=== PATIENT | male | born 1955 | race Caucasian/White ===

== ENCOUNTER 2020-12-14 17:30 | Inpatient (IN) | payer BC, MEDICARE ==
--- NOTE | 2020-12-14 18:58 | XR ---
EXAMINATION TYPE: XR chest 1V portable DATE OF EXAM: 12/14/2020 COMPARISON: NONE HISTORY: Shortness of breath TECHNIQUE: Single frontal view of the chest is obtained. FINDINGS: The cardiomediastinal silhouette and pulmonary vasculature is within normal limits. Bibasilar reticular opacity. Rounded opacity in the right hilar/infrahilar region with air bronchogra ms. The heart border is not effaced. No sizable effusion or pneumothorax. IMPRESSION: 1. Rounded opacity in the right hilar/infrahilar region with air bronchograms could represent pneumon ia in the appropriate clinical setting. Underlying mass is not excluded. 2. Low lung volumes with bibasilar strandy atelectasis.
[2020-12-14 19:15] LABS: Basophils % (A) 0 %; Eosinophils # (A) 0.1 k/uL (0-0.7); Eosinophils % (A) 1 %; HCT 40.4 % (39.0-53.0); HGB 14.5 gm/dL (13.0-17.5); Lymphocytes # (A) 0.9 k/uL (1.0-4.8); Lymphocytes % (A) 21 %; MCH 33.1 pg (25.0-35.0); MCHC 35.9 g/dL (31.0-37.0); MCV 92.2 fL (80.0-100.0); Monocytes # (A) 0.2 k/uL (0-1.0); Monocytes % (A) 5 %; Neutrophils # (A) 3.2 k/uL (1.3-7.7); Neutrophils % (A) 71 %; Platelet Count 105 k/uL (150-450); Poikilocytosis Slight; RBC 4.38 m/uL (4.30-5.90); RDW 13.9 % (11.5-15.5); WBC 4.5 k/uL (3.8-10.6)
[2020-12-14 20:09] LABS: INR 1.1 (<1.2); Partial Thromboplastin Time 22.9 sec (22.0-30.0); Prothrombin Time 11.8 sec (9.0-12.0)
[2020-12-14 20:13] LABS: ALT 40 U/L (4-49); AST 65 U/L (17-59); African American GFR (CKD) >90 (>60 ml/min/1.73 sqM); Albumin 3.7 g/dL (3.5-5.0); Alkaline Phosphatase 42 U/L (38-126); Anion Gap 7 mmol/L; Blood Urea Nitrogen 20 mg/dL (9-20); Calcium 8.2 mg/dL (8.4-10.2); Carbon Dioxide 23 mmol/L (22-30); Chloride 103 mmol/L (98-107); Glucose 113 mg/dL (74-99); Non-African American GFR(CKD) >90 (>60 ml/min/1.73 sqM); Sodium 133 mmol/L (137-145); Total Bilirubin 0.8 mg/dL (0.2-1.3)
[2020-12-14 20:14] LABS: Potassium 4.8 mmol/L (3.5-5.1)
[2020-12-14] MEDS ORDERED: ACETAMINOPHEN TAB 500 MG TAB PO STA (20:30)
[2020-12-14] MEDS ORDERED: NALOXONE 0.4 MG/ML 1 ML VIAL IV PRN (21:21)
--- NOTE | 2020-12-14 21:21 | ED ---
Fever HPI - General Chief Complaint: Fever Stated Complaint: SOB Time Seen by Provider: 12/14/20 17:45 Source: patient Mode of arrival: EMS Limitations: no limitations - History of Present Illness Initial Comments: She is a 65 year old previously healthy male who presents emergency Department with reported shortness of breath, fever, cough and fatigue for 4 days. He was recently traveling across the country on vacation. They do when he returned home he began having covid-like symptoms. Denies any known exposures. Patient has not Covid vaccinated. Patient has not been tested. His daughter is a home care nurse. She came over to the house today to check the patient's vitals. She found him to have oxygen saturation of 80% and therefore she called EMS. Patient does arrive on 4 L saturating 92%. He denies previous history of cardiac or pulmonary issues. Admits to poor appetite and hasn't had anything to eat or drink. No other alleviating, precipitating or modifying factors - Related Data Home Medications Medication Instructions Recorded Confirmed Acetaminophen Tab [Tylenol] 1,000 mg PO TID PRN 12/14/20 12/14/20 Allergies Allergy/AdvReac Type Severity Reaction Status Date / Time dextromethorphan AdvReac Nausea & Verified 12/14/20 23:16 [From NyQuil] Vomiting & Diarrhea doxylamine [From NyQuil] AdvReac Nausea & Verified 12/14/20 23:16 Vomiting & Diarrhea pseudoephedrine [From NyQuil] AdvReac Nausea & Verified 12/14/20 23:16 Vomiting & Diarrhea Review of Systems ROS Statement: Those systems with pertinent positive or pertinent negative responses have been documented in the HPI. ROS Other: All systems not noted in ROS Statement are negative. Past Medical History Past Medical History: Hypertension History of Any Multi-Drug Resistant Organisms: None Reported Additional Past Surgical History / Comment(s): shoulder sx Smoking Status: Never smoker Past Alcohol Use History: Daily Past Drug Use History: None Reported - Past Family History Father Family Medical History: No Reported History, Osteoarthritis (OA) Mother Additional Family Medical History / Comment(s): lung disease General Exam Limitations: no limitations General appearance: alert, in no apparent distress Head exam: Present: atraumatic, normocephalic, normal inspection Eye exam: Present: normal appearance, PERRL, EOMI. Absent: scleral icterus, conjunctival injection, periorbital swelling ENT exam: Present: normal exam, mucous membranes moist Neck exam: Present: normal inspection. Absent: tenderness, meningismus, lymphadenopathy Respiratory exam: Present: normal lung sounds bilaterally, accessory muscle use, other (tachypnia). Absent: respiratory distress, wheezes, rales, rhonchi, stridor Cardiovascular Exam: Present: regular rate, normal rhythm, normal heart sounds. Absent: systolic murmur, diastolic murmur, rubs, gallop, clicks GI/Abdominal exam: Present: soft, normal bowel sounds. Absent: distended, tenderness, guarding, rebound, rigid Extremities exam: Present: normal inspection, full ROM, normal capillary refill. Absent: tenderness, pedal edema, joint swelling, calf tenderness Back exam: Present: normal inspection Neurological exam: Present: alert, oriented X3, CN II-XII intact Psychiatric exam: Present: normal affect, normal mood Skin exam: Present: warm, dry, intact, normal color. Absent: rash Course Vital Signs 12/14/20 12/14/20 12/14/20 17:43 18:23 19:37 Temperature 102.2 F H 102.9 F H Pulse Rate 80 83 Respiratory 18 22 18 Rate Blood Pressure 150/70 115/77 O2 Sat by Pulse 92 L 94 L Oximetry 12/14/20 12/14/20 12/14/20 21:00 22:30 23:30 Temperature 98.4 F Pulse Rate 58 L 61 65 Respiratory 18 18 18 Rate Blood Pressure 126/80 122/69 120/75 O2 Sat by Pulse 94 L 93 L 95 Oximetry 12/15/20 12/15/20 12/15/20 00:13 01:00 02:00 Temperature Pulse Rate 56 L 57 L Respiratory 18 18 18 Rate Blood Pressure 109/74 O2 Sat by Pulse 94 L Oximetry 12/15/20 12/15/20 12/15/20 03:00 04:00 06:05 Temperature 97.6 F Pulse Rate 60 52 L 60 Respiratory 18 18 18 Rate Blood Pressure 124/75 139/79 O2 Sat by Pulse 95 96 97 Oximetry Medical Decision Making - Medical Decision Making Upon arrival patient is placed into room 17. Thorough history and physical exam is performed. Lab studies are conducted. Covid is positive. Chest x-ray demonstrates rotted opacity in the right hilar/infrahilar region with air bronchograms care and can represent pneumonia in the appropriate clinical setting. Patient was given a dose of Decadron and 75 mL of normal saline per hour. I did attempt to get the patient up and ambulate. He does desat to 88%. I recommended admission which the patient did agree to. Spoke with Dr. Hickman who agreed to admit the patient. he is currently awaiting a bed on the floor - Lab Data Result diagrams: 12/16/20 04:54 12/16/20 04:54 Lab Results 12/14/20 12/14/20 12/14/20 Range/Units 18:45 18:45 18:45 WBC 4.5 (3.8-10.6) k/uL RBC 4.38 (4.30-5.90) m/uL Hgb 14.5 (13.0-17.5) gm/dL Hct 40.4 (39.0-53.0) % MCV 92.2 (80.0-100.0) fL MCH 33.1 (25.0-35.0) pg MCHC 35.9 (31.0-37.0) g/dL RDW 13.9 (11.5-15.5) % Plt Count 105 L (150-450) k/uL MPV 11.0 Neutrophils % 71 % Lymphocytes % 21 % Monocytes % 5 % Eosinophils % 1 % Basophils % 0 % Neutrophils # 3.2 (1.3-7.7) k/uL Lymphocytes # 0.9 L (1.0-4.8) k/uL Monocytes # 0.2 (0-1.0) k/uL Eosinophils # 0.1 (0-0.7) k/uL Basophils # 0.0 (0-0.2) k/uL Poikilocytosis Slight PT (9.0-12.0) sec INR (<1.2) APTT (22.0-30.0) sec D-Dimer (<0.60) mg/L FEU Sodium (137-145) mmol/L Potassium (3.5-5.1) mmol/L Chloride (98-107) mmol/L Carbon Dioxide (22-30) mmol/L Anion Gap mmol/L BUN (9-20) mg/dL Creatinine (0.66-1.25) mg/dL Est GFR (CKD-EPI)AfAm (>60 ml/min/1.73 sqM) Est GFR (CKD-EPI)NonAf (>60 ml/min/1.73 sqM) Glucose (74-99) mg/dL Plasma Lactic Acid Mariano 1.1 (0.7-2.0) mmol/L Calcium (8.4-10.2) mg/dL Total Bilirubin (0.2-1.3) mg/dL AST (17-59) U/L ALT (4-49) U/L Alkaline Phosphatase (38-126) U/L Troponin I (0.000-0.034) ng/mL NT-Pro-B Natriuret Pep pg/mL Total Protein (6.3-8.2) g/dL Albumin (3.5-5.0) g/dL Coronavirus (PCR) Detected A (Not Detectd) 12/14/20 12/14/20 12/14/20 Range/Units 18:45 18:45 19:44 WBC (3.8-10.6) k/uL RBC (4.30-5.90) m/uL Hgb (13.0-17.5) gm/dL Hct (39.0-53.0) % MCV (80.0-100.0) fL MCH (25.0-35.0) pg MCHC (31.0-37.0) g/dL RDW (11.5-15.5) % Plt Count (150-450) k/uL MPV Neutrophils % % Lymphocytes % % Monocytes % % Eosinophils % % Basophils % % Neutrophils # (1.3-7.7) k/uL Lymphocytes # (1.0-4.8) k/uL Monocytes # (0-1.0) k/uL Eosinophils # (0-0.7) k/uL Basophils # (0-0.2) k/uL Poikilocytosis PT (9.0-12.0) sec INR (<1.2) APTT (22.0-30.0) sec D-Dimer (<0.60) mg/L FEU Sodium 133 L (137-145) mmol/L Potassium 4.8 (3.5-5.1) mmol/L Chloride 103 (98-107) mmol/L Carbon Dioxide 23 (22-30) mmol/L Anion Gap 7 mmol/L BUN 20 (9-20) mg/dL Creatinine 0.83 (0.66-1.25) mg/dL Est GFR (CKD-EPI)AfAm >90 (>60 ml/min/1.73 sqM) Est GFR (CKD-EPI)NonAf >90 (>60 ml/min/1.73 sqM) Glucose 113 H (74-99) mg/dL Plasma Lactic Acid Mariano (0.7-2.0) mmol/L Calcium 8.2 L (8.4-10.2) mg/dL Total Bilirubin 0.8 (0.2-1.3) mg/dL AST 65 H (17-59) U/L ALT 40 (4-49) U/L Alkaline Phosphatase 42 (38-126) U/L Troponin I 0.024 (0.000-0.034) ng/mL NT-Pro-B Natriuret Pep 73 pg/mL Total Protein 7.0 (6.3-8.2) g/dL Albumin 3.7 (3.5-5.0) g/dL Coronavirus (PCR) (Not Detectd) 12/14/20 12/15/20 12/15/20 Range/Units 19:44 06:59 06:59 WBC 4.4 (3.8-10.6) k/uL RBC 4.51 (4.30-5.90) m/uL Hgb 14.8 (13.0-17.5) gm/dL Hct 42.3 (39.0-53.0) % MCV 93.8 (80.0-100.0) fL MCH 32.7 (25.0-35.0) pg MCHC 34.9 (31.0-37.0) g/dL RDW 13.7 (11.5-15.5) % Plt Count 182 D (150-450) k/uL MPV 7.8 Neutrophils % 71 % Lymphocytes % 24 % Monocytes % 3 % Eosinophils % 0 % Basophils % 0 % Neutrophils # 3.1 (1.3-7.7) k/uL Lymphocytes # 1.1 (1.0-4.8) k/uL Monocytes # 0.2 (0-1.0) k/uL Eosinophils # 0.0 (0-0.7) k/uL Basophils # 0.0 (0-0.2) k/uL Poikilocytosis PT 11.8 (9.0-12.0) sec INR 1.1 (<1.2) APTT 22.9 (22.0-30.0) sec D-Dimer 0.68 H (<0.60) mg/L FEU Sodium 138 (137-145) mmol/L Potassium 4.2 (3.5-5.1) mmol/L Chloride 104 (98-107) mmol/L Carbon Dioxide 25 (22-30) mmol/L Anion Gap 9 mmol/L BUN 23 H (9-20) mg/dL Creatinine 0.80 (0.66-1.25) mg/dL Est GFR (CKD-EPI)AfAm >90 (>60 ml/min/1.73 sqM) Est GFR (CKD-EPI)NonAf >90 (>60 ml/min/1.73 sqM) Glucose 149 H (74-99) mg/dL Plasma Lactic Acid Mariano (0.7-2.0) mmol/L Calcium 8.3 L (8.4-10.2) mg/dL Total Bilirubin (0.2-1.3) mg/dL AST (17-59) U/L ALT (4-49) U/L Alkaline Phosphatase (38-126) U/L Troponin I (0.000-0.034) ng/mL NT-Pro-B Natriuret Pep pg/mL Total Protein (6.3-8.2) g/dL Albumin (3.5-5.0) g/dL Coronavirus (PCR) (Not Detectd) Disposition Clinical Impression: Pyrexia, Shortness of breath, COVID-19, Hypoxia Disposition: ADMITTED IP TO THIS [facility] Condition: Stable Decision to Admit Reason: Admit from EC Decision Date: 12/14/20 Decision Time: 21:21
[2020-12-14] MEDS: SODIUM CHLORIDE 0.9% 1,000 ML IV SCH (22:09)
[2020-12-14] MEDS: DEXAMETHASONE SOD PHOSPHATE 10 MG/ML 1 ML VIAL IV SCH (22:09)
--- NOTE | 2020-12-15 01:40 | P.HPIM ---
History of Present Illness H&P Date: 12/15/20 The patient is a 65-year-old male with a PMH of hypertension (diet controlled) who presents to the emergency room with complaints of shortness of breath, fever, and lethargy. The patient reports that his symptoms started roughly 4 days ago after he returned from vacation and when she traveled across the country via car. He reports not having the vaccine. The patient's daughter is a home care nurse who checked his vitals and found him to be hypoxic with SpO2 in the 80s, at which time she activated EMS. The patient reports anorexia since onset of his symptoms. Also reports a nonproductive cough with chills and generalized weakness and lethargy. Denied chest pain, nausea, vomiting, diarrh ea. Denied headaches, focal weakness, numbness, tingling. Chest x-ray in the emergency room was consistent with COVID pneumonia. Laboratory evaluation was remarkable for platelets 105, d-dimer 0.68, lactic acid 1.1, AST 65, and coronavirus PCR positive. Review of systems: Pertinent positives and negatives as discussed in HPI, a complete review of systems was performed and all other systems are negative. Physical examination: General: non toxic, no distress, appears at stated age, overweight Derm: no unusual rashes/lesions no unusual ecchymoses, warm, dry Head: atraumatic, normocephalic, symmetric Eyes: EOMI, no lid lag, anicteric sclera, pupils equal round reactive to light ENT: Nose and ears atraumatic, no thrush, no pharyngeal erythema Neck: No thyromegaly, no cervical lymphadenopathy, trachea midline, supple Mouth: no lip lesion, mucus membranes moist Cardiovascular: S1S2 reg, no murmur, positive posterior tibial pulse bilateral, no edema, capillary refill less than 2 seconds Lungs: Bilateral scattered rhonchi, no rales or wheezing, no accessory muscle use Abdominal: soft, nontender to palpation, no guarding, no appreciable organomegaly, normal bowel sounds Ext: no gross muscle atrophy, muscle strength 5 out of 5 in all 4 extremities grossly, no contractures, Neuro: CN II-XI grossly intact, light touch intact all 4 extremities, finger to nose within normal limits, Psych: Alert, oriented, appropriate affect Assessment/plan COVID pneumonia and unvaccinated patient with acute hypoxic respiratory failure -Continue with Decadron -Zinc, vitamin C, vitamin D, melatonin -Pulmonary consult -Supplemental oxygen Thrombocytopenia -Suspected secondary to ongoing infection -Monitor for now DVT prophylaxis -Lovenox The patient is admitted with an anticipated less than 2 midnight stay for evaluation of COVID CODE STATUS:Full Code Discussed with: Patient Anticipated discharge date: 1-[address]: Home Past Medical History Past Medical History: Hypertension History of Any Multi-Drug Resistant Organisms: None Reported Additional Past Surgical History / Comment(s): shoulder sx Smoking Status: Never smoker Past Alcohol Use History: Daily Past Drug Use History: None Reported - Past Family History Father Family Medical History: No Reported History Medications and Allergies Home Medications Medication Instructions Recorded Confirmed Type Acetaminophen Tab [Tylenol] 1,000 mg PO TID PRN 12/14/20 12/14/20 History Allergies Allergy/AdvReac Type Severity Reaction Status Date / Time dextromethorphan AdvReac Nausea & Verified 12/14/20 23:16 [From NyQuil] Vomiting & Diarrhea doxylamine [From NyQuil] AdvReac Nausea & Verified 12/14/20 23:16 Vomiting & Diarrhea pseudoephedrine [From NyQuil] AdvReac Nausea & Verified 12/14/20 23:16 Vomiting & Diarrhea Physical Exam Vitals: Vital Signs Temp Pulse Resp BP Pulse Ox 12/15/20 00:13 18 12/14/20 23:30 98.4 F 65 18 120/75 95 12/14/20 22:30 61 18 122/69 93 L 12/14/20 21:00 58 L 18 126/80 94 L 12/14/20 19:37 102.9 F H 83 18 115/77 94 L 12/14/20 18:23 22 12/14/20 17:43 102.2 F H 80 18 150/70 92 L Intake and Output 12/14/20 12/14/20 12/15/20 14:59 22:59 06:59 Other: Weight 88.904 kg Results CBC & Chem 7: 12/14/20 18:45 12/14/20 19:44 Labs: Abnormal Lab Results - Last 24 Hours (Table) 12/14/20 12/14/20 12/14/20 Range/Units 18:45 18:45 19:44 Plt Count 105 L (150-450) k/uL Lymphocytes # 0.9 L (1.0-4.8) k/uL D-Dimer (<0.60) mg/L FEU Sodium 133 L (137-145) mmol/L Glucose 113 H (74-99) mg/dL Calcium 8.2 L (8.4-10.2) mg/dL AST 65 H (17-59) U/L Coronavirus (PCR) Detected A (Not Detectd) 12/14/20 Range/Units 19:44 Plt Count (150-450) k/uL Lymphocytes # (1.0-4.8) k/uL D-Dimer 0.68 H (<0.60) mg/L FEU Sodium (137-145) mmol/L Glucose (74-99) mg/dL Calcium (8.4-10.2) mg/dL AST (17-59) U/L Coronavirus (PCR) (Not Detectd)
[2020-12-15 07:32] LABS: Basophils % (A) 0 %; Eosinophils % (A) 0 %; HCT 42.3 % (39.0-53.0); HGB 14.8 gm/dL (13.0-17.5); Lymphocytes # (A) 1.1 k/uL (1.0-4.8); Lymphocytes % (A) 24 %; MCH 32.7 pg (25.0-35.0); MCHC 34.9 g/dL (31.0-37.0); MCV 93.8 fL (80.0-100.0); Mean Platelet Volume 7.8; Monocytes # (A) 0.2 k/uL (0-1.0); Monocytes % (A) 3 %; Neutrophils # (A) 3.1 k/uL (1.3-7.7); Neutrophils % (A) 71 %; RBC 4.51 m/uL (4.30-5.90); RDW 13.7 % (11.5-15.5); WBC 4.4 k/uL (3.8-10.6)
[2020-12-15 07:49] LABS: African American GFR (CKD) >90 (>60 ml/min/1.73 sqM); Anion Gap 9 mmol/L; Blood Urea Nitrogen 23 mg/dL (9-20); Calcium 8.3 mg/dL (8.4-10.2); Carbon Dioxide 25 mmol/L (22-30); Chloride 104 mmol/L (98-107); Glucose 149 mg/dL (74-99); Non-African American GFR(CKD) >90 (>60 ml/min/1.73 sqM); Potassium 4.2 mmol/L (3.5-5.1); Sodium 138 mmol/L (137-145)
[2020-12-15 07:55] LABS: Platelet Count 182 k/uL (150-450)
[2020-12-15] MEDS: ASCORBIC ACID 500 MG TAB PO SCH (09:23)
[2020-12-15] MEDS: CHOLECALCIFEROL 25 MCG (1000 IU) TABLET PO SCH (09:23)
[2020-12-15] MEDS: ZINC SULFATE 220 MG CAP PO SCH (09:23)
[2020-12-15] MEDS: ENOXAPARIN 40 MG/0.4 ML SYRINGE SQ SCH (09:24)
[2020-12-15] MEDS: DEXAMETHASONE SOD PHOSPHATE 10 MG/ML 1 ML VIAL IV SCH (09:24)
[2020-12-15] MEDS ORDERED: RX INFO: IV CONTRAST WAS GIVEN 1 EACH MISC MISCELLANE PRN (10:41)
--- NOTE | 2020-12-15 11:45 | P.CNPUL ---
History of Present Illness Consult date: 12/15/20 Requesting physician: Saba Hickman Reason for consult: dyspnea, hypoxemia, pneumonia, abnormal CXR/CT Chief complaint: Dyspnea, hypoxia, COVID-19 pneumonia History of present illness: 65-year-old white male patient with past medical history of hypertension, former smoker, patient quit smoking back in 1983, presented to the emergency department on the 12/14/2020 per EMS with reported worsening shortness of breath, fever, cough, and fatigue for the last 4 days. Patient was recently traveling in his car across the country on vacation. When he returned home he began having cold-like symptoms. He denied any known exposures. Patient was not COVID-19 vaccinated. Patient's daughter is a home care nurse, she came over to check on her dad yesterday and she took his vitals and found that his pulse ox was 80% on room air and had called the EMS. Patient was placed on supplemental oxygen at 4 L and his pulse ox is around 92%, chest x-ray showed rounded opacity in the right hilar/infrahilar region with air bronchograms that could represent pneumonia in the appropriate clinical setting, underlying mass could not be completely excluded, low lung volumes with bibasilar strandy atelectasis. Patient was febrile on presentation with a temp of 102F. Admission lab work showed white blood cell count 4.5, hemoglobin of 14.5, platelet count is 105, lymphocytes 0.9, d-dimer 0.68, sodium is 133, rest of electrolytes and renal profile were unremarkable, AST was 65, ALT was 40, alkaline phosphatase was 42, troponin was 0.0-4, proBNP was 73. COVID-19 PCR was positive. Patient was given first dose of Remdesivir in the emergency department, he was started on Decadron and prophylactic Lovenox. He appears very weak, but no acute distress, he is receiving IV hydration with 0.9 at a rate of 75 ML per hour, vitamin C, zinc and vitamin D have been started as well. Review of Systems All systems: negative Constitutional: Reports fatigue, Reports weakness, Denies chills, Denies fever Eyes: denies blurred vision, denies pain Ears, nose, mouth and throat: Denies headache, Denies sore throat Cardiovascular: Denies chest pain, Denies shortness of breath Respiratory: Reports dyspnea, Denies cough Gastrointestinal: Denies abdominal pain, Denies diarrhea, Denies nausea, Denies vomiting Musculoskeletal: Denies myalgias Integumentary: Denies pruritus, Denies rash Neurological: Denies numbness, Denies weakness Psychiatric: Denies anxiety, Denies depression Endocrine: Denies fatigue, Denies weight change Past Medical History Past Medical History: Hypertension History of Any Multi-Drug Resistant Organisms: None Reported Past Surgical History: Hernia Repair Additional Past Surgical History / Comment(s): shoulder sx Past Anesthesia/Blood Transfusion Reactions: No Reported Reaction Past Psychological History: No Psychological Hx Reported Smoking Status: Former smoker Past Alcohol Use History: Daily Past Drug Use History: None Reported - Past Family History Father Family Medical History: No Reported History, Osteoarthritis (OA) Mother Additional Family Medical History / Comment(s): lung disease Medications and Allergies Home Medications Medication Instructions Recorded Confirmed Type Acetaminophen Tab [Tylenol] 1,000 mg PO TID PRN 12/14/20 12/14/20 History Allergies Allergy/AdvReac Type Severity Reaction Status Date / Time dextromethorphan AdvReac Nausea & Verified 12/14/20 23:16 [From NyQuil] Vomiting & Diarrhea doxylamine [From NyQuil] AdvReac Nausea & Verified 12/14/20 23:16 Vomiting & Diarrhea pseudoephedrine [From NyQuil] AdvReac Nausea & Verified 12/14/20 23:16 Vomiting & Diarrhea Physical Exam Vitals: Vital Signs Temp Pulse Resp BP Pulse Ox 12/15/20 08:00 17 12/15/20 06:05 97.6 F 60 18 139/79 97 12/15/20 04:00 52 L 18 124/75 96 12/15/20 03:00 60 18 95 12/15/20 02:00 57 L 18 12/15/20 01:00 56 L 18 109/74 94 L 12/15/20 00:13 18 12/14/20 23:30 98.4 F 65 18 120/75 95 12/14/20 22:30 61 18 122/69 93 L 12/14/20 21:00 58 L 18 126/80 94 L 12/14/20 19:37 102.9 F H 83 18 115/77 94 L 12/14/20 18:23 22 12/14/20 17:43 102.2 F H 80 18 150/70 92 L Intake and Output 12/14/20 12/15/20 12/15/20 22:59 06:59 14:59 Other: Weight 88.904 kg 88.904 kg GENERAL EXAM: Alert, pleasant, 65-year-old white male, on 2 L of oxygen a pulse ox of 92%, appears fatigued and weak but no acute distress was noted HEAD: Normocephalic/atraumatic. EYES: Normal reaction of pupils, equal size. Conjunctiva pink, sclera white. NOSE: Clear with pink turbinates. THROAT: No erythema or exudates. NECK: No masses, no JVD, no thyroid enlargement, no adenopathy. CHEST: No chest wall deformity. Symmetrical expansion. LUNGS: Equal air entry with diffuse crackles CVS: Regular rate and rhythm, normal S1 and S2, no gallops, no murmurs, no rubs ABDOMEN: Soft, nontender. No hepatosplenomegaly, normal bowel sounds, no guarding or rigidity. EXTREMITIES: No clubbing, no edema, no cyanosis, 2+ pulses and upper and lower extremities. MUSCULOSKELETAL: Muscle strength and tone normal. SPINE: No scoliosis or deformity SKIN: No rashes CENTRAL NERVOUS SYSTEM: Alert and oriented -3. No focal deficits, tone is normal in all 4 extremities. PSYCHIATRIC: Alert and oriented -3. Appropriate affect. Intact judgment and insight. Results - Laboratory Findings CBC and BMP: 12/15/20 06:59 12/15/20 06:59 PT/INR, D-dimer PT 11.8 sec (9.0-12.0) 12/14/20 19:44 INR 1.1 (<1.2) 12/14/20 19:44 D-Dimer 0.68 mg/L FEU (<0.60) H 12/14/20 19:44 Abnormal lab findings: Abnormal Labs 12/14/20 12/14/20 12/14/20 18:45 18:45 19:44 Plt Count 105 L Lymphocytes # 0.9 L D-Dimer Sodium 133 L BUN Glucose 113 H Calcium 8.2 L AST 65 H Coronavirus (PCR) Detected A 12/14/20 12/15/20 19:44 06:59 Plt Count Lymphocytes # D-Dimer 0.68 H Sodium BUN 23 H Glucose 149 H Calcium 8.3 L AST Coronavirus (PCR) - Diagnostic Findings Chest x-ray: report reviewed, image reviewed Assessment and Plan Plan: Assessment: #1. Acute hypoxic respiratory failure related to acute COVID-19 pneumonia, with onset of symptoms 4 days ago, the patient was started on Remdesivir on 12/14/2020. Patient did not receive COVID-19 vaccination #2. Rounded opacity in the right hilar/infrahilar region rule out possibility of mass, CT chest with contrast will be completed #3. Former smoker, in the remote past, in remission since 1983 #4. Hypertension Plan: We'll continue Remdesivir, today's date 2 of treatment Continue Decadron Continue prophylactic dose Lovenox Follow-up d-dimer inflammatory markers tomorrow Obtain CT chest with IV contrast to characterize the right hilar rounded opacity cannot completely rule out lung mass Titrate FiO2 to keep O2 sats ration is at or above 90% Continue to closely follow his clinical course I performed a history & physical examination of the patient and discussed their management with my nurse practitioner, Madeleine Bunch. I reviewed the nurse practitioner's note and agree with the documented findings and plan of care. Lung sounds are positive for crackles throughout the lung baltazar. The findings and the impression was discussed with the patient. I attest to the documentation by the nurse practitioner. , Time with Patient: Greater than 30
[2020-12-15] MEDS ORDERED: REMDESIVIR 200 MG in SODIUM CHLORIDE 0.9% 250 ML IVPB ONE (12:00)
--- NOTE | 2020-12-15 12:40 | CT ---
EXAMINATION TYPE: CT chest w con DATE OF EXAM: 12/15/2020 COMPARISON: Chest x-ray from yesterday. HISTORY: Pneumonia, abnormal x-ray. CT DLP: 392.8 mGycm. Automated Exposure Control for Dose Reduction was Utilized. TECHNIQUE: CT scan of the thorax is performed following with IV Contrast, patient injected with 100 mL of Isovue 300. FINDINGS: LUNGS: Somewhat low lung volumes redemonstrated. Multifocal areas of groundglass opacity bilaterally greatest in the periphery are better seen on CT versus x-ray. No pleural effusion or pneumothorax se en bilaterally. No suspicious pulmonary mass identified the particular attention to right infrahilar region. Finding corresponds to adenopathy on CT. Few tiny nodules some which are calcified for refere nce axial image 25 in the periphery. MEDIASTINUM: There are prominent enlarged bilateral hilar lymph nodes. Are prominent but subcentimete r mediastinal lymph nodes. No cardiomegaly or pericardial effusion is seen. Coronary artery calcific ation is present which is noted marked underlying coronary artery disease. Satisfactory enhancement o f the aorta without aneurysm or dissection. OTHER: Liver is diffusely low density consistent with diffuse fatty infiltration. IMPRESSION: Low lung volumes with bilateral multifocal opacities consistent with known covid-19 infec tion. No suspicious pulmonary masses. Reactive thoracic adenopathy noted.
[2020-12-15] MEDS: SODIUM CHLORIDE 0.9% 1,000 ML IV SCH (16:50)
[2020-12-15] MEDS: MELATONIN 5 MG TABLET PO SCH (21:21)
[2020-12-16] MEDS: SODIUM CHLORIDE 0.9% 1,000 ML IV SCH ×2 (00:22→15:11)
[2020-12-16] MEDS: ACETAMINOPHEN TAB 325 MG TAB PO PRN (02:39)
[2020-12-16 06:04] LABS: ALT 40 U/L (4-49); AST 54 U/L (17-59); African American GFR (CKD) >90 (>60 ml/min/1.73 sqM); Albumin 3.3 g/dL (3.5-5.0); Albumin/Globulin Ratio 1.2; Alkaline Phosphatase 49 U/L (38-126); Anion Gap 6 mmol/L; Blood Urea Nitrogen 23 mg/dL (9-20); C Reactive Protein 3.7 mg/dL (<1.0); Calcium 8.2 mg/dL (8.4-10.2); Carbon Dioxide 25 mmol/L (22-30); Chloride 103 mmol/L (98-107); Globulin 2.8 g/dL; Glucose 123 mg/dL (74-99); LDH 725 U/L (313-618); Magnesium 2.3 mg/dL (1.6-2.3); Non-African American GFR(CKD) 84 (>60 ml/min/1.73 sqM); Potassium 3.8 mmol/L (3.5-5.1); Sodium 134 mmol/L (137-145); Total Bilirubin 0.5 mg/dL (0.2-1.3); Total Protein 6.1 g/dL (6.3-8.2)
[2020-12-16] MEDS: CHOLECALCIFEROL 25 MCG (1000 IU) TABLET PO SCH (08:43)
[2020-12-16] MEDS: ASCORBIC ACID 500 MG TAB PO SCH (08:43)
[2020-12-16] MEDS: ZINC SULFATE 220 MG CAP PO SCH (08:43)
[2020-12-16] MEDS: ENOXAPARIN 40 MG/0.4 ML SYRINGE SQ SCH (08:44)
[2020-12-16] MEDS: DEXAMETHASONE SOD PHOSPHATE 10 MG/ML 1 ML VIAL IV SCH (08:44)
[2020-12-16 09:55] LABS: Basophils # (A) 0 X 10*3/uL (0.00-0.10); Basophils % (A) 0 %; Eosinophils # (A) 0 X 10*3/uL (0.04-0.35); Eosinophils % (A) 0 %; HCT 39.2 % (39.6-50.0); HGB 13.2 g/dL (13.0-17.0); Lymphocytes # (A) 1.33 X 10*3/uL (0.90-5.00); Lymphocytes % (A) 18.9 %; MCH 31.5 pg (27.0-32.0); MCHC 33.7 g/dL (32.0-37.0); MCV 93.6 fL (80.0-97.0); Monocytes # (A) 0.29 X 10*3/uL (0.20-1.00); Monocytes % (A) 4.1 %; Neutrophils # (A) 5.36 X 10*3/uL (1.80-7.70); Neutrophils % (A) 76.4 %; Platelet Count 183 X 10*3/uL (140-440); RBC 4.19 X 10*6/uL (4.40-5.60); RDW 13.2 % (11.5-14.5); WBC 7.02 X 10*3/uL (4.50-10.00)
--- NOTE | 2020-12-16 11:53 | P.PN ---
Subjective Progress Note Date: 12/16/20 Principal diagnosis: Dyspnea, hypoxia, COVID-19 pneumonia 65-year-old white male patient with past medical history of hypertension, former smoker, patient quit smoking back in 1983, presented to the emergency department on the 12/14/2020 per EMS with reported worsening shortness of breath, fever, cough, and fatigue for the last 4 days. Patient was recently traveling in his car across the country on vacation. When he returned home he began having cold- like symptoms. He denied any known exposures. Patient was not COVID-19 vaccinated. Patient's daughter is a home care nurse, she came over to check on her dad yesterday and she took his vitals and found that his pulse ox was 80% on room air and had called the EMS. Patient was placed on supplemental oxygen at 4 L and his pulse ox is around 92%, chest x-ray showed rounded opacity in the right hilar/infrahilar region with air bronchograms that could represent pneumonia in the appropriate clinical setting, underlying mass could not be completely excluded, low lung volumes with bibasilar strandy atelectasis. Patient was febrile on presentation with a temp of 102F. Admission lab work showed white blood cell count 4.5, hemoglobin of 14.5, platelet count is 105, lymphocytes 0.9, d-dimer 0.68, sodium is 133, rest of electrolytes and renal profile were unremarkable, AST was 65, ALT was 40, alkaline phosphatase was 42, troponin was 0.0-4, proBNP was 73. COVID-19 PCR was positive. Patient was given first dose of Remdesivir in the emergency department, he was started on Decadron and prophylactic Lovenox. He appears very weak, but no acute distress, he is receiving IV hydration with 0.9 at a rate of 75 ML per hour, vitamin C, zinc and vitamin D have been started as well. On 12/16/2020 patient seen in follow-up on medical surgical floor, he is resting in bed, he appears very weak, but no acute distress, he remains on 2 L of oxygen with a pulse ox of 93%, he did have a fever overnight, with a temp of 102.4F, patient was started on Remdesivir which he has refused. His is also now hospitalized in another part the hospital with COVID-19 pneumonia, and apparently their daughter had told her parents not to take Remdesivir. Patient is on Decadron 6 blood gram daily, he is on Lovenox 40 mg daily, CT chest with IV contrast has been completed showing no suspicious pulmonary masses, low lung volumes, with bilateral multifocal opacities consistent with known COVID-19 infection. There is reactive thoracic adenopathy noted. Today's labs have been reviewed, white blood cell count 7.02, hemoglobin is 13.2, d-dimer 0.50, sodium is 134, and requested electrolytes were within normal limits, B1 is 23 creatinine 0.95, LFTs were within normal limits, LDH 725, CRP was 3.7 Objective - Vital Signs Vital signs: Vital Signs Temp 97.6 F 12/16/20 07:00 Pulse 68 12/16/20 07:00 Resp 18 12/16/20 08:00 BP 119/79 12/16/20 07:00 Pulse Ox 93 L 12/16/20 07:00 Intake & Output 12/15/20 12/16/20 12/16/20 18:59 06:59 18:59 Intake Total 400 Output Total 0 Balance 0 400 Weight 88.904 kg Intake: Oral 400 Output: Emesis 0 Other: Voiding Method Toilet # Voids 3 1 # Bowel Movements 3 - Exam GENERAL EXAM: Alert, pleasant, 65-year-old white male, on 2 L of oxygen a pulse ox of 92%, appears fatigued and weak but no acute distress was noted HEAD: Normocephalic/atraumatic. EYES: Normal reaction of pupils, equal size. Conjunctiva pink, sclera white. NOSE: Clear with pink turbinates. THROAT: No erythema or exudates. NECK: No masses, no JVD, no thyroid enlargement, no adenopathy. CHEST: No chest wall deformity. Symmetrical expansion. LUNGS: Equal air entry with diffuse crackles CVS: Regular rate and rhythm, normal S1 and S2, no gallops, no murmurs, no rubs ABDOMEN: Soft, nontender. No hepatosplenomegaly, normal bowel sounds, no guarding or rigidity. EXTREMITIES: No clubbing, no edema, no cyanosis, 2+ pulses and upper and lower extremities. MUSCULOSKELETAL: Muscle strength and tone normal. SPINE: No scoliosis or deformity SKIN: No rashes CENTRAL NERVOUS SYSTEM: Alert and oriented -3. No focal deficits, tone is normal in all 4 extremities. PSYCHIATRIC: Alert and oriented -3. Appropriate affect. Intact judgment and insight. - Labs CBC & Chem 7: 12/16/20 04:54 12/16/20 04:54 Labs: Abnormal Lab Results - Last 24 Hours (Table) 12/16/20 12/16/20 Range/Units 04:54 04:54 RBC 4.19 L (4.40-5.60) X 10*6/uL Hct 39.2 L (39.6-50.0) % Eosinophils # 0 L (0.04-0.35) X 10*3/uL Sodium 134 L (137-145) mmol/L BUN 23 H (9-20) mg/dL Glucose 123 H (74-99) mg/dL Calcium 8.2 L (8.4-10.2) mg/dL Lactate Dehydrogenase 725 H (313-618) U/L C-Reactive Protein 3.7 H (<1.0) mg/dL Total Protein 6.1 L (6.3-8.2) g/dL Albumin 3.3 L (3.5-5.0) g/dL Assessment and Plan Plan: Assessment: #1. Acute hypoxic respiratory failure related to acute COVID-19 pneumonia, with onset of symptoms 4 days ago, Patient did not Remdesivir was ordered on 12/16/2020 which the patient had refused. Did not receive COVID-19 vaccination #2. Rounded opacity in the right hilar/infrahilar region rule out possibility of mass, CT chest with contrast showing no suspicious pulmonary masses, reactive thoracic adenopathy, and bilateral multifocal opacities consistent with COVID-19 pneumonia #3. Former smoker, in the remote past, in remission since 1983 #4. Hypertension Plan: Patient has refused to Remdesivir Continue Decadron Continue prophylactic dose Lovenox Follow-up d-dimer inflammatory markers noted CT chest with contrast did not show any suspicious pulmonary masses, he did not bilateral infiltrates consistent with COVID-19 pneumonia Titrate FiO2 to keep O2 sats ration is at or above 90% Continue to closely follow his clinical course I performed a history & physical examination of the patient and discussed their management with my nurse practitioner, Madeleine Bunch. I reviewed the nurse practitioner's note and agree with the documented findings and plan of care. Lung sounds are positive for crackles throughout the lung baltazar. The findings and the impression was discussed with the patient. I attest to the documentation by the nurse practitioner. , Time with Patient: Less than 30
[2020-12-16] MEDS ORDERED: REMDESIVIR 100 MG in SODIUM CHLORIDE 0.9% 250 ML IVPB SCH (12:00)
--- NOTE | 2020-12-16 13:43 | P.PN ---
Subjective Progress Note Date: 12/16/20 Patient has increased work of breathing today, feels more dyspneic with exertion. Oxygen requirement is stable. Computed tomography scan done yesterday did demonstrate bilateral opacities consistent with atypical infections Covid 19, no right hilar masses. Objective - Vital Signs Vital signs: Vital Signs Temp 97.6 F 12/16/20 07:00 Pulse 68 12/16/20 07:00 Resp 18 12/16/20 08:00 BP 119/79 12/16/20 07:00 Pulse Ox 93 L 12/16/20 07:00 Intake & Output 12/15/20 12/16/20 12/16/20 18:59 06:59 18:59 Intake Total 400 Output Total 0 Balance 0 400 Weight 88.904 kg Intake: Oral 400 Output: Emesis 0 Other: Voiding Method Toilet # Voids 3 1 # Bowel Movements 3 - Exam Gen: awake, alert HEENT: normocephalic, atraumatic, good hearing acuity, moist mucous membranes Resp: Impaired air exchange, increased work of breathing, symmetric chest expansion CVS: good distal perfusion x 4, GI: soft, NTTP, ND : no SPT, no CVAT, bingham catheter not present MSK: no pitting edema, no clubbing Neuro: non-focal, moving all extremities Psych: cooperative, euthymic mood - Labs CBC & Chem 7: 12/16/20 04:54 12/16/20 04:54 Labs: Abnormal Lab Results - Last 24 Hours (Table) 12/16/20 12/16/20 Range/Units 04:54 04:54 RBC 4.19 L (4.40-5.60) X 10*6/uL Hct 39.2 L (39.6-50.0) % Eosinophils # 0 L (0.04-0.35) X 10*3/uL Sodium 134 L (137-145) mmol/L BUN 23 H (9-20) mg/dL Glucose 123 H (74-99) mg/dL Calcium 8.2 L (8.4-10.2) mg/dL Lactate Dehydrogenase 725 H (313-618) U/L C-Reactive Protein 3.7 H (<1.0) mg/dL Total Protein 6.1 L (6.3-8.2) g/dL Albumin 3.3 L (3.5-5.0) g/dL Assessment and Plan Assessment: COVID pneumonia and unvaccinated patient with acute hypoxic respiratory failure -Continue with Decadron -Zinc, vitamin C, vitamin D, melatonin -Pulmonary consult -Supplemental oxygen -Pro calcitonin pending -Follow inflammatory labs -Patient refused remdesivir DVT prophylaxis -Lovenox The patient is admitted with an anticipated less than 2 midnight stay for evaluation of COVID CODE STATUS:Full Code Discussed with: Patient Anticipated discharge date: 1-[address]: Home
[2020-12-16] MEDS: MELATONIN 5 MG TABLET PO SCH (20:34)
[2020-12-17] MEDS: ACETAMINOPHEN TAB 325 MG TAB PO PRN (01:41)
[2020-12-17] MEDS: SODIUM CHLORIDE 0.9% 1,000 ML IV SCH ×2 (02:46→18:23)
[2020-12-17] MEDS: ASCORBIC ACID 500 MG TAB PO SCH (08:21)
[2020-12-17] MEDS: ENOXAPARIN 40 MG/0.4 ML SYRINGE SQ SCH (08:21)
[2020-12-17] MEDS: ZINC SULFATE 220 MG CAP PO SCH (08:21)
[2020-12-17] MEDS: CHOLECALCIFEROL 25 MCG (1000 IU) TABLET PO SCH (08:21)
[2020-12-17] MEDS: DEXAMETHASONE SOD PHOSPHATE 10 MG/ML 1 ML VIAL IV SCH (08:22)
--- NOTE | 2020-12-17 12:12 | P.PN ---
Subjective Progress Note Date: 12/17/20 Principal diagnosis: Dyspnea, hypoxia, COVID-19 pneumonia 65-year-old white male patient with past medical history of hypertension, former smoker, patient quit smoking back in 1983, presented to the emergency department on the 12/14/2020 per EMS with reported worsening shortness of breath, fever, cough, and fatigue for the last 4 days. Patient was recently traveling in his car across the country on vacation. When he returned home he began having cold- like symptoms. He denied any known exposures. Patient was not COVID-19 vaccinated. Patient's daughter is a home care nurse, she came over to check on her dad yesterday and she took his vitals and found that his pulse ox was 80% on room air and had called the EMS. Patient was placed on supplemental oxygen at 4 L and his pulse ox is around 92%, chest x-ray showed rounded opacity in the right hilar/infrahilar region with air bronchograms that could represent pneumonia in the appropriate clinical setting, underlying mass could not be completely excluded, low lung volumes with bibasilar strandy atelectasis. Patient was febrile on presentation with a temp of 102F. Admission lab work showed white blood cell count 4.5, hemoglobin of 14.5, platelet count is 105, lymphocytes 0.9, d-dimer 0.68, sodium is 133, rest of electrolytes and renal profile were unremarkable, AST was 65, ALT was 40, alkaline phosphatase was 42, troponin was 0.0-4, proBNP was 73. COVID-19 PCR was positive. Patient was given first dose of Remdesivir in the emergency department, he was started on Decadron and prophylactic Lovenox. He appears very weak, but no acute distress, he is receiving IV hydration with 0.9 at a rate of 75 ML per hour, vitamin C, zinc and vitamin D have been started as well. On 12/16/2020 patient seen in follow-up on medical surgical floor, he is resting in bed, he appears very weak, but no acute distress, he remains on 2 L of oxygen with a pulse ox of 93%, he did have a fever overnight, with a temp of 102.4F, patient was started on Remdesivir which he has refused. His is also now hospitalized in another part the hospital with COVID-19 pneumonia, and apparently their daughter had told her parents not to take Remdesivir. Patient is on Decadron 6 blood gram daily, he is on Lovenox 40 mg daily, CT chest with IV contrast has been completed showing no suspicious pulmonary masses, low lung volumes, with bilateral multifocal opacities consistent with known COVID-19 infection. There is reactive thoracic adenopathy noted. Today's labs have been reviewed, white blood cell count 7.02, hemoglobin is 13.2, d-dimer 0.50, sodium is 134, and requested electrolytes were within normal limits, B1 is 23 creatinine 0.95, LFTs were within normal limits, LDH 725, CRP was 3.7 On 12/17/2020 patient seen in follow-up on medical surgical floor. He is afebrile, looks very weak, overall he looks very fatigued, does not appear to be in acute respiratory distress, he is currently still on 2 L of oxygen with a pulse ox between 88-92%, his T-max in the last 24 hours is 100.9F. Patient has refused Remdesivir, he remains on Decadron 6 mg daily. No new chest x-ray today, labs are pending for today. Denies any chest discomfort, no hemoptysis, he remains on Lovenox 40 mg daily, he is on COVID-19 vitamins, he isn't 0.9 normal seen at a rate of 75 ML per hour. Objective - Vital Signs Vital signs: Vital Signs Temp 99.1 F 12/17/20 08:00 Pulse 75 12/17/20 08:00 Resp 20 12/17/20 08:00 BP 129/77 12/17/20 08:00 Pulse Ox 88 L 12/17/20 08:00 Intake & Output 12/16/20 12/17/20 12/17/20 18:59 06:59 18:59 Intake Total 1180 Balance 1180 Intake: Oral 1180 Other: Voiding Method Toilet Toilet # Voids 1 3 - Exam GENERAL EXAM: Alert, pleasant, 65-year-old white male, on 2 L of oxygen a pulse ox of 88-92%, appears fatigued and weak but no acute distress was noted HEAD: Normocephalic/atraumatic. EYES: Normal reaction of pupils, equal size. Conjunctiva pink, sclera white. NOSE: Clear with pink turbinates. THROAT: No erythema or exudates. NECK: No masses, no JVD, no thyroid enlargement, no adenopathy. CHEST: No chest wall deformity. Symmetrical expansion. LUNGS: Equal air entry with diffuse crackles CVS: Regular rate and rhythm, normal S1 and S2, no gallops, no murmurs, no rubs ABDOMEN: Soft, nontender. No hepatosplenomegaly, normal bowel sounds, no guarding or rigidity. EXTREMITIES: No clubbing, no edema, no cyanosis, 2+ pulses and upper and lower extremities. MUSCULOSKELETAL: Muscle strength and tone normal. SPINE: No scoliosis or deformity SKIN: No rashes CENTRAL NERVOUS SYSTEM: Alert and oriented -3. No focal deficits, tone is normal in all 4 extremities. PSYCHIATRIC: Alert and oriented -3. Appropriate affect. Intact judgment and insight. - Labs CBC & Chem 7: 12/16/20 04:54 12/16/20 04:54 Labs: Abnormal Lab Results - Last 24 Hours (Table) 12/16/20 Range/Units 04:54 Procalcitonin 0.13 H (0.02-0.09) ng/mL Assessment and Plan Plan: Assessment: #1. Acute hypoxic respiratory failure related to acute COVID-19 pneumonia, with onset of symptoms 4 days ago, Patient did not Remdesivir was ordered on 12/16/2020 which the patient had refused. Did not receive COVID-19 vaccination #2. Rounded opacity in the right hilar/infrahilar region rule out possibility of mass, CT chest with contrast showing no suspicious pulmonary masses, reactive thoracic adenopathy, and bilateral multifocal opacities consistent with COVID-19 pneumonia #3. Former smoker, in the remote past, in remission since 1983 #4. Hypertension Plan: Patient is febrile Looks weak, looks clinically worse Still on 2 L of oxygen Titrate FiO2 to keep O2 sats ration between 80-90% We'll obtain a follow-up chest x-ray Follow-up d-dimer and inflammatory markers Transfer to S. for closer monitoring Overall prognosis is guarded we'll continue to closely follow I performed a history & physical examination of the patient and discussed their management with my nurse practitioner, Madeleine Bunch. I reviewed the nurse practitioner's note and agree with the documented findings and plan of care. Lung sounds are positive for crackles throughout the lung baltazar. The findings and the impression was discussed with the patient. I attest to the documentation by the nurse practitioner. , Time with Patient: Less than 30
--- NOTE | 2020-12-17 15:33 | P.PN ---
Subjective Progress Note Date: 12/17/20 Patient overall looks clinically worse, has trouble getting a full sentences without shortness of breath. Oxygen requirement has not changed. Patient has requested to go home with oxygen; I counseled him on why this was not a good idea. Objective - Vital Signs Vital signs: Vital Signs Temp 99.1 F 12/17/20 15:10 Pulse 77 12/17/20 15:10 Resp 18 12/17/20 15:10 BP 139/79 12/17/20 15:10 Pulse Ox 90 L 12/17/20 15:10 Intake & Output 12/16/20 12/17/20 12/17/20 18:59 06:59 18:59 Intake Total 1180 Balance 1180 Intake: Oral 1180 Other: Voiding Method Toilet Toilet # Voids 1 3 - Exam Gen: awake, alert HEENT: normocephalic, atraumatic, good hearing acuity, moist mucous membranes Resp: Impaired air exchange, increased work of breathing, symmetric chest expansion CVS: good distal perfusion x 4, GI: soft, NTTP, ND : no SPT, no CVAT, bingham catheter not present MSK: no pitting edema, no clubbing Neuro: non-focal, moving all extremities Psych: cooperative, euthymic mood - Labs CBC & Chem 7: 12/16/20 04:54 12/16/20 04:54 Labs: Abnormal Lab Results - Last 24 Hours (Table) 12/16/20 Range/Units 04:54 Procalcitonin 0.13 H (0.02-0.09) ng/mL Assessment and Plan Assessment: COVID pneumonia and unvaccinated patient with acute hypoxic respiratory failure -Continue with Decadron -Zinc, vitamin C, vitamin D, melatonin -Pulmonary consult -Supplemental oxygen -Pro calcitonin pending -Follow inflammatory labs -Patient refused remdesivir DVT prophylaxis -Lovenox The patient is admitted with an anticipated less than 2 midnight stay for evaluation of COVID CODE STATUS:Full Code Discussed with: Patient Anticipated discharge date: 1-[address]: Home
--- NOTE | 2020-12-17 15:41 | XR ---
EXAMINATION TYPE: XR chest 1V portable DATE OF EXAM: 12/17/2020 COMPARISON: Chest x-ray 12/14/2020 HISTORY: Covid pneumonia TECHNIQUE: Single frontal view of the chest is obtained. FINDINGS: Bilateral airspace disease is present noted peripherally. No evident pneumothorax or pleur al effusion. Lung volumes are low. Cardiac mediastinal silhouette shows a similar appearance. Aorta i s dense. IMPRESSION: Findings consistent with pneumonia
[2020-12-17] MEDS: MELATONIN 5 MG TABLET PO SCH (21:48)
[2020-12-18] MEDS: SODIUM CHLORIDE 0.9% 1,000 ML IV SCH ×2 (04:23→22:46)
[2020-12-18] MEDS: ACETAMINOPHEN TAB 325 MG TAB PO PRN (04:53)
[2020-12-18 07:07] LABS: African American GFR (CKD) >90 (>60 ml/min/1.73 sqM); Anion Gap 4 mmol/L; Blood Urea Nitrogen 18 mg/dL (9-20); Calcium 8.1 mg/dL (8.4-10.2); Carbon Dioxide 27 mmol/L (22-30); Chloride 101 mmol/L (98-107); Glucose 114 mg/dL (74-99); LDH 1300 U/L (313-618); Non-African American GFR(CKD) >90 (>60 ml/min/1.73 sqM); Potassium 4.1 mmol/L (3.5-5.1); Sodium 132 mmol/L (137-145)
[2020-12-18 07:58] LABS: C Reactive Protein 8.8 mg/dL (<1.0)
[2020-12-18] MEDS: ENOXAPARIN 40 MG/0.4 ML SYRINGE SQ SCH (08:36)
[2020-12-18] MEDS: ZINC SULFATE 220 MG CAP PO SCH (08:37)
[2020-12-18] MEDS: ASCORBIC ACID 500 MG TAB PO SCH (08:37)
[2020-12-18] MEDS: CHOLECALCIFEROL 25 MCG (1000 IU) TABLET PO SCH (08:37)
[2020-12-18] MEDS: DEXAMETHASONE SOD PHOSPHATE 10 MG/ML 1 ML VIAL IV SCH ×2 (08:37→22:45)
[2020-12-18 09:10] LABS: Basophils # (A) 0.01 X 10*3/uL (0.00-0.10); Basophils % (A) 0.1 %; Eosinophils # (A) 0 X 10*3/uL (0.04-0.35); Eosinophils % (A) 0 %; HCT 37.3 % (39.6-50.0); HGB 12.5 g/dL (13.0-17.0); Lymphocytes # (A) 0.81 X 10*3/uL (0.90-5.00); MCH 31.2 pg (27.0-32.0); MCHC 33.5 g/dL (32.0-37.0); Monocytes # (A) 0.17 X 10*3/uL (0.20-1.00); Monocytes % (A) 2.1 %; Neutrophils # (A) 7.08 X 10*3/uL (1.80-7.70); Neutrophils % (A) 87.1 %; Platelet Count 164 X 10*3/uL (140-440); RBC 4.01 X 10*6/uL (4.40-5.60); RDW 12.9 % (11.5-14.5); WBC 8.13 X 10*3/uL (4.50-10.00)
--- NOTE | 2020-12-18 12:13 | P.PN ---
Subjective Progress Note Date: 12/18/20 Principal diagnosis: Dyspnea, hypoxia, COVID-19 pneumonia 65-year-old white male patient with past medical history of hypertension, former smoker, patient quit smoking back in 1983, presented to the emergency department on the 12/14/2020 per EMS with reported worsening shortness of breath, fever, cough, and fatigue for the last 4 days. Patient was recently traveling in his car across the country on vacation. When he returned home he began having cold- like symptoms. He denied any known exposures. Patient was not COVID-19 vaccinated. Patient's daughter is a home care nurse, she came over to check on her dad yesterday and she took his vitals and found that his pulse ox was 80% on room air and had called the EMS. Patient was placed on supplemental oxygen at 4 L and his pulse ox is around 92%, chest x-ray showed rounded opacity in the right hilar/infrahilar region with air bronchograms that could represent pneumonia in the appropriate clinical setting, underlying mass could not be completely excluded, low lung volumes with bibasilar strandy atelectasis. Patient was febrile on presentation with a temp of 102F. Admission lab work showed white blood cell count 4.5, hemoglobin of 14.5, platelet count is 105, lymphocytes 0.9, d-dimer 0.68, sodium is 133, rest of electrolytes and renal profile were unremarkable, AST was 65, ALT was 40, alkaline phosphatase was 42, troponin was 0.0-4, proBNP was 73. COVID-19 PCR was positive. Patient was given first dose of Remdesivir in the emergency department, he was started on Decadron and prophylactic Lovenox. He appears very weak, but no acute distress, he is receiving IV hydration with 0.9 at a rate of 75 ML per hour, vitamin C, zinc and vitamin D have been started as well. On 12/16/2020 patient seen in follow-up on medical surgical floor, he is resting in bed, he appears very weak, but no acute distress, he remains on 2 L of oxygen with a pulse ox of 93%, he did have a fever overnight, with a temp of 102.4F, patient was started on Remdesivir which he has refused. His is also now hospitalized in another part the hospital with COVID-19 pneumonia, and apparently their daughter had told her parents not to take Remdesivir. Patient is on Decadron 6 blood gram daily, he is on Lovenox 40 mg daily, CT chest with IV contrast has been completed showing no suspicious pulmonary masses, low lung volumes, with bilateral multifocal opacities consistent with known COVID-19 infection. There is reactive thoracic adenopathy noted. Today's labs have been reviewed, white blood cell count 7.02, hemoglobin is 13.2, d-dimer 0.50, sodium is 134, and requested electrolytes were within normal limits, B1 is 23 creatinine 0.95, LFTs were within normal limits, LDH 725, CRP was 3.7 On 12/17/2020 patient seen in follow-up on medical surgical floor. He is afebrile, looks very weak, overall he looks very fatigued, does not appear to be in acute respiratory distress, he is currently still on 2 L of oxygen with a pulse ox between 88-92%, his T-max in the last 24 hours is 100.9F. Patient has refused Remdesivir, he remains on Decadron 6 mg daily. No new chest x-ray today, labs are pending for today. Denies any chest discomfort, no hemoptysis, he remains on Lovenox 40 mg daily, he is on COVID-19 vitamins, he isn't 0.9 normal seen at a rate of 75 ML per hour. On 12/18/2020 patient seen in follow-up on medical surgical floor, he looks very weak today, but does not appear to be in any respiratory distress, however his oxygen requirement has increased, and he is currently on 6 L of oxygen his pulse ox of 81-82%, his FiO2 has been increased to 15 L, his pulse ox is 87%, he is afebrile, blood pressure is 136/70, overall he looks weak, and worn out. Lung sounds reveals coarse crackles bilaterally, he remains on Decadron 6 mg daily, Lovenox 40 mg daily, he is receiving IV fluids with point tenderness and intermittent 75 ML per hour, today's d-dimer 0.60, his inflammatory markers have trended up, and his LDH is up to 1300, CRP is 8.8, pro calcitonin level is - 0.13. Today's chest x-ray shows bilateral airspace disease which is noted to be present bilaterally, lung volumes are low. White blood cell count is 8.13, hemoglobin is 12.5, platelet count is 164, sodium is 132: There is electrolytes and renal profile were within normal limits. Patient states she still wants to go home today despite his increased oxygen demand, continued low-grade fevers through the night, and overall worsening clinical status. The did inform the patient that if he wants to go home this will be AGAINST MEDICAL ADVICE and that his prognosis is poor if she goes home now. His is also admitted with COV ID-19 pneumonia, she is on 4 S., we will request a bed for the patient to be transferred to the same floor. We'll continue with current medical treatment. Objective - Vital Signs Vital signs: Vital Signs Temp 98.0 F 12/18/20 08:00 Pulse 69 12/18/20 08:00 Resp 20 12/18/20 08:00 BP 136/78 12/18/20 08:00 Pulse Ox 87 L 12/18/20 10:00 Intake & Output 12/17/20 12/18/20 12/18/20 18:59 06:59 18:59 Other: Voiding Method Toilet Toilet # Voids 4 1 - Exam GENERAL EXAM: Alert, pleasant, 65-year-old white male, on 6 L of oxygen a pulse ox of 81%, appears fatigued and weak but no acute distress was noted HEAD: Normocephalic/atraumatic. EYES: Normal reaction of pupils, equal size. Conjunctiva pink, sclera white. NOSE: Clear with pink turbinates. THROAT: No erythema or exudates. NECK: No masses, no JVD, no thyroid enlargement, no adenopathy. CHEST: No chest wall deformity. Symmetrical expansion. LUNGS: Equal air entry with diffuse crackles CVS: Regular rate and rhythm, normal S1 and S2, no gallops, no murmurs, no rubs ABDOMEN: Soft, nontender. No hepatosplenomegaly, normal bowel sounds, no guarding or rigidity. EXTREMITIES: No clubbing, no edema, no cyanosis, 2+ pulses and upper and lower extremities. MUSCULOSKELETAL: Muscle strength and tone normal. SPINE: No scoliosis or deformity SKIN: No rashes CENTRAL NERVOUS SYSTEM: Alert and oriented -3. No focal deficits, tone is normal in all 4 extremities. PSYCHIATRIC: Alert and oriented -3. Appropriate affect. Intact judgment and insight. - Labs CBC & Chem 7: 12/18/20 06:13 12/18/20 06:13 Labs: Abnormal Lab Results - Last 24 Hours (Table) 12/18/20 12/18/20 12/18/20 Range/Units 06:13 06:13 06:13 RBC 4.01 L (4.40-5.60) X 10*6/uL Hgb 12.5 L (13.0-17.0) g/dL Hct 37.3 L (39.6-50.0) % Immature Gran # 0.06 H (0.00-0.04) X 10*3/uL Lymphocytes # 0.81 L (0.90-5.00) X 10*3/uL Monocytes # 0.17 L (0.20-1.00) X 10*3/uL Eosinophils # 0 L (0.04-0.35) X 10*3/uL D-Dimer 0.60 H (<0.60) mg/L FEU Sodium 132 L (137-145) mmol/L Glucose 114 H (74-99) mg/dL Calcium 8.1 L (8.4-10.2) mg/dL Lactate Dehydrogenase 1300 H (313-618) U/L C-Reactive Protein 8.8 H (<1.0) mg/dL Assessment and Plan Plan: Assessment: #1. Acute hypoxic respiratory failure related to acute COVID-19 pneumonia, with onset of symptoms 4 days ago, Patient did not Remdesivir was ordered on 12/16/2020 which the patient had refused. Did not receive COVID-19 vaccination. Patient's hypoxia has progressed, today on 12/28/2020 patient is up to 15 L of oxygen and the pulse ox of 87%, will be started on baricitinib, pending pharmacy review #2. Rounded opacity in the right hilar/infrahilar region rule out possibility of mass, CT chest with contrast showing no suspicious pulmonary masses, reactive thoracic adenopathy, and bilateral multifocal opacities consistent with COVID-19 pneumonia #3. Former smoker, in the remote past, in remission since 1983 #4. Hypertension #5. Increased inflammatory markers, increased d-dimer related to acute viral pneumonia Plan: Start Baricitinib pending pharmacy review and approval increase IV Decadron to 6 mg twice a day continue current dose Lovenox Today's chest x-ray has been reviewed showing slight worsening in the appearance of peripheral infiltrates Continue multivitamins Overall prognosis is extremely guarded Patient wants to leave and go home despite worsening clinical condition He was strongly advised against that We will try to obtain him a bed on the same unit with his Continue closely following his clinical course I performed a history & physical examination of the patient and discussed their management with my nurse practitioner, Madeleine Bunch. I reviewed the nurse practitioner's note and agree with the documented findings and plan of care. Lung sounds are positive for crackles throughout the lung baltazar. The findings and the impression was discussed with the patient. I attest to the documentation by the nurse practitioner. , Time with Patient: Less than 30
--- NOTE | 2020-12-18 16:22 | P.PN ---
Subjective Progress Note Date: 12/18/20 Pts respiratory status is worsening. Amenable to starting baricitinib. Objective - Vital Signs Vital signs: Vital Signs Temp 98.2 F 12/18/20 14:00 Pulse 68 12/18/20 14:00 Resp 20 12/18/20 14:00 BP 132/84 12/18/20 14:00 Pulse Ox 92 L 12/18/20 14:00 Intake & Output 12/17/20 12/18/20 12/18/20 18:59 06:59 18:59 Intake Total 120 Output Total 200 Balance -80 Intake: Oral 120 Output: Urine 200 Other: Voiding Method Toilet Toilet # Voids 4 1 - Exam Gen: awake, alert HEENT: normocephalic, atraumatic, good hearing acuity, moist mucous membranes Resp: Impaired air exchange, increased work of breathing, symmetric chest expansion CVS: good distal perfusion x 4, GI: soft, NTTP, ND : no SPT, no CVAT, bingham catheter not present MSK: no pitting edema, no clubbing Neuro: non-focal, moving all extremities Psych: cooperative, euthymic mood - Labs CBC & Chem 7: 12/18/20 06:13 12/18/20 06:13 Labs: Abnormal Lab Results - Last 24 Hours (Table) 12/18/20 12/18/20 12/18/20 Range/Units 06:13 06:13 06:13 RBC 4.01 L (4.40-5.60) X 10*6/uL Hgb 12.5 L (13.0-17.0) g/dL Hct 37.3 L (39.6-50.0) % Immature Gran # 0.06 H (0.00-0.04) X 10*3/uL Lymphocytes # 0.81 L (0.90-5.00) X 10*3/uL Monocytes # 0.17 L (0.20-1.00) X 10*3/uL Eosinophils # 0 L (0.04-0.35) X 10*3/uL D-Dimer 0.60 H (<0.60) mg/L FEU Sodium 132 L (137-145) mmol/L Glucose 114 H (74-99) mg/dL Calcium 8.1 L (8.4-10.2) mg/dL Lactate Dehydrogenase 1300 H (313-618) U/L C-Reactive Protein 8.8 H (<1.0) mg/dL Assessment and Plan Assessment: COVID pneumonia and unvaccinated patient with acute hypoxic respiratory failure -Continue with Decadron -Zinc, vitamin C, vitamin D, melatonin -baricitinib day 1 -Pulmonary consult -Supplemental oxygen -Pro calcitonin not significantly elevated -Follow inflammatory labs -Patient refused remdesivir DVT prophylaxis -Lovenox The patient is admitted with an anticipated less than 2 midnight stay for evaluation of COVID CODE STATUS:Full Code Discussed with: Patient Anticipated discharge date: 1-[address]: Home
[2020-12-18] MEDS: BARICITINIB 2 MG TABLET PO SCH (17:44)
[2020-12-18 21:10] LABS: Glucose,Whole Blood 135 mg/dL (75-99)
--- NOTE | 2020-12-18 22:00 | XR ---
EXAMINATION TYPE: XR chest 1V portable DATE OF EXAM: 12/18/2020 COMPARISON: Yesterday HISTORY: Short of breath TECHNIQUE: Single view FINDINGS: There is some patchy predominantly interstitial infiltrates in both lungs and more in the r ight upper lobe and left lower lobe. Heart size is normal. Mediastinum is normal. IMPRESSION: Bilateral pneumonia is increased compared to yesterday.
--- NOTE | 2020-12-18 22:25 | P.EN ---
Ateam on this patient for hypoxemia despite being on high flow oxygen patient switched to Bipap and doing better now Goals of theraapy and code status discussed , family (daughter julien ) updated, patient is full code, and OK for elective intubation if needed check CXR, on exam of lungs, inspiratory rales over mid and lower lungs bilaterally , no wheezing , no leg edema , patient awake alert, but anxious transfer to [facility] for close monitoring
[2020-12-19] MEDS: MELATONIN 5 MG TABLET PO SCH ×2 (00:01→20:25)
--- NOTE | 2020-12-19 08:02 | XR ---
EXAMINATION TYPE: XR chest 1V portable DATE OF EXAM: 12/19/2020 COMPARISON: Chest x-ray 12/18/2020 HISTORY: Covid pneumonia TECHNIQUE: Single frontal view of the chest is obtained. FINDINGS: There is improvement in aeration compared to prior exam. Patchy peripheral densities persi sts however. There are overlying artifacts. There is no evident pneumothorax or pleural effusion. Car diac mediastinal silhouette is stable. Aorta is dense. IMPRESSION: Some improvement in aeration suspected, there are differences in technique.
[2020-12-19 09:46] LABS: Basophils % (A) 0 %; Eosinophils % (A) 0 %; HCT 38.5 % (39.0-53.0); HGB 13.4 gm/dL (13.0-17.5); Lymphocytes # (A) 0.8 k/uL (1.0-4.8); Lymphocytes % (A) 10 %; MCH 32.6 pg (25.0-35.0); MCHC 34.8 g/dL (31.0-37.0); MCV 93.6 fL (80.0-100.0); Mean Platelet Volume 8.5; Monocytes # (A) 0.3 k/uL (0-1.0); Monocytes % (A) 4 %; Neutrophils # (A) 6.2 k/uL (1.3-7.7); Neutrophils % (A) 85 %; Platelet Count 200 k/uL (150-450); RBC 4.12 m/uL (4.30-5.90); RDW 13.6 % (11.5-15.5); WBC 7.4 k/uL (3.8-10.6)
[2020-12-19 09:50] LABS: African American GFR (CKD) >90 (>60 ml/min/1.73 sqM); Anion Gap 5 mmol/L; Blood Urea Nitrogen 20 mg/dL (9-20); Calcium 8.4 mg/dL (8.4-10.2); Carbon Dioxide 27 mmol/L (22-30); Chloride 104 mmol/L (98-107); Glucose 128 mg/dL (74-99); LDH 1319 U/L (313-618); Non-African American GFR(CKD) >90 (>60 ml/min/1.73 sqM); Potassium 4.4 mmol/L (3.5-5.1); Sodium 136 mmol/L (137-145)
[2020-12-19 10:03] LABS: C Reactive Protein 13.7 mg/dL (<1.0)
[2020-12-19] MEDS: CHOLECALCIFEROL 25 MCG (1000 IU) TABLET PO SCH (10:24)
[2020-12-19] MEDS: ENOXAPARIN 40 MG/0.4 ML SYRINGE SQ SCH (10:24)
[2020-12-19] MEDS: ZINC SULFATE 220 MG CAP PO SCH (10:24)
[2020-12-19] MEDS: SODIUM CHLORIDE 0.9% 1,000 ML IV SCH ×2 (10:25→20:30)
[2020-12-19] MEDS: BARICITINIB 2 MG TABLET PO SCH (10:25)
[2020-12-19] MEDS: DEXAMETHASONE SOD PHOSPHATE 10 MG/ML 1 ML VIAL IV SCH ×2 (10:25→20:24)
[2020-12-19] MEDS: ASCORBIC ACID 500 MG TAB PO SCH (10:25)
[2020-12-19 11:59] LABS: Glucose,Whole Blood 127 mg/dL (75-99)
--- NOTE | 2020-12-19 14:15 | P.PN ---
Subjective Progress Note Date: 12/19/20 Principal diagnosis: Dyspnea, hypoxia, COVID-19 pneumonia 65-year-old white male patient with past medical history of hypertension, former smoker, patient quit smoking back in 1983, presented to the emergency department on the 12/14/2020 per EMS with reported worsening shortness of breath, fever, cough, and fatigue for the last 4 days. Patient was recently traveling in his car across the country on vacation. When he returned home he began having cold- like symptoms. He denied any known exposures. Patient was not COVID-19 vaccinated. Patient's daughter is a home care nurse, she came over to check on her dad yesterday and she took his vitals and found that his pulse ox was 80% on room air and had called the EMS. Patient was placed on supplemental oxygen at 4 L and his pulse ox is around 92%, chest x-ray showed rounded opacity in the right hilar/infrahilar region with air bronchograms that could represent pneumonia in the appropriate clinical setting, underlying mass could not be completely excluded, low lung volumes with bibasilar strandy atelectasis. Patient was febrile on presentation with a temp of 102F. Admission lab work showed white blood cell count 4.5, hemoglobin of 14.5, platelet count is 105, lymphocytes 0.9, d-dimer 0.68, sodium is 133, rest of electrolytes and renal profile were unremarkable, AST was 65, ALT was 40, alkaline phosphatase was 42, troponin was 0.0-4, proBNP was 73. COVID-19 PCR was positive. Patient was given first dose of Remdesivir in the emergency department, he was started on Decadron and prophylactic Lovenox. He appears very weak, but no acute distress, he is receiving IV hydration with 0.9 at a rate of 75 ML per hour, vitamin C, zinc and vitamin D have been started as well. On 12/16/2020 patient seen in follow-up on medical surgical floor, he is resting in bed, he appears very weak, but no acute distress, he remains on 2 L of oxygen with a pulse ox of 93%, he did have a fever overnight, with a temp of 102.4F, patient was started on Remdesivir which he has refused. His is also now hospitalized in another part the hospital with COVID-19 pneumonia, and apparently their daughter had told her parents not to take Remdesivir. Patient is on Decadron 6 blood gram daily, he is on Lovenox 40 mg daily, CT chest with IV contrast has been completed showing no suspicious pulmonary masses, low lung volumes, with bilateral multifocal opacities consistent with known COVID-19 infection. There is reactive thoracic adenopathy noted. Today's labs have been reviewed, white blood cell count 7.02, hemoglobin is 13.2, d-dimer 0.50, sodium is 134, and requested electrolytes were within normal limits, B1 is 23 creatinine 0.95, LFTs were within normal limits, LDH 725, CRP was 3.7 On 12/17/2020 patient seen in follow-up on medical surgical floor. He is afebrile, looks very weak, overall he looks very fatigued, does not appear to be in acute respiratory distress, he is currently still on 2 L of oxygen with a pulse ox between 88-92%, his T-max in the last 24 hours is 100.9F. Patient has refused Remdesivir, he remains on Decadron 6 mg daily. No new chest x-ray today, labs are pending for today. Denies any chest discomfort, no hemoptysis, he remains on Lovenox 40 mg daily, he is on COVID-19 vitamins, he isn't 0.9 normal seen at a rate of 75 ML per hour. On 12/18/2020 patient seen in follow-up on medical surgical floor, he looks very weak today, but does not appear to be in any respiratory distress, however his oxygen requirement has increased, and he is currently on 6 L of oxygen his pulse ox of 81-82%, his FiO2 has been increased to 15 L, his pulse ox is 87%, he is afebrile, blood pressure is 136/70, overall he looks weak, and worn out. Lung sounds reveals coarse crackles bilaterally, he remains on Decadron 6 mg daily, Lovenox 40 mg daily, he is receiving IV fluids with point tenderness and intermittent 75 ML per hour, today's d-dimer 0.60, his inflammatory markers have trended up, and his LDH is up to 1300, CRP is 8.8, pro calcitonin level is - 0.13. Today's chest x-ray shows bilateral airspace disease which is noted to be present bilaterally, lung volumes are low. White blood cell count is 8.13, hemoglobin is 12.5, platelet count is 164, sodium is 132: There is electrolytes and renal profile were within normal limits. Patient states she still wants to go home today despite his increased oxygen demand, continued low-grade fevers through the night, and overall worsening clinical status. The did inform the patient that if he wants to go home this will be AGAINST MEDICAL ADVICE and that his prognosis is poor if she goes home now. His is also admitted with COV ID-19 pneumonia, she is on 4 S., we will request a bed for the patient to be transferred to the same floor. We'll continue with current medical treatment. On 12/19/2020 patient seen in follow-up on selective care unit, his breathing had worsened overnight, there was a rapid response team called last night at 2200 for worsening hypoxia, and patient was switched to BiPAP with pressures of 14 and 6, and 100%, and was tolerating it better. His oxygenation seems to have improved with positive pressure ventilation. This morning she remains on BiPAP support, FiO2 has been cut back to 80% and his pulse ox is around 89-93%, afebrile overnight. Today's chest x-ray shows some improvement in aeration, yesterday we started the patient on baricitinib, he continues on Decadron 6 mg twice daily, and prophylactic dose of Lovenox. Today's labs have been reviewed, his white blood cell count of 7.4, hemoglobin is 13.4, his d-dimer is 0.52, electrolytes and renal profile are unremarkable his LDH continues to be on the rise, increased slightly from yesterday, and is currently is at 1319, he is CRP is 13.7, pro calcitonin level was negative on 12/16/2020 and 0.13. Objective - Vital Signs Vital signs: Vital Signs Temp 97.1 F L 12/19/20 04:00 Pulse 68 12/19/20 12:00 Resp 28 H 12/19/20 12:00 BP 127/78 12/19/20 12:00 Pulse Ox 93 L 12/19/20 12:00 Intake & Output 12/18/20 12/19/20 12/19/20 18:59 06:59 18:59 Intake Total 240 100 Output Total 400 800 700 Balance -160 -700 -700 Weight 88.5 kg Intake: Oral 240 100 Output: Urine 400 800 700 Other: Voiding Method Toilet Urinal # Voids 1 - Exam GENERAL EXAM: Alert, pleasant, 65-year-old white male, on BiPAP support with pressures of 14 and 6, and FiO2 100%, appears fatigued and weak but no acute distress was noted HEAD: Normocephalic/atraumatic. EYES: Normal reaction of pupils, equal size. Conjunctiva pink, sclera white. NOSE: Clear with pink turbinates. THROAT: No erythema or exudates. NECK: No masses, no JVD, no thyroid enlargement, no adenopathy. CHEST: No chest wall deformity. Symmetrical expansion. LUNGS: Equal air entry with diffuse crackles CVS: Regular rate and rhythm, normal S1 and S2, no gallops, no murmurs, no rubs ABDOMEN: Soft, nontender. No hepatosplenomegaly, normal bowel sounds, no guarding or rigidity. EXTREMITIES: No clubbing, no edema, no cyanosis, 2+ pulses and upper and lower extremities. MUSCULOSKELETAL: Muscle strength and tone normal. SPINE: No scoliosis or deformity SKIN: No rashes CENTRAL NERVOUS SYSTEM: Alert and oriented -3. No focal deficits, tone is normal in all 4 extremities. PSYCHIATRIC: Alert and oriented -3. Appropriate affect. Intact judgment and insight. - Labs CBC & Chem 7: 12/19/20 09:01 12/19/20 09:01 Labs: Abnormal Lab Results - Last 24 Hours (Table) 12/18/20 12/19/20 12/19/20 Range/Units 21:09 09:01 09:01 RBC 4.12 L (4.30-5.90) m/uL Hct 38.5 L (39.0-53.0) % Lymphocytes # 0.8 L (1.0-4.8) k/uL Sodium 136 L (137-145) mmol/L Creatinine 0.61 L (0.66-1.25) mg/dL Glucose 128 H (74-99) mg/dL POC Glucose (mg/dL) 135 H (75-99) mg/dL Lactate Dehydrogenase 1319 H (313-618) U/L C-Reactive Protein 13.7 H (<1.0) mg/dL 12/19/20 Range/Units 11:59 RBC (4.30-5.90) m/uL Hct (39.0-53.0) % Lymphocytes # (1.0-4.8) k/uL Sodium (137-145) mmol/L Creatinine (0.66-1.25) mg/dL Glucose (74-99) mg/dL POC Glucose (mg/dL) 127 H (75-99) mg/dL Lactate Dehydrogenase (313-618) U/L C-Reactive Protein (<1.0) mg/dL Assessment and Plan Plan: Assessment: #1. Acute hypoxic respiratory failure related to acute COVID-19 pneumonia, with onset of symptoms 4 days ago, Patient did not Remdesivir was ordered on 12/16/2020 which the patient had refused. Did not receive COVID-19 vaccination. Patient's hypoxia has progressed, today on 12/28/2020 patient is up to 15 L of oxygen and the pulse ox of 87%, was started on baricitinib on 12/18/2020, and overnight was placed on BiPAP support with pressures of 14 of 7 and FiO2 of 100% #2. Rounded opacity in the right hilar/infrahilar region rule out possibility of mass, CT chest with contrast showing no suspicious pulmonary masses, reactive thoracic adenopathy, and bilateral multifocal opacities consistent with COVID-19 pneumonia #3. Former smoker, in the remote past, in remission since 1983 #4. Hypertension #5. Increased inflammatory markers, increased d-dimer related to acute viral pneumonia Plan: BiPAP support, currently on pressures of 14 and 7, and FiO2 of 80%, oxygenation has improved on BiPAP support, however patient is still requiring high FiO2 He seems to require comfortable on the BiPAP, continue weaning FiO2 to keep O2 sats saturations at around 90% Continue current dose Decadron, currently on 6 mg twice daily Was started on Baricitinib yesterday on 12/18/2020 Continue current dose Lovenox Continue multivitamins Continue close monitoring for worsening oxygenation Obtain PICC line tomorrow We'll probably need TPN infusion if remains BiPAP dependent Overall prognosis is extremely guarded I performed a history & physical examination of the patient and discussed their management with my nurse practitioner, Madeleine Bunch. I reviewed the nurse practitioner's note and agree with the documented findings and plan of care. Lung sounds are positive for crackles throughout the lung baltazar. The findings and the impression was discussed with the patient. I attest to the documentation by the nurse practitioner. , Time with Patient: Less than 30
--- NOTE | 2020-12-19 14:15 | P.PN ---
Subjective Progress Note Date: 12/19/20 Patient's oxygenation worsening. he is now BiPAP dependent. Objective - Vital Signs Vital signs: Vital Signs Temp 97.1 F L 12/19/20 04:00 Pulse 68 12/19/20 12:00 Resp 28 H 12/19/20 12:00 BP 127/78 12/19/20 12:00 Pulse Ox 93 L 12/19/20 12:00 Intake & Output 12/18/20 12/19/20 12/19/20 18:59 06:59 18:59 Intake Total 240 100 Output Total 400 800 700 Balance -160 -700 -700 Weight 88.5 kg Intake: Oral 240 100 Output: Urine 400 800 700 Other: Voiding Method Toilet Urinal # Voids 1 - Exam Gen: awake, alert HEENT: normocephalic, atraumatic, good hearing acuity, moist mucous membranes Resp: Impaired air exchange, increased work of breathing, symmetric chest expansion CVS: good distal perfusion x 4, GI: soft, NTTP, ND : no SPT, no CVAT, bingham catheter not present MSK: no pitting edema, no clubbing Neuro: non-focal, moving all extremities Psych: cooperative, euthymic mood - Labs CBC & Chem 7: 12/19/20 09:01 12/19/20 09:01 Labs: Abnormal Lab Results - Last 24 Hours (Table) 12/18/20 12/19/20 12/19/20 Range/Units 21:09 09:01 09:01 RBC 4.12 L (4.30-5.90) m/uL Hct 38.5 L (39.0-53.0) % Lymphocytes # 0.8 L (1.0-4.8) k/uL Sodium 136 L (137-145) mmol/L Creatinine 0.61 L (0.66-1.25) mg/dL Glucose 128 H (74-99) mg/dL POC Glucose (mg/dL) 135 H (75-99) mg/dL Lactate Dehydrogenase 1319 H (313-618) U/L C-Reactive Protein 13.7 H (<1.0) mg/dL 12/19/20 Range/Units 11:59 RBC (4.30-5.90) m/uL Hct (39.0-53.0) % Lymphocytes # (1.0-4.8) k/uL Sodium (137-145) mmol/L Creatinine (0.66-1.25) mg/dL Glucose (74-99) mg/dL POC Glucose (mg/dL) 127 H (75-99) mg/dL Lactate Dehydrogenase (313-618) U/L C-Reactive Protein (<1.0) mg/dL Assessment and Plan Assessment: COVID pneumonia and unvaccinated patient with acute hypoxic respiratory failure -Continue with Decadron -Zinc, vitamin C, vitamin D, melatonin -baricitinib day 2 -Pulmonary consult -Supplemental oxygen -Pro calcitonin not significantly elevated -Follow inflammatory labs -Patient refused remdesivir DVT prophylaxis -Lovenox The patient is admitted with an anticipated less than 2 midnight stay for evaluation of COVID CODE STATUS:Full Code Discussed with: Patient Anticipated discharge date: 1-[address]: Home
[2020-12-19 16:54] LABS: Glucose,Whole Blood 129 mg/dL (75-99)
[2020-12-19 20:12] LABS: Glucose,Whole Blood 121 mg/dL (75-99)
[2020-12-20 06:09] LABS: Glucose,Whole Blood 122 mg/dL (75-99)
[2020-12-20] MEDS: ENOXAPARIN 40 MG/0.4 ML SYRINGE SQ SCH (08:32)
[2020-12-20] MEDS: ASCORBIC ACID 500 MG TAB PO SCH (08:32)
[2020-12-20] MEDS: ZINC SULFATE 220 MG CAP PO SCH (08:32)
[2020-12-20] MEDS: BARICITINIB 2 MG TABLET PO SCH (08:32)
[2020-12-20] MEDS: DEXAMETHASONE SOD PHOSPHATE 10 MG/ML 1 ML VIAL IV SCH ×3 (08:32→20:58)
[2020-12-20] MEDS: CHOLECALCIFEROL 25 MCG (1000 IU) TABLET PO SCH (08:32)
--- NOTE | 2020-12-20 08:52 | XR ---
EXAMINATION TYPE: XR chest 1V portable DATE OF EXAM: 12/20/2020 COMPARISON: 12/19/2020 HISTORY: Cough TECHNIQUE: Single frontal view of the chest is obtained. FINDINGS: Bilateral interstitial infiltrates with consolidation at the left lung base stable. Heart size normal. Limited inspiration. No pneumothorax. Tiny pleural effusion not excluded. IMPRESSION: Bilateral infiltrates are stable.
[2020-12-20 09:00] LABS: ALT 57 U/L (4-49); AST 58 U/L (17-59); African American GFR (CKD) >90 (>60 ml/min/1.73 sqM); Albumin 3.2 g/dL (3.5-5.0); Alkaline Phosphatase 65 U/L (38-126); Anion Gap 6 mmol/L; Blood Urea Nitrogen 24 mg/dL (9-20); Calcium 8.9 mg/dL (8.4-10.2); Carbon Dioxide 27 mmol/L (22-30); Chloride 105 mmol/L (98-107); Glucose 131 mg/dL (74-99); LDH 1397 U/L (313-618); Non-African American GFR(CKD) >90 (>60 ml/min/1.73 sqM); Potassium 4.4 mmol/L (3.5-5.1); Sodium 138 mmol/L (137-145); Total Bilirubin 0.7 mg/dL (0.2-1.3); Total Protein 6.3 g/dL (6.3-8.2)
[2020-12-20 09:14] LABS: INR 1.1 (<1.2); Prothrombin Time 11.9 sec (9.0-12.0)
[2020-12-20] MEDS ORDERED: dexAMETHasone 2 MG TAB PO STA (11:24)
[2020-12-20 11:44] LABS: Glucose,Whole Blood 114 mg/dL (75-99)
--- NOTE | 2020-12-20 13:20 | P.PN ---
Subjective Progress Note Date: 12/20/20 Pt reports feeling worse today. He remains on BIPAP, now at 90% FiO2. Objective - Vital Signs Vital signs: Vital Signs Temp 97.5 F L 12/20/20 08:00 Pulse 60 12/20/20 12:41 Resp 29 H 12/20/20 12:41 BP 160/82 12/20/20 12:00 Pulse Ox 96 12/20/20 12:00 Intake & Output 12/19/20 12/20/20 12/20/20 18:59 06:59 18:59 Intake Total 75 Output Total 700 775 550 Balance -700 -775 -695 Weight 89.5 kg Intake: Intake, IV Titration 75 Amount Sodium Chloride 0.9% 1, 75 000 ml @ 75 mls/hr IV . [id number] [facility] [place] Rx#:[id number] Output: Urine 700 775 550 Other: Voiding Method Urinal - Exam Gen: awake, alert HEENT: normocephalic, atraumatic, good hearing acuity, moist mucous membranes Resp: Impaired air exchange, increased work of breathing, symmetric chest expansion CVS: good distal perfusion x 4, GI: soft, NTTP, ND : no SPT, no CVAT, bingham catheter not present MSK: no pitting edema, no clubbing Neuro: non-focal, moving all extremities Psych: cooperative, euthymic mood - Labs CBC & Chem 7: 12/19/20 09:01 12/20/20 08:05 Labs: Abnormal Lab Results - Last 24 Hours (Table) 12/19/20 12/19/20 12/20/20 Range/Units 16:53 20:11 06:08 D-Dimer (<0.60) mg/L FEU BUN (9-20) mg/dL Glucose (74-99) mg/dL POC Glucose (mg/dL) 129 H 121 H 122 H (75-99) mg/dL ALT (4-49) U/L Lactate Dehydrogenase (313-618) U/L C-Reactive Protein (<1.0) mg/dL Albumin (3.5-5.0) g/dL 12/20/20 12/20/20 12/20/20 Range/Units 08:05 08:05 11:42 D-Dimer 0.66 H (<0.60) mg/L FEU BUN 24 H (9-20) mg/dL Glucose 131 H (74-99) mg/dL POC Glucose (mg/dL) 114 H (75-99) mg/dL ALT 57 H (4-49) U/L Lactate Dehydrogenase 1397 H (313-618) U/L C-Reactive Protein 5.0 H (<1.0) mg/dL Albumin 3.2 L (3.5-5.0) g/dL Assessment and Plan Assessment: COVID pneumonia and unvaccinated patient with acute hypoxic respiratory failure -Continue with Decadron -Zinc, vitamin C, vitamin D, melatonin -baricitinib day 3 -Pulmonary consult -Supplemental oxygen -Pro calcitonin not significantly elevated -Follow inflammatory labs -Patient refused remdesivir DVT prophylaxis -Lovenox The patient is admitted with an anticipated less than 2 midnight stay for evaluation of COVID CODE STATUS:Full Code Discussed with: Patient Anticipated discharge date: 1-[address]: Home
[2020-12-20] MEDS ORDERED: LIDOCAINE 1% INJ 10MG/ML (20 ML MDV) SQ ONE (14:13)
[2020-12-20] MEDS ORDERED: LIDOCAINE 1% INJ 10MG/ML (20 ML MDV) ONE (14:41)
--- NOTE | 2020-12-20 14:52 | XR ---
EXAMINATION TYPE: XR chest 1V portable DATE OF EXAM: 12/20/2020 COMPARISON: 12/20/2020 HISTORY: PICC line placement TECHNIQUE: Single frontal view of the chest is obtained. FINDINGS: Interstitial changes are seen with patchy bilateral infiltrate. Left-sided PICC line with the tip overlying the SVC. No pneumothorax. Heart size normal. IMPRESSION: PICC line in good position with interstitial and patchy bilateral infiltrate.
--- NOTE | 2020-12-20 15:02 | P.PN ---
Subjective Progress Note Date: 12/20/20 Principal diagnosis: Coronavirus associated pneumonia. 65-year-old white male patient with past medical history of hypertension, former smoker, patient quit smoking back in 1983, presented to the emergency department on the 12/14/2020 per EMS with reported worsening shortness of breath, fever, cough, and fatigue for the last 4 days. Patient was recently traveling in his car across the country on vacation. When he returned home he began having cold- like symptoms. He denied any known exposures. Patient was not COVID-19 vaccinated. Patient's daughter is a home care nurse, she came over to check on her dad yesterday and she took his vitals and found that his pulse ox was 80% on room air and had called the EMS. Patient was placed on supplemental oxygen at 4 L and his pulse ox is around 92%, chest x-ray showed rounded opacity in the right hilar/infrahilar region with air bronchograms that could represent pneumonia in the appropriate clinical setting, underlying mass could not be completely excluded, low lung volumes with bibasilar strandy atelectasis. Patient was febrile on presentation with a temp of 102F. Admission lab work showed white blood cell count 4.5, hemoglobin of 14.5, platelet count is 105, lymphocytes 0.9, d-dimer 0.68, sodium is 133, rest of electrolytes and renal profile were unremarkable, AST was 65, ALT was 40, alkaline phosphatase was 42, troponin was 0.0-4, proBNP was 73. COVID-19 PCR was positive. Patient was given first dose of Remdesivir in the emergency department, he was started on Decadron and prophylactic Lovenox. He appears very weak, but no acute distress, he is receiving IV hydration with 0.9 at a rate of 75 ML per hour, vitamin C, zinc and vitamin D have been started as well. On 12/16/2020 patient seen in follow-up on medical surgical floor, he is resting in bed, he appears very weak, but no acute distress, he remains on 2 L of oxygen with a pulse ox of 93%, he did have a fever overnight, with a temp of 102.4F, patient was started on Remdesivir which he has refused. His is also now hospitalized in another part the hospital with COVID-19 pneumonia, and apparently their daughter had told her parents not to take Remdesivir. Patient is on Decadron 6 blood gram daily, he is on Lovenox 40 mg daily, CT chest with IV contrast has been completed showing no suspicious pulmonary masses, low lung volumes, with bilateral multifocal opacities consistent with known COVID-19 infection. There is reactive thoracic adenopathy noted. Today's labs have been reviewed, white blood cell count 7.02, hemoglobin is 13.2, d-dimer 0.50, sodium is 134, and requested electrolytes were within normal limits, B1 is 23 creatinine 0.95, LFTs were within normal limits, LDH 725, CRP was 3.7 On 12/17/2020 patient seen in follow-up on medical surgical floor. He is afebrile, looks very weak, overall he looks very fatigued, does not appear to be in acute respiratory distress, he is currently still on 2 L of oxygen with a pulse ox between 88-92%, his T-max in the last 24 hours is 100.9F. Patient has refused Remdesivir, he remains on Decadron 6 mg daily. No new chest x-ray today, labs are pending for today. Denies any chest discomfort, no hemoptysis, he remains on Lovenox 40 mg daily, he is on COVID-19 vitamins, he isn't 0.9 normal seen at a rate of 75 ML per hour. On 12/18/2020 patient seen in follow-up on medical surgical floor, he looks very weak today, but does not appear to be in any respiratory distress, however his oxygen requirement has increased, and he is currently on 6 L of oxygen his pulse ox of 81-82%, his FiO2 has been increased to 15 L, his pulse ox is 87%, he is afebrile, blood pressure is 136/70, overall he looks weak, and worn out. Lung sounds reveals coarse crackles bilaterally, he remains on Decadron 6 mg daily, Lovenox 40 mg daily, he is receiving IV fluids with point tenderness and intermittent 75 ML per hour, today's d-dimer 0.60, his inflammatory markers have trended up, and his LDH is up to 1300, CRP is 8.8, pro calcitonin level is - 0.13. Today's chest x-ray shows bilateral airspace disease which is noted to be present bilaterally, lung volumes are low. White blood cell count is 8.13, hemoglobin is 12.5, platelet count is 164, sodium is 132: There is electrolytes and renal profile were within normal limits. Patient states she still wants to go home today despite his increased oxygen demand, continued low-grade fevers through the night, and overall worsening clinical status. The did inform the patient that if he wants to go home this will be AGAINST MEDICAL ADVICE and that his prognosis is poor if she goes home now. His is also admitted with COVID-19 pneumonia, she is on 4 S., we will request a bed for the patient to be transferred to the same floor. We'll continue with current medical treatment. On 12/19/2020 patient seen in follow-up on selective care unit, his breathing had worsened overnight, there was a rapid response team called last night at 2200 for worsening hypoxia, and patient was switched to BiPAP with pressures of 14 and 6, and 100%, and was tolerating it better. His oxygenation seems to have improved with positive pressure ventilation. This morning she remains on BiPAP support, FiO2 has been cut back to 80% and his pulse ox is around 89-93%, afebrile overnight. Today's chest x-ray shows some improvement in aeration, yesterday we started the patient on baricitinib, he continues on Decadron 6 mg twice daily, and prophylactic dose of Lovenox. Today's labs have been reviewed, his white blood cell count of 7.4, hemoglobin is 13.4, his d-dimer is 0.52, electrolytes and renal profile are unremarkable his LDH continues to be on the rise, increased slightly from yesterday, and is currently is at 1319, he is CRP is 13.7, pro calcitonin level was negative on 12/16/2020 and 0.13. Progress note dated 12/20/2020. 65-year-old male, again seen in room 385. The patient was admitted with a diagnosis of coronavirus associated pneumonia. Currently, he's on BiPAP, receiving an FiO2 of 100%. IPAP was 14, EPAP was 7. His is also on BiPAP, currently in the intensive care unit. Currently, his saturations are 95%, blood pressure 160/82, respiratory rate in the mid 20s, heart rate 60, and temperature normal. Currently, d-dimer is 0.66. Sodium 138, potassium 4.4, chlorides 105, CO2 27, anion gap 6, BUN 24, and creatinine 0.71. ALT is 57. C-reactive protein is 5. LDH is 1397. Chest x-ray shows bilateral patchy infiltrates. Objective - Vital Signs Vital signs: Vital Signs Temp 97.5 F L 12/20/20 08:00 Pulse 60 12/20/20 12:41 Resp 29 H 12/20/20 12:41 BP 160/82 12/20/20 12:00 Pulse Ox 96 12/20/20 12:00 Intake & Output 12/19/20 12/20/20 12/20/20 18:59 06:59 18:59 Intake Total 75 Output Total 700 775 550 Balance -568 -856 -475 Weight 89.5 kg 89.5 kg Intake: Intake, IV Titration 75 Amount Sodium Chloride 0.9% 1, 75 000 ml @ 75 mls/hr IV . [id number] [facility] [place] Rx#:[id number] Output: Urine 700 775 550 Other: Voiding Method Urinal - Exam No acute distress, oriented 3. BiPAP mask in place. HEENT examination is grossly unremarkable. Neck supple. Full range of motion. No adenopathy thyromegaly or neck vein distention. Cardiovascular examination reveals regular rhythm rate. S1-S2 normal. No S3 or S4. No discernible murmur noted. Heart sounds are distant. Heart rate 60 bpm. Lungs reveal bilateral diffuse moderate rhonchi. A few crackles appreciated. No wheezes. Breath sounds are equal bilaterally. Abdomen soft bowel sounds are heard. No masses or tenderness. Extremities are intact. No cyanosis clubbing or edema. Skin is without rash or lesion. Neurologic examination is brief but nonfocal. - Labs CBC & Chem 7: 12/19/20 09:01 12/20/20 08:05 Labs: Abnormal Lab Results - Last 24 Hours (Table) 12/19/20 12/19/20 12/20/20 Range/Units 16:53 20:11 06:08 D-Dimer (<0.60) mg/L FEU BUN (9-20) mg/dL Glucose (74-99) mg/dL POC Glucose (mg/dL) 129 H 121 H 122 H (75-99) mg/dL ALT (4-49) U/L Lactate Dehydrogenase (313-618) U/L C-Reactive Protein (<1.0) mg/dL Albumin (3.5-5.0) g/dL 12/20/20 12/20/20 12/20/20 Range/Units 08:05 08:05 11:42 D-Dimer 0.66 H (<0.60) mg/L FEU BUN 24 H (9-20) mg/dL Glucose 131 H (74-99) mg/dL POC Glucose (mg/dL) 114 H (75-99) mg/dL ALT 57 H (4-49) U/L Lactate Dehydrogenase 1397 H (313-618) U/L C-Reactive Protein 5.0 H (<1.0) mg/dL Albumin 3.2 L (3.5-5.0) g/dL Assessment and Plan Assessment: #1. Acute hypoxic respiratory failure related to acute COVID-19 pneumonia, with onset of symptoms 4 days ago, Patient did not Remdesivir was ordered on 12/16/2020 which the patient had refused. Did not receive COVID-19 vaccination. Patient's hypoxia has progressed, today on 12/28/2020 patient is up to 15 L of oxygen and the pulse ox of 87%, was started on baricitinib on 12/18/2020, and overnight was placed on BiPAP support with pressures of 14 of 7 and FiO2 of 100%. #2. Rounded opacity in the right hilar/infrahilar region rule out possibility of mass, CT chest with contrast showing no suspicious pulmonary masses, reactive thoracic adenopathy, and bilateral multifocal opacities consistent with COVID-19 pneumonia. #3. Former smoker, in the remote past, in remission since 1983. #4. Hypertension. #5. Increased inflammatory markers, increased d-dimer related to acute viral pneumonia. Plan: Plan dated 12/20/2020. The patient remains on BiPAP therapy, at 100%. The patient remains on Decadron, as well as vitamins, and Lovenox. The patient was started on Baricitinib on 12/18/2020. That's 4 mg a day orally. It be given up to 14 days. We will continue to follow the patient carefully. No additional recommendations are made. Prognosis is guarded. As mentioned, his is in the intensive care unit, and actually looks much worse and he does. Time with Patient: Less than 30
[2020-12-20] MEDS: SODIUM CHLORIDE 0.9% 1,000 ML IV SCH (15:14)
--- NOTE | 2020-12-20 16:13 | IR ---
PICC LINE PLACEMENT: HISTORY: Infection requiring long-term antibiotic therapy PROCEDURE: Ultrasound guidance of PICC line placement. FLOAT NURSE: COMPLICATIONS: None ANESTHESIA: 1. 1% Lidocaine locally. FINDINGS/TECHNIQUE: The procedure was explained to the patient. The risks, complications, benefits and alternatives were discussed and any questions were answered. Informed consent was obtained. The patient was placed supine on the fluoroscopic table and prepped and draped in the usual sterile fash ion. Utilizing a 21 gauge needle and sonographic guidance, access in the left basilic vein was achi eved and there is placement of a 0.018 guidewire. The vein is patent. A 5-F. sheath was placed over the guidewire. The guidewire and dilator were removed and a 5-F. Double lumen PICC line was placed through the sheath with the chest x-ray confirming the tip at the level of the SVC. The sheath was r emoved, the catheter was flushed and sutured into position. The patient was stable throughout the pr ocedure and remained stable upon discharge from the Department of Radiology. The vein puncture was patent under ultrasound. A acuna scale image was obtained to document patency of the vein punctured. All elements of the maximal barrier technique were utilized. IMPRESSION: 1. Successful PICC line placement under ultrasound performed bedside .
[2020-12-20 16:35] LABS: Glucose,Whole Blood 113 mg/dL (75-99)
[2020-12-20] MEDS ORDERED: MVI, ADULT NO.4 WITH VIT K 10 ML, TRACE (CONC-1ML/DOSE) 1 ML in AMINO ACID 5%-D20W+LYTE... IV ONE ×3 (18:00)
[2020-12-20] MEDS: FAT EMULSION 20% 250 ML IV SCH (18:04)
[2020-12-20 20:09] LABS: Glucose,Whole Blood 161 mg/dL (75-99)
[2020-12-20] MEDS: MELATONIN 5 MG TABLET PO SCH (20:59)
[2020-12-21] MEDS: SODIUM CHLORIDE 0.9% 1,000 ML IV SCH ×2 (00:43→15:54)
[2020-12-21 06:04] LABS: Glucose,Whole Blood 144 mg/dL (75-99)
[2020-12-21 08:32] LABS: Basophils % (A) 0 %; Eosinophils % (A) 0 %; HCT 42.3 % (39.0-53.0); HGB 13.8 gm/dL (13.0-17.5); Lymphocytes # (A) 0.8 k/uL (1.0-4.8); Lymphocytes % (A) 8 %; MCH 31.9 pg (25.0-35.0); MCHC 32.7 g/dL (31.0-37.0); MCV 97.8 fL (80.0-100.0); Mean Platelet Volume 10.4; Monocytes # (A) 0.6 k/uL (0-1.0); Monocytes % (A) 6 %; Neutrophils # (A) 8.8 k/uL (1.3-7.7); Neutrophils % (A) 85 %; Platelet Count 268 k/uL (150-450); RBC 4.32 m/uL (4.30-5.90); RDW 12.8 % (11.5-15.5); WBC 10.3 k/uL (3.8-10.6)
[2020-12-21 08:35] LABS: Magnesium 2.5 mg/dL (1.6-2.3); Phosphorus 3.5 mg/dL (2.5-4.5)
[2020-12-21] MEDS: ENOXAPARIN 40 MG/0.4 ML SYRINGE SQ SCH (09:24)
[2020-12-21] MEDS: ASCORBIC ACID 500 MG TAB PO SCH (09:25)
[2020-12-21] MEDS: CHOLECALCIFEROL 25 MCG (1000 IU) TABLET PO SCH (09:25)
[2020-12-21] MEDS: BARICITINIB 2 MG TABLET PO SCH (09:25)
[2020-12-21] MEDS: ZINC SULFATE 220 MG CAP PO SCH (09:25)
[2020-12-21 10:36] LABS: ALT 85 U/L (4-49); AST 76 U/L (17-59); African American GFR (CKD) >90 (>60 ml/min/1.73 sqM); Albumin 3.1 g/dL (3.5-5.0); Alkaline Phosphatase 59 U/L (38-126); Anion Gap 6 mmol/L; Blood Urea Nitrogen 26 mg/dL (9-20); Calcium 8.8 mg/dL (8.4-10.2); Carbon Dioxide 24 mmol/L (22-30); Chloride 106 mmol/L (98-107); Glucose 151 mg/dL (74-99); Non-African American GFR(CKD) >90 (>60 ml/min/1.73 sqM); Potassium 4.4 mmol/L (3.5-5.1); Sodium 136 mmol/L (137-145); Total Bilirubin 0.7 mg/dL (0.2-1.3); Total Protein 6.1 g/dL (6.3-8.2)
[2020-12-21] MEDS: DEXAMETHASONE SOD PHOSPHATE 10 MG/ML 1 ML VIAL IV SCH ×2 (11:19→19:38)
--- NOTE | 2020-12-21 11:24 | P.PN ---
Subjective Progress Note Date: 12/21/20 Pt reports clinical improvement today. Started on TPN for nutrition. BIPAP dependent, titrated down to 95% FiO2, maintaining saturation around 90%. Objective - Vital Signs Vital signs: Vital Signs Temp 97.6 F 12/21/20 07:48 Pulse 75 12/21/20 07:48 Resp 16 12/21/20 07:48 BP 177/88 12/21/20 07:48 Pulse Ox 91 L 12/21/20 07:48 Intake & Output 12/20/20 12/21/20 12/21/20 18:59 06:59 18:59 Intake Total 75 Output Total 550 1225 Balance -475 -1225 Weight 89.5 kg 89 kg Intake: Intake, IV Titration 75 Amount Sodium Chloride 0.9% 1, 75 000 ml @ 75 mls/hr IV . [id number] [facility] Rx#:[id number] Output: Urine 550 1225 Other: Voiding Method Urinal Urinal - Exam Gen: awake, alert HEENT: normocephalic, atraumatic, good hearing acuity, moist mucous membranes Resp: Impaired air exchange, increased work of breathing, symmetric chest expansion CVS: good distal perfusion x 4, GI: soft, NTTP, ND : no SPT, no CVAT, bingham catheter not present MSK: no pitting edema, no clubbing Neuro: non-focal, moving all extremities Psych: cooperative, euthymic mood - Labs CBC & Chem 7: 12/21/20 07:37 12/21/20 07:37 Labs: Abnormal Lab Results - Last 24 Hours (Table) 12/20/20 12/20/20 12/20/20 Range/Units 11:42 16:34 20:06 Neutrophils # (1.3-7.7) k/uL Lymphocytes # (1.0-4.8) k/uL Sodium (137-145) mmol/L BUN (9-20) mg/dL Creatinine (0.66-1.25) mg/dL Glucose (74-99) mg/dL POC Glucose (mg/dL) 114 H 113 H 161 H (75-99) mg/dL Magnesium (1.6-2.3) mg/dL AST (17-59) U/L ALT (4-49) U/L Total Protein (6.3-8.2) g/dL Albumin (3.5-5.0) g/dL 12/21/20 12/21/20 12/21/20 Range/Units 06:00 07:37 07:37 Neutrophils # 8.8 H (1.3-7.7) k/uL Lymphocytes # 0.8 L (1.0-4.8) k/uL Sodium (137-145) mmol/L BUN (9-20) mg/dL Creatinine (0.66-1.25) mg/dL Glucose (74-99) mg/dL POC Glucose (mg/dL) 144 H (75-99) mg/dL Magnesium 2.5 H (1.6-2.3) mg/dL AST (17-59) U/L ALT (4-49) U/L Total Protein (6.3-8.2) g/dL Albumin (3.5-5.0) g/dL 12/21/20 Range/Units 07:37 Neutrophils # (1.3-7.7) k/uL Lymphocytes # (1.0-4.8) k/uL Sodium 136 L (137-145) mmol/L BUN 26 H (9-20) mg/dL Creatinine 0.64 L (0.66-1.25) mg/dL Glucose 151 H (74-99) mg/dL POC Glucose (mg/dL) (75-99) mg/dL Magnesium (1.6-2.3) mg/dL AST 76 H (17-59) U/L ALT 85 H (4-49) U/L Total Protein 6.1 L (6.3-8.2) g/dL Albumin 3.1 L (3.5-5.0) g/dL Assessment and Plan Assessment: COVID pneumonia and unvaccinated patient with acute hypoxic respiratory failure -Continue with Decadron -Zinc, vitamin C, vitamin D, melatonin -baricitinib day 4 -Pulmonary consult -Supplemental oxygen -Pro calcitonin not significantly elevated -Follow inflammatory labs -Patient refused remdesivir -TPN DVT prophylaxis -Lovenox The patient is admitted with an anticipated less than 2 midnight stay for evaluation of COVID CODE STATUS:Full Code Discussed with: Patient Anticipated discharge date: 1-[address]: Home
[2020-12-21 12:01] LABS: Glucose,Whole Blood 116 mg/dL (75-99)
--- NOTE | 2020-12-21 13:18 | P.PN ---
Subjective Progress Note Date: 12/21/20 Principal diagnosis: Dyspnea, hypoxia, COVID-19 pneumonia 65-year-old white male patient with past medical history of hypertension, former smoker, patient quit smoking back in 1983, presented to the emergency department on the 12/14/2020 per EMS with reported worsening shortness of breath, fever, cough, and fatigue for the last 4 days. Patient was recently traveling in his car across the country on vacation. When he returned home he began having cold- like symptoms. He denied any known exposures. Patient was not COVID-19 vaccinated. Patient's daughter is a home care nurse, she came over to check on her dad yesterday and she took his vitals and found that his pulse ox was 80% on room air and had called the EMS. Patient was placed on supplemental oxygen at 4 L and his pulse ox is around 92%, chest x-ray showed rounded opacity in the right hilar/infrahilar region with air bronchograms that could represent pneumonia in the appropriate clinical setting, underlying mass could not be completely excluded, low lung volumes with bibasilar strandy atelectasis. Patient was febrile on presentation with a temp of 102F. Admission lab work showed white blood cell count 4.5, hemoglobin of 14.5, platelet count is 105, lymphocytes 0.9, d-dimer 0.68, sodium is 133, rest of electrolytes and renal profile were unremarkable, AST was 65, ALT was 40, alkaline phosphatase was 42, troponin was 0.0-4, proBNP was 73. COVID-19 PCR was positive. Patient was given first dose of Remdesivir in the emergency department, he was started on Decadron and prophylactic Lovenox. He appears very weak, but no acute distress, he is receiving IV hydration with 0.9 at a rate of 75 ML per hour, vitamin C, zinc and vitamin D have been started as well. On 12/16/2020 patient seen in follow-up on medical surgical floor, he is resting in bed, he appears very weak, but no acute distress, he remains on 2 L of oxygen with a pulse ox of 93%, he did have a fever overnight, with a temp of 102.4F, patient was started on Remdesivir which he has refused. His is also now hospitalized in another part the hospital with COVID-19 pneumonia, and apparently their daughter had told her parents not to take Remdesivir. Patient is on Decadron 6 blood gram daily, he is on Lovenox 40 mg daily, CT chest with IV contrast has been completed showing no suspicious pulmonary masses, low lung volumes, with bilateral multifocal opacities consistent with known COVID-19 infection. There is reactive thoracic adenopathy noted. Today's labs have been reviewed, white blood cell count 7.02, hemoglobin is 13.2, d-dimer 0.50, sodium is 134, and requested electrolytes were within normal limits, B1 is 23 creatinine 0.95, LFTs were within normal limits, LDH 725, CRP was 3.7 On 12/17/2020 patient seen in follow-up on medical surgical floor. He is afebrile, looks very weak, overall he looks very fatigued, does not appear to be in acute respiratory distress, he is currently still on 2 L of oxygen with a pulse ox between 88-92%, his T-max in the last 24 hours is 100.9F. Patient has refused Remdesivir, he remains on Decadron 6 mg daily. No new chest x-ray today, labs are pending for today. Denies any chest discomfort, no hemoptysis, he remains on Lovenox 40 mg daily, he is on COVID-19 vitamins, he isn't 0.9 normal seen at a rate of 75 ML per hour. On 12/18/2020 patient seen in follow-up on medical surgical floor, he looks very weak today, but does not appear to be in any respiratory distress, however his oxygen requirement has increased, and he is currently on 6 L of oxygen his pulse ox of 81-82%, his FiO2 has been increased to 15 L, his pulse ox is 87%, he is afebrile, blood pressure is 136/70, overall he looks weak, and worn out. Lung sounds reveals coarse crackles bilaterally, he remains on Decadron 6 mg daily, Lovenox 40 mg daily, he is receiving IV fluids with point tenderness and intermittent 75 ML per hour, today's d-dimer 0.60, his inflammatory markers have trended up, and his LDH is up to 1300, CRP is 8.8, pro calcitonin level is - 0.13. Today's chest x-ray shows bilateral airspace disease which is noted to be present bilaterally, lung volumes are low. White blood cell count is 8.13, hemoglobin is 12.5, platelet count is 164, sodium is 132: There is electrolytes and renal profile were within normal limits. Patient states she still wants to go home today despite his increased oxygen demand, continued low-grade fevers through the night, and overall worsening clinical status. The did inform the patient that if he wants to go home this will be AGAINST MEDICAL ADVICE and that his prognosis is poor if she goes home now. His is also admitted with COV ID-19 pneumonia, she is on 4 S., we will request a bed for the patient to be transferred to the same floor. We'll continue with current medical treatment. On 12/19/2020 patient seen in follow-up on selective care unit, his breathing had worsened overnight, there was a rapid response team called last night at 2200 for worsening hypoxia, and patient was switched to BiPAP with pressures of 14 and 6, and 100%, and was tolerating it better. His oxygenation seems to have improved with positive pressure ventilation. This morning she remains on BiPAP support, FiO2 has been cut back to 80% and his pulse ox is around 89-93%, afebrile overnight. Today's chest x-ray shows some improvement in aeration, yesterday we started the patient on baricitinib, he continues on Decadron 6 mg twice daily, and prophylactic dose of Lovenox. Today's labs have been reviewed, his white blood cell count of 7.4, hemoglobin is 13.4, his d-dimer is 0.52, electrolytes and renal profile are unremarkable his LDH continues to be on the rise, increased slightly from yesterday, and is currently is at 1319, he is CRP is 13.7, pro calcitonin level was negative on 12/16/2020 and 0.13. On 12/21/2020 patient seen in follow-up on selective care unit, he remains on BiPAP support with pressures of 14 and 7 and FiO2 of 95%, his pulse ox is 91%, seems to be fairly comfortable on BiPAP support, tolerating it well, he states his breathing is stable, no worsening with BiPAP support, he is awake and alert, oriented 3, yesterday PICC line was inserted, TPN was started for nutritional support, his had no fever or chills. Today's labs have been reviewed white blood cell count is 10.3, hemoglobin is 13.8, sodium is 136, potassium is 4.4, chloride is 106, B1 is 26, creatinine 0.64. He continues on Decadron 6 mg twice daily, daily dose Lovenox, he is on 0.9 normal saline at [place] 75 ML per hour. Objective - Vital Signs Vital signs: Vital Signs Temp 97.7 F 12/21/20 11:59 Pulse 51 L 12/21/20 11:59 Resp 35 H 12/21/20 11:59 BP 160/80 12/21/20 11:59 Pulse Ox 94 L 12/21/20 11:59 Intake & Output 12/20/20 12/21/20 12/21/20 18:59 06:59 18:59 Intake Total 75 Output Total 550 1225 Balance -475 -1225 Weight 89.5 kg 89 kg Intake: Intake, IV Titration 75 Amount Sodium Chloride 0.9% 1, 75 000 ml @ 75 mls/hr IV . [id number] [facility] Rx#:[id number] Output: Urine 550 1225 Other: Voiding Method Urinal Urinal - Exam GENERAL EXAM: Alert, pleasant, 65-year-old white male, on BiPAP support with pressures of 14 and 7, and FiO2 95%, appears fatigued and weak but no acute distress was noted HEAD: Normocephalic/atraumatic. EYES: Normal reaction of pupils, equal size. Conjunctiva pink, sclera white. NOSE: Clear with pink turbinates. THROAT: No erythema or exudates. NECK: No masses, no JVD, no thyroid enlargement, no adenopathy. CHEST: No chest wall deformity. Symmetrical expansion. LUNGS: Equal air entry with diffuse crackles CVS: Regular rate and rhythm, normal S1 and S2, no gallops, no murmurs, no rubs ABDOMEN: Soft, nontender. No hepatosplenomegaly, normal bowel sounds, no guarding or rigidity. EXTREMITIES: No clubbing, no edema, no cyanosis, 2+ pulses and upper and lower extremities. MUSCULOSKELETAL: Muscle strength and tone normal. SPINE: No scoliosis or deformity SKIN: No rashes CENTRAL NERVOUS SYSTEM: Alert and oriented -3. No focal deficits, tone is normal in all 4 extremities. PSYCHIATRIC: Alert and oriented -3. Appropriate affect. Intact judgment and insight. - Labs CBC & Chem 7: 12/21/20 07:37 12/21/20 07:37 Labs: Abnormal Lab Results - Last 24 Hours (Table) 12/20/20 12/20/20 12/21/20 Range/Units 16:34 20:06 06:00 Neutrophils # (1.3-7.7) k/uL Lymphocytes # (1.0-4.8) k/uL Sodium (137-145) mmol/L BUN (9-20) mg/dL Creatinine (0.66-1.25) mg/dL Glucose (74-99) mg/dL POC Glucose (mg/dL) 113 H 161 H 144 H (75-99) mg/dL Magnesium (1.6-2.3) mg/dL AST (17-59) U/L ALT (4-49) U/L Total Protein (6.3-8.2) g/dL Albumin (3.5-5.0) g/dL 12/21/20 12/21/20 12/21/20 Range/Units 07:37 07:37 07:37 Neutrophils # 8.8 H (1.3-7.7) k/uL Lymphocytes # 0.8 L (1.0-4.8) k/uL Sodium 136 L (137-145) mmol/L BUN 26 H (9-20) mg/dL Creatinine 0.64 L (0.66-1.25) mg/dL Glucose 151 H (74-99) mg/dL POC Glucose (mg/dL) (75-99) mg/dL Magnesium 2.5 H (1.6-2.3) mg/dL AST 76 H (17-59) U/L ALT 85 H (4-49) U/L Total Protein 6.1 L (6.3-8.2) g/dL Albumin 3.1 L (3.5-5.0) g/dL 12/21/20 Range/Units 11:57 Neutrophils # (1.3-7.7) k/uL Lymphocytes # (1.0-4.8) k/uL Sodium (137-145) mmol/L BUN (9-20) mg/dL Creatinine (0.66-1.25) mg/dL Glucose (74-99) mg/dL POC Glucose (mg/dL) 116 H (75-99) mg/dL Magnesium (1.6-2.3) mg/dL AST (17-59) U/L ALT (4-49) U/L Total Protein (6.3-8.2) g/dL Albumin (3.5-5.0) g/dL Assessment and Plan Plan: Assessment: #1. Acute hypoxic respiratory failure related to acute COVID-19 pneumonia, with onset of symptoms 4 days ago, Patient did not Remdesivir was ordered on 12/16/2020 which the patient had refused. Did not receive COVID-19 vaccination. Patient's hypoxia has progressed, today on 12/28/2020 patient is up to 15 L of o xygen and the pulse ox of 87%, was started on baricitinib on 12/18/2020, and overnight was placed on BiPAP support with pressures of 14 of 7 and FiO2 of 95% #2. Rounded opacity in the right hilar/infrahilar region rule out possibility of mass, CT chest with contrast showing no suspicious pulmonary masses, reactive thoracic adenopathy, and bilateral multifocal opacities consistent with COVID-19 pneumonia #3. Former smoker, in the remote past, in remission since 1983 #4. Hypertension #5. Increased inflammatory markers, increased d-dimer related to acute viral pneumonia Plan: Continue BiPAP support, currently on pressures of 14 and 7, and FiO2 of 95%, Patient has been on BiPAP most of the time He seems to require comfortable on the BiPAP, continue weaning FiO2 to keep O2 sats saturations at around 90% Continue current dose Decadron, currently on 6 mg twice daily Continue Baricitinib Continue current dose Lovenox Continue multivitamins PICC line has been inserted, TPN was started We'll continue to follow his clinical course Overall prognosis is extremely guarded I performed a history & physical examination of the patient and discussed their management with my nurse practitioner, Madeleine Bunch. I reviewed the nurse practitioner's note and agree with the documented findings and plan of care. Lung sounds are positive for crackles throughout the lung baltazar. The findings and the impression was discussed with the patient. I attest to the documentation by the nurse practitioner. , Time with Patient: Less than 30
[2020-12-21 17:05] LABS: Glucose,Whole Blood 114 mg/dL (75-99)
[2020-12-21] MEDS ORDERED: 1: MVI, ADULT NO.4 WITH VIT K 10 ML, TRACE (CONC-1ML/DOSE) 1 ML, SODIUM ACETATE 30 MEQ, IV SCH ×7 (18:00)
[2020-12-21] MEDS ORDERED: 1: MVI, ADULT NO.4 WITH VIT K 10 ML, TRACE (CONC-1ML/DOSE) 1 ML in AMINO ACID 5%-D20W+LY IV SCH ×3 (18:00)
[2020-12-21] MEDS: MELATONIN 5 MG TABLET PO SCH (19:38)
[2020-12-22] MEDS: SODIUM CHLORIDE 0.9% 1,000 ML IV SCH ×2 (06:14→18:37)
[2020-12-22 06:21] LABS: Glucose,Whole Blood 226 mg/dL (75-99)
[2020-12-22] MEDS: INSULIN ASPART (NovoLOG) 100 UNIT/ML VIAL SQ SCH ×4 (06:53→21:02)
[2020-12-22 07:42] LABS: ALT 130 U/L (4-49); AST 81 U/L (17-59); African American GFR (CKD) >90 (>60 ml/min/1.73 sqM); Albumin 2.9 g/dL (3.5-5.0); Alkaline Phosphatase 64 U/L (38-126); Anion Gap 7 mmol/L; Blood Urea Nitrogen 21 mg/dL (9-20); Calcium 8.7 mg/dL (8.4-10.2); Carbon Dioxide 27 mmol/L (22-30); Chloride 101 mmol/L (98-107); Glucose 195 mg/dL (74-99); Magnesium 2.3 mg/dL (1.6-2.3); Non-African American GFR(CKD) >90 (>60 ml/min/1.73 sqM); Phosphorus 3.5 mg/dL (2.5-4.5); Potassium 4.6 mmol/L (3.5-5.1); Sodium 135 mmol/L (137-145); Total Bilirubin 0.7 mg/dL (0.2-1.3); Total Protein 5.9 g/dL (6.3-8.2)
[2020-12-22] MEDS: BARICITINIB 2 MG TABLET PO SCH (08:47)
[2020-12-22] MEDS: ASCORBIC ACID 500 MG TAB PO SCH (08:47)
[2020-12-22] MEDS: ENOXAPARIN 40 MG/0.4 ML SYRINGE SQ SCH (08:47)
[2020-12-22] MEDS: CHOLECALCIFEROL 25 MCG (1000 IU) TABLET PO SCH (08:47)
[2020-12-22] MEDS: ZINC SULFATE 220 MG CAP PO SCH (08:47)
[2020-12-22] MEDS: DEXAMETHASONE SOD PHOSPHATE 10 MG/ML 1 ML VIAL IV SCH ×2 (08:48→21:11)
[2020-12-22 12:03] LABS: Glucose,Whole Blood 163 mg/dL (75-99)
--- NOTE | 2020-12-22 13:10 | P.PN ---
Subjective Progress Note Date: 12/22/20 Pt reports clinical improvement again today. On TPN for nutrition, but he is also tolerating some protein shakes PO. BIPAP dependent, titrated down to 90% FiO2, maintaining saturation around 90%. Objective - Vital Signs Vital signs: Vital Signs Temp 98.1 F 12/22/20 08:41 Pulse 67 12/22/20 12:31 Resp 28 H 12/22/20 12:31 BP 160/80 12/22/20 12:31 Pulse Ox 93 L 12/22/20 12:31 Intake & Output 12/21/20 12/22/20 12/22/20 18:59 06:59 18:59 Output Total 700 900 Balance -700 -900 Weight 86.5 kg Output: Urine 700 900 Other: Voiding Method Urinal Urinal # Voids 1 - Exam Gen: awake, alert HEENT: normocephalic, atraumatic, good hearing acuity, moist mucous membranes Resp: Impaired air exchange, increased work of breathing, symmetric chest e xpansion CVS: good distal perfusion x 4, GI: soft, NTTP, ND : no SPT, no CVAT, bingham catheter not present MSK: no pitting edema, no clubbing Neuro: non-focal, moving all extremities Psych: cooperative, euthymic mood - Labs CBC & Chem 7: 12/21/20 07:37 12/22/20 06:58 Labs: Abnormal Lab Results - Last 24 Hours (Table) 12/21/20 12/22/20 12/22/20 Range/Units 17:04 06:19 06:58 Sodium 135 L (137-145) mmol/L BUN 21 H (9-20) mg/dL Glucose 195 H (74-99) mg/dL POC Glucose (mg/dL) 114 H 226 H (75-99) mg/dL AST 81 H (17-59) U/L ALT 130 H (4-49) U/L Total Protein 5.9 L (6.3-8.2) g/dL Albumin 2.9 L (3.5-5.0) g/dL 12/22/20 Range/Units 12:00 Sodium (137-145) mmol/L BUN (9-20) mg/dL Glucose (74-99) mg/dL POC Glucose (mg/dL) 163 H (75-99) mg/dL AST (17-59) U/L ALT (4-49) U/L Total Protein (6.3-8.2) g/dL Albumin (3.5-5.0) g/dL Assessment and Plan Assessment: COVID pneumonia and unvaccinated patient with acute hypoxic respiratory failure -Continue with Decadron -Zinc, vitamin C, vitamin D, melatonin -baricitinib day 5 -Pulmonary consult -Supplemental oxygen -Pro calcitonin not significantly elevated -Follow inflammatory labs -Patient refused remdesivir -TPN DVT prophylaxis -Lovenox The patient is admitted with an anticipated less than 2 midnight stay for evaluation of COVID CODE STATUS:Full Code Discussed with: Patient Anticipated discharge date: 1-[address]: Home
--- NOTE | 2020-12-22 13:38 | P.PN ---
Subjective Progress Note Date: 12/22/20 Principal diagnosis: COVID-19 pneumonia The patient is seen today 12/22/2020 in follow-up on the selective care unit. He is currently resting fairly comfortably in bed. He remains mainly BiPAP dependent currently at 14/7 and 90% FiO2. If he is off even for a few minutes his O2 saturation dropped into the 80s. He is being nourished with TPN at 80 MLS per hour. Sodium 135. Potassium 4.6. Bicarb 27. Creatinine 0.66. Glucose 195. AST 81. ALT 130. He is continued on Baricitinib, Decadron, Lovenox, vitamin supplements. Objective - Vital Signs Vital signs: Vital Signs Temp 98.1 F 12/22/20 08:41 Pulse 67 12/22/20 12:31 Resp 28 H 12/22/20 12:31 BP 160/80 12/22/20 12:31 Pulse Ox 93 L 12/22/20 12:31 Intake & Output 12/21/20 12/22/20 12/22/20 18:59 06:59 18:59 Output Total 700 900 Balance -700 -900 Weight 86.5 kg Output: Urine 700 900 Other: Voiding Method Urinal Urinal # Voids 1 - Exam GENERAL EXAM: Alert, 65-year-old male patient, on BiPAP 14/7 and 90% FiO2, fairly comfortable in no apparent distress. HEAD: Normocephalic. EYES: Normal reaction of pupils, equal size. NOSE: Clear with pink turbinates. THROAT: No erythema or exudates. NECK: No masses, no JVD. CHEST: No chest wall deformity. LUNGS: Equal air entry with coarse crackles in the bilateral posterior bases. CVS: S1 and S2 normal with no audible murmur, regular rhythm. ABDOMEN: No hepatosplenomegaly, normal bowel sounds, no guarding or rigidity. SPINE: No scoliosis or deformity SKIN: No rashes CENTRAL NERVOUS SYSTEM: No focal deficits, tone is normal in all 4 extremities. EXTREMITIES: There is no peripheral edema. No clubbing, no cyanosis. Peripheral pulses are intact. - Labs CBC & Chem 7: 12/21/20 07:37 12/22/20 06:58 Labs: Abnormal Lab Results - Last 24 Hours (Table) 12/21/20 12/22/20 12/22/20 Range/Units 17:04 06:19 06:58 Sodium 135 L (137-145) mmol/L BUN 21 H (9-20) mg/dL Glucose 195 H (74-99) mg/dL POC Glucose (mg/dL) 114 H 226 H (75-99) mg/dL AST 81 H (17-59) U/L ALT 130 H (4-49) U/L Total Protein 5.9 L (6.3-8.2) g/dL Albumin 2.9 L (3.5-5.0) g/dL 12/22/20 Range/Units 12:00 Sodium (137-145) mmol/L BUN (9-20) mg/dL Glucose (74-99) mg/dL POC Glucose (mg/dL) 163 H (75-99) mg/dL AST (17-59) U/L ALT (4-49) U/L Total Protein (6.3-8.2) g/dL Albumin (3.5-5.0) g/dL Assessment and Plan Assessment: 1 Acute hypoxic respiratory failure related to acute COVID-19 pneumonia, with onset of symptoms 4 days ago, Patient did not want Remdesivir that was ordered on 12/16/2020 which the patient had refused. Did not receive COVID-19 vaccination. Patient's hypoxia has progressed, today on 12/22/2020 patient is on BiPAP 14/7 and 90% FiO2, was started on baricitinib on 12/18/2020 2 Rounded opacity in the right hilar/infrahilar region rule out possibility of mass, CT chest with contrast showing no suspicious pulmonary masses, reactive thoracic adenopathy, and bilateral multifocal opacities consistent with COVID-19 pneumonia 3 Former smoker, in the remote past, in remission since 1983 4 Hypertension 5 Increased inflammatory markers, increased d-dimer related to acute viral pneumonia Plan: The patient was seen and evaluated by Dr. Pinedo Continue to titrate the FiO2 as tolerated Remains on Baricitinib, Lovenox, Decadron, vitamin supplements Repeat inflammatory markers, d-dimer in the a.m. Repeat chest x-ray in a.m. Continue TPN for nutritional support Overall prognosis remains quite guarded We'll continue to follow I, the cosigning physician, performed a history & physical examination of the patient. Lungs sounds with coarse crackles in the bilateral bases. Maintaining O2 saturations in the high 80s low 90s on BiPAP 14/7 and 90% FiO2. I discussed the assessment and plan of care with my nurse practitioner, Quin Walsh. I attest to the above note as dictated by her.
[2020-12-22 18:26] LABS: Glucose,Whole Blood 130 mg/dL (75-99)
[2020-12-22] MEDS: FAT EMULSION 20% 250 ML IV SCH (18:37)
[2020-12-22] MEDS: MELATONIN 5 MG TABLET PO SCH (21:11)
[2020-12-23 00:01] LABS: Glucose,Whole Blood 209 mg/dL (75-99)
[2020-12-23] MEDS: INSULIN ASPART (NovoLOG) 100 UNIT/ML VIAL SQ SCH ×5 (01:37→23:41)
[2020-12-23 06:14] LABS: Glucose,Whole Blood 211 mg/dL (75-99)
[2020-12-23] MEDS: SODIUM CHLORIDE 0.9% 1,000 ML IV SCH (06:37)
[2020-12-23 07:49] LABS: ALT 94 U/L (4-49); AST 46 U/L (17-59); African American GFR (CKD) >90 (>60 ml/min/1.73 sqM); Albumin 3.1 g/dL (3.5-5.0); Alkaline Phosphatase 72 U/L (38-126); Anion Gap 7 mmol/L; Blood Urea Nitrogen 18 mg/dL (9-20); Calcium 8.8 mg/dL (8.4-10.2); Carbon Dioxide 28 mmol/L (22-30); Chloride 99 mmol/L (98-107); Glucose 215 mg/dL (74-99); LDH 1516 U/L (313-618); Magnesium 2.3 mg/dL (1.6-2.3); Non-African American GFR(CKD) >90 (>60 ml/min/1.73 sqM); Phosphorus 3.5 mg/dL (2.5-4.5); Potassium 4.4 mmol/L (3.5-5.1); Sodium 134 mmol/L (137-145); Total Bilirubin 0.7 mg/dL (0.2-1.3)
[2020-12-23 08:19] LABS: C Reactive Protein 16.3 mg/dL (<1.0)
--- NOTE | 2020-12-23 08:21 | XR ---
EXAMINATION TYPE: XR chest 1V portable DATE OF EXAM: 12/23/2020 COMPARISON: Chest x-ray 12/20/2020 HISTORY: Covid pneumonia TECHNIQUE: Single frontal view of the chest is obtained. FINDINGS: Bilateral airspace disease is present. Left-sided PICC line shows the distal tip overlying superior vena cava. There is no evident pneumothorax or pleural effusion. Cardiac mediastinal silhou ette is stable. Aorta is dense. There are overlying artifacts. Right hemidiaphragm remains elevated. IMPRESSION: Findings consistent with patient's history of pneumonia
[2020-12-23] MEDS: DEXAMETHASONE SOD PHOSPHATE 10 MG/ML 1 ML VIAL IV SCH ×2 (09:19→20:52)
[2020-12-23] MEDS: CHOLECALCIFEROL 25 MCG (1000 IU) TABLET PO SCH (09:19)
[2020-12-23] MEDS: ASCORBIC ACID 500 MG TAB PO SCH (09:19)
[2020-12-23] MEDS: BARICITINIB 2 MG TABLET PO SCH (09:19)
[2020-12-23] MEDS: ZINC SULFATE 220 MG CAP PO SCH (09:19)
[2020-12-23] MEDS: ENOXAPARIN 40 MG/0.4 ML SYRINGE SQ SCH (09:20)
[2020-12-23 10:59] LABS: Glucose,Whole Blood 164 mg/dL (75-99)
[2020-12-23 11:53] LABS: Glucose,Whole Blood 157 mg/dL (75-99)
[2020-12-23] MEDS ORDERED: MENTHOL-ZINC OXIDE OINT 113 GM TUBE TOPICAL PRN (13:44)
--- NOTE | 2020-12-23 13:46 | P.PN ---
Subjective Progress Note Date: 12/23/20 Patient reports feeling more congested today. Remains BiPAP dependent. Inflammatory markers are worse today. Patient will be transferred to the ICU given no improvement over 3 days. Objective - Vital Signs Vital signs: Vital Signs Temp 99.7 F H 12/23/20 12:00 Pulse 78 12/23/20 13:00 Resp 18 12/23/20 13:00 BP 156/90 12/23/20 13:00 Pulse Ox 90 L 12/23/20 13:00 Intake & Output 12/22/20 12/23/20 12/23/20 18:59 06:59 18:59 Intake Total 310 Output Total 600 2380 600 Balance -600 -2380 -290 Weight 82 kg Intake: IV 150 Sodium Chloride 0.9% 1, 150 000 ml @ 75 mls/hr IV . [id number] [facility] Rx#:[id number] Intake, IV Titration 160 Amount Sodium Acetate 40 meq 160 Sodium Chloride 4Meq/ml Vial 40 meq Calcium Gluconate 1 gm Potassium Phosphate 15 mmol In Amino Acids 5 %/Dextrose 20 % 1,000 ml @ 80 mls/hr IV .BY DURATION [facility] Rx#: [id number] Oral 0 Output: Urine 600 2380 600 Other: Voiding Method Urinal Urinal Urinal - Exam Gen: awake, alert HEENT: normocephalic, atraumatic, good hearing acuity, moist mucous membranes Resp: Impaired air exchange, increased work of breathing, symmetric chest expansion CVS: good distal perfusion x 4, GI: soft, NTTP, ND : no SPT, no CVAT, bingham catheter not present MSK: no pitting edema, no clubbing Neuro: non-focal, moving all extremities Psych: cooperative, euthymic mood - Labs CBC & Chem 7: 12/21/20 07:37 12/23/20 07:09 Labs: Abnormal Lab Results - Last 24 Hours (Table) 12/22/20 12/22/20 12/23/20 Range/Units 18:05 23:59 06:12 D-Dimer (<0.60) mg/L FEU Sodium (137-145) mmol/L Creatinine (0.66-1.25) mg/dL Glucose (74-99) mg/dL POC Glucose (mg/dL) 130 H 209 H 211 H (75-99) mg/dL ALT (4-49) U/L Lactate Dehydrogenase (313-618) U/L C-Reactive Protein (<1.0) mg/dL Total Protein (6.3-8.2) g/dL Albumin (3.5-5.0) g/dL 12/23/20 12/23/20 12/23/20 Range/Units 07:09 07:09 10:58 D-Dimer 2.06 H (<0.60) mg/L FEU Sodium 134 L (137-145) mmol/L Creatinine 0.60 L (0.66-1.25) mg/dL Glucose 215 H (74-99) mg/dL POC Glucose (mg/dL) 164 H (75-99) mg/dL ALT 94 H (4-49) U/L Lactate Dehydrogenase 1516 H (313-618) U/L C-Reactive Protein 16.3 H (<1.0) mg/dL Total Protein 6.0 L (6.3-8.2) g/dL Albumin 3.1 L (3.5-5.0) g/dL 12/23/20 Range/Units 11:50 D-Dimer (<0.60) mg/L FEU Sodium (137-145) mmol/L Creatinine (0.66-1.25) mg/dL Glucose (74-99) mg/dL POC Glucose (mg/dL) 157 H (75-99) mg/dL ALT (4-49) U/L Lactate Dehydrogenase (313-618) U/L C-Reactive Protein (<1.0) mg/dL Total Protein (6.3-8.2) g/dL Albumin (3.5-5.0) g/dL Assessment and Plan Assessment: COVID pneumonia and unvaccinated patient with acute hypoxic respiratory failure -Continue with Decadron -Zinc, vitamin C, vitamin D, melatonin -baricitinib day 6 -Pulmonary consult -Supplemental oxygen -Pro calcitonin not significantly elevated -Follow inflammatory labs -Patient refused remdesivir -TPN DVT prophylaxis -Lovenox The patient is admitted with an anticipated less than 2 midnight stay for evaluation of COVID CODE STATUS:Full Code Discussed with: Patient Anticipated discharge date: 1-[address]: Home
--- NOTE | 2020-12-23 13:59 | P.PN ---
Subjective Progress Note Date: 12/23/20 Principal diagnosis: Coronavirus associated pneumonia. 65-year-old white male patient with past medical history of hypertension, former smoker, patient quit smoking back in 1983, presented to the emergency department on the 12/14/2020 per EMS with reported worsening shortness of breath, fever, cough, and fatigue for the last 4 days. Patient was recently traveling in his car across the country on vacation. When he returned home he began having cold- like symptoms. He denied any known exposures. Patient was not COVID-19 vaccinated. Patient's daughter is a home care nurse, she came over to check on her dad yesterday and she took his vitals and found that his pulse ox was 80% on room air and had called the EMS. Patient was placed on supplemental oxygen at 4 L and his pulse ox is around 92%, chest x-ray showed rounded opacity in the right hilar/infrahilar region with air bronchograms that could represent pneumonia in the appropriate clinical setting, underlying mass could not be completely excluded, low lung volumes with bibasilar strandy atelectasis. Patient was febrile on presentation with a temp of 102F. Admission lab work showed white blood cell count 4.5, hemoglobin of 14.5, platelet count is 105, lymphocytes 0.9, d-dimer 0.68, sodium is 133, rest of electrolytes and renal profile were unremarkable, AST was 65, ALT was 40, alkaline phosphatase was 42, troponin was 0.0-4, proBNP was 73. COVID-19 PCR was positive. Patient was given first dose of Remdesivir in the emergency department, he was started on Decadron and prophylactic Lovenox. He appears very weak, but no acute distress, he is receiving IV hydration with 0.9 at a rate of 75 ML per hour, vitamin C, zinc and vitamin D have been started as well. On 12/16/2020 patient seen in follow-up on medical surgical floor, he is resting in bed, he appears very weak, but no acute distress, he remains on 2 L of oxygen with a pulse ox of 93%, he did have a fever overnight, with a temp of 102.4F, patient was started on Remdesivir which he has refused. His is also now hospitalized in another part the hospital with COVID-19 pneumonia, and apparently their daughter had told her parents not to take Remdesivir. Patient is on Decadron 6 blood gram daily, he is on Lovenox 40 mg daily, CT chest with IV contrast has been completed showing no suspicious pulmonary masses, low lung volumes, with bilateral multifocal opacities consistent with known COVID-19 infection. There is reactive thoracic adenopathy noted. Today's labs have been reviewed, white blood cell count 7.02, hemoglobin is 13.2, d-dimer 0.50, sodium is 134, and requested electrolytes were within normal limits, B1 is 23 creatinine 0.95, LFTs were within normal limits, LDH 725, CRP was 3.7 On 12/17/2020 patient seen in follow-up on medical surgical floor. He is afebrile, looks very weak, overall he looks very fatigued, does not appear to be in acute respiratory distress, he is currently still on 2 L of oxygen with a pulse ox between 88-92%, his T-max in the last 24 hours is 100.9F. Patient has refused Remdesivir, he remains on Decadron 6 mg daily. No new chest x-ray today, labs are pending for today. Denies any chest discomfort, no hemoptysis, he remains on Lovenox 40 mg daily, he is on COVID-19 vitamins, he isn't 0.9 normal seen at a rate of 75 ML per hour. On 12/18/2020 patient seen in follow-up on medical surgical floor, he looks very weak today, but does not appear to be in any respiratory distress, however his oxygen requirement has increased, and he is currently on 6 L of oxygen his pulse ox of 81-82%, his FiO2 has been increased to 15 L, his pulse ox is 87%, he is afebrile, blood pressure is 136/70, overall he looks weak, and worn out. Lung sounds reveals coarse crackles bilaterally, he remains on Decadron 6 mg daily, Lovenox 40 mg daily, he is receiving IV fluids with point tenderness and intermittent 75 ML per hour, today's d-dimer 0.60, his inflammatory markers have trended up, and his LDH is up to 1300, CRP is 8.8, pro calcitonin level is - 0.13. Today's chest x-ray shows bilateral airspace disease which is noted to be present bilaterally, lung volumes are low. White blood cell count is 8.13, hemoglobin is 12.5, platelet count is 164, sodium is 132: There is electrolytes and renal profile were within normal limits. Patient states she still wants to go home today despite his increased oxygen demand, continued low-grade fevers through the night, and overall worsening clinical status. The did inform the patient that if he wants to go home this will be AGAINST MEDICAL ADVICE and that his prognosis is poor if she goes home now. His is also admitted with COVID-19 pneumonia, she is on 4 S., we will request a bed for the patient to be transferred to the same floor. We'll continue with current medical treatment. On 12/19/2020 patient seen in follow-up on selective care unit, his breathing had worsened overnight, there was a rapid response team called last night at 2200 for worsening hypoxia, and patient was switched to BiPAP with pressures of 14 and 6, and 100%, and was tolerating it better. His oxygenation seems to have improved with positive pressure ventilation. This morning she remains on BiPAP support, FiO2 has been cut back to 80% and his pulse ox is around 89-93%, afebrile overnight. Today's chest x-ray shows some improvement in aeration, yesterday we started the patient on baricitinib, he continues on Decadron 6 mg twice daily, and prophylactic dose of Lovenox. Today's labs have been reviewed, his white blood cell count of 7.4, hemoglobin is 13.4, his d-dimer is 0.52, electrolytes and renal profile are unremarkable his LDH continues to be on the rise, increased slightly from yesterday, and is currently is at 1319, he is CRP is 13.7, pro calcitonin level was negative on 12/16/2020 and 0.13. Progress note dated 12/20/2020. 65-year-old male, again seen in room 385. The patient was admitted with a diagnosis of coronavirus associated pneumonia. Currently, he's on BiPAP, receiving an FiO2 of 100%. IPAP was 14, EPAP was 7. His is also on BiPAP, currently in the intensive care unit. Currently, his saturations are 95%, blood pressure 160/82, respiratory rate in the mid 20s, heart rate 60, and temperature normal. Currently, d-dimer is 0.66. Sodium 138, potassium 4.4, chlorides 105, CO2 27, anion gap 6, BUN 24, and creatinine 0.71. ALT is 57. C-reactive protein is 5. LDH is 1397. Chest x-ray shows bilateral patchy infiltrates. COVID-19 pneumonia The patient is seen today 12/22/2020 in follow-up on the selective care unit. He is currently resting fairly comfortably in bed. He remains mainly BiPAP de pendent currently at 14/7 and 90% FiO2. If he is off even for a few minutes his O2 saturation dropped into the 80s. He is being nourished with TPN at 80 MLS per hour. Sodium 135. Potassium 4.6. Bicarb 27. Creatinine 0.66. Glucose 195. AST 81. ALT 130. He is continued on Baricitinib, Decadron, Lovenox, vitamin supplements. Progress note dated 12/23/2020. The patient remains on BiPAP at 14/7 and 90%. Today, when he was seen, myself and Dr. Walsh, he appeared to be much more distress. Hence, he decided to transfer him down to the ICU. His is down there as well. His current vi katherine signs include temperature 99.7, heart rate 70, respiratory rate 24, blood pressure 156/90 with a mean of 112, and saturations of 90%. Lab data today includes a d-dimer of 2.06 sodium 134, potassium 4.4, chlorides 99, CO2 28, anion gap 7, BUN 18, and creatinine 0.6. LDH is 1516. C-reactive protein is 16.3. Chest x-ray shows diffuse bilateral infiltrates. Objective - Vital Signs Vital signs: Vital Signs Temp 99.7 F H 12/23/20 12:00 Pulse 78 12/23/20 13:00 Resp 18 12/23/20 13:00 BP 156/90 12/23/20 13:00 Pulse Ox 90 L 12/23/20 13:00 Intake & Output 12/22/20 12/23/20 12/23/20 18:59 06:59 18:59 Intake Total 310 Output Total 600 2380 600 Balance -600 -2380 -290 Weight 82 kg Intake: IV 150 Sodium Chloride 0.9% 1, 150 000 ml @ 75 mls/hr IV . [id number] [facility] Rx#:[id number] Intake, IV Titration 160 Amount Sodium Acetate 40 meq 160 Sodium Chloride 4Meq/ml Vial 40 meq Calcium Gluconate 1 gm Potassium Phosphate 15 mmol In Amino Acids 5 %/Dextrose 20 % 1,000 ml @ 80 mls/hr IV .BY DURATION [facility] Rx#: [id number] Oral 0 Output: Urine 600 2380 600 Other: Voiding Method Urinal Urinal Urinal - Exam Moderate respiratory distress, oriented 3. BiPAP mask in place. Respiratory rate mid 20s. HEENT examination is grossly unremarkable. Neck supple. Full range of motion. No adenopathy thyromegaly or neck vein distention. Cardiovascular examination reveals regular rhythm rate. S1-S2 normal. No S3 or S4. No discernible murmur noted. Heart sounds are distant. Heart rate 78 bpm. Lungs reveal bilateral diffuse moderate rhonchi. A few crackles appreciated. No wheezes. Breath sounds are equal bilaterally. Abdomen soft bowel sounds are heard. No masses or tenderness. Extremities are intact. No cyanosis clubbing or edema. Skin is without rash or lesion. Neurologic examination is brief but nonfocal. - Labs CBC & Chem 7: 12/21/20 07:37 12/23/20 07:09 Labs: Abnormal Lab Results - Last 24 Hours (Table) 12/22/20 12/22/20 12/23/20 Range/Units 18:05 23:59 06:12 D-Dimer (<0.60) mg/L FEU Sodium (137-145) mmol/L Creatinine (0.66-1.25) mg/dL Glucose (74-99) mg/dL POC Glucose (mg/dL) 130 H 209 H 211 H (75-99) mg/dL ALT (4-49) U/L Lactate Dehydrogenase (313-618) U/L C-Reactive Protein (<1.0) mg/dL Total Protein (6.3-8.2) g/dL Albumin (3.5-5.0) g/dL 12/23/20 12/23/20 12/23/20 Range/Units 07:09 07:09 10:58 D-Dimer 2.06 H (<0.60) mg/L FEU Sodium 134 L (137-145) mmol/L Creatinine 0.60 L (0.66-1.25) mg/dL Glucose 215 H (74-99) mg/dL POC Glucose (mg/dL) 164 H (75-99) mg/dL ALT 94 H (4-49) U/L Lactate Dehydrogenase 1516 H (313-618) U/L C-Reactive Protein 16.3 H (<1.0) mg/dL Total Protein 6.0 L (6.3-8.2) g/dL Albumin 3.1 L (3.5-5.0) g/dL 12/23/20 Range/Units 11:50 D-Dimer (<0.60) mg/L FEU Sodium (137-145) mmol/L Creatinine (0.66-1.25) mg/dL Glucose (74-99) mg/dL POC Glucose (mg/dL) 157 H (75-99) mg/dL ALT (4-49) U/L Lactate Dehydrogenase (313-618) U/L C-Reactive Protein (<1.0) mg/dL Total Protein (6.3-8.2) g/dL Albumin (3.5-5.0) g/dL Assessment and Plan Assessment: #1. Acute hypoxic respiratory failure related to acute COVID-19 pneumonia, with onset of symptoms 4 days ago, Patient did not Remdesivir was ordered on 12/16/2020 which the patient had refused. Did not receive COVID-19 vaccination. Patient's hypoxia has progressed, today on 12/28/2020 patient is up to 15 L of oxygen and the pulse ox of 87%, was started on baricitinib on 12/18/2020, and overnight was placed on BiPAP support with pressures of 14 of 7 and FiO2 of 90%. #2. Rounded opacity in the right hilar/infrahilar region rule out possibility of mass, CT chest with contrast showing no suspicious pulmonary masses, reactive thoracic adenopathy, and bilateral multifocal opacities consistent with COVID-19 pneumonia. #3. Former smoker, in the remote past, in remission since 1983. #4. Hypertension. #5. Increased inflammatory markers, increased d-dimer related to acute viral pneumonia. Plan: Plan dated 12/20/2020. The patient remains on BiPAP therapy, at 100%. The patient remains on Decadron, as well as vitamins, and Lovenox. The patient was started on Baricitinib on 12/18/2020. That's 4 mg a day orally. It be given up to 14 days. We will continue to follow the patient carefully. No additional recommendations are made. Prognosis is guarded. As mentioned, his is in the intensive care unit, and actually looks much worse and he does. Plan dated 12/23/2020. The patient is transferred down to the intensive care unit. Additional recommendations and suggestions are forthcoming. The patient will remain on BiPAP. His daughter called, and I will call her back about her father and mother. Currently, his respiratory status seems to be a bit worse. We will continue to follow make recommendations where appropriate. Prognosis is guarded both for him and his . Time with Patient: Less than 30
[2020-12-23] MEDS: PANTOPRAZOLE 40 MG/10 ML VIAL IVP SCH (16:05)
[2020-12-23] MEDS ORDERED: SALINE NASAL GEL 14.1 GM TUBE NASAL PRN (16:19)
[2020-12-23 17:47] LABS: Glucose,Whole Blood 198 mg/dL (75-99)
[2020-12-23] MEDS: MELATONIN 5 MG TABLET PO SCH (20:52)
[2020-12-23 23:36] LABS: Glucose,Whole Blood 176 mg/dL (75-99)
[2020-12-24 05:54] LABS: Glucose,Whole Blood 159 mg/dL (75-99)
[2020-12-24] MEDS: INSULIN ASPART (NovoLOG) 100 UNIT/ML VIAL SQ SCH ×4 (06:05→23:40)
[2020-12-24] MEDS: SODIUM CHLORIDE 0.9% 1,000 ML IV SCH ×3 (07:08→20:35)
[2020-12-24 07:52] LABS: African American GFR (CKD) >90 (>60 ml/min/1.73 sqM); Anion Gap 8 mmol/L; Blood Urea Nitrogen 19 mg/dL (9-20); Carbon Dioxide 28 mmol/L (22-30); Chloride 101 mmol/L (98-107); Glucose 179 mg/dL (74-99); Magnesium 2.1 mg/dL (1.6-2.3); Non-African American GFR(CKD) >90 (>60 ml/min/1.73 sqM); Phosphorus 3.8 mg/dL (2.5-4.5); Potassium 4.3 mmol/L (3.5-5.1); Sodium 137 mmol/L (137-145)
--- NOTE | 2020-12-24 08:25 | P.PN ---
Subjective Progress Note Date: 12/24/20 Principal diagnosis: Coronavirus associated pneumonia. 65-year-old white male patient with past medical history of hypertension, former smoker, patient quit smoking back in 1983, presented to the emergency department on the 12/14/2020 per EMS with reported worsening shortness of breath, fever, cough, and fatigue for the last 4 days. Patient was recently traveling in his car across the country on vacation. When he returned home he began having cold- like symptoms. He denied any known exposures. Patient was not COVID-19 vaccinated. Patient's daughter is a home care nurse, she came over to check on her dad yesterday and she took his vitals and found that his pulse ox was 80% on room air and had called the EMS. Patient was placed on supplemental oxygen at 4 L and his pulse ox is around 92%, chest x-ray showed rounded opacity in the right hilar/infrahilar region with air bronchograms that could represent pneumonia in the appropriate clinical setting, underlying mass could not be completely excluded, low lung volumes with bibasilar strandy atelectasis. Patient was febrile on presentation with a temp of 102F. Admission lab work showed white blood cell count 4.5, hemoglobin of 14.5, platelet count is 105, lymphocytes 0.9, d-dimer 0.68, sodium is 133, rest of electrolytes and renal profile were unremarkable, AST was 65, ALT was 40, alkaline phosphatase was 42, troponin was 0.0-4, proBNP was 73. COVID-19 PCR was positive. Patient was given first dose of Remdesivir in the emergency department, he was started on Decadron and prophylactic Lovenox. He appears very weak, but no acute distress, he is receiving IV hydration with 0.9 at a rate of 75 ML per hour, vitamin C, zinc and vitamin D have been started as well. On 12/16/2020 patient seen in follow-up on medical surgical floor, he is resting in bed, he appears very weak, but no acute distress, he remains on 2 L of oxygen with a pulse ox of 93%, he did have a fever overnight, with a temp of 102.4F, patient was started on Remdesivir which he has refused. His is also now hospitalized in another part the hospital with COVID-19 pneumonia, and apparently their daughter had told her parents not to take Remdesivir. Patient is on Decadron 6 blood gram daily, he is on Lovenox 40 mg daily, CT chest with IV contrast has been completed showing no suspicious pulmonary masses, low lung volumes, with bilateral multifocal opacities consistent with known COVID-19 infection. There is reactive thoracic adenopathy noted. Today's labs have been reviewed, white blood cell count 7.02, hemoglobin is 13.2, d-dimer 0.50, sodium is 134, and requested electrolytes were within normal limits, B1 is 23 creatinine 0.95, LFTs were within normal limits, LDH 725, CRP was 3.7 On 12/17/2020 patient seen in follow-up on medical surgical floor. He is afebrile, looks very weak, overall he looks very fatigued, does not appear to be in acute respiratory distress, he is currently still on 2 L of oxygen with a pulse ox between 88-92%, his T-max in the last 24 hours is 100.9F. Patient has refused Remdesivir, he remains on Decadron 6 mg daily. No new chest x-ray today, labs are pending for today. Denies any chest discomfort, no hemoptysis, he remains on Lovenox 40 mg daily, he is on COVID-19 vitamins, he isn't 0.9 normal seen at a rate of 75 ML per hour. On 12/18/2020 patient seen in follow-up on medical surgical floor, he looks very weak today, but does not appear to be in any respiratory distress, however his oxygen requirement has increased, and he is currently on 6 L of oxygen his pulse ox of 81-82%, his FiO2 has been increased to 15 L, his pulse ox is 87%, he is afebrile, blood pressure is 136/70, overall he looks weak, and worn out. Lung sounds reveals coarse crackles bilaterally, he remains on Decadron 6 mg daily, Lovenox 40 mg daily, he is receiving IV fluids with point tenderness and intermittent 75 ML per hour, today's d-dimer 0.60, his inflammatory markers have trended up, and his LDH is up to 1300, CRP is 8.8, pro calcitonin level is - 0.13. Today's chest x-ray shows bilateral airspace disease which is noted to be present bilaterally, lung volumes are low. White blood cell count is 8.13, hemoglobin is 12.5, platelet count is 164, sodium is 132: There is electrolytes and renal profile were within normal limits. Patient states she still wants to go home today despite his increased oxygen demand, continued low-grade fevers through the night, and overall worsening clinical status. The did inform the patient that if he wants to go home this will be AGAINST MEDICAL ADVICE and that his prognosis is poor if she goes home now. His is also admitted with COVID-19 pneumonia, she is on 4 S., we will request a bed for the patient to be transferred to the same floor. We'll continue with current medical treatment. On 12/19/2020 patient seen in follow-up on selective care unit, his breathing had worsened overnight, there was a rapid response team called last night at 2200 for worsening hypoxia, and patient was switched to BiPAP with pressures of 14 and 6, and 100%, and was tolerating it better. His oxygenation seems to have improved with positive pressure ventilation. This morning she remains on BiPAP support, FiO2 has been cut back to 80% and his pulse ox is around 89-93%, afebrile overnight. Today's chest x-ray shows some improvement in aeration, yesterday we started the patient on baricitinib, he continues on Decadron 6 mg twice daily, and prophylactic dose of Lovenox. Today's labs have been reviewed, his white blood cell count of 7.4, hemoglobin is 13.4, his d-dimer is 0.52, electrolytes and renal profile are unremarkable his LDH continues to be on the rise, increased slightly from yesterday, and is currently is at 1319, he is CRP is 13.7, pro calcitonin level was negative on 12/16/2020 and 0.13. Progress note dated 12/20/2020. 65-year-old male, again seen in room 385. The patient was admitted with a diagnosis of coronavirus associated pneumonia. Currently, he's on BiPAP, receiving an FiO2 of 100%. IPAP was 14, EPAP was 7. His is also on BiPAP, currently in the intensive care unit. Currently, his saturations are 95%, blood pressure 160/82, respiratory rate in the mid 20s, heart rate 60, and temperature normal. Currently, d-dimer is 0.66. Sodium 138, potassium 4.4, chlorides 105, CO2 27, anion gap 6, BUN 24, and creatinine 0.71. ALT is 57. C-reactive protein is 5. LDH is 1397. Chest x-ray shows bilateral patchy infiltrates. COVID-19 pneumonia The patient is seen today 12/22/2020 in follow-up on the selective care unit. He is currently resting fairly comfortably in bed. He remains mainly BiPAP de pendent currently at 14/7 and 90% FiO2. If he is off even for a few minutes his O2 saturation dropped into the 80s. He is being nourished with TPN at 80 MLS per hour. Sodium 135. Potassium 4.6. Bicarb 27. Creatinine 0.66. Glucose 195. AST 81. ALT 130. He is continued on Baricitinib, Decadron, Lovenox, vitamin supplements. Progress note dated 12/23/2020. The patient remains on BiPAP at 14/7 and 90%. Today, when he was seen, myself and Dr. Walsh, he appeared to be much more distress. Hence, he decided to transfer him down to the ICU. His is down there as well. His current vi katherine signs include temperature 99.7, heart rate 70, respiratory rate 24, blood pressure 156/90 with a mean of 112, and saturations of 90%. Lab data today includes a d-dimer of 2.06 sodium 134, potassium 4.4, chlorides 99, CO2 28, anion gap 7, BUN 18, and creatinine 0.6. LDH is 1516. C-reactive protein is 16.3. Chest x-ray shows diffuse bilateral infiltrates. Progress note dated 12/24/2020. This patient, was seen by myself and Dr. Walsh yesterday. The patient was on the floor and because the patient's work of breathing had increased, we decided to transfer the patient down to the intensive care unit. The patient was seen today in room 253. The patient remains on BiPAP with settings of IPAP 14, EPAP 7, and 100%. The patient's getting TPN at 80 mL an hour, and saline at 75 mL an hour. According to nurse, the patient had an uneventful night. The patient saturations have been in the low 90s throughout. Today's labs include a sodium 137, potassium 4.3, chlorides 101, CO2 28, anion gap 8, BUN 19, and creatinine 0.69. There was no chest x-ray today. Objective - Vital Signs Vital signs: Vital Signs Temp 98.2 F 12/24/20 04:00 Pulse 76 12/24/20 07:00 Resp 26 H 12/24/20 07:00 BP 145/84 12/24/20 07:00 Pulse Ox 88 L 12/24/20 07:00 Intake & Output 12/23/20 12/24/20 12/24/20 18:59 06:59 18:59 Intake Total 1085 1860 155 Output Total 1500 2300 350 Balance -415 -440 -195 Weight 82 kg Intake: IV 525 900 75 Sodium Chloride 0.9% 1, 525 900 75 000 ml @ 75 mls/hr IV . [id number] [facility] Rx#:[id number] Intake, IV Titration 560 960 80 Amount Sodium Acetate 40 meq 400 Sodium Chloride 4Meq/ml Vial 40 meq Calcium Gluconate 1 gm Potassium Phosphate 15 mmol In Amino Acids 5 %/Dextrose 20 % 1,000 ml @ 80 mls/hr IV .BY DURATION [facility] Rx#: [id number] Sodium Acetate 40 meq 160 960 80 Sodium Chloride 4Meq/ml Vial 40 meq Calcium Gluconate 1 gm Potassium Phosphate 15 mmol In Amino Acids 5 %/Dextrose 20 % 1,000 ml @ 80 mls/hr IV .BY DURATION [facility] Rx#: [id number] Oral 0 Output: Urine 1500 2300 350 Other: Voiding Method Urinal Urinal - Exam Moderate respiratory distress, oriented 3. BiPAP mask in place. Respiratory rate mid 20s. Saturations are in the low 90s. HEENT examination is grossly unremarkable. Neck supple. Full range of motion. No adenopathy thyromegaly or neck vein distention. Cardiovascular examination reveals regular rhythm rate. S1-S2 normal. No S3 or S4. No discernible murmur noted. Heart sounds are distant. Heart rate 76 bpm. Lungs reveal bilateral diffuse moderate rhonchi. A few crackles appreciated. No wheezes. Breath sounds are equal bilaterally. Abdomen soft bowel sounds are heard. No masses or tenderness. Extremities are intact. No cyanosis clubbing or edema. Skin is without rash or lesion. Neurologic examination is brief but nonfocal. - Labs CBC & Chem 7: 12/21/20 07:37 12/24/20 05:53 Labs: Abnormal Lab Results - Last 24 Hours (Table) 12/23/20 12/23/20 12/23/20 Range/Units 10:58 11:50 17:45 Glucose (74-99) mg/dL POC Glucose (mg/dL) 164 H 157 H 198 H (75-99) mg/dL 12/23/20 12/24/20 12/24/20 Range/Units 23:34 05:52 05:53 Glucose 179 H (74-99) mg/dL POC Glucose (mg/dL) 176 H 159 H (75-99) mg/dL Assessment and Plan Assessment: #1. Acute hypoxic respiratory failure related to acute COVID-19 pneumonia, with onset of symptoms 4 days ago, Patient did not Remdesivir was ordered on 12/16 which the patient had refused. Did not receive COVID-19 vaccination. Patient's hypoxia has progressed, today on 12/28/2020 patient is up to 15 L of oxygen and the pulse ox of 87%, was started on baricitinib on 12/18/2020, and overnight was placed on BiPAP support with pressures of 14 of 7 and FiO2 of 90%. The patient was transferred to the intensive care unit on December 23. #2. Rounded opacity in the right hilar/infrahilar region rule out possibility of mass, CT chest with contrast showing no suspicious pulmonary masses, reactive thoracic adenopathy, and bilateral multifocal opacities consistent with COVID-19 pneumonia. #3. Former smoker, in the remote past, in remission since 1983. #4. Hypertension. #5. Increased inflammatory markers, increased d-dimer related to acute viral pneumonia. Plan: Plan dated 12/20/2020. The patient remains on BiPAP therapy, at 100%. The patient remains on Decadron, as well as vitamins, and Lovenox. The patient was started on Baricitinib on 12/18/2020. That's 4 mg a day orally. It be given up to 14 days. We will continue to follow the patient carefully. No additional recommendations are made. Prognosis is guarded. As mentioned, his is in the intensive care unit, and actually looks much worse and he does. Plan dated 12/23/2020. The patient is transferred down to the intensive care unit. Additional recomme ndations and suggestions are forthcoming. The patient will remain on BiPAP. His daughter called, and I will call her back about her father and mother. Currently, his respiratory status seems to be a bit worse. We will continue to follow make recommendations where appropriate. Prognosis is guarded both for him and his . Plan dated 12/24/2020. The patient was transferred down to the intensive care unit yesterday. This was because of increased work of breathing. The patient was quite tachypneic yesterday. Currently, the patient's on BiPAP with settings of IPAP 14, EPAP 7, and 100%. The patient's getting TPN at 80 mL an hour and saline at 75 mL an hour. Chest x-ray from yesterday was reviewed. Labs are reviewed today. Indications are reviewed. The patient's overall prognosis remains very guarded. It's very possible, the patient may worsen, and require intubation and mecha nical ventilation. He can be more closely monitored and managed here in the intensive care unit. Additional recommendations and suggestions are forthcoming. Medication corona, the patient's on vitamin C, vitamin D3, and zinc. In addition, the patient's getting Lovenox, Decadron, and Baricitinib. Time with Patient: Greater than 30
[2020-12-24] MEDS: ASCORBIC ACID 500 MG TAB PO SCH (08:28)
[2020-12-24] MEDS: CHOLECALCIFEROL 25 MCG (1000 IU) TABLET PO SCH (08:28)
[2020-12-24] MEDS: ZINC SULFATE 220 MG CAP PO SCH (08:29)
[2020-12-24] MEDS: ENOXAPARIN 40 MG/0.4 ML SYRINGE SQ SCH (08:29)
[2020-12-24] MEDS: BARICITINIB 2 MG TABLET PO SCH (08:29)
[2020-12-24] MEDS: DEXAMETHASONE SOD PHOSPHATE 10 MG/ML 1 ML VIAL IV SCH ×2 (08:29→20:34)
[2020-12-24] MEDS: PANTOPRAZOLE 40 MG/10 ML VIAL IVP SCH (08:29)
[2020-12-24] MEDS: ALBUTEROL HFA INHALER INHALATION SCH ×4 (09:32→19:22)
[2020-12-24 12:35] LABS: Glucose,Whole Blood 191 mg/dL (75-99)
--- NOTE | 2020-12-24 13:18 | P.PN ---
Subjective Progress Note Date: 12/24/20 Patient reports feeling more congested today and appears to have increased work of breathing. Remains BiPAP dependent, now on FiO2 of 100%, 22/09, tachypneic. Inflammatory markers are worse today. Pt is being monitored in the ICU, may warrant intubation in coming days if no improvement. Objective - Vital Signs Vital signs: Vital Signs Temp 98.9 F 12/24/20 12:00 Pulse 83 12/24/20 12:00 Resp 18 12/24/20 12:00 BP 155/90 12/24/20 12:00 Pulse Ox 90 L 12/24/20 12:00 Intake & Output 12/23/20 12/24/20 12/24/20 18:59 06:59 18:59 Intake Total 1085 1860 850 Output Total 1500 2300 700 Balance -415 -440 150 Weight 82 kg 82 kg Intake: IV 525 900 450 Sodium Chloride 0.9% 1, 525 900 450 000 ml @ 75 mls/hr IV . [id number] [facility] Rx#:[id number] Intake, IV Titration 560 960 400 Amount Sodium Acetate 40 meq 400 Sodium Chloride 4Meq/ml Vial 40 meq Calcium Gluconate 1 gm Potassium Phosphate 15 mmol In Amino Acids 5 %/Dextrose 20 % 1,000 ml @ 80 mls/hr IV .BY DURATION [facility] Rx#: [id number] Sodium Acetate 40 meq 160 960 400 Sodium Chloride 4Meq/ml Vial 40 meq Calcium Gluconate 1 gm Potassium Phosphate 15 mmol In Amino Acids 5 %/Dextrose 20 % 1,000 ml @ 80 mls/hr IV .BY DURATION [facility] Rx#: [id number] Oral 0 Output: Urine 1500 2300 700 Other: Voiding Method Urinal Urinal Urinal - Exam Gen: awake, alert HEENT: normocephalic, atraumatic, good hearing acuity, moist mucous membranes Resp: Impaired air exchange, increased work of breathing, symmetric chest expansion CVS: good distal perfusion x 4, GI: soft, NTTP, ND : no SPT, no CVAT, bingham catheter not present MSK: no pitting edema, no clubbing Neuro: non-focal, moving all extremities Psych: cooperative, euthymic mood - Labs CBC & Chem 7: 12/21/20 07:37 12/24/20 05:53 Labs: Abnormal Lab Results - Last 24 Hours (Table) 12/23/20 12/23/20 12/24/20 Range/Units 17:45 23:34 05:52 Glucose (74-99) mg/dL POC Glucose (mg/dL) 198 H 176 H 159 H (75-99) mg/dL 12/24/20 12/24/20 Range/Units 05:53 12:33 Glucose 179 H (74-99) mg/dL POC Glucose (mg/dL) 191 H (75-99) mg/dL Assessment and Plan Assessment: COVID pneumonia and unvaccinated patient with acute hypoxic respiratory failure -Continue with Decadron, consider scaling back to daily -Zinc, vitamin C, vitamin D, melatonin -baricitinib day 7 -Pulmonary consult -Supplemental oxygen -Pro calcitonin not significantly elevated -Follow inflammatory labs -Patient refused remdesivir -TPN DVT prophylaxis -Lovenox The patient is admitted with an anticipated less than 2 midnight stay for evaluation of COVID CODE STATUS:Full Code
[2020-12-24 18:12] LABS: Glucose,Whole Blood 160 mg/dL (75-99)
[2020-12-24] MEDS: FAT EMULSION 20% 250 ML IV SCH (18:17)
[2020-12-24] MEDS: MELATONIN 5 MG TABLET PO SCH (20:34)
[2020-12-24 23:37] LABS: Glucose,Whole Blood 200 mg/dL (75-99)
[2020-12-25] MEDS: ALBUTEROL HFA INHALER INHALATION SCH ×6 (00:50→23:25)
[2020-12-25 05:38] LABS: Potassium 4.6 mmol/L (3.5-5.1); Sodium 136 mmol/L (137-145)
[2020-12-25 05:40] LABS: African American GFR (CKD) >90 (>60 ml/min/1.73 sqM); Anion Gap 7 mmol/L; Blood Urea Nitrogen 21 mg/dL (9-20); Calcium 8.9 mg/dL (8.4-10.2); Carbon Dioxide 28 mmol/L (22-30); Chloride 101 mmol/L (98-107); Glucose 215 mg/dL (74-99); Magnesium 2.2 mg/dL (1.6-2.3); Non-African American GFR(CKD) >90 (>60 ml/min/1.73 sqM); Phosphorus 3.7 mg/dL (2.5-4.5)
[2020-12-25 06:10] LABS: Glucose,Whole Blood 199 mg/dL (75-99)
[2020-12-25] MEDS: INSULIN ASPART (NovoLOG) 100 UNIT/ML VIAL SQ SCH ×3 (06:17→17:41)
[2020-12-25] MEDS: PANTOPRAZOLE 40 MG/10 ML VIAL IVP SCH (09:19)
[2020-12-25] MEDS: DEXAMETHASONE SOD PHOSPHATE 10 MG/ML 1 ML VIAL IV SCH ×2 (09:19→21:54)
[2020-12-25] MEDS: ENOXAPARIN 40 MG/0.4 ML SYRINGE SQ SCH (09:19)
[2020-12-25] MEDS: ZINC SULFATE 220 MG CAP PO SCH (09:20)
[2020-12-25] MEDS: CHOLECALCIFEROL 25 MCG (1000 IU) TABLET PO SCH (09:20)
[2020-12-25] MEDS: ASCORBIC ACID 500 MG TAB PO SCH (09:20)
[2020-12-25] MEDS: BARICITINIB 2 MG TABLET PO SCH (10:57)
[2020-12-25 12:09] LABS: Glucose,Whole Blood 158 mg/dL (75-99)
--- NOTE | 2020-12-25 13:04 | P.PN ---
Subjective Progress Note Date: 12/25/20 Principal diagnosis: COVID-19 pneumonia The patient is seen today 12/25/2020 in follow-up in the intensive care unit. He is having ongoing treatment for COVID-19 pneumonia. He is currently on BiPAP 14/7 and 100% FiO2 to maintain O2 saturations in the mid 80s. Respiratory rate i n the high 20s to low 30s. He is being nourished with TPN at 80 mL per hour. He has 0.9 normal saline at 75 mL per hour. Sodium 136. Potassium 4.6. BUN 21. Creatinine 0.66. Glucose 215. He remains on Baricitinib, IV Decadron 6 mg twice a day, Lovenox, vitamin supplements. Pro-calcitonin level pending. D-dimer pending. Objective - Vital Signs Vital signs: Vital Signs Temp 98.8 F 12/25/20 04:00 Pulse 85 12/25/20 12:00 Resp 31 H 12/25/20 12:00 BP 156/105 12/25/20 12:00 Pulse Ox 83 L 12/25/20 12:00 Intake & Output 12/24/20 12/25/20 12/25/20 18:59 06:59 18:59 Intake Total 2356 900 245 Output Total 1750 1725 425 Balance 606 -825 -180 Weight 82 kg Intake: IV 900 900 245 Sodium Chloride 0.9% 1, 900 900 245 000 ml @ 75 mls/hr IV . [id number] [facility] Rx#:[id number] Intake, IV Titration 1456 Amount Mvi, Adult No.4 with Vit 1056 K 10 ml Trace (Conc-1Ml/ Dose) 1 ml Sodium Acetate 40 meq Sodium Chloride 4Meq/ml Vial 40 meq Calcium Gluconate 1 gm Potassium Phosphate 15 mmol In Amino Acids 5 %/ Dextrose 20 % 1,000 ml @ 80 mls/hr IV .BY DURATION [facility] Rx#:[id number] Sodium Acetate 40 meq 400 Sodium Chloride 4Meq/ml Vial 40 meq Calcium Gluconate 1 gm Potassium Phosphate 15 mmol In Amino Acids 5 %/Dextrose 20 % 1,000 ml @ 80 mls/hr IV .BY DURATION [facility] Rx#: [id number] Output: Urine 1750 1725 425 Other: Voiding Method Urinal Urinal Urinal # Voids 1 - Exam GENERAL EXAM: Alert, 65-year-old male patient, on BiPAP 14/7 and 100% FiO2, fairly comfortable in mild respiratory distress. HEAD: Normocephalic. EYES: Normal reaction of pupils, equal size. NOSE: Clear with pink turbinates. THROAT: No erythema or exudates. NECK: No masses, no JVD. CHEST: No chest wall deformity. LUNGS: Equal air entry with coarse crackles in the bilateral posterior bases. CVS: S1 and S2 normal with no audible murmur, regular rhythm. ABDOMEN: No hepatosplenomegaly, normal bowel sounds, no guarding or rigidity. SPINE: No scoliosis or deformity SKIN: No rashes CENTRAL NERVOUS SYSTEM: No focal deficits, tone is normal in all 4 extremities. EXTREMITIES: There is no peripheral edema. No clubbing, no cyanosis. Peripheral pulses are intact. - Labs CBC & Chem 7: 12/21/20 07:37 12/25/20 04:30 Labs: Abnormal Lab Results - Last 24 Hours (Table) 12/24/20 12/24/20 12/25/20 Range/Units 18:11 23:35 04:30 Sodium 136 L (137-145) mmol/L BUN 21 H (9-20) mg/dL Glucose 215 H (74-99) mg/dL POC Glucose (mg/dL) 160 H 200 H (75-99) mg/dL 12/25/20 12/25/20 Range/Units 06:08 12:07 Sodium (137-145) mmol/L BUN (9-20) mg/dL Glucose (74-99) mg/dL POC Glucose (mg/dL) 199 H 158 H (75-99) mg/dL Assessment and Plan Assessment: 1 Acute hypoxic respiratory failure related to acute COVID-19 pneumonia, with onset of symptoms 4 days ago, Patient did not want Remdesivir that was ordered on 12/16/2020 which the patient had refused. Did not receive COVID-19 vaccination. Patient's hypoxia has progressed, today on 12/22/2020 patient is on BiPAP 14/7 and 100% FiO2, was started on baricitinib on 12/18/2020 2 Rounded opacity in the right hilar/infrahilar region rule out possibility of mass, CT chest with contrast showing no suspicious pulmonary masses, reactive thoracic adenopathy, and bilateral multifocal opacities consistent with COVID-19 pneumonia 3 Former smoker, in the remote past, in remission since 1983 4 Hypertension 5 Increased inflammatory markers, increased d-dimer related to acute viral pneumonia Plan: The patient was seen and evaluated by Dr. Pinedo Continue to titrate the FiO2 as tolerated Remains on Baricitinib, Lovenox, Decadron, vitamin supplements Procalcitonin pending. D-dimer pending. Repeat chest x-ray in a.m. Continue TPN for nutritional support Overall prognosis remains quite guarded We'll continue to follow I, the cosigning physician, performed a history & physical examination of the patient. Lungs sounds with coarse crackles in the bilateral bases. Maintaining O2 saturations in the mid 80s on BiPAP 14/7 and 100% FiO2. I discussed the assessment and plan of care with my nurse practitioner, Quin Walsh. I attest to the above note as dictated by her.
--- NOTE | 2020-12-25 14:10 | P.PN ---
Subjective Progress Note Date: 12/25/20 Patient is not doing very well. Saturating 8384% on 100% FiO2 with 14/7 BiPAP settings. I explained to the patient today that he is right on the border of requiring intubation. He has me how long he would likely need to be on the ventilator and I explained that I have no way of knowing that unfortunately. When I asked him how long he would want to be on the ventilator, he tells me that after 5 days of trying, to discuss with his and pull the tube. Objective - Vital Signs Vital signs: Vital Signs Temp 98.8 F 12/25/20 04:00 Pulse 86 12/25/20 13:00 Resp 32 H 12/25/20 13:00 BP 163/84 12/25/20 13:00 Pulse Ox 85 L 12/25/20 13:00 Intake & Output 12/24/20 12/25/20 12/25/20 18:59 06:59 18:59 Intake Total 2356 900 265 Output Total 1750 1725 575 Balance 606 -825 -310 Weight 82 kg Intake: IV 900 900 265 Sodium Chloride 0.9% 1, 900 900 265 000 ml @ 75 mls/hr IV . [id number] [facility] Rx#:[id number] Intake, IV Titration 1456 Amount Mvi, Adult No.4 with Vit 1056 K 10 ml Trace (Conc-1Ml/ Dose) 1 ml Sodium Acetate 40 meq Sodium Chloride 4Meq/ml Vial 40 meq Calcium Gluconate 1 gm Potassium Phosphate 15 mmol In Amino Acids 5 %/ Dextrose 20 % 1,000 ml @ 80 mls/hr IV .BY DURATION [facility] Rx#:[id number] Sodium Acetate 40 meq 400 Sodium Chloride 4Meq/ml Vial 40 meq Calcium Gluconate 1 gm Potassium Phosphate 15 mmol In Amino Acids 5 %/Dextrose 20 % 1,000 ml @ 80 mls/hr IV .BY DURATION [facility] Rx#: [id number] Output: Urine 1750 1725 575 Other: Voiding Method Urinal Urinal Urinal # Voids 1 - Exam Gen: awake, alert HEENT: normocephalic, atraumatic, good hearing acuity, moist mucous membranes Resp: Impaired air exchange, increased work of breathing, symmetric chest expansion CVS: good distal perfusion x 4, GI: soft, NTTP, ND : no SPT, no CVAT, bingham catheter not present MSK: no pitting edema, no clubbing Neuro: non-focal, moving all extremities Psych: cooperative, euthymic mood - Labs CBC & Chem 7: 12/21/20 07:37 12/25/20 04:30 Labs: Abnormal Lab Results - Last 24 Hours (Table) 12/24/20 12/24/20 12/25/20 Range/Units 18:11 23:35 04:30 Sodium 136 L (137-145) mmol/L BUN 21 H (9-20) mg/dL Glucose 215 H (74-99) mg/dL POC Glucose (mg/dL) 160 H 200 H (75-99) mg/dL 12/25/20 12/25/20 Range/Units 06:08 12:07 Sodium (137-145) mmol/L BUN (9-20) mg/dL Glucose (74-99) mg/dL POC Glucose (mg/dL) 199 H 158 H (75-99) mg/dL Assessment and Plan Assessment: COVID pneumonia and unvaccinated patient with acute hypoxic respiratory failure -Continue with Decadron, consider scaling back to daily -Zinc, vitamin C, vitamin D, melatonin -baricitinib day 8 -Pulmonary consult -Supplemental oxygen -Pro calcitonin not significantly elevated -Follow inflammatory labs -Patient refused remdesivir -TPN DVT prophylaxis -Lovenox The patient is admitted with an anticipated less than 2 midnight stay for evaluation of COVID CODE STATUS:Full Code
[2020-12-25 16:58] LABS: Glucose,Whole Blood 186 mg/dL (75-99)
[2020-12-25] MEDS: MELATONIN 5 MG TABLET PO SCH (21:54)
[2020-12-25] MEDS: SODIUM CHLORIDE 0.9% 1,000 ML IV SCH (21:54)
[2020-12-26] MEDS: INSULIN ASPART (NovoLOG) 100 UNIT/ML VIAL SQ SCH ×4 (01:29→19:07)
[2020-12-26] MEDS: SODIUM CHLORIDE 0.9% 1,000 ML IV SCH ×2 (01:31→19:06)
[2020-12-26 01:36] LABS: Glucose,Whole Blood 117 mg/dL (75-99)
[2020-12-26] MEDS: ALBUTEROL HFA INHALER INHALATION SCH ×6 (03:10→18:59)
[2020-12-26 04:02] LABS: Ionized Calcium 5.1 mg/dL (4.5-5.3)
[2020-12-26 04:08] LABS: African American GFR (CKD) >90 (>60 ml/min/1.73 sqM); Anion Gap 7 mmol/L; Blood Urea Nitrogen 27 mg/dL (9-20); Carbon Dioxide 30 mmol/L (22-30); Chloride 98 mmol/L (98-107); Glucose 178 mg/dL (74-99); LDH 1655 U/L (313-618); Magnesium 2.3 mg/dL (1.6-2.3); Non-African American GFR(CKD) >90 (>60 ml/min/1.73 sqM); Phosphorus 4.1 mg/dL (2.5-4.5); Potassium 4.6 mmol/L (3.5-5.1); Sodium 135 mmol/L (137-145)
[2020-12-26 04:26] LABS: C Reactive Protein 15.6 mg/dL (<1.0)
[2020-12-26] MEDS: CHOLECALCIFEROL 25 MCG (1000 IU) TABLET PO SCH (09:10)
[2020-12-26] MEDS: ENOXAPARIN 40 MG/0.4 ML SYRINGE SQ SCH ×2 (09:10→20:12)
[2020-12-26] MEDS: BARICITINIB 2 MG TABLET PO SCH (09:10)
[2020-12-26] MEDS: ASCORBIC ACID 500 MG TAB PO SCH (09:11)
[2020-12-26] MEDS: PANTOPRAZOLE 40 MG/10 ML VIAL IVP SCH (09:11)
[2020-12-26] MEDS: DEXAMETHASONE SOD PHOSPHATE 10 MG/ML 1 ML VIAL IV SCH ×2 (09:11→20:12)
[2020-12-26] MEDS: ZINC SULFATE 220 MG CAP PO SCH (09:12)
--- NOTE | 2020-12-26 09:20 | XR ---
EXAMINATION TYPE: XR chest 1V DATE OF EXAM: 12/26/2020 COMPARISON: 12/23/2020 HISTORY: 65 years Male. STUDY INDICATION GIVEN: CoVID pneumonia . TECHNIQUE: Upright AP portable chest radiograph IMPRESSION: Tip of left upper extremity PICC slightly retracted now seen at the distal aspect of the left brachio cephalic vein. Slightly increased bibasilar interstitial and left lower greater than right airspace opacities.. Stab le right hemidiaphragm eventration. No significant pleural effusion. No pneumothorax seen. Normal cardiomediastinal silhouette. No acute osseous abnormality.
[2020-12-26 09:50] LABS: Glucose,Whole Blood 101 mg/dL (75-99)
[2020-12-26 10:24] LABS: ABG Base Excess 5.2 mmol/L; ABG HCO3 29 mmol/L (21-25); ABG Oxygen Saturation 83.6 % (94-97); ABG PCO2 38 mmHg (35-45); ABG PH 7.49 (7.35-7.45); ABG TCO2 30 mmol/L (19-24); Allen Test Performed? Yes
--- NOTE | 2020-12-26 10:25 | P.PN ---
Subjective Progress Note Date: 12/26/20 Patient is doing quite poorly today and has of oxygenation. Saturating between 75-80%. Tachypnea, accessory muscle use, maxed out BiPAP settings. Family is requesting transfer to [facility] if the facility accepts. Objective - Vital Signs Vital signs: Vital Signs Temp 98.8 F 12/25/20 04:00 Pulse 96 12/26/20 09:00 Resp 32 H 12/26/20 09:00 BP 155/97 12/26/20 09:00 Pulse Ox 80 L 12/26/20 09:00 Intake & Output 12/25/20 12/26/20 12/26/20 18:59 06:59 18:59 Intake Total 1530 80 10 Output Total 1100 1500 Balance 430 -1420 10 Weight 83.4 kg Intake: IV 315 80 10 Sodium Chloride 0.9% 1, 315 80 10 000 ml @ 75 mls/hr IV . [id number] Rx#:[id number] Intake, IV Titration 1045 Amount Sodium Acetate 40 meq 1045 Sodium Chloride 4Meq/ml Vial 40 meq Calcium Gluconate 1 gm Potassium Phosphate 15 mmol In Amino Acids 5 %/Dextrose 20 % 1,000 ml @ 80 mls/hr IV .BY DURATION [facility] Rx#: [id number] Oral 170 Output: Urine 1100 1500 Other: Voiding Method Urinal # Voids 1 - Exam Gen: awake, alert HEENT: normocephalic, atraumatic, good hearing acuity, moist mucous membranes Resp: Impaired air exchange, increased work of breathing, symmetric chest expansion CVS: good distal perfusion x 4, GI: soft, NTTP, ND : no SPT, no CVAT, bingham catheter not present MSK: no pitting edema, no clubbing Neuro: non-focal, moving all extremities Psych: cooperative, euthymic mood - Labs CBC & Chem 7: 12/21/20 07:37 12/26/20 03:29 Labs: Abnormal Lab Results - Last 24 Hours (Table) 12/25/20 12/25/20 12/25/20 Range/Units 12:07 13:51 16:57 D-Dimer 11.46 H (<0.60) mg/L FEU Sodium (137-145) mmol/L BUN (9-20) mg/dL Glucose (74-99) mg/dL POC Glucose (mg/dL) 158 H 186 H (75-99) mg/dL Lactate Dehydrogenase (313-618) U/L C-Reactive Protein (<1.0) mg/dL 12/26/20 12/26/20 12/26/20 Range/Units 01:25 03:29 03:29 D-Dimer 12.16 H (<0.60) mg/L FEU Sodium 135 L (137-145) mmol/L BUN 27 H (9-20) mg/dL Glucose 178 H (74-99) mg/dL POC Glucose (mg/dL) 117 H (75-99) mg/dL Lactate Dehydrogenase 1655 H (313-618) U/L C-Reactive Protein 15.6 H (<1.0) mg/dL 12/26/20 Range/Units 09:48 D-Dimer (<0.60) mg/L FEU Sodium (137-145) mmol/L BUN (9-20) mg/dL Glucose (74-99) mg/dL POC Glucose (mg/dL) 101 H (75-99) mg/dL Lactate Dehydrogenase (313-618) U/L C-Reactive Protein (<1.0) mg/dL Assessment and Plan Assessment: COVID pneumonia and unvaccinated patient with acute hypoxic respiratory failure -Continue with Decadron, consider scaling back to daily -Zinc, vitamin C, vitamin D, melatonin -baricitinib day 8 -Pulmonary consult -Supplemental oxygen -Pro calcitonin not significantly elevated -Follow inflammatory labs -Patient refused remdesivir -TPN DVT prophylaxis -Lovenox The patient is admitted with an anticipated less than 2 midnight stay for ev aluation of COVID CODE STATUS:Full Code
[2020-12-26 10:29] LABS: ABG PO2 47 mmHg (83-108)
[2020-12-26] MEDS: DEXMEDETOMIDINE/0.9% NACL(PMX) 400 MCG in EMPTY BAG 1 BAG IV SCH ×2 (11:21→22:31)
[2020-12-26 11:30] LABS: Glucose,Whole Blood 148 mg/dL (75-99)
--- NOTE | 2020-12-26 12:44 | P.PN ---
Subjective Progress Note Date: 12/26/20 Principal diagnosis: Dyspnea, hypoxia, COVID-19 pneumonia 65-year-old white male patient with past medical history of hypertension, former smoker, patient quit smoking back in 1983, presented to the emergency department on the 12/14/2020 per EMS with reported worsening shortness of breath, fever, cough, and fatigue for the last 4 days. Patient was recently traveling in his car across the country on vacation. When he returned home he began having cold- like symptoms. He denied any known exposures. Patient was not COVID-19 vaccinated. Patient's daughter is a home care nurse, she came over to check on her dad yesterday and she took his vitals and found that his pulse ox was 80% on room air and had called the EMS. Patient was placed on supplemental oxygen at 4 L and his pulse ox is around 92%, chest x-ray showed rounded opacity in the right hilar/infrahilar region with air bronchograms that could represent pneumonia in the appropriate clinical setting, underlying mass could not be completely excluded, low lung volumes with bibasilar strandy atelectasis. Patient was febrile on presentation with a temp of 102F. Admission lab work showed white blood cell count 4.5, hemoglobin of 14.5, platelet count is 105, lymphocytes 0.9, d-dimer 0.68, sodium is 133, rest of electrolytes and renal profile were unremarkable, AST was 65, ALT was 40, alkaline phosphatase was 42, troponin was 0.0-4, proBNP was 73. COVID-19 PCR was positive. Patient was given first dose of Remdesivir in the emergency department, he was started on Decadron and prophylactic Lovenox. He appears very weak, but no acute distress, he is receiving IV hydration with 0.9 at a rate of 75 ML per hour, vitamin C, zinc and vitamin D have been started as well. On 12/16/2020 patient seen in follow-up on medical surgical floor, he is resting in bed, he appears very weak, but no acute distress, he remains on 2 L of oxygen with a pulse ox of 93%, he did have a fever overnight, with a temp of 102.4F, patient was started on Remdesivir which he has refused. His is also now hospitalized in another part the hospital with COVID-19 pneumonia, and apparently their daughter had told her parents not to take Remdesivir. Patient is on Decadron 6 blood gram daily, he is on Lovenox 40 mg daily, CT chest with IV contrast has been completed showing no suspicious pulmonary masses, low lung volumes, with bilateral multifocal opacities consistent with known COVID-19 infection. There is reactive thoracic adenopathy noted. Today's labs have been reviewed, white blood cell count 7.02, hemoglobin is 13.2, d-dimer 0.50, sodium is 134, and requested electrolytes were within normal limits, B1 is 23 creatinine 0.95, LFTs were within normal limits, LDH 725, CRP was 3.7 On 12/17/2020 patient seen in follow-up on medical surgical floor. He is afebrile, looks very weak, overall he looks very fatigued, does not appear to be in acute respiratory distress, he is currently still on 2 L of oxygen with a pulse ox between 88-92%, his T-max in the last 24 hours is 100.9F. Patient has refused Remdesivir, he remains on Decadron 6 mg daily. No new chest x-ray today, labs are pending for today. Denies any chest discomfort, no hemoptysis, he remains on Lovenox 40 mg daily, he is on COVID-19 vitamins, he isn't 0.9 normal seen at a rate of 75 ML per hour. On 12/18/2020 patient seen in follow-up on medical surgical floor, he looks very weak today, but does not appear to be in any respiratory distress, however his oxygen requirement has increased, and he is currently on 6 L of oxygen his pulse ox of 81-82%, his FiO2 has been increased to 15 L, his pulse ox is 87%, he is afebrile, blood pressure is 136/70, overall he looks weak, and worn out. Lung sounds reveals coarse crackles bilaterally, he remains on Decadron 6 mg daily, Lovenox 40 mg daily, he is receiving IV fluids with point tenderness and intermittent 75 ML per hour, today's d-dimer 0.60, his inflammatory markers have trended up, and his LDH is up to 1300, CRP is 8.8, pro calcitonin level is - 0.13. Today's chest x-ray shows bilateral airspace disease which is noted to be present bilaterally, lung volumes are low. White blood cell count is 8.13, hemoglobin is 12.5, platelet count is 164, sodium is 132: There is electrolytes and renal profile were within normal limits. Patient states she still wants to go home today despite his increased oxygen demand, continued low-grade fevers through the night, and overall worsening clinical status. The did inform the patient that if he wants to go home this will be AGAINST MEDICAL ADVICE and that his prognosis is poor if she goes home now. His is also admitted with COV ID-19 pneumonia, she is on 4 S., we will request a bed for the patient to be transferred to the same floor. We'll continue with current medical treatment. On 12/19/2020 patient seen in follow-up on selective care unit, his breathing had worsened overnight, there was a rapid response team called last night at 2200 for worsening hypoxia, and patient was switched to BiPAP with pressures of 14 and 6, and 100%, and was tolerating it better. His oxygenation seems to have improved with positive pressure ventilation. This morning she remains on BiPAP support, FiO2 has been cut back to 80% and his pulse ox is around 89-93%, afebrile overnight. Today's chest x-ray shows some improvement in aeration, yesterday we started the patient on baricitinib, he continues on Decadron 6 mg twice daily, and prophylactic dose of Lovenox. Today's labs have been reviewed, his white blood cell count of 7.4, hemoglobin is 13.4, his d-dimer is 0.52, electrolytes and renal profile are unremarkable his LDH continues to be on the rise, increased slightly from yesterday, and is currently is at 1319, he is CRP is 13.7, pro calcitonin level was negative on 12/16/2020 and 0.13. On 12/21/2020 patient seen in follow-up on selective care unit, he remains on BiPAP support with pressures of 14 and 7 and FiO2 of 95%, his pulse ox is 91%, seems to be fairly comfortable on BiPAP support, tolerating it well, he states his breathing is stable, no worsening with BiPAP support, he is awake and alert, oriented 3, yesterday PICC line was inserted, TPN was started for nutritional support, his had no fever or chills. Today's labs have been reviewed white blood cell count is 10.3, hemoglobin is 13.8, sodium is 136, potassium is 4.4, chloride is 106, B1 is 26, creatinine 0.64. He continues on Decadron 6 mg twice daily, daily dose Lovenox, he is on 0.9 normal saline at [place] 75 ML per hour. On 12/26/2020 patient seen in follow-up in intensive care unit, he is currently on BiPAP with pressures of 14 and 7 and FiO2 of 100%, and his pulse ox is 74%, he has rapid shallow respirations, but he is awake and alert, he is answering simple questions, patient has a big leak around his BiPAP mask, his BiPAP mask was adjusted. Today's chest x-ray shows slightly increased bibasilar interstitial left lower greater then right airspace opacities, no significant pleural effusion or pneumothorax. He is a in sinus mechanism, rate is controlled, hemodynamically stable, 0.9 is at 75 ML per hour and he is on TPN at 80 ML per hour. We'll obtain a blood gas on those above-mentioned studies, showing pO2 of 47, pCO2 of 38, and pH 7.49 and this was done on FiO2 100%. His BiPAP settings were adjusted with to 16 and 10 and FiO2 100%. Patient will be started on small dose Precedex for anxiety. His d-dimer today is 12.16, CT chest is pending, lower extremity Dopplers pending, sodium is 135, potassium is 4.6, chloride is 98, BUN is 27 creatinine 0.69, LDH was 1655, increased from his last LDH from 12/23/2020, his CRP is relatively stable at 15.6, pro calcitonin level remains negative at 0.06. Patient is currently on Baricitinib, Decadron 6 mg twice daily. He is on prophylactic Lovenox 40 mg twice daily Objective - Vital Signs Vital signs: Vital Signs Temp 98.8 F 12/25/20 04:00 Pulse 96 12/26/20 09:00 Resp 32 H 12/26/20 12:00 BP 155/97 12/26/20 09:00 Pulse Ox 80 L 12/26/20 09:00 Intake & Output 12/25/20 12/26/20 12/26/20 18:59 06:59 18:59 Intake Total 1530 80 90 Output Total 1100 1500 750 Balance 430 -0460 -956 Weight 83.4 kg Intake: IV 315 80 40 Sodium Chloride 0.9% 1, 315 80 40 000 ml @ 75 mls/hr IV . [id number] [facility] Rx#:[id number] Intake, IV Titration 1045 Amount Sodium Acetate 40 meq 1045 Sodium Chloride 4Meq/ml Vial 40 meq Calcium Gluconate 1 gm Potassium Phosphate 15 mmol In Amino Acids 5 %/Dextrose 20 % 1,000 ml @ 80 mls/hr IV .BY DURATION [facility] Rx#: [id number] Oral 170 50 Output: Urine 1100 1500 750 Other: Voiding Method Urinal Urinal # Voids 1 1 - Exam GENERAL EXAM: Alert, tachypneic 65-year-old white male, on BiPAP support with pressures of 14 and 7, and FiO2 95%, with a pulse ox of 74%, patient has a big leak on the BiPAP mask appears fatigued and weak HEAD: Normocephalic/atraumatic. EYES: Normal reaction of pupils, equal size. Conjunctiva pink, sclera white. NOSE: Clear with pink turbinates. THROAT: No erythema or exudates. NECK: No masses, no JVD, no thyroid enlargement, no adenopathy. CHEST: No chest wall deformity. Symmetrical expansion. LUNGS: Equal air entry with diffuse crackles CVS: Regular rate and rhythm, normal S1 and S2, no gallops, no murmurs, no rubs ABDOMEN: Soft, nontender. No hepatosplenomegaly, normal bowel sounds, no guarding or rigidity. EXTREMITIES: No clubbing, no edema, no cyanosis, 2+ pulses and upper and lower extremities. MUSCULOSKELETAL: Muscle strength and tone normal. SPINE: No scoliosis or deformity SKIN: No rashes CENTRAL NERVOUS SYSTEM: Alert and oriented -3. No focal deficits, tone is normal in all 4 extremities. PSYCHIATRIC: Alert and oriented -3. Appropriate affect. Intact judgment and insight. - Labs CBC & Chem 7: 12/21/20 07:37 12/26/20 03:29 Labs: Abnormal Lab Results - Last 24 Hours (Table) 12/25/20 12/25/20 12/26/20 Range/Units 13:51 16:57 01:25 D-Dimer 11.46 H (<0.60) mg/L FEU ABG pH (7.35-7.45) ABG pO2 (83-108) mmHg ABG HCO3 (21-25) mmol/L ABG Total CO2 (19-24) mmol/L ABG O2 Saturation (94-97) % Sodium (137-145) mmol/L BUN (9-20) mg/dL Glucose (74-99) mg/dL POC Glucose (mg/dL) 186 H 117 H (75-99) mg/dL Lactate Dehydrogenase (313-618) U/L C-Reactive Protein (<1.0) mg/dL 12/26/20 12/26/20 12/26/20 Range/Units 03:29 03:29 09:48 D-Dimer 12.16 H (<0.60) mg/L FEU ABG pH (7.35-7.45) ABG pO2 (83-108) mmHg ABG HCO3 (21-25) mmol/L ABG Total CO2 (19-24) mmol/L ABG O2 Saturation (94-97) % Sodium 135 L (137-145) mmol/L BUN 27 H (9-20) mg/dL Glucose 178 H (74-99) mg/dL POC Glucose (mg/dL) 101 H (75-99) mg/dL Lactate Dehydrogenase 1655 H (313-618) U/L C-Reactive Protein 15.6 H (<1.0) mg/dL 12/26/20 12/26/20 Range/Units 10:22 11:29 D-Dimer (<0.60) mg/L FEU ABG pH 7.49 H (7.35-7.45) ABG pO2 47 L* (83-108) mmHg ABG HCO3 29 H (21-25) mmol/L ABG Total CO2 30 H (19-24) mmol/L ABG O2 Saturation 83.6 L (94-97) % Sodium (137-145) mmol/L BUN (9-20) mg/dL Glucose (74-99) mg/dL POC Glucose (mg/dL) 148 H (75-99) mg/dL Lactate Dehydrogenase (313-618) U/L C-Reactive Protein (<1.0) mg/dL Assessment and Plan Plan: Assessment: #1. Acute hypoxic respiratory failure related to acute COVID-19 pneumonia, with onset of symptoms 4 days ago, Patient did not Remdesivir was ordered on 12/16/2020 which the patient had refused. Did not receive COVID-19 vaccination. Patient's hypoxia has progressed, today on 12/28/2020 patient is up to 15 L of oxygen and the pulse ox of 87%, was started on baricitinib on 12/18/2020, and overnight was placed on BiPAP support with pressures of 14 of 7 and FiO2 of 95%. Today on 12/26/2020 BiPAP settings were increased to 16/10 and FiO2 of 100%. #2. Rounded opacity in the right hilar/infrahilar region rule out possibility of mass, CT chest with contrast showing no suspicious pulmonary masses, reactive thoracic adenopathy, and bilateral multifocal opacities consistent with COVID-19 pneumonia #3. Former smoker, in the remote past, in remission since 1983 #4. Hypertension #5. Increased inflammatory markers, increased d-dimer related to acute viral pneumonia, continues to trend up #6. Elevated d-dimer, at 12.6, CTA chest is pending, and lower extremity Dopplers are pending Plan: Continue BiPAP support, blood gas has been reviewed, pressures were increased to 12/6 100% We will add Precedex for anxiety Continue current dose Decadron, currently on 6 mg twice daily Continue Baricitinib Lovenox has been increased to twice daily until CTA chest can be completed and lower extremity Dopplers were completed Currently unable to lie flat for CTA chest, we'll hold off on it until patient is pitting comfortably, less hypoxic We discussed possibility of intubation with him Patient is agreeable to intubation, if his condition continues to deteriorate He wants to be transferred to the [facility] Discharge planning can initiate the process however possibility of an available bed at the [facility] is unlikely Continue multivitamins PICC line has been inserted, TPN was started We'll continue to follow his clinical course Overall prognosis is extremely guarded I performed a history & physical examination of the patient and discussed their management with my nurse practitioner, Madeleine Bunch. I reviewed the nurse practitioner's note and agree with the documented findings and plan of care. Lung sounds are positive for crackles throughout the lung baltazar. The findings and the impression was discussed with the patient. I attest to the documentation by the nurse practitioner. , Time with Patient: Greater than 30
[2020-12-26] MEDS ORDERED: MORPHINE SULFATE 2 MG/ML SYRINGE IVP PRN (12:50)
[2020-12-26] MEDS: ACETAMINOPHEN TAB 325 MG TAB PO PRN (13:08)
--- NOTE | 2020-12-26 13:27 | US ---
EXAMINATION TYPE: US venous doppler duplex LE BI DATE OF EXAM: 12/26/2020 9:32 AM COMPARISON: NONE CLINICAL HISTORY: elevated d-dimer. COVID ICU, elevated d-dimer SIDE PERFORMED: Bilateral TECHNIQUE: The lower extremity deep venous system is examined utilizing real time linear array sonog dev with graded compression, doppler sonography and color-flow sonography. VESSELS IMAGED: Common Femoral Vein Deep Femoral Vein Greater Saphenous Vein * Femoral Vein Popliteal Vein Small Saphenous Vein * Proximal Calf Veins (* superficial vessels) Right Leg: Negative for DVT. Left Leg: Negative for DVT There are bilateral lower extremity atherosclerotic peripheral vascular disease extending to the leg. IMPRESSION 1. No sonographic evidence for deep vein thrombosis in the bilateral lower extremities. 2. Bilateral peripheral vascular disease.
[2020-12-26 18:56] LABS: Glucose,Whole Blood 155 mg/dL (75-99)
[2020-12-26] MEDS: MELATONIN 5 MG TABLET PO SCH (19:56)
[2020-12-26] MEDS ORDERED: propofoL 100 ML IV ONE (22:41)
[2020-12-26] MEDS ORDERED: HYDROmorphone 1 MG/ML 1 ML SYRINGE IVP PRN (22:43)
[2020-12-26] MEDS ORDERED: CHLORHEXIDINE GLUCONATE 15 ML CUP MUCOUS MEM ONE (23:09)
--- NOTE | 2020-12-26 23:29 | XR ---
EXAMINATION TYPE: XR chest 1V portable DATE OF EXAM: 12/26/2020 COMPARISON: Today HISTORY: Respiratory failure TECHNIQUE: Single view FINDINGS: The endotracheal tube is 2 cm from the glynn. There is nasogastric tube in the stomach. Th ere is pulmonary interstitial and airspace edema. Heart size is normal. There are chest leads. Bony t horax is intact. IMPRESSION: There is pulmonary edema which is not significantly different than exam this morning.
[2020-12-26 23:59] LABS: ABG Base Excess 5.2 mmol/L; ABG HCO3 33 mmol/L (21-25); ABG Oxygen Saturation 89.2 % (94-97); ABG PH 7.21 (7.35-7.45); ABG PO2 74 mmHg (83-108); ABG TCO2 36 mmol/L (19-24); Allen Test Performed? Yes
[2020-12-26 23:59] LABS: Glucose,Whole Blood 195 mg/dL (75-99)
[2020-12-27] MEDS ORDERED: CISATRACURIUM 2 MG/ML 5 ML VIAL IV ONE (00:04)
[2020-12-27 00:05] LABS: ABG PCO2 82 mmHg (35-45)
[2020-12-27] MEDS: INSULIN ASPART (NovoLOG) 100 UNIT/ML VIAL SQ SCH ×6 (00:20→20:38)
[2020-12-27] MEDS: CISATRACURIUM 200 MG in SODIUM CHLORIDE 0.9% 180 ML IV SCH (00:20)
[2020-12-27] MEDS: SODIUM CHLORIDE 0.9% 1,000 ML IV SCH (02:18)
[2020-12-27 05:30] LABS: Basophils % (A) 0 %; Eosinophils % (A) 0 %; HCT 44.1 % (39.0-53.0); HGB 14.4 gm/dL (13.0-17.5); Lymphocytes # (A) 0.3 k/uL (1.0-4.8); Lymphocytes % (A) 2 %; MCH 32.5 pg (25.0-35.0); MCHC 32.6 g/dL (31.0-37.0); MCV 99.7 fL (80.0-100.0); Mean Platelet Volume 7.7; Monocytes # (A) 0.5 k/uL (0-1.0); Monocytes % (A) 2 %; Neutrophils # (A) 19.5 k/uL (1.3-7.7); Neutrophils % (A) 96 %; Platelet Count 255 k/uL (150-450); RBC 4.43 m/uL (4.30-5.90); RDW 13.1 % (11.5-15.5); WBC 20.3 k/uL (3.8-10.6)
[2020-12-27 05:31] LABS: ABG Base Excess 5.2 mmol/L; ABG HCO3 34 mmol/L (21-25); ABG Oxygen Saturation 91.1 % (94-97); ABG PO2 81 mmHg (83-108); ABG TCO2 37 mmol/L (19-24); Allen Test Performed? Yes
[2020-12-27 05:34] LABS: ABG PCO2 99 mmHg (35-45); ABG PH 7.15 (7.35-7.45)
[2020-12-27 05:59] LABS: African American GFR (CKD) >90 (>60 ml/min/1.73 sqM); Anion Gap 6 mmol/L; Blood Urea Nitrogen 31 mg/dL (9-20); Calcium 8.5 mg/dL (8.4-10.2); Carbon Dioxide 32 mmol/L (22-30); Chloride 98 mmol/L (98-107); Glucose 271 mg/dL (74-99); Non-African American GFR(CKD) >90 (>60 ml/min/1.73 sqM); Phosphorus 5.9 mg/dL (2.5-4.5); Potassium 5.3 mmol/L (3.5-5.1); Sodium 136 mmol/L (137-145)
[2020-12-27 06:00] LABS: Magnesium 2.4 mg/dL (1.6-2.3)
[2020-12-27 06:02] LABS: Glucose,Whole Blood 280 mg/dL (75-99)
[2020-12-27] MEDS: ALBUTEROL HFA INHALER INHALATION SCH ×4 (07:11→19:10)
--- NOTE | 2020-12-27 07:56 | P.PN ---
Subjective Progress Note Date: 12/26/20 65-year-old white male patient who is currently in the intensive care unit with diffuse COVID-19 related pneumonia. The patient was hospitalized on 12/15/2020. He has known history of hypertension and is a former smoker. He was initially on 4 L of oxygen by nasal cannula. He was admitted to the hospital for hypoxic respiratory failure and his condition progressed and currently the patient has d iffuse bilateral pulmonary infiltrates and BiPAP dependent respiratory failure. On 12/27/2020, the patient is being seen for a follow-up. The patient progressively decompensated yesterday. After being on a BiPAP at a pressure of 16/10 cm of water, the patient to be intubated and placed on a mechanical ventilator. This occurred approximately midnight. Currently the patient is sedated with propofol and the patient is also paralyzed with Nimbex. Was running at 40 mcg/kg per minute and Nimbex is running at 1 mcg/kg/h. The patient is currently on assist control mode of mechanical ventilation. The patient is on a rate of 36, tidal volume of 400, FiO2 of 100% and a PEEP of 10. Peak airway pressure is 34. Blood gases from this morning is in the order of a pH of 7.15 with a pCO2 of 99 and pO2 of 81. Chest x-ray shows diffuse breath and pulmonary infiltrates. ET tube is in a good location. There is some minor elevation of the right hemidiaphragm. PICC line is present in left upper extremity. Her white cell count from today is at 20. Hemoglobin is at 14.4. The BUN is at 31 with a creatinine of 0.6. Sodium is at 136. Potassium level is at 5.3. LDH level from today is 1655 with a CRP of 15.6.. D-dimer from yesterday was elevated at 12.1. Based on that, Doppler of the lower ext was done and it showed no evidence of any DVTs. . The pro calcitonin level was low at 0.06. The patient continues to be on Baricitinib per protocol in addition to Decadron 6 mg twice a day and prophylactic dose of Lovenox 40 mg subcu every 12 hours. The patient is also on TPN for natural support. Note that the patient is intubated, the patient will be transitioned to enteral feeding for nutritional support. We'll also start Lantus insulin for blood sugar control that needs to be tighter control. Start the patient on 0.2 mg/kg of Lantus in addition to a/scale coverage. Hemodynamically, the patient is stable. No pressors is utilized. The patient has adequate urine output and order of 100 mL an hour. IV fluids are currently at KVO. Balance over the past 24 hours has been -990 mL. Objective - Vital Signs Vital signs: Vital Signs Temp 98.8 F 12/25/20 04:00 Pulse 61 12/26/20 17:00 Resp 26 H 12/26/20 17:00 BP 121/70 12/26/20 17:00 Pulse Ox 84 L 12/26/20 17:00 Intake & Output 12/25/20 12/26/20 12/26/20 18:59 06:59 18:59 Intake Total 1530 80 1205 Output Total 1100 1500 1250 Balance 430 -1420 -45 Weight 83.4 kg Intake: IV 315 80 110 Sodium Chloride 0.9% 1, 315 80 110 000 ml @ 75 mls/hr IV . [id number] [facility] Rx#:[id number] Intake, IV Titration 1045 1045 Amount Sodium Acetate 40 meq 1045 1045 Sodium Chloride 4Meq/ml Vial 40 meq Calcium Gluconate 1 gm Potassium Phosphate 15 mmol In Amino Acids 5 %/Dextrose 20 % 1,000 ml @ 80 mls/hr IV .BY DURATION [facility] Rx#: [id number] Oral 170 50 Output: Urine 1100 1500 1250 Other: Voiding Method Urinal Urinal # Voids 1 1 - Exam GENERAL EXAM: Alert, tachypneic 65-year-old white male, intubated, currently on a mechanical ventilator, currently on assist-control mode of mechanical ventilation. Sedated and paralyzed. HEAD: Normocephalic/atraumatic. EYES: Normal reaction of pupils, equal size. Conjunctiva pink, sclera white. NOSE: Clear with pink turbinates. THROAT: No erythema or exudates. NECK: No masses, no JVD, no thyroid enlargement, no adenopathy. CHEST: No chest wall deformity. Symmetrical expansion. LUNGS: Equal air entry with diffuse crackles CVS: Regular rate and rhythm, normal S1 and S2, no gallops, no murmurs, no rubs ABDOMEN: Soft, nontender. No hepatosplenomegaly, normal bowel sounds, no guarding or rigidity. EXTREMITIES: No clubbing, no edema, no cyanosis, 2+ pulses and upper and lower extremities. MUSCULOSKELETAL: Muscle strength and tone normal. SPINE: No scoliosis or deformity SKIN: No rashes CENTRAL NERVOUS SYSTEM: Alert and oriented -3. No focal deficits, tone is normal in all 4 extremities. PSYCHIATRIC: Sedated and paralyzed, motor function is unable to be assessed on today's evaluation. Pupils are equal and reactive to light. No focal neurological deficits. - Labs CBC & Chem 7: 12/27/20 05:16 12/27/20 05:16 Labs: Abnormal Lab Results - Last 24 Hours (Table) 12/26/20 12/26/20 12/26/20 Range/Units 01:25 03:29 03:29 D-Dimer 12.16 H (<0.60) mg/L FEU ABG pH (7.35-7.45) ABG pO2 (83-108) mmHg ABG HCO3 (21-25) mmol/L ABG Total CO2 (19-24) mmol/L ABG O2 Saturation (94-97) % Sodium 135 L (137-145) mmol/L BUN 27 H (9-20) mg/dL Glucose 178 H (74-99) mg/dL POC Glucose (mg/dL) 117 H (75-99) mg/dL Lactate Dehydrogenase 1655 H (313-618) U/L C-Reactive Protein 15.6 H (<1.0) mg/dL 12/26/20 12/26/20 12/26/20 Range/Units 09:48 10:22 11:29 D-Dimer (<0.60) mg/L FEU ABG pH 7.49 H (7.35-7.45) ABG pO2 47 L* (83-108) mmHg ABG HCO3 29 H (21-25) mmol/L ABG Total CO2 30 H (19-24) mmol/L ABG O2 Saturation 83.6 L (94-97) % Sodium (137-145) mmol/L BUN (9-20) mg/dL Glucose (74-99) mg/dL POC Glucose (mg/dL) 101 H 148 H (75-99) mg/dL Lactate Dehydrogenase (313-618) U/L C-Reactive Protein (<1.0) mg/dL Assessment and Plan Plan: 1. Acute hypoxic respiratory failure related to acute COVID-19 pneumonia, with onset of symptoms 4 days ago, Patient did not Remdesivir was ordered on 12/16/2020 which the patient had refused. Did not receive COVID-19 vaccination. . Doppler of the lower extremities were negative. The inflammatory markers elevated. The patient remains on a combination of Baricitinib and Decadron. Remains on Lovenox. Overnight, the patient decompensated further and the pat ient to be intubated on a mechanical ventilator. For now, the patient is sedated and paralyzed. The patient is on a mechanical ventilator. Chest x-ray was noted. Blood gases was noted. Peak airway pressures around 34. Static pressure is 32. Chest x-ray showed diffuse bilateral pulmonary infiltrates. CT angiogram is to follow distal rule out the possibility of pulmonary embolism. D-dimer was elevated. Doppler lower extremity was negative. Patient failed BiPAP therapy. 2. COVID-19 related pneumonia with diffuse bilateral pulmonary infiltrates/ARDS, failed BiPAP therapy currently intubated on a mechanical ventilator. Blood gases showing a component of respiratory acidosis with se condary hyperkalemia. 3. Hypertension 4. Increased inflammatory markers, increased d-dimer related to acute viral pneumonia, continues to trend up 5. Elevated d-dimer, at 12.6, CTA chest is pending, and lower extremity Dopplers are negative for DVT 6 hyperkalemia secondary to respiratory acidosis, related to potassium shift. Plan: Proceed with a CT angiogram of the chest Continue current dose Decadron, currently on 6 mg twice daily Continue Baricitinib Lovenox 40 mg SC BID Discontinue TPN Initiate enteral nutrition Start the patient on Lantus insulin at a dose of 16 units daily along with a slight scale coverage and monitor the blood sugars Check a mechanical ventilator. Oxygenation remains borderline. Increase the PEEP up to 12 and possibly up to 14 and gradually wean down FiO2 to maintain saturation above 90%. Meanwhile we'll continue monitoring the peak and static pressure. Repeat AbG Will monitor inflammatory markers Condition is basically critical. They have also made suggestions that they wanted transferred [facility]. Our team has contacted [facility] and this transfer was not accepted by the [place] team. From my standpoint, I'm going to meet with the family, addressed all their concerns We'll continue to follow his clinical course Overall prognosis is extremely guarded History care evaluation that was done and more than 30 minutes Time with Patient: Greater than 30
--- NOTE | 2020-12-27 07:57 | P.PN ---
Subjective Progress Note Date: 12/27/20 65-year-old white male patient who is currently in the intensive care unit with diffuse COVID-19 related pneumonia. The patient was hospitalized on 12/15/2020. He has known history of hypertension and is a former smoker. He was initially on 4 L of oxygen by nasal cannula. He was admitted to the hospital for hypoxic respiratory failure and his condition progressed and currently the patient has d iffuse bilateral pulmonary infiltrates and BiPAP dependent respiratory failure. On 12/27/2020, the patient is being seen for a follow-up. The patient progressively decompensated yesterday. After being on a BiPAP at a pressure of 16/10 cm of water, the patient to be intubated and placed on a mechanical ventilator. This occurred approximately midnight. Currently the patient is sedated with propofol and the patient is also paralyzed with Nimbex. Was running at 40 mcg/kg per minute and Nimbex is running at 1 mcg/kg/h. The patient is currently on assist control mode of mechanical ventilation. The patient is on a rate of 36, tidal volume of 400, FiO2 of 100% and a PEEP of 10. Peak airway pressure is 34. Blood gases from this morning is in the order of a pH of 7.15 with a pCO2 of 99 and pO2 of 81. Chest x-ray shows diffuse breath and pulmonary infiltrates. ET tube is in a good location. There is some minor elevation of the right hemidiaphragm. PICC line is present in left upper extremity. Her white cell count from today is at 20. Hemoglobin is at 14.4. The BUN is at 31 with a creatinine of 0.6. Sodium is at 136. Potassium level is at 5.3. LDH level from today is 1655 with a CRP of 15.6.. D-dimer from yesterday was elevated at 12.1. Based on that, Doppler of the lower ext was done and it showed no evidence of any DVTs. . The pro calcitonin level was low at 0.06. The patient continues to be on Baricitinib per protocol in addition to Decadron 6 mg twice a day and prophylactic dose of Lovenox 40 mg subcu every 12 hours. The patient is also on TPN for natural support. Note that the patient is intubated, the patient will be transitioned to enteral feeding for nutritional support. We'll also start Lantus insulin for blood sugar control that needs to be tighter control. Start the patient on 0.2 mg/kg of Lantus in addition to a/scale coverage. Hemodynamically, the patient is stable. No pressors is utilized. The patient has adequate urine output and order of 100 mL an hour. IV fluids are currently at KVO. Balance over the past 24 hours has been -990 mL. Objective - Vital Signs Vital signs: Vital Signs Temp 98.6 F 12/27/20 04:00 Pulse 95 12/27/20 07:00 Resp 30 H 12/27/20 07:00 BP 155/85 12/27/20 07:00 Pulse Ox 89 L 12/27/20 07:00 Intake & Output 12/26/20 12/27/20 12/27/20 18:59 06:59 18:59 Intake Total 2185 1020.520 Output Total 1525 1075 Balance 660 -54.480 Intake: IV 130 120 Sodium Chloride 0.9% 1, 130 120 000 ml @ 10 mls/hr IV . Q24H [facility] Rx#:[id number] Intake, IV Titration 1045 820.520 Amount Cisatracurium 200 mg In 11.488 Sodium Chloride 0.9% 180 ml @ 1 MCG/KG/MIN 5.004 mls/hr IV .Q24H [facility] Rx#: [id number] Dexmedetomidine/0.9% NaCl 74.157 (Pmx) 400 mcg In Empty Bag 1 bag @ 0.2 MCG/KG/HR 4.17 mls/hr IV .[id number] [facility] Rx#:[id number] Sodium Acetate 40 meq 1045 682.667 Sodium Chloride 4Meq/ml Vial 40 meq Calcium Gluconate 1 gm Potassium Phosphate 15 mmol In Amino Acids 5 %/Dextrose 20 % 1,000 ml @ 80 mls/hr IV .BY DURATION [facility] Rx#: [id number] propofoL 1,000 mg In 52.208 Empty Bag 1 bag @ Titrate IV .Q0M [facility] Rx#: [id number] Oral 50 TPN/PPN 960 80 Sodium Chloride 0.9% 1, 960 80 000 ml @ 10 mls/hr IV . Q24H [facility] Rx#:[id number] Output: Urine 1525 1075 Other: Voiding Method Urinal Indwelling Catheter # Voids 1 ABP, PAP, CO, CI - Last Documented Arterial Blood Pressure 159/61 - Exam GENERAL EXAM: Alert, tachypneic 65-year-old white male, intubated, currently on a mechanical ventilator, currently on assist-control mode of mechanical ventilation. Sedated and paralyzed. HEAD: Normocephalic/atraumatic. EYES: Normal reaction of pupils, equal size. Conjunctiva pink, sclera white. NOSE: Clear with pink turbinates. THROAT: No erythema or exudates. NECK: No masses, no JVD, no thyroid enlargement, no adenopathy. CHEST: No chest wall deformity. Symmetrical expansion. LUNGS: Equal air entry with diffuse crackles CVS: Regular rate and rhythm, normal S1 and S2, no gallops, no murmurs, no rubs ABDOMEN: Soft, nontender. No hepatosplenomegaly, normal bowel sounds, no guarding or rigidity. EXTREMITIES: No clubbing, no edema, no cyanosis, 2+ pulses and upper and lower extremities. MUSCULOSKELETAL: Muscle strength and tone normal. SPINE: No scoliosis or deformity SKIN: No rashes CENTRAL NERVOUS SYSTEM: Alert and oriented -3. No focal deficits, tone is normal in all 4 extremities. PSYCHIATRIC: Sedated and paralyzed, motor function is unable to be assessed on today's evaluation. Pupils are equal and reactive to light. No focal neurological deficits. - Labs CBC & Chem 7: 12/27/20 05:16 12/27/20 05:16 Labs: Abnormal Lab Results - Last 24 Hours (Table) 12/26/20 12/26/20 12/26/20 Range/Units 09:48 10:22 11:29 WBC (3.8-10.6) k/uL Neutrophils # (1.3-7.7) k/uL Lymphocytes # (1.0-4.8) k/uL ABG pH 7.49 H (7.35-7.45) ABG pCO2 (35-45) mmHg ABG pO2 47 L* (83-108) mmHg ABG HCO3 29 H (21-25) mmol/L ABG Total CO2 30 H (19-24) mmol/L ABG O2 Saturation 83.6 L (94-97) % Sodium (137-145) mmol/L Potassium (3.5-5.1) mmol/L Carbon Dioxide (22-30) mmol/L BUN (9-20) mg/dL Creatinine (0.66-1.25) mg/dL Glucose (74-99) mg/dL POC Glucose (mg/dL) 101 H 148 H (75-99) mg/dL Phosphorus (2.5-4.5) mg/dL Magnesium (1.6-2.3) mg/dL 12/26/20 12/26/20 12/26/20 Range/Units 18:54 23:52 23:57 WBC (3.8-10.6) k/uL Neutrophils # (1.3-7.7) k/uL Lymphocytes # (1.0-4.8) k/uL ABG pH 7.21 L (7.35-7.45) ABG pCO2 82 H* (35-45) mmHg ABG pO2 74 L (83-108) mmHg ABG HCO3 33 H (21-25) mmol/L ABG Total CO2 36 H (19-24) mmol/L ABG O2 Saturation 89.2 L (94-97) % Sodium (137-145) mmol/L Potassium (3.5-5.1) mmol/L Carbon Dioxide (22-30) mmol/L BUN (9-20) mg/dL Creatinine (0.66-1.25) mg/dL Glucose (74-99) mg/dL POC Glucose (mg/dL) 155 H 195 H (75-99) mg/dL Phosphorus (2.5-4.5) mg/dL Magnesium (1.6-2.3) mg/dL 12/27/20 12/27/20 12/27/20 Range/Units 05:16 05:16 05:30 WBC 20.3 H (3.8-10.6) k/uL Neutrophils # 19.5 H (1.3-7.7) k/uL Lymphocytes # 0.3 L (1.0-4.8) k/uL ABG pH 7.15 L* (7.35-7.45) ABG pCO2 99 H* (35-45) mmHg ABG pO2 81 L (83-108) mmHg ABG HCO3 34 H (21-25) mmol/L ABG Total CO2 37 H (19-24) mmol/L ABG O2 Saturation 91.1 L (94-97) % Sodium 136 L (137-145) mmol/L Potassium 5.3 H (3.5-5.1) mmol/L Carbon Dioxide 32 H (22-30) mmol/L BUN 31 H (9-20) mg/dL Creatinine 0.65 L (0.66-1.25) mg/dL Glucose 271 H (74-99) mg/dL POC Glucose (mg/dL) (75-99) mg/dL Phosphorus 5.9 H (2.5-4.5) mg/dL Magnesium 2.4 H (1.6-2.3) mg/dL 12/27/20 Range/Units 06:01 WBC (3.8-10.6) k/uL Neutrophils # (1.3-7.7) k/uL Lymphocytes # (1.0-4.8) k/uL ABG pH (7.35-7.45) ABG pCO2 (35-45) mmHg ABG pO2 (83-108) mmHg ABG HCO3 (21-25) mmol/L ABG Total CO2 (19-24) mmol/L ABG O2 Saturation (94-97) % Sodium (137-145) mmol/L Potassium (3.5-5.1) mmol/L Carbon Dioxide (22-30) mmol/L BUN (9-20) mg/dL Creatinine (0.66-1.25) mg/dL Glucose (74-99) mg/dL POC Glucose (mg/dL) 280 H (75-99) mg/dL Phosphorus (2.5-4.5) mg/dL Magnesium (1.6-2.3) mg/dL Assessment and Plan Plan: 1. Acute hypoxic respiratory failure related to acute COVID-19 pneumonia, with onset of symptoms 4 days ago, Patient did not Remdesivir was ordered on 09/2020 which the patient had refused. Did not receive COVID-19 vaccination. . Doppler of the lower extremities were negative. The inflammatory markers elevated. The patient remains on a combination of Baricitinib and Decadron. Remains on Lovenox. Overnight, the patient decompensated further and the patient to be intubated on a mechanical ventilator. For now, the patient is sedated and paralyzed. The patient is on a mechanical ventilator. Chest x-ray was noted. Blood gases was noted. Peak airway pressures around 34. Static pressure is 32. Chest x-ray showed diffuse bilateral pulmonary infiltrates. CT angiogram is to follow distal rule out the possibility of pulmonary embolism. D-dimer was elevated. Doppler lower extremity was negative. Patient failed BiPAP therapy. 2. COVID-19 related pneumonia with diffuse bilateral pulmonary infiltrates/ARDS, failed BiPAP therapy currently intubated on a mechanical ventilator. Blood gases showing a component of respiratory acidosis with secondary hyperkalemia. 3. Hypertension 4. Increased inflammatory markers, increased d-dimer related to acute viral pneumonia, continues to trend up 5. Elevated d-dimer, at 12.6, CTA chest is pending, and lower extremity Dopplers are negative for DVT 6 hyperkalemia secondary to respiratory acidosis, related to potassium shift. Plan: Proceed with a CT angiogram of the chest Continue current dose Decadron, currently on 6 mg twice daily Continue Baricitinib Lovenox 40 mg SC BID Discontinue TPN Initiate enteral nutrition Start the patient on Lantus insulin at a dose of 16 units daily along with a slight scale coverage and monitor the blood sugars Check a mechanical ventilator. Oxygenation remains borderline. Increase the PEEP up to 12 and possibly up to 14 and gradually wean down FiO2 to maintain saturation above 90%. Meanwhile we'll continue monitoring the peak and static pressure. Repeat AbG Will monitor inflammatory markers Condition is basically critical. They have also made suggestions that they wanted transferred [facility]. Our team has contacted [facility] and this transfer was not accepted by the [place] team. From my standpoint, I'm going to meet with the family, addressed all their concerns We'll continue to follow his clinical course Overall prognosis is extremely guarded History care evaluation that was done and more than 30 minutes
[2020-12-27 08:18] LABS: Glucose,Whole Blood 235 mg/dL (75-99)
[2020-12-27] MEDS: CHOLECALCIFEROL 25 MCG (1000 IU) TABLET PO SCH (08:35)
[2020-12-27] MEDS: ASCORBIC ACID 500 MG TAB PO SCH (08:35)
[2020-12-27] MEDS: ZINC SULFATE 220 MG CAP PO SCH (08:35)
[2020-12-27] MEDS: CHLORHEXIDINE GLUCONATE 15 ML CUP MUCOUS MEM SCH ×2 (08:36→20:44)
[2020-12-27] MEDS: DEXAMETHASONE SOD PHOSPHATE 10 MG/ML 1 ML VIAL IV SCH ×2 (08:36→20:43)
[2020-12-27] MEDS: ENOXAPARIN 40 MG/0.4 ML SYRINGE SQ SCH ×2 (08:37→20:44)
[2020-12-27] MEDS: PANTOPRAZOLE 40 MG/10 ML VIAL IVP SCH (08:37)
[2020-12-27 08:41] VITALS: BMI 26.4
[2020-12-27] MEDS: ARTIFICIAL TEARS-HYPROMELLOSE DROPS 15 ML BTL BOTH EYES SCH ×4 (08:41→20:37)
[2020-12-27] MEDS: BARICITINIB 2 MG TABLET PO SCH (08:41)
[2020-12-27 08:44] LABS: C Reactive Protein 16.8 mg/dL (<1.0)
[2020-12-27] MEDS: INSULIN DETEMIR (LEVEMIR) 100 UNIT/ML SYR SQ SCH (09:09)
--- NOTE | 2020-12-27 09:16 | XR ---
EXAMINATION TYPE: XR chest 1V portable DATE OF EXAM: 12/27/2020 COMPARISON: 12/26/2020 HISTORY: Tube placement TECHNIQUE: Single frontal view of the chest is obtained. FINDINGS: ET tube 5 cm above glynn. Left-sided PICC line and NG tube noted there is a diffuse inter stitial pattern with bilateral infiltrate and pleural effusion. Heart size stable. Atherosclerotic ch selina aorta. IMPRESSION: 1. Diffuse bilateral airspace disease correlate for ARDS, diffuse pneumonia or pulmonary edema stable in appearance.
--- NOTE | 2020-12-27 11:24 | CT ---
EXAMINATION TYPE: CT chest angio for PE DATE OF EXAM: 12/27/2020 COMPARISON: None HISTORY: Acute hypoxic resp failure, acute covid infection CT DLP: 567.2 mGycm CONTRAST: CT chest with contrast and 3D reconstruction with MIP imaging is performed without and with IV Contra st, patient injected with 100 ml mL of Isovue 370. Contrast-enhanced CT of the chest was performed through the course of the pulmonary arteries with alvaro g and mediastinal window settings submitted. 3D reconstruction with MIP imaging was also performed. PULMONARY ARTERIES: The pulmonary arteries and their major tributaries are patent. I do not see magan dence for sizable filling defect to suggest pulmonary embolic process. LUNGS: Diffuse bilateral groundglass infiltrates scattered areas of airspace consolidation. Correlate for pneumonia. MEDIASTINUM: Thoracic aorta is of normal caliber,however, evaluation is limited given timing of the contrast bolus. If there is concern for thoracic aortic pathology consider ALESSANDRO. Correlate clinicall y . The heart is not enlarged. No evidence for mediastinal mass. No mediastinal lymph nodes greater than 1cm. HILAR STRUCTURES: No evidence for mass. No hilar lymph nodes greater than 1 cm. UPPER ABDOMEN: No significant abnormality is seen. IMPRESSION: 1. No evidence for Pulmonary embolism at this time. 2. Correlate for underlying pneumonia.
[2020-12-27 12:12] LABS: Glucose,Whole Blood 199 mg/dL (75-99)
[2020-12-27 12:24] LABS: ABG Base Excess 7.6 mmol/L; ABG HCO3 36 mmol/L (21-25); ABG PO2 99 mmHg (83-108); ABG TCO2 39 mmol/L (19-24)
[2020-12-27 12:27] LABS: ABG PCO2 101 mmHg (35-45); ABG PH 7.16 (7.35-7.45)
[2020-12-27] MEDS ORDERED: SODIUM BICARB 8.4% 50 ML SYR (1 MEQ/ML) IV STA ×2 (12:35→19:05)
--- NOTE | 2020-12-27 13:21 | P.PN ---
Subjective Progress Note Date: 12/27/20 Patient is intubated and sedated, on paralytics; nimbex 1.5mcg, propofol 55mcg. Afebrile. Saturating 93 %; AC 375, RR 36, FiO2 100%, PEEP 13; ABG with pH 7.16, PCO2 101, PO2 99. BP 124/60; no pressors. HR 96. On TPN; OGT in, and enteral feeding starting today. UOP is 2600 in last 24 hours; Cr is stable, mildly hyperkalemic 5.3. WBC 20.3, LDH 1513, CRP 16.8, D-Dimer 17.03; on dexamethasone, baricitinib, ppx enoxaparin. I spoke to patient's , who is also in critical state in ICU, about patient's expressed wish not to be on ventilator longer than 5 days; she said that she and her daughter will keep this wish in mind. Objective - Vital Signs Vital signs: Vital Signs Temp 98.8 F 12/27/20 12:00 Pulse 96 12/27/20 12:00 Resp 36 H 12/27/20 12:00 BP 171/90 12/27/20 07:30 Pulse Ox 93 L 12/27/20 12:00 Intake & Output 12/26/20 12/27/20 12/27/20 18:59 06:59 18:59 Intake Total 2185 1020.520 165.437 Output Total 1525 1075 325 Balance 660 -54.480 -159.563 Weight 83.4 kg Intake: IV 130 120 40 Sodium Chloride 0.9% 1, 130 120 40 000 ml @ 10 mls/hr IV . Q24H [facility] Rx#:[id number] Intake, IV Titration 1045 820.520 125.437 Amount Cisatracurium 200 mg In 11.488 25.437 Sodium Chloride 0.9% 180 ml @ 1 MCG/KG/MIN 5.004 mls/hr IV .Q24H [facility] Rx#: [id number] Dexmedetomidine/0.9% NaCl 74.157 (Pmx) 400 mcg In Empty Bag 1 bag @ 0.2 MCG/KG/HR 4.17 mls/hr IV .[id number] [facility] Rx#:[id number] Sodium Acetate 40 meq 1045 682.667 Sodium Chloride 4Meq/ml Vial 40 meq Calcium Gluconate 1 gm Potassium Phosphate 15 mmol In Amino Acids 5 %/Dextrose 20 % 1,000 ml @ 80 mls/hr IV .BY DURATION [facility] Rx#: [id number] propofoL 1,000 mg In 52.208 100 Empty Bag 1 bag @ Titrate IV .Q0M [facility] Rx#: [id number] Oral 50 TPN/PPN 960 80 Sodium Chloride 0.9% 1, 960 80 000 ml @ 10 mls/hr IV . Q24H [facility] Rx#:[id number] Output: Urine 1525 1075 325 Other: Voiding Method Urinal Indwelling Catheter # Voids 1 ABP, PAP, CO, CI - Last Documented Arterial Blood Pressure 124/60 - Exam Gen: intubated, sedated, paralyzed HEENT: normocephalic, atraumatic, moist mucous membranes Resp: Ventilator: AC 350, FiO2 100%, PEEP 13, RR 36. CVS: good distal perfusion x 4, GI: OGT, soft, ND : no SPT, no CVAT, bingham catheter is present MSK: no pitting edema, no clubbing - Labs CBC & Chem 7: 12/27/20 05:16 12/27/20 05:16 Labs: Abnormal Lab Results - Last 24 Hours (Table) 12/26/20 12/26/20 12/26/20 Range/Units 18:54 23:52 23:57 WBC (3.8-10.6) k/uL Neutrophils # (1.3-7.7) k/uL Lymphocytes # (1.0-4.8) k/uL D-Dimer (<0.60) mg/L FEU ABG pH 7.21 L (7.35-7.45) ABG pCO2 82 H* (35-45) mmHg ABG pO2 74 L (83-108) mmHg ABG HCO3 33 H (21-25) mmol/L ABG Total CO2 36 H (19-24) mmol/L ABG O2 Saturation 89.2 L (94-97) % Sodium (137-145) mmol/L Potassium (3.5-5.1) mmol/L Carbon Dioxide (22-30) mmol/L BUN (9-20) mg/dL Creatinine (0.66-1.25) mg/dL Glucose (74-99) mg/dL POC Glucose (mg/dL) 155 H 195 H (75-99) mg/dL Phosphorus (2.5-4.5) mg/dL Magnesium (1.6-2.3) mg/dL Lactate Dehydrogenase (313-618) U/L C-Reactive Protein (<1.0) mg/dL 12/27/20 12/27/20 12/27/20 Range/Units 05:16 05:16 05:18 WBC 20.3 H (3.8-10.6) k/uL Neutrophils # 19.5 H (1.3-7.7) k/uL Lymphocytes # 0.3 L (1.0-4.8) k/uL D-Dimer (<0.60) mg/L FEU ABG pH (7.35-7.45) ABG pCO2 (35-45) mmHg ABG pO2 (83-108) mmHg ABG HCO3 (21-25) mmol/L ABG Total CO2 (19-24) mmol/L ABG O2 Saturation (94-97) % Sodium 136 L (137-145) mmol/L Potassium 5.3 H (3.5-5.1) mmol/L Carbon Dioxide 32 H (22-30) mmol/L BUN 31 H (9-20) mg/dL Creatinine 0.65 L (0.66-1.25) mg/dL Glucose 271 H (74-99) mg/dL POC Glucose (mg/dL) (75-99) mg/dL Phosphorus 5.9 H (2.5-4.5) mg/dL Magnesium 2.4 H (1.6-2.3) mg/dL Lactate Dehydrogenase 1513 H (313-618) U/L C-Reactive Protein 16.8 H (<1.0) mg/dL 12/27/20 12/27/20 12/27/20 Range/Units 05:30 06:01 08:10 WBC (3.8-10.6) k/uL Neutrophils # (1.3-7.7) k/uL Lymphocytes # (1.0-4.8) k/uL D-Dimer 17.03 H (<0.60) mg/L FEU ABG pH 7.15 L* (7.35-7.45) ABG pCO2 99 H* (35-45) mmHg ABG pO2 81 L (83-108) mmHg ABG HCO3 34 H (21-25) mmol/L ABG Total CO2 37 H (19-24) mmol/L ABG O2 Saturation 91.1 L (94-97) % Sodium (137-145) mmol/L Potassium (3.5-5.1) mmol/L Carbon Dioxide (22-30) mmol/L BUN (9-20) mg/dL Creatinine (0.66-1.25) mg/dL Glucose (74-99) mg/dL POC Glucose (mg/dL) 280 H (75-99) mg/dL Phosphorus (2.5-4.5) mg/dL Magnesium (1.6-2.3) mg/dL Lactate Dehydrogenase (313-618) U/L C-Reactive Protein (<1.0) mg/dL 12/27/20 12/27/20 12/27/20 Range/Units 08:16 12:10 12:16 WBC (3.8-10.6) k/uL Neutrophils # (1.3-7.7) k/uL Lymphocytes # (1.0-4.8) k/uL D-Dimer (<0.60) mg/L FEU ABG pH 7.16 L* (7.35-7.45) ABG pCO2 101 H* (35-45) mmHg ABG pO2 (83-108) mmHg ABG HCO3 36 H (21-25) mmol/L ABG Total CO2 39 H (19-24) mmol/L ABG O2 Saturation (94-97) % Sodium (137-145) mmol/L Potassium (3.5-5.1) mmol/L Carbon Dioxide (22-30) mmol/L BUN (9-20) mg/dL Creatinine (0.66-1.25) mg/dL Glucose (74-99) mg/dL POC Glucose (mg/dL) 235 H 199 H (75-99) mg/dL Phosphorus (2.5-4.5) mg/dL Magnesium (1.6-2.3) mg/dL Lactate Dehydrogenase (313-618) U/L C-Reactive Protein (<1.0) mg/dL Assessment and Plan Assessment: COVID pneumonia and unvaccinated patient with acute hypoxic respiratory failure -Continue with Decadron -Zinc, vitamin C, vitamin D, melatonin -baricitinib day 10 -Pulmonary consult -Supplemental oxygen -Pro calcitonin not significantly elevated -Follow inflammatory labs -Patient refused remdesivir -TPN --> OGT + enteral feeding -levemir 17U + aspart SSI DVT prophylaxis -Lovenox The patient is admitted with an anticipated less than 2 midnight stay for evaluation of COVID CODE STATUS:Full Code
[2020-12-27 15:37] LABS: Glucose,Whole Blood 105 mg/dL (75-99)
[2020-12-27 19:35] LABS: Glucose,Whole Blood 113 mg/dL (75-99)
[2020-12-27 20:28] LABS: Glucose,Whole Blood 124 mg/dL (75-99)
[2020-12-27] MEDS: MELATONIN 5 MG TABLET PO SCH (20:41)
[2020-12-28 00:14] LABS: Glucose,Whole Blood 158 mg/dL (75-99)
[2020-12-28] MEDS: CISATRACURIUM 200 MG in SODIUM CHLORIDE 0.9% 180 ML IV SCH ×2 (00:30→20:30)
[2020-12-28] MEDS: ARTIFICIAL TEARS-HYPROMELLOSE DROPS 15 ML BTL BOTH EYES SCH ×6 (00:30→20:25)
[2020-12-28] MEDS: INSULIN ASPART (NovoLOG) 100 UNIT/ML VIAL SQ SCH ×5 (00:33→19:03)
[2020-12-28 05:00] LABS: Glucose,Whole Blood 117 mg/dL (75-99)
[2020-12-28 05:17] LABS: Basophils % (A) 0 %; Eosinophils % (A) 0 %; HCT 43.1 % (39.0-53.0); HGB 14.6 gm/dL (13.0-17.5); Lymphocytes # (A) 0.3 k/uL (1.0-4.8); Lymphocytes % (A) 2 %; MCH 32.9 pg (25.0-35.0); MCHC 33.8 g/dL (31.0-37.0); MCV 97.4 fL (80.0-100.0); Mean Platelet Volume 7.7; Monocytes # (A) 0.4 k/uL (0-1.0); Monocytes % (A) 3 %; Neutrophils # (A) 15.5 k/uL (1.3-7.7); Neutrophils % (A) 95 %; Platelet Count 212 k/uL (150-450); RBC 4.43 m/uL (4.30-5.90); RDW 13.2 % (11.5-15.5); WBC 16.3 k/uL (3.8-10.6)
[2020-12-28 05:24] LABS: ABG Base Excess 19.9 mmol/L; ABG Oxygen Saturation 95.8 % (94-97); ABG PH 7.26 (7.35-7.45); ABG PO2 84 mmHg (83-108); ABG TCO2 50 mmol/L (19-24); Allen Test Performed? Yes
[2020-12-28 05:28] LABS: ABG HCO3 47 mmol/L (21-25); ABG PCO2 105 mmHg (35-45)
[2020-12-28 05:30] LABS: African American GFR (CKD) >90 (>60 ml/min/1.73 sqM); Blood Urea Nitrogen 35 mg/dL (9-20); Calcium 8.6 mg/dL (8.4-10.2); Chloride 94 mmol/L (98-107); Glucose 129 mg/dL (74-99); Non-African American GFR(CKD) >90 (>60 ml/min/1.73 sqM); Potassium 5.1 mmol/L (3.5-5.1); Sodium 141 mmol/L (137-145)
[2020-12-28 05:34] LABS: LDH 1307 U/L (313-618)
[2020-12-28 05:36] LABS: Anion Gap 5 mmol/L
[2020-12-28 05:51] LABS: C Reactive Protein 15.5 mg/dL (<1.0); Carbon Dioxide 42 mmol/L (22-30)
[2020-12-28] MEDS: ALBUTEROL HFA INHALER INHALATION SCH ×4 (07:21→22:22)
[2020-12-28] MEDS: SODIUM CHLORIDE 0.9% 1,000 ML IV SCH (08:29)
[2020-12-28] MEDS: ENOXAPARIN 40 MG/0.4 ML SYRINGE SQ SCH (08:40)
[2020-12-28] MEDS: PANTOPRAZOLE 40 MG/10 ML VIAL IVP SCH (08:40)
[2020-12-28] MEDS: CHLORHEXIDINE GLUCONATE 15 ML CUP MUCOUS MEM SCH ×2 (08:40→20:25)
[2020-12-28] MEDS: ASCORBIC ACID 500 MG TAB PO SCH (08:41)
[2020-12-28] MEDS: DEXAMETHASONE SOD PHOSPHATE 10 MG/ML 1 ML VIAL IV SCH ×2 (08:41→20:25)
[2020-12-28] MEDS: CHOLECALCIFEROL 25 MCG (1000 IU) TABLET PO SCH (08:41)
[2020-12-28] MEDS: ZINC SULFATE 220 MG CAP PO SCH (08:41)
[2020-12-28] MEDS: INSULIN DETEMIR (LEVEMIR) 100 UNIT/ML SYR SQ SCH (08:42)
[2020-12-28] MEDS: BARICITINIB 2 MG TABLET PO SCH (08:42)
--- NOTE | 2020-12-28 09:43 | P.PN ---
Subjective Progress Note Date: 12/28/20 65-year-old white male patient who is currently in the intensive care unit with diffuse COVID-19 related pneumonia. The patient was hospitalized on 12/15/2020. He has known history of hypertension and is a former smoker. He was initially on 4 L of oxygen by nasal cannula. He was admitted to the hospital for hypoxic respiratory failure and his condition progressed and currently the patient has d iffuse bilateral pulmonary infiltrates and BiPAP dependent respiratory failure. On 12/27/2020, the patient is being seen for a follow-up. The patient progressively decompensated yesterday. After being on a BiPAP at a pressure of 16/10 cm of water, the patient to be intubated and placed on a mechanical ventilator. This occurred approximately midnight. Currently the patient is sedated with propofol and the patient is also paralyzed with Nimbex. Was running at 40 mcg/kg per minute and Nimbex is running at 1 mcg/kg/h. The patient is currently on assist control mode of mechanical ventilation. The patient is on a rate of 36, tidal volume of 400, FiO2 of 100% and a PEEP of 10. Peak airway pressure is 34. Blood gases from this morning is in the order of a pH of 7.15 with a pCO2 of 99 and pO2 of 81. Chest x-ray shows diffuse breath and pulmonary infiltrates. ET tube is in a good location. There is some minor elevation of the right hemidiaphragm. PICC line is present in left upper extremity. Her white cell count from today is at 20. Hemoglobin is at 14.4. The BUN is at 31 with a creatinine of 0.6. Sodium is at 136. Potassium level is at 5.3. LDH level from today is 1655 with a CRP of 15.6.. D-dimer from yesterday was elevated at 12.1. Based on that, Doppler of the lower ext was done and it showed no evidence of any DVTs. . The pro calcitonin level was low at 0.06. The patient continues to be on Baricitinib per protocol in addition to Decadron 6 mg twice a day and prophylactic dose of Lovenox 40 mg subcu every 12 hours. The patient is also on TPN for natural support. Note that the patient is intubated, the patient will be transitioned to enteral feeding for nutritional support. We'll also start Lantus insulin for blood sugar control that needs to be tighter control. Start the patient on 0.2 mg/kg of Lantus in addition to a/scale coverage. Hemodynamically, the patient is stable. No pressors is utilized. The patient has adequate urine output and order of 100 mL an hour. IV fluids are currently at KVO. Balance over the past 24 hours has been -990 mL. 12/28/2020, the patient is being seen for a follow-up. The patient remains intubated on a mechanical ventilator and the patient is also sedated and paralyzed. This morning, propofol is running at 40 mcg/kg per minute and Nimbex is running at 2 mcg/kg per minute. The patient is receiving IV fluids at 20 mL an hour. The patient remains sedated and paralyzed on a mechanical ventilator. He is on assist control mode at the rate of 36 with a tidal volume of 375 and FiO2 of 85% and a PEEP of 13. Peak air pressure earlier was 36 with headache or pressure of around 32. Chest x-ray from today showed diffuse but the pulmonary infiltrates consistent with COVID-19 related pneumonia. Nevertheless, the ET tube was sitting high in the trachea. Based on that, a bedside bronchoscopy was done and the position of the tube was confirmed to be high. The patient had that she was advanced under endoscopic visualization. No significant orotracheal secretions. Blood gases from today shows a pH of 7.26 with a pCO2 of 105 and pO2 of 84. Mother the patient was given IV bicarbonate of above 4 pushes of 50 mEq yesterday and his acidosis improved. Potassium level. 5.1 on today's blood work. Hemodynamically, the patient is stable. No significant hypotension. White cell count is at 16.3. He does have some sinus tachycardia. Urine output is adequate. Overall fluid balance over the past 24 hours has been -990 mL. The patient remains on Decadron 6 mg IV every 12 hours. The patient also is on Lovenox 40 mg subcu every 12 hours. The patient is off TPN. He is receiving enteral feeding. Support. Blood sugars under better control with a combination of Levemir insulin 17 units daily in addition to NovoLog sliding scale coverage. The inflammatory markers from today shows a LDH level of 1307 and the CRP is down to 15.5 and the patient's d-dimer is down to 7.12. CAT scan of the chest was completed yesterday. No evidence of any pulmonary embolism. It was consistent with COVID-19 related pneumonia. The venous Doppler was also negative for DVT. Objective - Vital Signs Vital signs: Vital Signs Temp 99.5 F 12/28/20 04:00 Pulse 113 H 12/28/20 07:00 Resp 36 H 12/28/20 07:00 BP 136/79 12/28/20 00:00 Pulse Ox 90 L 12/28/20 07:00 Intake & Output 12/27/20 12/28/20 12/28/20 18:59 06:59 18:59 Intake Total 485.437 984.066 Output Total 925 1075 Balance -439.563 -90.934 Weight 83.4 kg Intake: IV 110 130 Sodium Chloride 0.9% 1, 110 130 000 ml @ 10 mls/hr IV . Q24H [facility] Rx#:[id number] Intake, IV Titration 225.437 434.066 Amount Cisatracurium 200 mg In 25.437 134.066 Sodium Chloride 0.9% 180 ml @ 1 MCG/KG/MIN 5.004 mls/hr IV .Q24H [facility] Rx#: [id number] propofoL 1,000 mg In 200 300 Empty Bag 1 bag @ Titrate IV .Q0M [facility] Rx#: [id number] Tube Feeding 120 330 Other 30 90 Output: Urine 925 1075 Other: Voiding Method Indwelling Catheter Indwelling Catheter ABP, PAP, CO, CI - Last Documented Arterial Blood Pressure 137/63 - Exam GENERAL EXAM: Alert, tachypneic 65-year-old white male, intubated, currently on a mechanical ventilator, currently on assist-control mode of mechanical vent ilation. Sedated and paralyzed. HEAD: Normocephalic/atraumatic. EYES: Normal reaction of pupils, equal size. Conjunctiva pink, sclera white. NOSE: Clear with pink turbinates. THROAT: No erythema or exudates. NECK: No masses, no JVD, no thyroid enlargement, no adenopathy. CHEST: No chest wall deformity. Symmetrical expansion. LUNGS: Equal air entry with diffuse crackles CVS: Regular rate and rhythm, normal S1 and S2, no gallops, no murmurs, no rubs ABDOMEN: Soft, nontender. No hepatosplenomegaly, normal bowel sounds, no guarding or rigidity. EXTREMITIES: No clubbing, no edema, no cyanosis, 2+ pulses and upper and lower extremities. MUSCULOSKELETAL: Muscle strength and tone normal. SPINE: No scoliosis or deformity SKIN: No rashes CENTRAL NERVOUS SYSTEM: Sedated and paralyzed, motor function is unable to be assessed on today's evaluation. Pupils are equal and reactive to light. No f ocal neurological deficits. - Labs CBC & Chem 7: 12/28/20 04:40 12/28/20 04:40 Labs: Abnormal Lab Results - Last 24 Hours (Table) 12/27/20 12/27/20 12/27/20 Range/Units 12:10 12:16 15:34 WBC (3.8-10.6) k/uL Neutrophils # (1.3-7.7) k/uL Lymphocytes # (1.0-4.8) k/uL D-Dimer (<0.60) mg/L FEU ABG pH 7.16 L* (7.35-7.45) ABG pCO2 101 H* (35-45) mmHg ABG HCO3 36 H (21-25) mmol/L ABG Total CO2 39 H (19-24) mmol/L Chloride (98-107) mmol/L Carbon Dioxide (22-30) mmol/L BUN (9-20) mg/dL Glucose (74-99) mg/dL POC Glucose (mg/dL) 199 H 105 H (75-99) mg/dL Lactate Dehydrogenase (313-618) U/L C-Reactive Protein (<1.0) mg/dL 12/27/20 12/27/20 12/28/20 Range/Units 19:33 20:26 00:13 WBC (3.8-10.6) k/uL Neutrophils # (1.3-7.7) k/uL Lymphocytes # (1.0-4.8) k/uL D-Dimer (<0.60) mg/L FEU ABG pH (7.35-7.45) ABG pCO2 (35-45) mmHg ABG HCO3 (21-25) mmol/L ABG Total CO2 (19-24) mmol/L Chloride (98-107) mmol/L Carbon Dioxide (22-30) mmol/L BUN (9-20) mg/dL Glucose (74-99) mg/dL POC Glucose (mg/dL) 113 H 124 H 158 H (75-99) mg/dL Lactate Dehydrogenase (313-618) U/L C-Reactive Protein (<1.0) mg/dL 12/28/20 12/28/20 12/28/20 Range/Units 04:40 04:40 04:40 WBC 16.3 H (3.8-10.6) k/uL Neutrophils # 15.5 H (1.3-7.7) k/uL Lymphocytes # 0.3 L (1.0-4.8) k/uL D-Dimer 7.12 H (<0.60) mg/L FEU ABG pH (7.35-7.45) ABG pCO2 (35-45) mmHg ABG HCO3 (21-25) mmol/L ABG Total CO2 (19-24) mmol/L Chloride 94 L (98-107) mmol/L Carbon Dioxide 42 H* (22-30) mmol/L BUN 35 H (9-20) mg/dL Glucose 129 H (74-99) mg/dL POC Glucose (mg/dL) (75-99) mg/dL Lactate Dehydrogenase 1307 H (313-618) U/L C-Reactive Protein 15.5 H (<1.0) mg/dL 12/28/20 12/28/20 Range/Units 04:58 05:21 WBC (3.8-10.6) k/uL Neutrophils # (1.3-7.7) k/uL Lymphocytes # (1.0-4.8) k/uL D-Dimer (<0.60) mg/L FEU ABG pH 7.26 L (7.35-7.45) ABG pCO2 105 H* (35-45) mmHg ABG HCO3 47 H* (21-25) mmol/L ABG Total CO2 50 H (19-24) mmol/L Chloride (98-107) mmol/L Carbon Dioxide (22-30) mmol/L BUN (9-20) mg/dL Glucose (74-99) mg/dL POC Glucose (mg/dL) 117 H (75-99) mg/dL Lactate Dehydrogenase (313-618) U/L C-Reactive Protein (<1.0) mg/dL Assessment and Plan Plan: 1. Acute hypoxic respiratory failure related to acute COVID-19 pneumonia, with onset of symptoms 4 days ago, Patient did not Remdesivir was ordered on 12/16/2020 which the patient had refused. Did not receive COVID-19 vaccination. . Doppler of the lower extremities were negative. The inflammatory markers elevated. The patient remains on a combination of Baricitinib and Decadron. Remains on Lovenox. Overnight, the patient decompensated further and the patient to be intubated on a mechanical ventilator. For now, the patient is sedated and paralyzed. The patient is on a mechanical ventilator. Chest x-ray was noted. Blood gases was noted. The position of the ET tube was adjusted and the tube was dressed in a repeat chest x-ray is pending for now. Meanwhile, the blood gases was noted, the chest x-ray was noted and the patient's has a comparable peak and static pressures appear to yesterday. The patient remains on Decadron. No significant orotracheal secretions. Remains intubated on a mechanical ventilator. Patient has a 7.5 ET tube. The patient is receiving low tidal volume ventilation. The patient is allowing permissive hypercapnia. 2. COVID-19 related pneumonia with diffuse bilateral pulmonary infiltrate s/ARDS, 3. Hypertension 4. Increased inflammatory markers, increased d-dimer related to acute viral pneumonia, continues to take improve 5. Elevated d-dimer, d-dimer level is improving and the patient has a negative Doppler and a negative CT angiogram for pulmonary embolism. 6 hyperkalemia secondary to respiratory acidosis, related to potassium shift. The patient was given bicarb replacement. PH is 7.26 and the patient's platelet Plan: Doppler of the lower extremity and a CT angiogram as the negative for DVT in the d-dimer is improving Continue ventilator support ET tube is in advance of the appropriate adjustments done. We'll repeat a chest x-ray Continue current dose Decadron, currently on 6 mg twice daily Continue Baricitinib Lovenox 40 mg SC DAILY Continue enteral feeding for nutritional support Lantus insulin at a dose of 17 units daily along with a slight scale coverage and monitor the blood sugars Repeat the blood gases around noontime and the necessity ventilator changes. Will monitor inflammatory markers Condition is basically critical. I had a lengthy discussion with the and the daughter and updated them on his condition. We'll continue to follow. I answered all their questions to her satisfaction. They are quite comfortable with the treatment of the patient is receiving here in our hospital. We'll continue to update the patient family accordingly Overall prognosis is extremely guarded History care evaluation that was done and more than 30 minutes Time with Patient: Greater than 30
[2020-12-28] MEDS ORDERED: NOREPINEPHRIN 4 MG-0.9% NS PMX 4 MG/250 ML ML IV ONE (09:48)
[2020-12-28] MEDS: NOREPINEPHRINE 4 MG in SODIUM CHLORIDE 0.9% 250 ML IV SCH (09:55)
--- NOTE | 2020-12-28 09:59 | XR ---
EXAMINATION TYPE: XR chest 1V portable DATE OF EXAM: 12/28/2020 COMPARISON: 12/27/2020 HISTORY: Tube placement TECHNIQUE: Single frontal view of the chest is obtained. FINDINGS: Tip of the ET tube not entirely included on the [id number]. Lung apices not entirely in cluded. Diffuse airspace disease with bilateral infiltrate and pleural effusion stable. NG tube stabl e. Central line stable. IMPRESSION: Diffuse airspace disease stable.
[2020-12-28] MEDS ORDERED: SODIUM CHLORIDE 0.9% 1,000 ML IV ONE (10:00)
[2020-12-28] MEDS: HYDROmorphone 1 MG/ML 1 ML SYRINGE IVP PRN (10:04)
--- NOTE | 2020-12-28 10:05 | XR ---
EXAMINATION TYPE: XR chest 1V portable DATE OF EXAM: 12/28/2020 COMPARISON: 12/28/2020 HISTORY: Post bronchoscopy TECHNIQUE: Single frontal view of the chest is obtained. FINDINGS: ET and NG tube noted. Diffuse bilateral airspace disease with left-sided PICC line. Tiny b ilateral pleural effusions. Heart size normal. No pneumothorax. IMPRESSION: Diffuse bilateral infiltrate with pleural effusion stable.
[2020-12-28 11:28] LABS: Glucose,Whole Blood 122 mg/dL (75-99)
[2020-12-28 11:36] LABS: Appearance,Urine Cloudy (Clear); Bacteria,Urine Rare /hpf; Bilirubin,Urine Negative (Negative); Blood,Urine Negative (Negative); Color,Urine Yellow; Glucose,Urine (UA) Negative (Negative); Ketones,Urine Negative (Negative); Leukocyte Esterase,Urine Trace (Negative); Mucus,Urine Rare /hpf; Nitrite,Urine Negative (Negative); Protein,Urine Trace (Negative); RBC,Urine 5 /hpf (0-5); Specific Gravity,Urine 1.021 (1.001-1.035); Squamous Epithelial Cell,Urine <1 /hpf (0-4); WBC,Urine 7 /hpf (0-5)
[2020-12-28 11:56] LABS: ABG Base Excess 19.4 mmol/L; ABG Oxygen Saturation 96.1 % (94-97); ABG PH 7.34 (7.35-7.45); ABG PO2 78 mmHg (83-108); ABG TCO2 48 mmol/L (19-24); Allen Test Performed? Yes
[2020-12-28 11:59] LABS: ABG HCO3 45 mmol/L (21-25); ABG PCO2 83 mmHg (35-45)
--- NOTE | 2020-12-28 13:30 | P.PN ---
Subjective Progress Note Date: 12/28/20 Patient is intubated and sedated, on paralytics; nimbex 2mcg, propofol 40mcg. Saturating 93 %; AC 375, RR 36, FiO2 100%, PEEP 13; ABG with pH 7.24, PCO2 102, PO2 83. BP 78/35; starting levophed. HR 128. On TPN; OGT in, and enteral feeding ongoing. UOP is 2000 in last 24 hours; Cr is stable, mildly hyp erkalemic 5.1. Fever of 100.3, WBC 16.3, LDH 1307, CRP 15.5, D-Dimer 7.12; on dexamethasone, baricitinib, ppx enoxaparin. Objective - Vital Signs Vital signs: Vital Signs Temp 100.7 F H 12/28/20 10:15 Pulse 128 H 12/28/20 10:15 Resp 36 H 12/28/20 10:15 BP 84/41 12/28/20 10:15 Pulse Ox 89 L 12/28/20 10:15 Intake & Output 12/27/20 12/28/20 12/28/20 18:59 06:59 18:59 Intake Total 485.437 661.374 8549 Output Total 925 1075 255 Balance -439.563 -90.934 945 Weight 83.4 kg Intake: IV 110 130 120 Sodium Chloride 0.9% 1, 110 130 120 000 ml @ 10 mls/hr IV . Q24H [facility] Rx#:[id number] Intake, IV Titration 225.437 104.110 6353 Amount Cisatracurium 200 mg In 25.437 134.066 Sodium Chloride 0.9% 180 ml @ 1 MCG/KG/MIN 5.004 mls/hr IV .Q24H [facility] Rx#: [id number] Sodium Chloride 0.9% 1, 1000 000 ml @ 999 mls/hr IV . Q1H1M [facility] Rx#:[id number] propofoL 1,000 mg In 200 300 Empty Bag 1 bag @ Titrate IV .Q0M [facility] Rx#: [id number] Tube Feeding 120 330 80 Other 30 90 Output: Urine 925 1075 255 Other: Voiding Method Indwelling Catheter Indwelling Catheter ABP, PAP, CO, CI - Last Documented Arterial Blood Pressure 78/35 - Exam Gen: intubated, sedated, paralyzed HEENT: normocephalic, atraumatic, moist mucous membranes Resp: Ventilator: AC 350, FiO2 100%, PEEP 13, RR 36. CVS: good distal perfusion x 4, GI: OGT, soft, ND : no SPT, no CVAT, bingham catheter is present MSK: no pitting edema, no clubbing - Labs CBC & Chem 7: 12/28/20 04:40 12/28/20 04:40 Labs: Abnormal Lab Results - Last 24 Hours (Table) 12/27/20 12/27/20 12/27/20 Range/Units 15:34 19:33 20:26 WBC (3.8-10.6) k/uL Neutrophils # (1.3-7.7) k/uL Lymphocytes # (1.0-4.8) k/uL D-Dimer (<0.60) mg/L FEU ABG pH (7.35-7.45) ABG pCO2 (35-45) mmHg ABG pO2 (83-108) mmHg ABG HCO3 (21-25) mmol/L ABG Total CO2 (19-24) mmol/L Chloride (98-107) mmol/L Carbon Dioxide (22-30) mmol/L BUN (9-20) mg/dL Glucose (74-99) mg/dL POC Glucose (mg/dL) 105 H 113 H 124 H (75-99) mg/dL Lactate Dehydrogenase (313-618) U/L C-Reactive Protein (<1.0) mg/dL Urine Protein (Negative) Ur Leukocyte Esterase (Negative) Urine WBC (0-5) /hpf Urine Bacteria (None) /hpf Urine Mucus (None) /hpf 12/28/20 12/28/20 12/28/20 Range/Units 00:13 04:40 04:40 WBC (3.8-10.6) k/uL Neutrophils # (1.3-7.7) k/uL Lymphocytes # (1.0-4.8) k/uL D-Dimer 7.12 H (<0.60) mg/L FEU ABG pH (7.35-7.45) ABG pCO2 (35-45) mmHg ABG pO2 (83-108) mmHg ABG HCO3 (21-25) mmol/L ABG Total CO2 (19-24) mmol/L Chloride 94 L (98-107) mmol/L Carbon Dioxide 42 H* (22-30) mmol/L BUN 35 H (9-20) mg/dL Glucose 129 H (74-99) mg/dL POC Glucose (mg/dL) 158 H (75-99) mg/dL Lactate Dehydrogenase 1307 H (313-618) U/L C-Reactive Protein 15.5 H (<1.0) mg/dL Urine Protein (Negative) Ur Leukocyte Esterase (Negative) Urine WBC (0-5) /hpf Urine Bacteria (None) /hpf Urine Mucus (None) /hpf 12/28/20 12/28/20 12/28/20 Range/Units 04:40 04:58 05:21 WBC 16.3 H (3.8-10.6) k/uL Neutrophils # 15.5 H (1.3-7.7) k/uL Lymphocytes # 0.3 L (1.0-4.8) k/uL D-Dimer (<0.60) mg/L FEU ABG pH 7.26 L (7.35-7.45) ABG pCO2 105 H* (35-45) mmHg ABG pO2 (83-108) mmHg ABG HCO3 47 H* (21-25) mmol/L ABG Total CO2 50 H (19-24) mmol/L Chloride (98-107) mmol/L Carbon Dioxide (22-30) mmol/L BUN (9-20) mg/dL Glucose (74-99) mg/dL POC Glucose (mg/dL) 117 H (75-99) mg/dL Lactate Dehydrogenase (313-618) U/L C-Reactive Protein (<1.0) mg/dL Urine Protein (Negative) Ur Leukocyte Esterase (Negative) Urine WBC (0-5) /hpf Urine Bacteria (None) /hpf Urine Mucus (None) /hpf 12/28/20 12/28/20 12/28/20 Range/Units 11:00 11:26 11:54 WBC (3.8-10.6) k/uL Neutrophils # (1.3-7.7) k/uL Lymphocytes # (1.0-4.8) k/uL D-Dimer (<0.60) mg/L FEU ABG pH 7.34 L (7.35-7.45) ABG pCO2 83 H* (35-45) mmHg ABG pO2 78 L (83-108) mmHg ABG HCO3 45 H* (21-25) mmol/L ABG Total CO2 48 H (19-24) mmol/L Chloride (98-107) mmol/L Carbon Dioxide (22-30) mmol/L BUN (9-20) mg/dL Glucose (74-99) mg/dL POC Glucose (mg/dL) 122 H (75-99) mg/dL Lactate Dehydrogenase (313-618) U/L C-Reactive Protein (<1.0) mg/dL Urine Protein Trace H (Negative) Ur Leukocyte Esterase Trace H (Negative) Urine WBC 7 H (0-5) /hpf Urine Bacteria Rare H (None) /hpf Urine Mucus Rare H (None) /hpf Assessment and Plan Assessment: COVID pneumonia and unvaccinated patient with acute hypoxic respiratory failure -Continue with Decadron -Zinc, vitamin C, vitamin D, melatonin -baricitinib day 11 -Pulmonary consult -Supplemental oxygen -Pro calcitonin not significantly elevated -Follow inflammatory labs -Patient refused remdesivir -TPN --> OGT + enteral feeding -levemir 17U + aspart SSI -levophed -nimbex, propofol DVT prophylaxis -Lovenox The patient is admitted with an anticipated less than 2 midnight stay for evaluation of COVID CODE STATUS:Full Code
[2020-12-28 18:06] LABS: Glucose,Whole Blood 118 mg/dL (75-99)
[2020-12-29] MEDS: ARTIFICIAL TEARS-HYPROMELLOSE DROPS 15 ML BTL BOTH EYES SCH ×6 (00:28→20:17)
[2020-12-29 00:37] LABS: Glucose,Whole Blood 134 mg/dL (75-99)
[2020-12-29] MEDS: INSULIN ASPART (NovoLOG) 100 UNIT/ML VIAL SQ SCH ×4 (02:04→18:40)
[2020-12-29] MEDS: NOREPINEPHRINE 4 MG in SODIUM CHLORIDE 0.9% 250 ML IV SCH ×2 (03:59→17:15)
[2020-12-29 05:04] LABS: ABG Base Excess 20.7 mmol/L; ABG Oxygen Saturation 91.8 % (94-97); ABG PH 7.31 (7.35-7.45); ABG PO2 65 mmHg (83-108); ABG TCO2 50 mmol/L (19-24); Allen Test Performed? Yes
[2020-12-29 05:05] LABS: Glucose,Whole Blood 156 mg/dL (75-99)
[2020-12-29 05:06] LABS: ABG PCO2 94 mmHg (35-45)
[2020-12-29 05:07] LABS: ABG HCO3 47 mmol/L (21-25)
[2020-12-29 05:21] LABS: HCT 40.1 % (39.0-53.0); MCH 32.3 pg (25.0-35.0); MCHC 32.4 g/dL (31.0-37.0); MCV 99.7 fL (80.0-100.0); Mean Platelet Volume 8.1; Platelet Count 180 k/uL (150-450); RBC 4.03 m/uL (4.30-5.90); RDW 13.4 % (11.5-15.5); WBC 17.6 k/uL (3.8-10.6)
[2020-12-29 05:51] LABS: African American GFR (CKD) >90 (>60 ml/min/1.73 sqM); Blood Urea Nitrogen 41 mg/dL (9-20); Calcium 8.2 mg/dL (8.4-10.2); Chloride 96 mmol/L (98-107); Glucose 164 mg/dL (74-99); LDH 1060 U/L (313-618); Non-African American GFR(CKD) >90 (>60 ml/min/1.73 sqM); Potassium 5.3 mmol/L (3.5-5.1); Sodium 141 mmol/L (137-145)
[2020-12-29 05:55] LABS: Anion Gap 2 mmol/L
[2020-12-29 06:02] LABS: Carbon Dioxide 43 mmol/L (22-30)
[2020-12-29 06:03] LABS: C Reactive Protein 23.5 mg/dL (<1.0)
[2020-12-29] MEDS: ALBUTEROL HFA INHALER INHALATION SCH ×4 (07:46→20:05)
--- NOTE | 2020-12-29 08:27 | XR ---
EXAMINATION TYPE: XR chest 1V portable DATE OF EXAM: 12/29/2020 COMPARISON: Chest x-ray 12/28/2020 HISTORY: Intubated TECHNIQUE: Single frontal view of the chest is obtained. FINDINGS: Endotracheal tube, NG tube, left-sided PICC line are overlying stable positions, distal ti p of the PICC line overlying the innominate vein. Bilateral groundglass density persists within the l ungs. Biapical pleural thickening is noted. No evident pneumothorax or pleural effusion. Cardiac medi astinal silhouette is stable. Aorta is dense. IMPRESSION: Findings are similar. Correlate for pneumonia, ARDS, pulmonary edema
[2020-12-29] MEDS: PANTOPRAZOLE 40 MG/10 ML VIAL IVP SCH (08:30)
[2020-12-29] MEDS: ENOXAPARIN 40 MG/0.4 ML SYRINGE SQ SCH (08:30)
[2020-12-29] MEDS: CHLORHEXIDINE GLUCONATE 15 ML CUP MUCOUS MEM SCH ×2 (08:30→20:17)
[2020-12-29] MEDS: DEXAMETHASONE SOD PHOSPHATE 10 MG/ML 1 ML VIAL IV SCH ×2 (08:30→20:17)
[2020-12-29] MEDS: INSULIN DETEMIR (LEVEMIR) 100 UNIT/ML SYR SQ SCH (08:30)
[2020-12-29] MEDS: CHOLECALCIFEROL 25 MCG (1000 IU) TABLET PO SCH (08:31)
[2020-12-29] MEDS: ZINC SULFATE 220 MG CAP PO SCH (08:31)
[2020-12-29] MEDS: BARICITINIB 2 MG TABLET PO SCH (08:31)
[2020-12-29] MEDS: ASCORBIC ACID 500 MG TAB PO SCH (08:31)
[2020-12-29] MEDS ORDERED: bisacodyL 10 MG SUPP RECTAL STA (09:04)
[2020-12-29] MEDS: SODIUM CHLORIDE 0.9% 1,000 ML IV SCH (09:06)
--- NOTE | 2020-12-29 09:06 | P.PN ---
Subjective Progress Note Date: 12/29/20 65-year-old white male patient who is currently in the intensive care unit with diffuse COVID-19 related pneumonia. The patient was hospitalized on 12/15/2020. He has known history of hypertension and is a former smoker. He was initially on 4 L of oxygen by nasal cannula. He was admitted to the hospital for hypoxic respiratory failure and his condition progressed and currently the patient has d iffuse bilateral pulmonary infiltrates and BiPAP dependent respiratory failure. On 12/27/2020, the patient is being seen for a follow-up. The patient progressively decompensated yesterday. After being on a BiPAP at a pressure of 16/10 cm of water, the patient to be intubated and placed on a mechanical ventilator. This occurred approximately midnight. Currently the patient is sedated with propofol and the patient is also paralyzed with Nimbex. Was running at 40 mcg/kg per minute and Nimbex is running at 1 mcg/kg/h. The patient is currently on assist control mode of mechanical ventilation. The patient is on a rate of 36, tidal volume of 400, FiO2 of 100% and a PEEP of 10. Peak airway pressure is 34. Blood gases from this morning is in the order of a pH of 7.15 with a pCO2 of 99 and pO2 of 81. Chest x-ray shows diffuse breath and pulmonary infiltrates. ET tube is in a good location. There is some minor elevation of the right hemidiaphragm. PICC line is present in left upper extremity. Her white cell count from today is at 20. Hemoglobin is at 14.4. The BUN is at 31 with a creatinine of 0.6. Sodium is at 136. Potassium level is at 5.3. LDH level from today is 1655 with a CRP of 15.6.. D-dimer from yesterday was elevated at 12.1. Based on that, Doppler of the lower ext was done and it showed no evidence of any DVTs. . The pro calcitonin level was low at 0.06. The patient continues to be on Baricitinib per protocol in addition to Decadron 6 mg twice a day and prophylactic dose of Lovenox 40 mg subcu every 12 hours. The patient is also on TPN for natural support. Note that the patient is intubated, the patient will be transitioned to enteral feeding for nutritional support. We'll also start Lantus insulin for blood sugar control that needs to be tighter control. Start the patient on 0.2 mg/kg of Lantus in addition to a/scale coverage. Hemodynamically, the patient is stable. No pressors is utilized. The patient has adequate urine output and order of 100 mL an hour. IV fluids are currently at KVO. Balance over the past 24 hours has been -990 mL. 12/28/2020, the patient is being seen for a follow-up. The patient remains intubated on a mechanical ventilator and the patient is also sedated and paralyzed. This morning, propofol is running at 40 mcg/kg per minute and Nimbex is running at 2 mcg/kg per minute. The patient is receiving IV fluids at 20 mL an hour. The patient remains sedated and paralyzed on a mechanical ventilator. He is on assist control mode at the rate of 36 with a tidal volume of 375 and FiO2 of 85% and a PEEP of 13. Peak air pressure earlier was 36 with headache or pressure of around 32. Chest x-ray from today showed diffuse but the pulmonary infiltrates consistent with COVID-19 related pneumonia. Nevertheless, the ET tube was sitting high in the trachea. Based on that, a bedside bronchoscopy was done and the position of the tube was confirmed to be high. The patient had that she was advanced under endoscopic visualization. No significant orotracheal secretions. Blood gases from today shows a pH of 7.26 with a pCO2 of 105 and pO2 of 84. Mother the patient was given IV bicarbonate of above 4 pushes of 50 mEq yesterday and his acidosis improved. Potassium level. 5.1 on today's blood work. Hemodynamically, the patient is stable. No significant hypotension. White cell count is at 16.3. He does have some sinus tachycardia. Urine output is adequate. Overall fluid balance over the past 24 hours has been -990 mL. The patient remains on Decadron 6 mg IV every 12 hours. The patient also is on Lovenox 40 mg subcu every 12 hours. The patient is off TPN. He is receiving enteral feeding. Support. Blood sugars under better control with a combination of Levemir insulin 17 units daily in addition to NovoLog sliding scale coverage. The inflammatory markers from today shows a LDH level of 1307 and the CRP is down to 15.5 and the patient's d-dimer is down to 7.12. CAT scan of the chest was completed yesterday. No evidence of any pulmonary embolism. It was consistent with COVID-19 related pneumonia. The venous Doppler was also negative for DVT. 12/29/2020, the patient is being seen for a follow-up. He remains intubated on a mechanical ventilator. He remains sedated and paralyzed. He is still on propofol running at 40 mcg/kg per minute. Nimbex is also utilized for paralytics. He remains on a assist-control mode at the rate of 32 with a tidal volume of 375 with an FiO2 of 75% and a PEEP of 13. Peak airway pressures 33. Static airway pressure is 31. Chest x-ray shows diffuse but the pulmonary infiltrates, slightly improved compared to yesterday. Meanwhile, his blood gas shows a pH of 7.31 with a pCO2 of 94 and pO2 of 65. LDH has dropped down to 1060. His d-dimer has dropped down to 4.27. He is quite symptoms with a mechanical ventilator. He remains hemodynamically stable. He is on no pressors. He is having some mild sinus tachycardia. He is afebrile. White cell count is down to 17.6. Hemoglobin stable at 13.0. He remains on Decadron. He is completing the course of Baricitinib. He remains on Levemir insulin for blood sugar control and same dose of 17 units in addition to slight scale coverage. He remains on enteral feeding for nutritional support in the form of vital hp at the rate of 40 mL an hour. He has not had a bowel movement over the past 48 hours. No triggers or been under adequate control. Lovenox dose was modified to 40 mg once a day. No other complications otherwise. Family has been informed of his status. I'm contacted her daughter on a daily basis. In terms of his overall fluid balance, the patient that fluid balance over the past 24 hours has been -530 mL. Objective - Vital Signs Vital signs: Vital Signs Temp 99.8 F H 12/29/20 04:00 Pulse 117 H 12/29/20 07:00 Resp 32 H 12/29/20 07:00 BP 145/83 12/28/20 23:00 Pulse Ox 88 L 12/29/20 07:00 Intake & Output 12/28/20 12/29/20 12/29/20 18:59 06:59 18:59 Intake Total 5419.832 4568.797 156 Output Total 805 1050 75 Balance 872.462 124.797 81 Weight 83.4 kg Intake: IV 440 120 10 Sodium Chloride 0.9% 1, 440 120 10 000 ml @ 10 mls/hr IV . Q24H [facility] Rx#:[id number] Intake, IV Titration 1157.462 458.797 100 Amount Cisatracurium 200 mg In 200 Sodium Chloride 0.9% 180 ml @ 1 MCG/KG/MIN 5.004 mls/hr IV .Q24H [facility] Rx#: [id number] Norepinephrine 4 mg In 57.462 Sodium Chloride 0.9% 250 ml @ 0.05 MCG/KG/MIN 15. 888 mls/hr IV .Q16H [facility] Rx#:[id number] Sodium Chloride 0.9% 1, 1000 000 ml @ 999 mls/hr IV . Q1H1M ONE Rx#:[id number] propofoL 1,000 mg In 100 258.797 100 Empty Bag 1 bag @ Titrate IV .Q0M [facility] Rx#: [id number] Tube Feeding 80 506 46 Other 90 Output: Urine 805 1050 75 Other: Voiding Method Indwelling Catheter Indwelling Catheter ABP, PAP, CO, CI - Last Documented Arterial Blood Pressure 121/55 - Exam GENERAL EXAM: Alert, tachypneic 65-year-old white male, intubated, currently on a mechanical ventilator, currently on assist-control mode of mechanical ventilation. Sedated and paralyzed. HEAD: Normocephalic/atraumatic. EYES: Normal reaction of pupils, equal size. Conjunctiva pink, sclera white. NOSE: Clear with pink turbinates. THROAT: No erythema or exudates. NECK: No masses, no JVD, no thyroid enlargement, no adenopathy. CHEST: No chest wall deformity. Symmetrical expansion. LUNGS: Equal air entry with diffuse crackles CVS: Regular rate and rhythm, normal S1 and S2, no gallops, no murmurs, no rubs ABDOMEN: Soft, nontender. No hepatosplenomegaly, normal bowel sounds, no guarding or rigidity. EXTREMITIES: No clubbing, no edema, no cyanosis, 2+ pulses and upper and lower extremities. MUSCULOSKELETAL: Muscle strength and tone normal. SPINE: No scoliosis or deformity SKIN: No rashes CENTRAL NERVOUS SYSTEM: Sedated and paralyzed, motor function is unable to be assessed on today's evaluation. Pupils are equal and reactive to light. No focal neurological deficits. - Labs CBC & Chem 7: 12/29/20 05:00 12/29/20 05:00 Labs: Abnormal Lab Results - Last 24 Hours (Table) 12/28/20 12/28/20 12/28/20 Range/Units 11:00 11:26 11:54 WBC (3.8-10.6) k/uL RBC (4.30-5.90) m/uL D-Dimer (<0.60) mg/L FEU ABG pH 7.34 L (7.35-7.45) ABG pCO2 83 H* (35-45) mmHg ABG pO2 78 L (83-108) mmHg ABG HCO3 45 H* (21-25) mmol/L ABG Total CO2 48 H (19-24) mmol/L ABG O2 Saturation (94-97) % Potassium (3.5-5.1) mmol/L Chloride (98-107) mmol/L Carbon Dioxide (22-30) mmol/L BUN (9-20) mg/dL Glucose (74-99) mg/dL POC Glucose (mg/dL) 122 H (75-99) mg/dL Calcium (8.4-10.2) mg/dL Lactate Dehydrogenase (313-618) U/L C-Reactive Protein (<1.0) mg/dL Urine Protein Trace H (Negative) Ur Leukocyte Esterase Trace H (Negative) Urine WBC 7 H (0-5) /hpf Urine Bacteria Rare H (None) /hpf Urine Mucus Rare H (None) /hpf 12/28/20 12/29/20 12/29/20 Range/Units 18:04 00:36 05:00 WBC (3.8-10.6) k/uL RBC (4.30-5.90) m/uL D-Dimer 4.27 H (<0.60) mg/L FEU ABG pH (7.35-7.45) ABG pCO2 (35-45) mmHg ABG pO2 (83-108) mmHg ABG HCO3 (21-25) mmol/L ABG Total CO2 (19-24) mmol/L ABG O2 Saturation (94-97) % Potassium (3.5-5.1) mmol/L Chloride (98-107) mmol/L Carbon Dioxide (22-30) mmol/L BUN (9-20) mg/dL Glucose (74-99) mg/dL POC Glucose (mg/dL) 118 H 134 H (75-99) mg/dL Calcium (8.4-10.2) mg/dL Lactate Dehydrogenase (313-618) U/L C-Reactive Protein (<1.0) mg/dL Urine Protein (Negative) Ur Leukocyte Esterase (Negative) Urine WBC (0-5) /hpf Urine Bacteria (None) /hpf Urine Mucus (None) /hpf 12/29/20 12/29/20 12/29/20 Range/Units 05:00 05:00 05:00 WBC 17.6 H (3.8-10.6) k/uL RBC 4.03 L (4.30-5.90) m/uL D-Dimer (<0.60) mg/L FEU ABG pH 7.31 L (7.35-7.45) ABG pCO2 94 H* (35-45) mmHg ABG pO2 65 L (83-108) mmHg ABG HCO3 47 H* (21-25) mmol/L ABG Total CO2 50 H (19-24) mmol/L ABG O2 Saturation 91.8 L (94-97) % Potassium 5.3 H (3.5-5.1) mmol/L Chloride 96 L (98-107) mmol/L Carbon Dioxide 43 H* (22-30) mmol/L BUN 41 H (9-20) mg/dL Glucose 164 H (74-99) mg/dL POC Glucose (mg/dL) (75-99) mg/dL Calcium 8.2 L (8.4-10.2) mg/dL Lactate Dehydrogenase 1060 H (313-618) U/L C-Reactive Protein 23.5 H (<1.0) mg/dL Urine Protein (Negative) Ur Leukocyte Esterase (Negative) Urine WBC (0-5) /hpf Urine Bacteria (None) /hpf Urine Mucus (None) /hpf 12/29/20 Range/Units 05:02 WBC (3.8-10.6) k/uL RBC (4.30-5.90) m/uL D-Dimer (<0.60) mg/L FEU ABG pH (7.35-7.45) ABG pCO2 (35-45) mmHg ABG pO2 (83-108) mmHg ABG HCO3 (21-25) mmol/L ABG Total CO2 (19-24) mmol/L ABG O2 Saturation (94-97) % Potassium (3.5-5.1) mmol/L Chloride (98-107) mmol/L Carbon Dioxide (22-30) mmol/L BUN (9-20) mg/dL Glucose (74-99) mg/dL POC Glucose (mg/dL) 156 H (75-99) mg/dL Calcium (8.4-10.2) mg/dL Lactate Dehydrogenase (313-618) U/L C-Reactive Protein (<1.0) mg/dL Urine Protein (Negative) Ur Leukocyte Esterase (Negative) Urine WBC (0-5) /hpf Urine Bacteria (None) /hpf Urine Mucus (None) /hpf Microbiology - Last 24 Hours (Table) 12/28/20 22:42 Gram Stain - Preliminary Sputum Sputum Culture - Preliminary Assessment and Plan Plan: 1. Acute hypoxic respiratory failure related to acute COVID-19 pneumonia, with onset of symptoms 4 days ago, Patient did not Remdesivir was ordered on 12/16/2020 which the patient had refused. Did not receive COVID-19 vaccination. . Doppler of the lower extremities were negative. The inflammatory markers elevated. The patient remains on a combination of Baricitinib and Decadron. Remains on Lovenox. Blood gases was noted. Chest x-ray was noted. The patient has compensated hypercapnic respiratory failure. Oxidation is borderline and a PEEP of 13 with an FiO2 of 75%. Nevertheless, the patient's peak and static pressure been stable and not significantly elevated. Peak airway pressures 33. Static pressure is 31. ET tube is in a good location. LDH level is improving. D-dimer is lower. 2. COVID-19 related pneumonia with diffuse bilateral pulmonary infiltrates/ARDS, 3. Hypertension 4. Increased inflammatory markers, increased d-dimer related to acute viral pneumonia, continues to take improve 5. Elevated d-dimer, d-dimer level is improving and the patient has a negative Doppler and a negative CT angiogram for pulmonary embolism. 6 hyperkalemia secondary to respiratory acidosis, related to potassium shift. The patient was given bicarb replacement. PH is 7.26 and the patient's platelet Plan: Continue ventilator support Drop the FiO2 at 70% and keep the PEEP at 13 Proceed with a paralytic holiday Keep the patient on propofol for now Continue current dose Decadron, currently on 6 mg twice daily Continue Baricitinib Lovenox 40 mg SC DAILY Continue enteral feeding for nutritional support Lantus insulin at a dose of 17 units daily along with a slight scale coverage and monitor the blood sugars Repeat the blood gases around noontime and the necessity ventilator changes. Will monitor inflammatory markers Dulcolax suppository for bowel motility Condition is basically critical. I had a lengthy discussion with the and the daughter and updated them on his condition. We'll continue to follow. I answered all their questions to her satisfaction. They are quite comfortable with the treatment of the patient is receiving here in our hospital. We'll continue to update the patient family accordingly Overall prognosis is extremely guarded History care evaluation that was done and more than 30 minutes Time with Patient: Greater than 30
--- NOTE | 2020-12-29 10:16 | P.PN ---
Subjective Progress Note Date: 12/29/20 Remains intubated on mechanical ventilation. Objective - Vital Signs Vital signs: Vital Signs Temp 99.5 F 12/29/20 08:00 Pulse 120 H 12/29/20 10:00 Resp 32 H 12/29/20 10:00 BP 145/83 12/28/20 23:00 Pulse Ox 86 L 12/29/20 10:00 Intake & Output 12/28/20 12/29/20 12/29/20 18:59 06:59 18:59 Intake Total 7314.035 7185.797 367.268 Output Total 805 1050 213 Balance 872.462 124.797 154.268 Weight 83.4 kg Intake: IV 440 120 49 .9 pressure bag 9 Sodium Chloride 0.9% 1, 440 120 40 000 ml @ 10 mls/hr IV . Q24H [facility] Rx#:[id number] Intake, IV Titration 1157.462 458.797 226.268 Amount Cisatracurium 200 mg In 200 126.268 Sodium Chloride 0.9% 180 ml @ 1 MCG/KG/MIN 5.004 mls/hr IV .Q24H [facility] Rx#: [id number] Norepinephrine 4 mg In 57.462 Sodium Chloride 0.9% 250 ml @ 0.05 MCG/KG/MIN 15. 888 mls/hr IV .Q16H [facility] Rx#:[id number] Sodium Chloride 0.9% 1, 1000 000 ml @ 999 mls/hr IV . Q1H1M [facility] Rx#:[id number] propofoL 1,000 mg In 100 258.797 100 Empty Bag 1 bag @ Titrate IV .Q0M [facility] Rx#: [id number] Tube Feeding 80 506 92 Other 90 Output: Urine 805 1050 213 Other: Voiding Method Indwelling Catheter Indwelling Catheter Indwelling Catheter ABP, PAP, CO, CI - Last Documented Arterial Blood Pressure 116/53 - Exam Gen: intubated, sedated HEENT: normocephalic, atraumatic, moist mucous membranes Resp: Decreased breath sounds, on ventilator. CVS: good distal perfusion x 4, GI: OGT, soft, ND : no SPT, no CVAT, bingham catheter is present MSK: no pitting edema, no clubbing - Labs CBC & Chem 7: 12/29/20 05:00 12/29/20 05:00 Labs: Abnormal Lab Results - Last 24 Hours (Table) 12/28/20 12/28/20 12/28/20 Range/Units 11:00 11:26 11:54 WBC (3.8-10.6) k/uL RBC (4.30-5.90) m/uL D-Dimer (<0.60) mg/L FEU ABG pH 7.34 L (7.35-7.45) ABG pCO2 83 H* (35-45) mmHg ABG pO2 78 L (83-108) mmHg ABG HCO3 45 H* (21-25) mmol/L ABG Total CO2 48 H (19-24) mmol/L ABG O2 Saturation (94-97) % Potassium (3.5-5.1) mmol/L Chloride (98-107) mmol/L Carbon Dioxide (22-30) mmol/L BUN (9-20) mg/dL Glucose (74-99) mg/dL POC Glucose (mg/dL) 122 H (75-99) mg/dL Calcium (8.4-10.2) mg/dL Lactate Dehydrogenase (313-618) U/L C-Reactive Protein (<1.0) mg/dL Urine Protein Trace H (Negative) Ur Leukocyte Esterase Trace H (Negative) Urine WBC 7 H (0-5) /hpf Urine Bacteria Rare H (None) /hpf Urine Mucus Rare H (None) /hpf 12/28/20 12/29/20 12/29/20 Range/Units 18:04 00:36 05:00 WBC (3.8-10.6) k/uL RBC (4.30-5.90) m/uL D-Dimer 4.27 H (<0.60) mg/L FEU ABG pH (7.35-7.45) ABG pCO2 (35-45) mmHg ABG pO2 (83-108) mmHg ABG HCO3 (21-25) mmol/L ABG Total CO2 (19-24) mmol/L ABG O2 Saturation (94-97) % Potassium (3.5-5.1) mmol/L Chloride (98-107) mmol/L Carbon Dioxide (22-30) mmol/L BUN (9-20) mg/dL Glucose (74-99) mg/dL POC Glucose (mg/dL) 118 H 134 H (75-99) mg/dL Calcium (8.4-10.2) mg/dL Lactate Dehydrogenase (313-618) U/L C-Reactive Protein (<1.0) mg/dL Urine Protein (Negative) Ur Leukocyte Esterase (Negative) Urine WBC (0-5) /hpf Urine Bacteria (None) /hpf Urine Mucus (None) /hpf 12/29/20 12/29/20 12/29/20 Range/Units 05:00 05:00 05:00 WBC 17.6 H (3.8-10.6) k/uL RBC 4.03 L (4.30-5.90) m/uL D-Dimer (<0.60) mg/L FEU ABG pH 7.31 L (7.35-7.45) ABG pCO2 94 H* (35-45) mmHg ABG pO2 65 L (83-108) mmHg ABG HCO3 47 H* (21-25) mmol/L ABG Total CO2 50 H (19-24) mmol/L ABG O2 Saturation 91.8 L (94-97) % Potassium 5.3 H (3.5-5.1) mmol/L Chloride 96 L (98-107) mmol/L Carbon Dioxide 43 H* (22-30) mmol/L BUN 41 H (9-20) mg/dL Glucose 164 H (74-99) mg/dL POC Glucose (mg/dL) (75-99) mg/dL Calcium 8.2 L (8.4-10.2) mg/dL Lactate Dehydrogenase 1060 H (313-618) U/L C-Reactive Protein 23.5 H (<1.0) mg/dL Urine Protein (Negative) Ur Leukocyte Esterase (Negative) Urine WBC (0-5) /hpf Urine Bacteria (None) /hpf Urine Mucus (None) /hpf 12/29/20 Range/Units 05:02 WBC (3.8-10.6) k/uL RBC (4.30-5.90) m/uL D-Dimer (<0.60) mg/L FEU ABG pH (7.35-7.45) ABG pCO2 (35-45) mmHg ABG pO2 (83-108) mmHg ABG HCO3 (21-25) mmol/L ABG Total CO2 (19-24) mmol/L ABG O2 Saturation (94-97) % Potassium (3.5-5.1) mmol/L Chloride (98-107) mmol/L Carbon Dioxide (22-30) mmol/L BUN (9-20) mg/dL Glucose (74-99) mg/dL POC Glucose (mg/dL) 156 H (75-99) mg/dL Calcium (8.4-10.2) mg/dL Lactate Dehydrogenase (313-618) U/L C-Reactive Protein (<1.0) mg/dL Urine Protein (Negative) Ur Leukocyte Esterase (Negative) Urine WBC (0-5) /hpf Urine Bacteria (None) /hpf Urine Mucus (None) /hpf Microbiology - Last 24 Hours (Table) 12/28/20 22:42 Gram Stain - Preliminary Sputum Sputum Culture - Preliminary Assessment and Plan Assessment: COVID pneumonia and unvaccinated patient with acute hypoxic respiratory failure -Continue with Decadron -Zinc, vitamin C, vitamin D, melatonin -baricitinib -Pulmonary consult, input appreciated -Supplemental oxygen -Pro calcitonin not significantly elevated -Patient refused remdesivir -TPN --> OGT + enteral feeding -levemir 17U + aspart SSI -levophed as indicated -nimbex, propofol DVT prophylaxis -Lovenox Disposition: Pending clinical progression
[2020-12-29 11:35] LABS: Glucose,Whole Blood 178 mg/dL (75-99)
[2020-12-29] MEDS: CISATRACURIUM 200 MG in SODIUM CHLORIDE 0.9% 180 ML IV SCH (17:10)
[2020-12-29 18:35] LABS: Glucose,Whole Blood 132 mg/dL (75-99)
[2020-12-29] MEDS: ACETAMINOPHEN TAB 325 MG TAB PO PRN (18:40)
[2020-12-29] MEDS ORDERED: SODIUM CHLORIDE 0.9% 1,000 ML IV ONE (20:30)
[2020-12-29] MEDS: CEFEPIME 2 GM in SODIUM CHLORIDE 0.9% 100 ML IVPB SCH (20:42)
[2020-12-30 00:24] LABS: Glucose,Whole Blood 165 mg/dL (75-99)
[2020-12-30] MEDS: INSULIN ASPART (NovoLOG) 100 UNIT/ML VIAL SQ SCH ×4 (00:31→17:54)
[2020-12-30] MEDS: ARTIFICIAL TEARS-HYPROMELLOSE DROPS 15 ML BTL BOTH EYES SCH ×6 (00:31→20:52)
[2020-12-30 05:47] LABS: ABG Base Excess 18.7 mmol/L; ABG Oxygen Saturation 90.2 % (94-97); ABG PH 7.28 (7.35-7.45); ABG PO2 62 mmHg (83-108); ABG TCO2 49 mmol/L (19-24); Allen Test Performed? Yes
[2020-12-30 05:49] LABS: ABG HCO3 46 mmol/L (21-25); ABG PCO2 98 mmHg (35-45)
[2020-12-30 06:01] LABS: Glucose,Whole Blood 138 mg/dL (75-99)
[2020-12-30] MEDS ORDERED: VANCOMYCIN IV PER PHARMACY 1 EACH MISC MISCELLANE PRN (07:06)
[2020-12-30] MEDS: ALBUTEROL HFA INHALER INHALATION SCH ×4 (07:17→20:25)
[2020-12-30 07:26] LABS: HCT 41.1 % (39.0-53.0); HGB 12.6 gm/dL (13.0-17.5); Hypochromasia Slight; MCH 31.9 pg (25.0-35.0); MCHC 30.6 g/dL (31.0-37.0); MCV 104.1 fL (80.0-100.0); Macrocytosis Slight; Mean Platelet Volume 9.1; Platelet Count 152 k/uL (150-450); RBC 3.95 m/uL (4.30-5.90); RDW 12.6 % (11.5-15.5); WBC 16.5 k/uL (3.8-10.6)
[2020-12-30] MEDS ORDERED: VANCOMYCIN 1,500 MG in SODIUM CHLORIDE 0.9% 250 ML IVPB ONE (07:30)
[2020-12-30 07:38] LABS: Calcium 8.2 mg/dL (8.4-10.2); Potassium 5.6 mmol/L (3.5-5.1)
[2020-12-30] MEDS: INSULIN DETEMIR (LEVEMIR) 100 UNIT/ML SYR SQ SCH (08:08)
[2020-12-30] MEDS: ACETAMINOPHEN TAB 325 MG TAB PO PRN ×2 (08:08→20:59)
[2020-12-30 08:14] LABS: Glucose,Whole Blood 136 mg/dL (75-99)
--- NOTE | 2020-12-30 10:34 | XR ---
EXAMINATION TYPE: XR chest 1V portable DATE OF EXAM: 12/30/2020 COMPARISON: Chest x-ray 12/29/2020 HISTORY: Intubated TECHNIQUE: Single frontal view of the chest is obtained. FINDINGS: Endotracheal tube, NG tube are overlying appropriate positions. There are overlying artifa cts. Bilateral airspace disease persists. There is a left-sided PICC line with the distal tip overlyi ng the left innominate vein. Aorta is dense. Heart is stable. Question pneumomediastinum changes. IMPRESSION: There may be interval development of pneumomediastinum. Correlate for ARDS, pneumonia
--- NOTE | 2020-12-30 10:42 | P.PN ---
Subjective Progress Note Date: 12/30/20 65-year-old white male patient who is currently in the intensive care unit with diffuse COVID-19 related pneumonia. The patient was hospitalized on 12/15/2020. He has known history of hypertension and is a former smoker. He was initially on 4 L of oxygen by nasal cannula. He was admitted to the hospital for hypoxic respiratory failure and his condition progressed and currently the patient has d iffuse bilateral pulmonary infiltrates and BiPAP dependent respiratory failure. On 12/27/2020, the patient is being seen for a follow-up. The patient progressively decompensated yesterday. After being on a BiPAP at a pressure of 16/10 cm of water, the patient to be intubated and placed on a mechanical ventilator. This occurred approximately midnight. Currently the patient is sedated with propofol and the patient is also paralyzed with Nimbex. Was running at 40 mcg/kg per minute and Nimbex is running at 1 mcg/kg/h. The patient is currently on assist control mode of mechanical ventilation. The patient is on a rate of 36, tidal volume of 400, FiO2 of 100% and a PEEP of 10. Peak airway pressure is 34. Blood gases from this morning is in the order of a pH of 7.15 with a pCO2 of 99 and pO2 of 81. Chest x-ray shows diffuse breath and pulmonary infiltrates. ET tube is in a good location. There is some minor elevation of the right hemidiaphragm. PICC line is present in left upper extremity. Her white cell count from today is at 20. Hemoglobin is at 14.4. The BUN is at 31 with a creatinine of 0.6. Sodium is at 136. Potassium level is at 5.3. LDH level from today is 1655 with a CRP of 15.6.. D-dimer from yesterday was elevated at 12.1. Based on that, Doppler of the lower ext was done and it showed no evidence of any DVTs. . The pro calcitonin level was low at 0.06. The patient continues to be on Baricitinib per protocol in addition to Decadron 6 mg twice a day and prophylactic dose of Lovenox 40 mg subcu every 12 hours. The patient is also on TPN for natural support. Note that the patient is intubated, the patient will be transitioned to enteral feeding for nutritional support. We'll also start Lantus insulin for blood sugar control that needs to be tighter control. Start the patient on 0.2 mg/kg of Lantus in addition to a/scale coverage. Hemodynamically, the patient is stable. No pressors is utilized. The patient has adequate urine output and order of 100 mL an hour. IV fluids are currently at KVO. Balance over the past 24 hours has been -990 mL. 12/28/2020, the patient is being seen for a follow-up. The patient remains intubated on a mechanical ventilator and the patient is also sedated and paralyzed. This morning, propofol is running at 40 mcg/kg per minute and Nimbex is running at 2 mcg/kg per minute. The patient is receiving IV fluids at 20 mL an hour. The patient remains sedated and paralyzed on a mechanical ventilator. He is on assist control mode at the rate of 36 with a tidal volume of 375 and FiO2 of 85% and a PEEP of 13. Peak air pressure earlier was 36 with headache or pressure of around 32. Chest x-ray from today showed diffuse but the pulmonary infiltrates consistent with COVID-19 related pneumonia. Nevertheless, the ET tube was sitting high in the trachea. Based on that, a bedside bronchoscopy was done and the position of the tube was confirmed to be high. The patient had that she was advanced under endoscopic visualization. No significant orotracheal secretions. Blood gases from today shows a pH of 7.26 with a pCO2 of 105 and pO2 of 84. Mother the patient was given IV bicarbonate of above 4 pushes of 50 mEq yesterday and his acidosis improved. Potassium level. 5.1 on today's blood work. Hemodynamically, the patient is stable. No significant hypotension. White cell count is at 16.3. He does have some sinus tachycardia. Urine output is adequate. Overall fluid balance over the past 24 hours has been -990 mL. The patient remains on Decadron 6 mg IV every 12 hours. The patient also is on Lovenox 40 mg subcu every 12 hours. The patient is off TPN. He is receiving enteral feeding. Support. Blood sugars under better control with a combination of Levemir insulin 17 units daily in addition to NovoLog sliding scale coverage. The inflammatory markers from today shows a LDH level of 1307 and the CRP is down to 15.5 and the patient's d-dimer is down to 7.12. CAT scan of the chest was completed yesterday. No evidence of any pulmonary embolism. It was consistent with COVID-19 related pneumonia. The venous Doppler was also negative for DVT. 12/29/2020, the patient is being seen for a follow-up. He remains intubated on a mechanical ventilator. He remains sedated and paralyzed. He is still on propofol running at 40 mcg/kg per minute. Nimbex is also utilized for paralytics. He remains on a assist-control mode at the rate of 32 with a tidal volume of 375 with an FiO2 of 75% and a PEEP of 13. Peak airway pressures 33. Static airway pressure is 31. Chest x-ray shows diffuse but the pulmonary infiltrates, slightly improved compared to yesterday. Meanwhile, his blood gas shows a pH of 7.31 with a pCO2 of 94 and pO2 of 65. LDH has dropped down to 1060. His d-dimer has dropped down to 4.27. He is quite symptoms with a mechanical ventilator. He remains hemodynamically stable. He is on no pressors. He is having some mild sinus tachycardia. He is afebrile. White cell count is down to 17.6. Hemoglobin stable at 13.0. He remains on Decadron. He is completing the course of Baricitinib. He remains on Levemir insulin for blood sugar control and same dose of 17 units in addition to slight scale coverage. He remains on enteral feeding for nutritional support in the form of vital hp at the rate of 40 mL an hour. He has not had a bowel movement over the past 48 hours. No triggers or been under adequate control. Lovenox dose was modified to 40 mg once a day. No other complications otherwise. Family has been informed of his status. I'm contacted her daughter on a daily basis. In terms of his overall fluid balance, the patient that fluid balance over the past 24 hours has been -530 mL. 12/30/2020, the patient remains intubated on a mechanical ventilator and he remains sedated with propofol which is currently running at 40 mcg/kg per minute and the patient is also on Nimbex at 2 mcg/kg per minute. He is adequately sedated and paralyzed. I was unable to get him off the paralytics yesterday as the patient became hypoxic and desaturated once off the paralytics. I have an assist-control mode of mechanical ventilation. He is at the rate of 32, tidal volumes at 375, FiO2 is at 80% with a PEEP of 13. His peak airway pressure is 32. Static pressures 29. The patient had a blood. This morning that showed a pH of 7.28 with a pCO2 of 98 and pO2 of 62. This was done and FiO2 of 80%. Chest x-ray showing diffuse but the pulmonary infiltrates, essentially unchanged consistent with ARDS. Meanwhile, the patient started having episodes of fever as of yesterday. He became quite tachycardic along with this febrile episodes. His heart rate was sinus and throat as high as 14. At that point, blood cultures were sent. He was given a liter of fluid bolus. He did not become hypotensive and he is still maintaining his own pressure without any pressors. I gave him empiric antibiotic coverage with accommodation of cefepime and vancomycin. I stopped the Baricitinib pending further cultures. Pro-calcitonin level was also sent. His LDH level is 1066. His CRP level is at 35. His potassium level is at 5.6. Serum bicarbonate of 40. Creatinine is at 1.09 which is essentially stable. The neck fluid balance over the past 24 hours has been +1 L of fluid. He is receiving enteral feeding for nutritional support and currently is on vitamin AF at the rate of 46. His last bowel movement activity was yesterday. The patient is on Levemir insulin 17 units along with a slight scale insulin coverage. Objective - Vital Signs Vital signs: Vital Signs Temp 101.5 F H 12/30/20 08:00 Pulse 133 H 12/30/20 08:00 Resp 32 H 12/30/20 08:00 BP 145/83 12/28/20 23:00 Pulse Ox 86 L 12/30/20 08:00 Intake & Output 12/29/20 12/30/20 12/30/20 18:59 06:59 18:59 Intake Total 511.214 3508.174 368 Output Total 898 1065 110 Balance -88.605 966.174 258 Weight 83.4 kg Intake: IV 140 1256 276 .9 pressure bag 30 36 6 Cefepime 2 gm In Sodium 100 Chloride 0.9% 100 ml @ 25 mls/hr IVPB Q12HR [facility] Rx #:[id number] Sodium Chloride 0.9% 1, 110 120 20 000 ml @ 10 mls/hr IV . Q24H [facility] Rx#:[id number] Sodium Chloride 0.9% 1, 1000 000 ml @ 999 mls/hr IV . Q1H1M [facility] Rx#:[id number] Vancomycin 250 Intake, IV Titration 485.395 209.174 Amount Cisatracurium 200 mg In 166.550 9.174 Sodium Chloride 0.9% 180 ml @ 1 MCG/KG/MIN 5.004 mls/hr IV .Q24H [facility] Rx#: [id number] propofoL 1,000 mg In 318.845 200 Empty Bag 1 bag @ Titrate IV .Q0M [facility] Rx#: [id number] Tube Feeding 184 506 92 Other 60 Output: Urine 898 1065 110 Other: Voiding Method Indwelling Catheter Indwelling Catheter ABP, PAP, CO, CI - Last Documented Arterial Blood Pressure 111/55 - Exam GENERAL EXAM: Alert, tachypneic 65-year-old white male, intubated, currently on a mechanical ventilator, currently on assist-control mode of mechanical ventilation. Sedated and paralyzed. HEAD: Normocephalic/atraumatic. EYES: Normal reaction of pupils, equal size. Conjunctiva pink, sclera white. NOSE: Clear with pink turbinates. THROAT: No erythema or exudates. NECK: No masses, no JVD, no thyroid enlargement, no adenopathy. CHEST: No chest wall deformity. Symmetrical expansion. LUNGS: Equal air entry with diffuse crackles CVS: Regular rate and rhythm, normal S1 and S2, no gallops, no murmurs, no rubs ABDOMEN: Soft, nontender. No hepatosplenomegaly, normal bowel sounds, no guarding or rigidity. EXTREMITIES: No clubbing, no edema, no cyanosis, 2+ pulses and upper and lower extremities. MUSCULOSKELETAL: Muscle strength and tone normal. SPINE: No scoliosis or deformity SKIN: No rashes CENTRAL NERVOUS SYSTEM: Sedated and paralyzed, motor function is unable to be assessed on today's evaluation. Pupils are equal and reactive to light. No focal neurological deficits. - Labs CBC & Chem 7: 12/30/20 04:10 12/30/20 04:10 Labs: Abnormal Lab Results - Last 24 Hours (Table) 12/29/20 12/29/20 12/30/20 Range/Units 11:34 18:33 00:23 WBC (3.8-10.6) k/uL RBC (4.30-5.90) m/uL Hgb (13.0-17.5) gm/dL MCV (80.0-100.0) fL MCHC (31.0-37.0) g/dL D-Dimer (<0.60) mg/L FEU ABG pH (7.35-7.45) ABG pCO2 (35-45) mmHg ABG pO2 (83-108) mmHg ABG HCO3 (21-25) mmol/L ABG Total CO2 (19-24) mmol/L ABG O2 Saturation (94-97) % Potassium (3.5-5.1) mmol/L Carbon Dioxide (22-30) mmol/L BUN (9-20) mg/dL Glucose (74-99) mg/dL POC Glucose (mg/dL) 178 H 132 H 165 H (75-99) mg/dL Calcium (8.4-10.2) mg/dL Lactate Dehydrogenase (313-618) U/L C-Reactive Protein (<1.0) mg/dL 12/30/20 12/30/20 12/30/20 Range/Units 04:00 04:00 04:10 WBC 16.5 H (3.8-10.6) k/uL RBC 3.95 L (4.30-5.90) m/uL Hgb 12.6 L (13.0-17.5) gm/dL MCV 104.1 H (80.0-100.0) fL MCHC 30.6 L (31.0-37.0) g/dL D-Dimer 3.17 H (<0.60) mg/L FEU ABG pH (7.35-7.45) ABG pCO2 (35-45) mmHg ABG pO2 (83-108) mmHg ABG HCO3 (21-25) mmol/L ABG Total CO2 (19-24) mmol/L ABG O2 Saturation (94-97) % Potassium (3.5-5.1) mmol/L Carbon Dioxide (22-30) mmol/L BUN (9-20) mg/dL Glucose (74-99) mg/dL POC Glucose (mg/dL) (75-99) mg/dL Calcium (8.4-10.2) mg/dL Lactate Dehydrogenase 1066 H (313-618) U/L C-Reactive Protein 35.0 H (<1.0) mg/dL 12/30/20 12/30/20 12/30/20 Range/Units 04:10 05:40 05:59 WBC (3.8-10.6) k/uL RBC (4.30-5.90) m/uL Hgb (13.0-17.5) gm/dL MCV (80.0-100.0) fL MCHC (31.0-37.0) g/dL D-Dimer (<0.60) mg/L FEU ABG pH 7.28 L (7.35-7.45) ABG pCO2 98 H* (35-45) mmHg ABG pO2 62 L (83-108) mmHg ABG HCO3 46 H* (21-25) mmol/L ABG Total CO2 49 H (19-24) mmol/L ABG O2 Saturation 90.2 L (94-97) % Potassium 5.6 H (3.5-5.1) mmol/L Carbon Dioxide 40 H (22-30) mmol/L BUN 49 H (9-20) mg/dL Glucose 170 H (74-99) mg/dL POC Glucose (mg/dL) 138 H (75-99) mg/dL Calcium 8.2 L (8.4-10.2) mg/dL Lactate Dehydrogenase (313-618) U/L C-Reactive Protein (<1.0) mg/dL 12/30/20 Range/Units 08:12 WBC (3.8-10.6) k/uL RBC (4.30-5.90) m/uL Hgb (13.0-17.5) gm/dL MCV (80.0-100.0) fL MCHC (31.0-37.0) g/dL D-Dimer (<0.60) mg/L FEU ABG pH (7.35-7.45) ABG pCO2 (35-45) mmHg ABG pO2 (83-108) mmHg ABG HCO3 (21-25) mmol/L ABG Total CO2 (19-24) mmol/L ABG O2 Saturation (94-97) % Potassium (3.5-5.1) mmol/L Carbon Dioxide (22-30) mmol/L BUN (9-20) mg/dL Glucose (74-99) mg/dL POC Glucose (mg/dL) 136 H (75-99) mg/dL Calcium (8.4-10.2) mg/dL Lactate Dehydrogenase (313-618) U/L C-Reactive Protein (<1.0) mg/dL Microbiology - Last 24 Hours (Table) 12/28/20 12:18 Blood Culture - Preliminary Blood No Growth after 24 hours 12/28/20 22:42 Gram Stain - Preliminary Sputum Sputum Culture - Preliminary Assessment and Plan Plan: 1. Acute hypoxic respiratory failure related to acute COVID-19 pneumonia, with onset of symptoms 4 days ago, Patient did not Remdesivir was ordered on 12/16/2020 which the patient had refused. Did not receive COVID-19 vaccination. . Doppler of the lower extremities were negative. The inflammatory markers elevated. The LDH is essentially comparable to yesterday. The patient remains on Decadron. I'll discontinue the Baricitinib as the patient was having episodes of fever and infection was suspected. He is currently cultures. He is currently on broad-spectrum antibiotics utilizing a combination of cefepime and vancomycin. We will monitor the fever pattern. Chest x-ray findings are the same. Blood gases was noted. Repeated blood gases around noontime to reevaluate acid base status. No ventilator changes for today. As mentioned, Baricitinib was discontinued. 2 COVID-19 related pneumonia with diffuse bilateral pulmonary infiltrates/ARDS, 3. Hypertension 4. Increased inflammatory markers, increased d-dimer related to acute viral pneumonia, continues to take improve 5. Elevated d-dimer, d-dimer level is improving and the patient has a negative Doppler and a negative CT angiogram for pulmonary embolism. 6 hyperkalemia secondary to respiratory acidosis, related to potassium shift. We'll repeat the blood gas 7 fever 8 sinus tachycardia, consider underlying sepsis or fever induced tachycardia Plan: No vent changes for today We'll attempt to wean off the paralytic and discontinue if possible Continue propofol and recheck her triglyceride levels Continue Decadron and discontinue the Baricitinib Continue Lovenox for malignancy subcu for DVT prophylaxis Pro-calcitonin level Blood cultures 2 Cefepime and vancomycin Enteral feeding for nutritional support Dulcolax suppositories for bowel motility Condition is critical. We'll continue to follow. Family will be updated. We'll monitor the fever pattern. We'll monitor the sinus tachycardia. Monitor white cell count. Monitor potassium level. Repeated blood gases around noontime. Further recommendations are to follow. Overall prognosis is extremely guarded History care evaluation that was done and more than 30 minutes Time with Patient: Greater than 30
[2020-12-30 11:42] LABS: ABG Base Excess 18.5 mmol/L; ABG Oxygen Saturation 89.2 % (94-97); ABG PH 7.31 (7.35-7.45); ABG TCO2 47 mmol/L (19-24)
[2020-12-30 11:43] LABS: ABG PCO2 88 mmHg (35-45)
[2020-12-30] MEDS: ENOXAPARIN 40 MG/0.4 ML SYRINGE SQ SCH (11:43)
[2020-12-30 11:44] LABS: ABG HCO3 45 mmol/L (21-25); ABG PO2 57 mmHg (83-108); Allen Test Performed? no
[2020-12-30] MEDS: PANTOPRAZOLE 40 MG/10 ML VIAL IVP SCH (11:44)
[2020-12-30] MEDS: DEXAMETHASONE SOD PHOSPHATE 10 MG/ML 1 ML VIAL IV SCH ×2 (11:44→20:51)
[2020-12-30] MEDS: ZINC SULFATE 220 MG CAP PO SCH (11:44)
[2020-12-30] MEDS: CHOLECALCIFEROL 25 MCG (1000 IU) TABLET PO SCH (11:44)
[2020-12-30] MEDS: ASCORBIC ACID 500 MG TAB PO SCH (11:44)
[2020-12-30] MEDS: CHLORHEXIDINE GLUCONATE 15 ML CUP MUCOUS MEM SCH ×2 (11:44→20:52)
[2020-12-30] MEDS: SODIUM CHLORIDE 0.9% 1,000 ML IV SCH (11:45)
[2020-12-30] MEDS: CEFEPIME 2 GM in SODIUM CHLORIDE 0.9% 100 ML IVPB SCH (11:45)
[2020-12-30] MEDS: NOREPINEPHRINE 4 MG in SODIUM CHLORIDE 0.9% 250 ML IV SCH (12:06)
[2020-12-30 13:18] LABS: Glucose,Whole Blood 129 mg/dL (75-99)
--- NOTE | 2020-12-30 14:12 | CDI ---
Documentation Clarification Form Date: 12/30/2020 01:20:31 PM From: Deann Varner RN, CCDS Admit Date: 12/15/2020 12:01:00 PM Patient Name: Jesus Baires Visit Number: [id number] Discharge Date: ATTENTION: The Clinical Documentation Specialists (CDI) and [facility] Coding Staff appreciate your assistance in clarifying documentation. Please respond to the clarification below the line at the bottom and electronically sign. The CDI & [facility] Coding staff will review the response and follow-up if needed. Please note: Queries are made part of the Legal Health Record. If you have any questions, please contact the author of this message via ITS. Dr. Dena Clayton The patient presented with fever, shortness of breath, COVID positive, not vaccinated. 12/29@16:00 Vital signs; 129/59 123 32 101.8 O2 sat's 85 % FIO2 70% mechanical vent, WBC 17.6 12/30 Pulmonary progress note: CXR unchanged consistent with ARDS. Episodes of fever as of yesterday. WBC 16.5, vital signs 145/83 133 32 101.5. Sinus tachycardia, consider underlying sepsis or fever induced tachycardia History/Risk Factors: Hypertension Clinical Indicators: 65-year-old unvaccinated male present with COVID symptoms and was ruled in for COVID. His condition progressed and was intubated on 12/27/20. 12/14 WBC: 4.5 12/14 Lactic acid: 101 10 19 Blood cultures: No growth pending 12/14 Vital signs: 15/70 80 18 102.2 12/27 Vital vsxti185/85 95 30 98.6 89% on mechanical ventilator assist-control mode. WBC 20.3, NA+ 136, BUM 31, CR 0.65. CXR Diffuse bilateral pulmonary infiltrates 12/30 CXR: There may be interval development of pneumomediastinum. Correlate for ARDS Treatment: ICU Monitoring .9N 1,000 ML Bolus (12/29) Mechanical ventilation per pulmonary Continue Decadron 6 MG IV BID Discontinue Baricitinib Cefepime 2GM IVPB Q8 HRS Vancomycin 1,500 MG IVPB Q 24 HRS (PTD) Monitor VS, WBC, K+ In your professional opinion, please clarify if these findings signify one of the following conditions: [ ] Sepsis POA [x] Sepsis, Not POA [ ] Sepsis ruled out [ ] Severe Sepsis with organ failure [ ] Septic Shock [ ] SIRS, without underlying infectious process [ ] Other, please specify [ ] Unable to determine SIRS Criteria: 2 or more of the following may indicate SIRS -Temperature < 96.8F (36C) or > 101.0F (38.3C) -Heart Rate > 90 bpm -Respiratory Rate > 20 breaths/min or PaCO2 < 32 mmHg -White Blood Cell Count > 12,000 or < 4,000 cells/mm3 or > 10% bands (Template Last Reviewed: April 2020) MTDD
--- NOTE | 2020-12-30 15:56 | XR ---
EXAMINATION TYPE: XR chest 1V portable DATE OF EXAM: 12/30/2020 COMPARISON: Chest x-ray same date at earlier time HISTORY: Shortness of breath TECHNIQUE: Single frontal view of the chest is obtained. FINDINGS: Findings are similar to prior exam. Suspect underlying pneumomediastinum. Bilateral airspa ce disease persists. Endotracheal tube, NG tube, PICC line are stable. There are overlying artifacts. No evident pneumothorax. Difficult to exclude small effusion. And mediastinal silhouette is stable. IMPRESSION: Pneumomediastinum, correlate for ARDS, pneumonia, that may be small left pleural effusio n
[2020-12-30] MEDS: LACTOBACILLUS ACIDOPH & BULGAR 1 EACH PACKET PO SCH ×2 (16:03→21:30)
--- NOTE | 2020-12-30 17:44 | P.PN ---
Subjective Progress Note Date: 12/30/20 (delayed charting seen at 1100) Principal diagnosis: COVID Patient is a 65-year-old male with a past medical history of hypertension and prior hernia that has been repaired along with daily alcohol use who initially presented to the emergency department on 12/14/20. He was subsequently diagnosed with COVID pneumonia. He required intubation on 12/26. He spiked persistent fevers overnight on 12/29 his IL-6 inhibitor was stopped and he was started on cefepime and vanco, repeat cultures are pending. Seen and examined at bedside. He is sedated and paralyzed on the vent. General: non toxic, moderate distress, appears at stated age Derm: warm, dry Head: atraumatic, normocephalic, symmetric Eyes: no lid lesion], anicteric sclera Mouth: no lip lesion, mucus membranes moist Cardiovascular: S1S2 reg, no murmur, positive posterior tibial pulse bilateral, Lungs: Course bilateral, no rhonchi, no rales , no accessory muscle use Abdominal: soft, nontender to palpation, no guarding, no appreciable organomegaly Ext: no gross muscle atrophy, 1+ edema, no contractures Neuro: sedated and paralyzed on the vent Psych: sedated and paralyzed on the vent Adams and ET tube in place Acute hypoxic respiratory failure COVID-19 pneumonia ARDS Sepsis -Cefepime/Vanco D # 2 -On paralytics, norepinephrine weaned on 12/29 -Decadron day number # 13 -Lovenox -Baricitinib 12 doses completed - Pulm recs appreciated - if fevers continue low threshold for antifungal - follow inflammatory labs - ua negative 12/28 - await sputum cultures and blood cultures Hyperglycemia without diagnosis of diabetes -Sliding scale -Levemir -Follow blood sugars Hyperkalemia - repeat this evening per critical care - follow BMP - check CK to R/O myositits/rhabdo with paralytics + propofol Hypertension - not on meds at home - follow BP Daily alcohol consumption DVT prophylaxis: Lovenox Discussed with: Anticipated discharge: undetermined Anticipated discharge place: undetermined A total of minutes was spent on the care of this complex patient more than 50% of the time was spent in counseling and care coordination. Objective - Vital Signs Vital signs: Vital Signs Temp 101.5 F H 12/30/20 04:00 Pulse 131 H 12/30/20 07:00 Resp 32 H 12/30/20 07:00 BP 145/83 12/28/20 23:00 Pulse Ox 86 L 12/30/20 07:00 Intake & Output 12/29/20 12/30/20 12/30/20 18:59 06:59 18:59 Intake Total 748.413 3614.174 59 Output Total 898 1065 50 Balance -88.605 966.174 9 Weight 83.4 kg Intake: IV 140 1256 13 .9 pressure bag 30 36 3 Cefepime 2 gm In Sodium 100 Chloride 0.9% 100 ml @ 25 mls/hr IVPB Q12HR [facility] Rx #:[id number] Sodium Chloride 0.9% 1, 110 120 10 000 ml @ 10 mls/hr IV . Q24H [facility] Rx#:[id number] Sodium Chloride 0.9% 1, 1000 000 ml @ 999 mls/hr IV . Q1H1M [facility] Rx#:[id number] Intake, IV Titration 485.395 209.174 Amount Cisatracurium 200 mg In 166.550 9.174 Sodium Chloride 0.9% 180 ml @ 1 MCG/KG/MIN 5.004 mls/hr IV .Q24H [facility] Rx#: [id number] propofoL 1,000 mg In 318.845 200 Empty Bag 1 bag @ Titrate IV .Q0M [facility] Rx#: [id number] Tube Feeding 184 506 46 Other 60 Output: Urine 898 1065 50 Other: Voiding Method Indwelling Catheter Indwelling Catheter ABP, PAP, CO, CI - Last Documented Arterial Blood Pressure 111/55 - Labs CBC & Chem 7: 12/30/20 04:10 12/30/20 12:05 Labs: Abnormal Lab Results - Last 24 Hours (Table) 12/29/20 12/29/20 12/30/20 Range/Units 11:34 18:33 00:23 WBC (3.8-10.6) k/uL RBC (4.30-5.90) m/uL Hgb (13.0-17.5) gm/dL MCV (80.0-100.0) fL MCHC (31.0-37.0) g/dL D-Dimer (<0.60) mg/L FEU ABG pH (7.35-7.45) ABG pCO2 (35-45) mmHg ABG pO2 (83-108) mmHg ABG HCO3 (21-25) mmol/L ABG Total CO2 (19-24) mmol/L ABG O2 Saturation (94-97) % Potassium (3.5-5.1) mmol/L Carbon Dioxide (22-30) mmol/L BUN (9-20) mg/dL Glucose (74-99) mg/dL POC Glucose (mg/dL) 178 H 132 H 165 H (75-99) mg/dL Calcium (8.4-10.2) mg/dL Lactate Dehydrogenase (313-618) U/L C-Reactive Protein (<1.0) mg/dL 12/30/20 12/30/20 12/30/20 Range/Units 04:00 04:00 04:10 WBC 16.5 H (3.8-10.6) k/uL RBC 3.95 L (4.30-5.90) m/uL Hgb 12.6 L (13.0-17.5) gm/dL MCV 104.1 H (80.0-100.0) fL MCHC 30.6 L (31.0-37.0) g/dL D-Dimer 3.17 H (<0.60) mg/L FEU ABG pH (7.35-7.45) ABG pCO2 (35-45) mmHg ABG pO2 (83-108) mmHg ABG HCO3 (21-25) mmol/L ABG Total CO2 (19-24) mmol/L ABG O2 Saturation (94-97) % Potassium (3.5-5.1) mmol/L Carbon Dioxide (22-30) mmol/L BUN (9-20) mg/dL Glucose (74-99) mg/dL POC Glucose (mg/dL) (75-99) mg/dL Calcium (8.4-10.2) mg/dL Lactate Dehydrogenase 1066 H (313-618) U/L C-Reactive Protein 35.0 H (<1.0) mg/dL 12/30/20 12/30/20 12/30/20 Range/Units 04:10 05:40 05:59 WBC (3.8-10.6) k/uL RBC (4.30-5.90) m/uL Hgb (13.0-17.5) gm/dL MCV (80.0-100.0) fL MCHC (31.0-37.0) g/dL D-Dimer (<0.60) mg/L FEU ABG pH 7.28 L (7.35-7.45) ABG pCO2 98 H* (35-45) mmHg ABG pO2 62 L (83-108) mmHg ABG HCO3 46 H* (21-25) mmol/L ABG Total CO2 49 H (19-24) mmol/L ABG O2 Saturation 90.2 L (94-97) % Potassium 5.6 H (3.5-5.1) mmol/L Carbon Dioxide 40 H (22-30) mmol/L BUN 49 H (9-20) mg/dL Glucose 170 H (74-99) mg/dL POC Glucose (mg/dL) 138 H (75-99) mg/dL Calcium 8.2 L (8.4-10.2) mg/dL Lactate Dehydrogenase (313-618) U/L C-Reactive Protein (<1.0) mg/dL Microbiology - Last 24 Hours (Table) 12/28/20 12:18 Blood Culture - Preliminary Blood No Growth after 24 hours 12/28/20 22:42 Gram Stain - Preliminary Sputum Sputum Culture - Preliminary
[2020-12-30 17:47] LABS: Glucose,Whole Blood 163 mg/dL (75-99)
[2020-12-30] MEDS: VANCOMYCIN 1,500 MG in SODIUM CHLORIDE 0.9% 250 ML IVPB SCH (17:54)
[2020-12-30 18:09] LABS: Potassium 5.9 mmol/L (3.5-5.1)
[2020-12-30] MEDS ORDERED: CEFEPIME 2 GM in SODIUM CHLORIDE 0.9% 100 ML IVPB SCH (21:00)
[2020-12-30 23:13] LABS: Glucose,Whole Blood 137 mg/dL (75-99)
[2020-12-31] MEDS: ARTIFICIAL TEARS-HYPROMELLOSE DROPS 15 ML BTL BOTH EYES SCH ×6 (00:10→20:38)
[2020-12-31] MEDS: INSULIN ASPART (NovoLOG) 100 UNIT/ML VIAL SQ SCH ×4 (01:00→17:59)
[2020-12-31] MEDS: NOREPINEPHRINE 4 MG in SODIUM CHLORIDE 0.9% 250 ML IV SCH ×2 (02:54→17:39)
[2020-12-31] MEDS: SODIUM CHLORIDE 0.9% 1,000 ML IV SCH (02:57)
[2020-12-31] MEDS: ACETAMINOPHEN TAB 325 MG TAB PO PRN (03:22)
[2020-12-31 04:53] LABS: ABG Base Excess 15.4 mmol/L; ABG Oxygen Saturation 89.6 % (94-97); ABG PH 7.28 (7.35-7.45); ABG PO2 60 mmHg (83-108); ABG TCO2 45 mmol/L (19-24); Allen Test Performed? Yes
[2020-12-31 04:57] LABS: ABG HCO3 42 mmol/L (21-25); ABG PCO2 89 mmHg (35-45)
[2020-12-31] MEDS: VANCOMYCIN 1,500 MG in SODIUM CHLORIDE 0.9% 250 ML IVPB SCH (06:14)
[2020-12-31 06:37] LABS: C Reactive Protein 36.6 mg/dL (<1.0)
[2020-12-31 06:57] LABS: Glucose,Whole Blood 167 mg/dL (75-99)
[2020-12-31] MEDS: CISATRACURIUM 200 MG in SODIUM CHLORIDE 0.9% 180 ML IV SCH (07:13)
[2020-12-31 07:20] LABS: Basophils % (A) 0 %; Eosinophils % (A) 0 %; HGB 11.4 gm/dL (13.0-17.5); Hypochromasia Marked; Lymphocytes # (A) 0.3 k/uL (1.0-4.8); Lymphocytes % (A) 2 %; MCH 31.9 pg (25.0-35.0); MCHC 30.1 g/dL (31.0-37.0); Macrocytosis Slight; Mean Platelet Volume 9.7; Monocytes # (A) 0.3 k/uL (0-1.0); Monocytes % (A) 2 %; Neutrophils # (A) 13.1 k/uL (1.3-7.7); Neutrophils % (A) 95 %; Platelet Count 136 k/uL (150-450); RBC 3.59 m/uL (4.30-5.90); RDW 12.8 % (11.5-15.5); WBC 13.8 k/uL (3.8-10.6)
[2020-12-31 07:28] LABS: Albumin 2.3 g/dL (3.5-5.0); Calcium 8.1 mg/dL (8.4-10.2); Total Bilirubin 0.7 mg/dL (0.2-1.3); Total Protein 5.4 g/dL (6.3-8.2)
[2020-12-31] MEDS: ALBUTEROL HFA INHALER INHALATION SCH ×4 (08:41→19:09)
--- NOTE | 2020-12-31 08:54 | XR ---
EXAMINATION TYPE: XR chest 1V portable DATE OF EXAM: 12/31/2020 COMPARISON: 12/30/2020 HISTORY: Shortness of breath TECHNIQUE: Single frontal view of the chest is obtained. FINDINGS: Severe diffuse subcutaneous emphysema with ET and NG tube stable. ET tube only 2 cm above glynn. Left-sided PICC line noted. Interstitial infiltrates with bibasilar infiltrate and small effu wagner stable. IMPRESSION: 1. Severe subcutaneous emphysema. Suspect pneumomediastinum and pneumopericardium. 2. Bilateral diffuse infiltrate stable.
[2020-12-31] MEDS: INSULIN DETEMIR (LEVEMIR) 100 UNIT/ML SYR SQ SCH (09:18)
[2020-12-31] MEDS: PANTOPRAZOLE 40 MG/10 ML VIAL IVP SCH (09:19)
[2020-12-31] MEDS: CHLORHEXIDINE GLUCONATE 15 ML CUP MUCOUS MEM SCH ×2 (09:19→20:37)
[2020-12-31] MEDS: ZINC SULFATE 220 MG CAP PO SCH (09:19)
[2020-12-31] MEDS: ASCORBIC ACID 500 MG TAB PO SCH (09:19)
[2020-12-31] MEDS: DEXAMETHASONE SOD PHOSPHATE 10 MG/ML 1 ML VIAL IV SCH ×2 (09:19→20:37)
[2020-12-31] MEDS: CHOLECALCIFEROL 25 MCG (1000 IU) TABLET PO SCH (09:19)
[2020-12-31] MEDS: ENOXAPARIN 40 MG/0.4 ML SYRINGE SQ SCH (09:20)
[2020-12-31] MEDS: CEFEPIME 2 GM in SODIUM CHLORIDE 0.9% 100 ML IVPB SCH ×2 (09:20→20:38)
[2020-12-31] MEDS ORDERED: SODIUM POLYSTYRENE SULFONATE 15 GM/60 ML BOTTLE PO STA (09:22)
[2020-12-31] MEDS ORDERED: SODIUM CHLORIDE 0.9% 1,000 ML IV ONE (10:02)
--- NOTE | 2020-12-31 10:08 | P.PN ---
Subjective Progress Note Date: 12/31/20 65-year-old white male patient who is currently in the intensive care unit with diffuse COVID-19 related pneumonia. The patient was hospitalized on 12/15/2020. He has known history of hypertension and is a former smoker. He was initially on 4 L of oxygen by nasal cannula. He was admitted to the hospital for hypoxic respiratory failure and his condition progressed and currently the patient has d iffuse bilateral pulmonary infiltrates and BiPAP dependent respiratory failure. On 12/27/2020, the patient is being seen for a follow-up. The patient progressively decompensated yesterday. After being on a BiPAP at a pressure of 16/10 cm of water, the patient to be intubated and placed on a mechanical ventilator. This occurred approximately midnight. Currently the patient is sedated with propofol and the patient is also paralyzed with Nimbex. Was running at 40 mcg/kg per minute and Nimbex is running at 1 mcg/kg/h. The patient is currently on assist control mode of mechanical ventilation. The patient is on a rate of 36, tidal volume of 400, FiO2 of 100% and a PEEP of 10. Peak airway pressure is 34. Blood gases from this morning is in the order of a pH of 7.15 with a pCO2 of 99 and pO2 of 81. Chest x-ray shows diffuse breath and pulmonary infiltrates. ET tube is in a good location. There is some minor elevation of the right hemidiaphragm. PICC line is present in left upper extremity. Her white cell count from today is at 20. Hemoglobin is at 14.4. The BUN is at 31 with a creatinine of 0.6. Sodium is at 136. Potassium level is at 5.3. LDH level from today is 1655 with a CRP of 15.6.. D-dimer from yesterday was elevated at 12.1. Based on that, Doppler of the lower ext was done and it showed no evidence of any DVTs. . The pro calcitonin level was low at 0.06. The patient continues to be on Baricitinib per protocol in addition to Decadron 6 mg twice a day and prophylactic dose of Lovenox 40 mg subcu every 12 hours. The patient is also on TPN for natural support. Note that the patient is intubated, the patient will be transitioned to enteral feeding for nutritional support. We'll also start Lantus insulin for blood sugar control that needs to be tighter control. Start the patient on 0.2 mg/kg of Lantus in addition to a/scale coverage. Hemodynamically, the patient is stable. No pressors is utilized. The patient has adequate urine output and order of 100 mL an hour. IV fluids are currently at KVO. Balance over the past 24 hours has been -990 mL. 12/28/2020, the patient is being seen for a follow-up. The patient remains intubated on a mechanical ventilator and the patient is also sedated and paralyzed. This morning, propofol is running at 40 mcg/kg per minute and Nimbex is running at 2 mcg/kg per minute. The patient is receiving IV fluids at 20 mL an hour. The patient remains sedated and paralyzed on a mechanical ventilator. He is on assist control mode at the rate of 36 with a tidal volume of 375 and FiO2 of 85% and a PEEP of 13. Peak air pressure earlier was 36 with headache or pressure of around 32. Chest x-ray from today showed diffuse but the pulmonary infiltrates consistent with COVID-19 related pneumonia. Nevertheless, the ET tube was sitting high in the trachea. Based on that, a bedside bronchoscopy was done and the position of the tube was confirmed to be high. The patient had that she was advanced under endoscopic visualization. No significant orotracheal secretions. Blood gases from today shows a pH of 7.26 with a pCO2 of 105 and pO2 of 84. Mother the patient was given IV bicarbonate of above 4 pushes of 50 mEq yesterday and his acidosis improved. Potassium level. 5.1 on today's blood work. Hemodynamically, the patient is stable. No significant hypotension. White cell count is at 16.3. He does have some sinus tachycardia. Urine output is adequate. Overall fluid balance over the past 24 hours has been -990 mL. The patient remains on Decadron 6 mg IV every 12 hours. The patient also is on Lovenox 40 mg subcu every 12 hours. The patient is off TPN. He is receiving enteral feeding. Support. Blood sugars under better control with a combination of Levemir insulin 17 units daily in addition to NovoLog sliding scale coverage. The inflammatory markers from today shows a LDH level of 1307 and the CRP is down to 15.5 and the patient's d-dimer is down to 7.12. CAT scan of the chest was completed yesterday. No evidence of any pulmonary embolism. It was consistent with COVID-19 related pneumonia. The venous Doppler was also negative for DVT. 12/29/2020, the patient is being seen for a follow-up. He remains intubated on a mechanical ventilator. He remains sedated and paralyzed. He is still on propofol running at 40 mcg/kg per minute. Nimbex is also utilized for paralytics. He remains on a assist-control mode at the rate of 32 with a tidal volume of 375 with an FiO2 of 75% and a PEEP of 13. Peak airway pressures 33. Static airway pressure is 31. Chest x-ray shows diffuse but the pulmonary infiltrates, slightly improved compared to yesterday. Meanwhile, his blood gas shows a pH of 7.31 with a pCO2 of 94 and pO2 of 65. LDH has dropped down to 1060. His d-dimer has dropped down to 4.27. He is quite symptoms with a mechanical ventilator. He remains hemodynamically stable. He is on no pressors. He is having some mild sinus tachycardia. He is afebrile. White cell count is down to 17.6. Hemoglobin stable at 13.0. He remains on Decadron. He is completing the course of Baricitinib. He remains on Levemir insulin for blood sugar control and same dose of 17 units in addition to slight scale coverage. He remains on enteral feeding for nutritional support in the form of vital hp at the rate of 40 mL an hour. He has not had a bowel movement over the past 48 hours. No triggers or been under adequate control. Lovenox dose was modified to 40 mg once a day. No other complications otherwise. Family has been informed of his status. I'm contacted her daughter on a daily basis. In terms of his overall fluid balance, the patient that fluid balance over the past 24 hours has been -530 mL. 12/30/2020, the patient remains intubated on a mechanical ventilator and he remains sedated with propofol which is currently running at 40 mcg/kg per minute and the patient is also on Nimbex at 2 mcg/kg per minute. He is adequately sedated and paralyzed. I was unable to get him off the paralytics yesterday as the patient became hypoxic and desaturated once off the paralytics. I have an assist-control mode of mechanical ventilation. He is at the rate of 32, tidal volumes at 375, FiO2 is at 80% with a PEEP of 13. His peak airway pressure is 32. Static pressures 29. The patient had a blood. This morning that showed a pH of 7.28 with a pCO2 of 98 and pO2 of 62. This was done and FiO2 of 80%. Chest x-ray showing diffuse but the pulmonary infiltrates, essentially unchanged consistent with ARDS. Meanwhile, the patient started having episodes of fever as of yesterday. He became quite tachycardic along with this febrile episodes. His heart rate was sinus and throat as high as 14. At that point, blood cultures were sent. He was given a liter of fluid bolus. He did not become hypotensive and he is still maintaining his own pressure without any pressors. I gave him empiric antibiotic coverage with accommodation of cefepime and vancomycin. I stopped the Baricitinib pending further cultures. Pro-calcitonin level was also sent. His LDH level is 1066. His CRP level is at 35. His potassium level is at 5.6. Serum bicarbonate of 40. Creatinine is at 1.09 which is essentially stable. The neck fluid balance over the past 24 hours has been +1 L of fluid. He is receiving enteral feeding for nutritional support and currently is on vitamin AF at the rate of 46. His last bowel movement activity was yesterday. The patient is on Levemir insulin 17 units along with a slight scale insulin coverage. 12/31/2020, the patient is being seen for a follow-up. He remains intubated on mechanical ventilator. Remains on propofol which is running at 50 mcg/kg per minute and the patient is also Nimbex at 2 mcg/kg/m.the patient is adequately sedated and paralyzed. He remains on a mechanical ventilator. This morning, he is an assist-control mode with a tidal volume of 375, rate of 32, FiO2 of 80% with a PEEP of 13. Peak airway pressure was 33. Static pressure is 31. Chest x-ray showing diffuse bilateral pulmonary infiltrates. At the same time there is development of subcutaneous emphysema over the chest and neck area. Clinically, this is also evident that the patient has air collecting and there is skin in the face neck and chest area. PH is at 7.28 with a pCO2 of 89 and pO2 of 60. There is evidence of barotrauma such. At the same time, we suspect an infection. Focused on was mildly elevated. The patient was having sinus tachycardia and the patient was febrile throughout the day yesterday. Sputum cultures showing staph aureus. I have him on a combination of cefepime and vancomycin. Blood cultures negative thus far. No significant orotracheal secretions. Hemodynamically, he is on no pressors. His sinus tachycardia is improved and his current heart rate is 105. He remains on Decadron. I took him off the Baricitinib. The patient has a white cell count of 13.8 which is improved compared to yesterday. However, the same time, the patient developed an acute kidney injury. Creatinine is up to 1.9 from a baseline of 1.09 yesterday. BUN is at 79. Potassium level is at 6.0. He is not fluid balance over the past 24 hours has been +1.1 L. Enteral feeding for nutritional support with the vital AF at the rate of 46 mL an hour. Adequate bowel movement. Levemir insulin for blood sugar control. In terms of therapy, he is off Baricitinib. He is on Decadron 6 mg IV every 12 hours and the patient is also on Lovenox 40 mg subcu on a daily basis. Terms of inflammatory markers, LDH is still elevated and compatible to yesterday and the level today's at 1162 with a CRP level of 36. LFTs are normal. IV fluids in the form of 0.9 at the rate of 20cc/hr Objective - Vital Signs Vital signs: Vital Signs Temp 100.2 F H 12/31/20 04:00 Pulse 107 H 12/31/20 07:00 Resp 32 H 12/31/20 07:00 BP 123/76 12/31/20 07:00 Pulse Ox 93 L 12/31/20 07:00 Intake & Output 12/30/20 12/31/20 12/31/20 18:59 06:59 18:59 Intake Total 0060.907 2262.229 90.072 Output Total 810 1125 Balance 725.238 448.229 90.072 Weight 83.4 kg 83.4 kg Intake: IV 756 503 .9 pressure bag 36 3 Cefepime 2 gm In Sodium 100 Chloride 0.9% 100 ml @ 25 mls/hr IVPB Q12HR [facility] Rx #:[id number] Sodium Chloride 0.9% 1, 120 250 000 ml @ 10 mls/hr IV . Q24H [facility] Rx#:[id number] Vancomycin 250 Vancomycin 1,500 mg In 250 250 Sodium Chloride 0.9% 250 ml @ 125 mls/hr IVPB ONCE ONE Rx#:[id number] Intake, IV Titration 289.238 382.229 90.072 Amount Cefepime 2 gm In Sodium 100 Chloride 0.9% 100 ml @ 25 mls/hr IVPB Q8HR [facility] Rx# :[id number] Cisatracurium 200 mg In 190.826 Sodium Chloride 0.9% 180 ml @ 1 MCG/KG/MIN 5.004 mls/hr IV .Q24H [facility] Rx#: [id number] propofoL 1,000 mg In 98.412 282.229 90.072 Empty Bag 1 bag @ Titrate IV .Q0M [facility] Rx#: [id number] Tube Feeding 460 598 Other 30 90 Output: Urine 810 1125 Other: Voiding Method Indwelling Catheter Indwelling Catheter ABP, PAP, CO, CI - Last Documented Arterial Blood Pressure 123/61 - Exam GENERAL EXAM: Alert, tachypneic 65-year-old white male, intubated, currently on a mechanical ventilator, currently on assist-control mode of mechanical ventilation. Sedated and paralyzed. HEAD: Normocephalic/atraumatic. EYES: Normal reaction of pupils, equal size. Conjunctiva pink, sclera white. NOSE: Clear with pink turbinates. THROAT: No erythema or exudates. NECK: No masses, no JVD, no thyroid enlargement, no adenopathy. CHEST: No chest wall deformity. Symmetrical expansion. LUNGS: Equal air entry with diffuse crackles CVS: Regular rate and rhythm, normal S1 and S2, no gallops, no murmurs, no rubs ABDOMEN: Soft, nontender. No hepatosplenomegaly, normal bowel sounds, no guarding or rigidity. EXTREMITIES: No clubbing, no edema, no cyanosis, 2+ pulses and upper and lower extremities. MUSCULOSKELETAL: Muscle strength and tone normal. SPINE: No scoliosis or deformity SKIN: No rashes CENTRAL NERVOUS SYSTEM: Sedated and paralyzed, motor function is unable to be assessed on today's evaluation. Pupils are equal and reactive to light. No focal neurological deficits. - Labs CBC & Chem 7: 12/31/20 03:50 12/31/20 03:50 Labs: Abnormal Lab Results - Last 24 Hours (Table) 12/30/20 12/30/20 12/30/20 Range/Units 03:50 04:10 11:40 WBC (3.8-10.6) k/uL RBC (4.30-5.90) m/uL Hgb (13.0-17.5) gm/dL Hct (39.0-53.0) % MCV (80.0-100.0) fL MCHC (31.0-37.0) g/dL Plt Count (150-450) k/uL Neutrophils # (1.3-7.7) k/uL Lymphocytes # (1.0-4.8) k/uL D-Dimer (<0.60) mg/L FEU ABG pH 7.31 L (7.35-7.45) ABG pCO2 88 H* (35-45) mmHg ABG pO2 57 L* (83-108) mmHg ABG HCO3 45 H* (21-25) mmol/L ABG Total CO2 47 H (19-24) mmol/L ABG O2 Saturation 89.2 L (94-97) % Sodium (137-145) mmol/L Potassium 5.9 H (3.5-5.1) mmol/L Carbon Dioxide (22-30) mmol/L BUN (9-20) mg/dL Creatinine (0.66-1.25) mg/dL Glucose (74-99) mg/dL POC Glucose (mg/dL) (75-99) mg/dL Calcium (8.4-10.2) mg/dL ALT (4-49) U/L Lactate Dehydrogenase (313-618) U/L Creatine Kinase (55-170) U/L C-Reactive Protein (<1.0) mg/dL Total Protein (6.3-8.2) g/dL Albumin (3.5-5.0) g/dL Procalcitonin 0.52 H (0.02-0.09) ng/mL 12/30/20 12/30/20 12/30/20 Range/Units 12:05 13:17 17:46 WBC (3.8-10.6) k/uL RBC (4.30-5.90) m/uL Hgb (13.0-17.5) gm/dL Hct (39.0-53.0) % MCV (80.0-100.0) fL MCHC (31.0-37.0) g/dL Plt Count (150-450) k/uL Neutrophils # (1.3-7.7) k/uL Lymphocytes # (1.0-4.8) k/uL D-Dimer (<0.60) mg/L FEU ABG pH (7.35-7.45) ABG pCO2 (35-45) mmHg ABG pO2 (83-108) mmHg ABG HCO3 (21-25) mmol/L ABG Total CO2 (19-24) mmol/L ABG O2 Saturation (94-97) % Sodium (137-145) mmol/L Potassium 5.6 H (3.5-5.1) mmol/L Carbon Dioxide (22-30) mmol/L BUN (9-20) mg/dL Creatinine (0.66-1.25) mg/dL Glucose (74-99) mg/dL POC Glucose (mg/dL) 129 H 163 H (75-99) mg/dL Calcium (8.4-10.2) mg/dL ALT (4-49) U/L Lactate Dehydrogenase (313-618) U/L Creatine Kinase (55-170) U/L C-Reactive Protein (<1.0) mg/dL Total Protein (6.3-8.2) g/dL Albumin (3.5-5.0) g/dL Procalcitonin (0.02-0.09) ng/mL 12/30/20 12/30/20 12/31/20 Range/Units 17:58 23:12 03:50 WBC (3.8-10.6) k/uL RBC (4.30-5.90) m/uL Hgb (13.0-17.5) gm/dL Hct (39.0-53.0) % MCV (80.0-100.0) fL MCHC (31.0-37.0) g/dL Plt Count (150-450) k/uL Neutrophils # (1.3-7.7) k/uL Lymphocytes # (1.0-4.8) k/uL D-Dimer 2.66 H (<0.60) mg/L FEU ABG pH (7.35-7.45) ABG pCO2 (35-45) mmHg ABG pO2 (83-108) mmHg ABG HCO3 (21-25) mmol/L ABG Total CO2 (19-24) mmol/L ABG O2 Saturation (94-97) % Sodium (137-145) mmol/L Potassium 5.9 H (3.5-5.1) mmol/L Carbon Dioxide (22-30) mmol/L BUN (9-20) mg/dL Creatinine (0.66-1.25) mg/dL Glucose (74-99) mg/dL POC Glucose (mg/dL) 137 H (75-99) mg/dL Calcium (8.4-10.2) mg/dL ALT (4-49) U/L Lactate Dehydrogenase (313-618) U/L Creatine Kinase 34 L (55-170) U/L C-Reactive Protein (<1.0) mg/dL Total Protein (6.3-8.2) g/dL Albumin (3.5-5.0) g/dL Procalcitonin (0.02-0.09) ng/mL 12/31/20 12/31/20 12/31/20 Range/Units 03:50 03:50 03:50 WBC 13.8 H (3.8-10.6) k/uL RBC 3.59 L (4.30-5.90) m/uL Hgb 11.4 L (13.0-17.5) gm/dL Hct 38.0 L (39.0-53.0) % MCV 106.0 H (80.0-100.0) fL MCHC 30.1 L (31.0-37.0) g/dL Plt Count 136 L (150-450) k/uL Neutrophils # 13.1 H (1.3-7.7) k/uL Lymphocytes # 0.3 L (1.0-4.8) k/uL D-Dimer (<0.60) mg/L FEU ABG pH (7.35-7.45) ABG pCO2 (35-45) mmHg ABG pO2 (83-108) mmHg ABG HCO3 (21-25) mmol/L ABG Total CO2 (19-24) mmol/L ABG O2 Saturation (94-97) % Sodium 146 H (137-145) mmol/L Potassium 6.0 H (3.5-5.1) mmol/L Carbon Dioxide 36 H (22-30) mmol/L BUN 79 H (9-20) mg/dL Creatinine 1.94 H (0.66-1.25) mg/dL Glucose 176 H (74-99) mg/dL POC Glucose (mg/dL) (75-99) mg/dL Calcium 8.1 L (8.4-10.2) mg/dL ALT 54 H (4-49) U/L Lactate Dehydrogenase 1162 H (313-618) U/L Creatine Kinase (55-170) U/L C-Reactive Protein 36.6 H (<1.0) mg/dL Total Protein 5.4 L (6.3-8.2) g/dL Albumin 2.3 L (3.5-5.0) g/dL Procalcitonin (0.02-0.09) ng/mL 12/31/20 12/31/20 Range/Units 04:46 06:55 WBC (3.8-10.6) k/uL RBC (4.30-5.90) m/uL Hgb (13.0-17.5) gm/dL Hct (39.0-53.0) % MCV (80.0-100.0) fL MCHC (31.0-37.0) g/dL Plt Count (150-450) k/uL Neutrophils # (1.3-7.7) k/uL Lymphocytes # (1.0-4.8) k/uL D-Dimer (<0.60) mg/L FEU ABG pH 7.28 L (7.35-7.45) ABG pCO2 89 H* (35-45) mmHg ABG pO2 60 L (83-108) mmHg ABG HCO3 42 H* (21-25) mmol/L ABG Total CO2 45 H (19-24) mmol/L ABG O2 Saturation 89.6 L (94-97) % Sodium (137-145) mmol/L Potassium (3.5-5.1) mmol/L Carbon Dioxide (22-30) mmol/L BUN (9-20) mg/dL Creatinine (0.66-1.25) mg/dL Glucose (74-99) mg/dL POC Glucose (mg/dL) 167 H (75-99) mg/dL Calcium (8.4-10.2) mg/dL ALT (4-49) U/L Lactate Dehydrogenase (313-618) U/L Creatine Kinase (55-170) U/L C-Reactive Protein (<1.0) mg/dL Total Protein (6.3-8.2) g/dL Albumin (3.5-5.0) g/dL Procalcitonin (0.02-0.09) ng/mL Microbiology - Last 24 Hours (Table) 12/29/20 22:09 Blood Culture - Preliminary Blood No Growth after 24 hours 12/29/20 22:09 Blood Culture - Preliminary Blood No Growth after 24 hours 12/29/20 14:16 Blood Culture - Preliminary Blood No Growth after 24 hours 12/28/20 22:42 Gram Stain - Preliminary Sputum Sputum Culture - Preliminary Presumptive Staph aureus 12/28/20 12:18 Blood Culture - Preliminary Blood No Growth after 48 hours Assessment and Plan Plan: 1. Acute hypoxic respiratory failure related to acute COVID-19 pneumonia, with onset of symptoms 4 days ago, Patient did not Remdesivir was ordered on 12/16/2020 which the patient had refused. Did not receive COVID-19 vaccination. . Doppler of the lower extremities were negative. The inflammatory markers elevated. The LDH is essentially comparable to yesterday. the patient is being treated based on the ARDS protocol with low tidal volume mechanical ventilation. He has some permissive hypercapnia. His airway pressures are not significantly elevated. On today's evaluation, based on development of some b arotrauma, I further drop the tidal volume today.for now, his PEEP has been drop down to 12, tidal volume is down to 360 and the peak airway pressures 30 with a static pressures around 27. He has developed subcutaneous emphysema on today's chest x-ray and clinically this is obviously evident. 2 COVID-19 related pneumonia with diffuse bilateral pulmonary infiltrates/ARDS, 3. subcutaneous emphysema secondary to barotrauma from ARDS and mechanical ventilation 4. acute kidney injury in the creatinine is up to 1.9, consider COVID-19 related ATN, we'll consult nephrology 5. acute hyperkalemia secondary metabolic acidosis and respiratory acidosis and the potassium shift, being treated accordingly 6 staphylococcal pneumonia suspected. The patient was having persistent fever and mild elevation of the pro-calcitonin level. Patient is currently on a combination of cefepime and vancomycin. 7 fever, persistent since yesterday 8 sinus tachycardia, consider underlying sepsis or fever induced tachycardia, improved 9 history of hypertension 10 elevated inflammatory markers secondary to above Plan: .the tidal volume to do 360 and neuropathy down to 12 and repeated blood gases around noontime Repeat potassium level post treatment continue sedation and paralytics continue Decadron and the patient is currently off Baricitinib Continue cefepime and vancomycin Monitor renal function give the patient bolus of 1 L of fluid and increase the maintenance up to 75 mL an hour Enteral feeding for nutritional support Nephrology consultation Condition is still critical we'll continue to follow make further recommendations based on his progress. We wi Overall prognosis is extremely guarded History care evaluation that was done and more than 30 minutes Time with Patient: Greater than 30
[2020-12-31 11:50] LABS: ABG Base Excess 12.7 mmol/L; ABG Oxygen Saturation 87.5 % (94-97); ABG PH 7.23 (7.35-7.45); ABG TCO2 43 mmol/L (19-24)
[2020-12-31 11:52] LABS: ABG HCO3 40 mmol/L (21-25); ABG PCO2 96 mmHg (35-45); ABG PO2 58 mmHg (83-108); Allen Test Performed? no
[2020-12-31 11:54] LABS: Glucose,Whole Blood 181 mg/dL (75-99)
[2020-12-31] MEDS: LACTOBACILLUS ACIDOPH & BULGAR 1 EACH PACKET PO SCH ×2 (12:58→21:32)
[2020-12-31 14:51] LABS: Calcium 7.4 mg/dL (8.4-10.2)
[2020-12-31 14:54] LABS: Potassium 5.5 mmol/L (3.5-5.1)
--- NOTE | 2020-12-31 15:42 | P.PN ---
Subjective Progress Note Date: 12/31/20 65 years old male patient who was admitted for COVID-19 pneumonia and respiratory failure, patient initially was on nasal cannula and then required BiPAP, patient then was intubated on 12/26/2020. Patient is currently being treated with dexamethasone and vancomycin cefepime, currently on mechanical ventilator, with areas protocol low tidal volume mechanical ventilation and permissive hypercapnia. Patient is currently off bar sitting up treatment Objective - Vital Signs Vital signs: Vital Signs Temp 98.8 F 12/31/20 08:00 Pulse 108 H 12/31/20 15:00 Resp 32 H 12/31/20 15:00 BP 123/76 12/31/20 07:00 Pulse Ox 90 L 12/31/20 15:00 Intake & Output 12/30/20 12/31/20 12/31/20 18:59 06:59 18:59 Intake Total 9287.222 7286.229 2414.140 Output Total 810 1125 800 Balance 725.238 390.656 5049.140 Weight 83.4 kg 83.4 kg Intake: IV 756 503 459 .9 pressure bag 36 3 24 Cefepime 2 gm In Sodium 100 Chloride 0.9% 100 ml @ 25 mls/hr IVPB Q12HR [facility] Rx #:[id number] Sodium Chloride 0.9% 1, 120 250 435 000 ml @ 75 mls/hr IV . [id number] [facility] Rx#:[id number] Vancomycin 250 Vancomycin 1,500 mg In 250 250 Sodium Chloride 0.9% 250 ml @ 125 mls/hr IVPB ONCE ONE Rx#:[id number] Intake, IV Titration 289.238 552.192 6124.140 Amount Cefepime 2 gm In Sodium 100 100 Chloride 0.9% 100 ml @ 25 mls/hr IVPB Q8HR [facility] Rx# :[id number] Cisatracurium 200 mg In 190.826 Sodium Chloride 0.9% 180 ml @ 1 MCG/KG/MIN 5.004 mls/hr IV .Q24H [facility] Rx#: [id number] Sodium Chloride 0.9% 1, 1000 000 ml @ 999 mls/hr IV . Q1H1M ONE Rx#:[id number] propofoL 1,000 mg In 98.412 282.229 275.140 Empty Bag 1 bag @ Titrate IV .Q0M [facility] Rx#: [id number] Tube Feeding 460 598 370 Other 30 90 210 Output: Urine 810 1125 800 Other: Voiding Method Indwelling Catheter Indwelling Catheter Indwelling Catheter ABP, PAP, CO, CI - Last Documented Arterial Blood Pressure 165/68 - Exam General: No acute distress sedated and intubated on mechanical ventilator Head: atraumatic, normocephalic, symmetric Eyes: no lid lesion], anicteric sclera Mouth: no lip lesion, mucus membranes moist Cardiovascular: S1S2 reg rate and rhythm, no murmur, no gallop Lungs: Bilateral equal air entry, no wheezing no rhonchi no crackles. Abdominal: soft, nontender to palpation, no guarding, no appreciable organomegaly Ext: no gross muscle atrophy, no edema extremities warm to suppose a positive Neuro: Patient is currently intubated, exam grossly nonfocal but full examination cannot be done due to clinical condition Skin exam: No rashes no jaundice. - Labs CBC & Chem 7: 12/31/20 03:50 12/31/20 14:15 Labs: Abnormal Lab Results - Last 24 Hours (Table) 12/30/20 12/30/20 12/30/20 Range/Units 03:50 04:10 17:46 WBC (3.8-10.6) k/uL RBC (4.30-5.90) m/uL Hgb (13.0-17.5) gm/dL Hct (39.0-53.0) % MCV (80.0-100.0) fL MCHC (31.0-37.0) g/dL Plt Count (150-450) k/uL Neutrophils # (1.3-7.7) k/uL Lymphocytes # (1.0-4.8) k/uL D-Dimer (<0.60) mg/L FEU ABG pH (7.35-7.45) ABG pCO2 (35-45) mmHg ABG pO2 (83-108) mmHg ABG HCO3 (21-25) mmol/L ABG Total CO2 (19-24) mmol/L ABG O2 Saturation (94-97) % Sodium (137-145) mmol/L Potassium 5.9 H (3.5-5.1) mmol/L Carbon Dioxide (22-30) mmol/L BUN (9-20) mg/dL Creatinine (0.66-1.25) mg/dL Glucose (74-99) mg/dL POC Glucose (mg/dL) 163 H (75-99) mg/dL Calcium (8.4-10.2) mg/dL ALT (4-49) U/L Lactate Dehydrogenase (313-618) U/L Creatine Kinase (55-170) U/L C-Reactive Protein (<1.0) mg/dL Total Protein (6.3-8.2) g/dL Albumin (3.5-5.0) g/dL Procalcitonin 0.52 H (0.02-0.09) ng/mL 12/30/20 12/30/20 12/31/20 Range/Units 17:58 23:12 03:50 WBC (3.8-10.6) k/uL RBC (4.30-5.90) m/uL Hgb (13.0-17.5) gm/dL Hct (39.0-53.0) % MCV (80.0-100.0) fL MCHC (31.0-37.0) g/dL Plt Count (150-450) k/uL Neutrophils # (1.3-7.7) k/uL Lymphocytes # (1.0-4.8) k/uL D-Dimer 2.66 H (<0.60) mg/L FEU ABG pH (7.35-7.45) ABG pCO2 (35-45) mmHg ABG pO2 (83-108) mmHg ABG HCO3 (21-25) mmol/L ABG Total CO2 (19-24) mmol/L ABG O2 Saturation (94-97) % Sodium (137-145) mmol/L Potassium 5.9 H (3.5-5.1) mmol/L Carbon Dioxide (22-30) mmol/L BUN (9-20) mg/dL Creatinine (0.66-1.25) mg/dL Glucose (74-99) mg/dL POC Glucose (mg/dL) 137 H (75-99) mg/dL Calcium (8.4-10.2) mg/dL ALT (4-49) U/L Lactate Dehydrogenase (313-618) U/L Creatine Kinase 34 L (55-170) U/L C-Reactive Protein (<1.0) mg/dL Total Protein (6.3-8.2) g/dL Albumin (3.5-5.0) g/dL Procalcitonin (0.02-0.09) ng/mL 12/31/20 12/31/20 12/31/20 Range/Units 03:50 03:50 03:50 WBC 13.8 H (3.8-10.6) k/uL RBC 3.59 L (4.30-5.90) m/uL Hgb 11.4 L (13.0-17.5) gm/dL Hct 38.0 L (39.0-53.0) % MCV 106.0 H (80.0-100.0) fL MCHC 30.1 L (31.0-37.0) g/dL Plt Count 136 L (150-450) k/uL Neutrophils # 13.1 H (1.3-7.7) k/uL Lymphocytes # 0.3 L (1.0-4.8) k/uL D-Dimer (<0.60) mg/L FEU ABG pH (7.35-7.45) ABG pCO2 (35-45) mmHg ABG pO2 (83-108) mmHg ABG HCO3 (21-25) mmol/L ABG Total CO2 (19-24) mmol/L ABG O2 Saturation (94-97) % Sodium 146 H (137-145) mmol/L Potassium 6.0 H (3.5-5.1) mmol/L Carbon Dioxide 36 H (22-30) mmol/L BUN 79 H (9-20) mg/dL Creatinine 1.94 H (0.66-1.25) mg/dL Glucose 176 H (74-99) mg/dL POC Glucose (mg/dL) (75-99) mg/dL Calcium 8.1 L (8.4-10.2) mg/dL ALT 54 H (4-49) U/L Lactate Dehydrogenase 1162 H (313-618) U/L Creatine Kinase (55-170) U/L C-Reactive Protein 36.6 H (<1.0) mg/dL Total Protein 5.4 L (6.3-8.2) g/dL Albumin 2.3 L (3.5-5.0) g/dL Procalcitonin (0.02-0.09) ng/mL 12/31/20 12/31/20 12/31/20 Range/Units 04:46 06:55 11:48 WBC (3.8-10.6) k/uL RBC (4.30-5.90) m/uL Hgb (13.0-17.5) gm/dL Hct (39.0-53.0) % MCV (80.0-100.0) fL MCHC (31.0-37.0) g/dL Plt Count (150-450) k/uL Neutrophils # (1.3-7.7) k/uL Lymphocytes # (1.0-4.8) k/uL D-Dimer (<0.60) mg/L FEU ABG pH 7.28 L 7.23 L (7.35-7.45) ABG pCO2 89 H* 96 H* (35-45) mmHg ABG pO2 60 L 58 L* (83-108) mmHg ABG HCO3 42 H* 40 H* (21-25) mmol/L ABG Total CO2 45 H 43 H (19-24) mmol/L ABG O2 Saturation 89.6 L 87.5 L (94-97) % Sodium (137-145) mmol/L Potassium (3.5-5.1) mmol/L Carbon Dioxide (22-30) mmol/L BUN (9-20) mg/dL Creatinine (0.66-1.25) mg/dL Glucose (74-99) mg/dL POC Glucose (mg/dL) 167 H (75-99) mg/dL Calcium (8.4-10.2) mg/dL ALT (4-49) U/L Lactate Dehydrogenase (313-618) U/L Creatine Kinase (55-170) U/L C-Reactive Protein (<1.0) mg/dL Total Protein (6.3-8.2) g/dL Albumin (3.5-5.0) g/dL Procalcitonin (0.02-0.09) ng/mL 12/31/20 12/31/20 Range/Units 11:52 14:15 WBC (3.8-10.6) k/uL RBC (4.30-5.90) m/uL Hgb (13.0-17.5) gm/dL Hct (39.0-53.0) % MCV (80.0-100.0) fL MCHC (31.0-37.0) g/dL Plt Count (150-450) k/uL Neutrophils # (1.3-7.7) k/uL Lymphocytes # (1.0-4.8) k/uL D-Dimer (<0.60) mg/L FEU ABG pH (7.35-7.45) ABG pCO2 (35-45) mmHg ABG pO2 (83-108) mmHg ABG HCO3 (21-25) mmol/L ABG Total CO2 (19-24) mmol/L ABG O2 Saturation (94-97) % Sodium 147 H (137-145) mmol/L Potassium 5.5 H (3.5-5.1) mmol/L Carbon Dioxide 36 H (22-30) mmol/L BUN 93 H (9-20) mg/dL Creatinine 2.07 H (0.66-1.25) mg/dL Glucose 169 H (74-99) mg/dL POC Glucose (mg/dL) 181 H (75-99) mg/dL Calcium 7.4 L (8.4-10.2) mg/dL ALT (4-49) U/L Lactate Dehydrogenase (313-618) U/L Creatine Kinase (55-170) U/L C-Reactive Protein (<1.0) mg/dL Total Protein (6.3-8.2) g/dL Albumin (3.5-5.0) g/dL Procalcitonin (0.02-0.09) ng/mL Microbiology - Last 24 Hours (Table) 12/28/20 12:18 Blood Culture - Preliminary Blood No Growth after 72 hours 12/28/20 22:42 Gram Stain - Final Sputum Sputum Culture - Final Staphylococcus aureus 12/29/20 22:09 Blood Culture - Preliminary Blood No Growth after 24 hours 12/29/20 22:09 Blood Culture - Preliminary Blood No Growth after 24 hours 12/29/20 14:16 Blood Culture - Preliminary Blood No Growth after 24 hours Assessment and Plan Assessment: Acute hypoxic respiratory failure COVID-19 pneumonia ARDS Sepsis -Continue mechanical ventilation. He is protocol, per pulmonary medicine and critical care recommendation -Patient status post bar sitting up -Continue dexamethasone and vancomycin cefepime, bronchodilator treatment -Overall poor prognosis -If patient does not improve clinically will consider hospice evaluation Hyperglycemia without diagnosis of diabetes -Continue Levemir and sliding scale Hyperkalemia - We'll give 1 dose of Kayexalate - Repeat potassium level today 4 PM Hypertension - not on meds at home - follow BP Daily alcohol consumption -Watch for alcohol withdrawal and treat appropriately as needed DVT prophylaxis: Lovenox CODE STATUS: Full code Discharge plan/next site of care: Pending hospital course, if he improves clinically and is extubated will likely need rehab
[2020-12-31 17:54] LABS: Glucose,Whole Blood 168 mg/dL (75-99)
[2020-12-31] MEDS ORDERED: SODIUM CHLORIDE 0.45% 1,000 ML IV SCH (18:30)
--- NOTE | 2020-12-31 19:23 | CONS ---
CONSULTATION REASON FOR CONSULT: Renal failure, hyperkalemia. HISTORY OF PRESENT ILLNESS: Patient is a 65-year-old male who was initially admitted to the hospital on 12/15/2020 for worsening shortness of breath, fever, and cough. He was noted to have positive COVID-19 PCR. Patient's respiratory status deteriorated and he was eventually intubated and is currently seen in the ICU. Patient's serum creatinine had been about 0.6-0.8 mg per dL, increased to 1.0 on December 30 and further to 2.07 today. Urine output has been about 100 mL an hours. The patient is not hypotensive currently. He is maintained on IV fluids at 75 mL an hours. Sputum is growing Staph aureus. He did get IV contrast for chest CT on 12/15/2020 and it looks like patient had another CT angiogram done on 12/27/2020 to rule out PE which was negative for PE. Blood pressures have been marginal. This morning potassium is noted to be 5.5. The patient is not acidotic. The potassium level has been ranging between 5.3-6 mEq/L since 12/27/2020. PAST MEDICAL HISTORY: Significant for hypertension. PAST SURGICAL HISTORY: Hernia repair. SOCIAL HISTORY: Patient is a former smoker no sore. No history of drug abuse or alcohol abuse. MEDICATIONS: Medications at home prior to admission included Tylenol. ALLERGIES: Include NYQUIL which causes nausea, vomiting and diarrhea. REVIEW OF SYSTEMS: No active GI bleed noted at this point. EXAMINATION: Patient is currently sedated, he is on the vent. Blood pressure 139/63, heart rate 111 per minute. He is afebrile. Examination of the lower extremities shows no evidence of edema. Abdomen is soft, nontender. LIN[employer]CHIT[employer] exam cannot be performed. Heart and lungs are not examined. LAB: Show sodium 147, potassium 5.5, chloride 106, CO2 is 36, BUN 93, creatinine 2.07. Blood gases show pH 7.23, pCO2 96, PO2 is 58, calcium 7.4. Sputum culture is growing Staph aureus. ASSESSMENT: 1. Acute kidney injury secondary to contrast nephropathy and COVID pneumonia, ATN, currently nonoliguric. Avoid any further nephrotoxic agents. I see patient is on vancomycin. We need to monitor vancomycin level closely and consider changing to another agent. Check ultrasound of the kidneys and UA done on December 28 was quite benign. 2. COVID pneumonia currently on steroids. Patient remains on the vent. He had. He had refused Remdesivir on initial admission. FiO2 is at 75%. The patient remains with significant hypercapnia. 3. Hyperkalemia associated with acute kidney injury and underlying hypercatabolic state. No evidence of acidosis. No obvious GI bleed noted at this time. We will change tube feedings to Nepro and avoid use of Kayexalate. Blood sugars are ranging between 130-160 mg/dL. Avoid significant hyperglycemia. 4. Hypernatremia associated with free water deficit. Increase free water down the feeding tube and change IV fluids to half-normal saline. 5. Staph aureus superimposed bacterial pneumonia maintained on vancomycin. Check level and consider changing to another agent. PLAN: Change tube feeds to Nepro. Change IV fluids to half-normal saline. Increase free water down the feeding tube and will discuss with ID to change vancomycin. Thank you for this consultation. Will continue to follow the patient with you during his hospitalization. MMODL / IJN: [id number] /
--- NOTE | 2020-12-31 19:24 | US ---
EXAMINATION TYPE: US kidneys/renal and bladder DATE OF EXAM: 12/31/2020 COMPARISON: NONE CLINICAL HISTORY: RF. Exam done portable in ICU EXAM MEASUREMENTS: Right Kidney: 12.2 x 5.9 x 5.3 cm Left Kidney: 13.3 x 6.4 x 5. cm Right Kidney: No hydronephrosis or masses seen Left Kidney: 2.8cm anechoic area mid pole Bladder: bingham catheter There is no evidence for hydronephrosis at this point in time. No nephrolithiasis is seen. No henok s are identified. IMPRESSION: Left renal cyst. Otherwise unremarkable study.
[2021-01-01 00:22] LABS: Glucose,Whole Blood 174 mg/dL (75-99)
[2021-01-01] MEDS: CISATRACURIUM 200 MG in SODIUM CHLORIDE 0.9% 180 ML IV SCH ×2 (00:32→18:06)
[2021-01-01] MEDS: INSULIN ASPART (NovoLOG) 100 UNIT/ML VIAL SQ SCH ×4 (00:34→18:19)
[2021-01-01] MEDS: ARTIFICIAL TEARS-HYPROMELLOSE DROPS 15 ML BTL BOTH EYES SCH ×6 (00:35→20:42)
[2021-01-01 05:15] LABS: ABG HCO3 39 mmol/L (21-25); ABG Oxygen Saturation 85.6 % (94-97); ABG TCO2 43 mmol/L (19-24); Allen Test Performed? Yes
[2021-01-01 05:20] LABS: ABG PCO2 106 mmHg (35-45); ABG PH 7.18 (7.35-7.45)
[2021-01-01 05:21] LABS: ABG PO2 56 mmHg (83-108)
[2021-01-01] MEDS: VANCOMYCIN 1,500 MG in SODIUM CHLORIDE 0.9% 250 ML IVPB SCH (05:37)
[2021-01-01 05:53] LABS: Glucose,Whole Blood 175 mg/dL (75-99)
[2021-01-01] MEDS ORDERED: VANCOMYCIN 1,500 MG in SODIUM CHLORIDE 0.9% 250 ML IVPB SCH (06:00)
[2021-01-01 06:10] LABS: Basophils % (A) 0 %; Eosinophils % (A) 0 %; HCT 37.5 % (39.0-53.0); HGB 11.4 gm/dL (13.0-17.5); Hypochromasia Marked; Lymphocytes # (A) 0.4 k/uL (1.0-4.8); Lymphocytes % (A) 3 %; MCH 32.4 pg (25.0-35.0); MCHC 30.4 g/dL (31.0-37.0); MCV 106.3 fL (80.0-100.0); Macrocytosis Moderate; Mean Platelet Volume 9.2; Monocytes # (A) 0.4 k/uL (0-1.0); Monocytes % (A) 3 %; Neutrophils # (A) 13.1 k/uL (1.3-7.7); Neutrophils % (A) 94 %; Platelet Count 131 k/uL (150-450); RBC 3.52 m/uL (4.30-5.90); WBC 13.9 k/uL (3.8-10.6)
[2021-01-01 06:16] LABS: Albumin 2.4 g/dL (3.5-5.0); Calcium 8.2 mg/dL (8.4-10.2); Potassium 5.6 mmol/L (3.5-5.1); Total Bilirubin 0.6 mg/dL (0.2-1.3); Total Protein 5.7 g/dL (6.3-8.2)
--- NOTE | 2021-01-01 07:20 | XR ---
EXAMINATION TYPE: XR chest 1V portable DATE OF EXAM: 01/01/2021 COMPARISON: 12/31/2020 HISTORY: SOB, Follow Up FINDINGS: Indwelling tubes and catheters are unchanged. Persistent patchy airspace and interstitial infiltrates throughout both lung baltazar. Continued subcut aneous emphysema. Stable appearance of the cardio-mediastinal structures at this time. Pleural effusion unchanged. IMPRESSION: 1. Stable portable chest. Clinical correlation and follow up until resolution is recommended.
--- NOTE | 2021-01-01 07:24 | P.PN ---
Subjective Progress Note Date: 01/01/21 65-year-old white male patient who is currently in the intensive care unit with diffuse COVID-19 related pneumonia. The patient was hospitalized on 12/15/2020. He has known history of hypertension and is a former smoker. He was initially on 4 L of oxygen by nasal cannula. He was admitted to the hospital for hypoxic respiratory failure and his condition progressed and currently the patient has d iffuse bilateral pulmonary infiltrates and BiPAP dependent respiratory failure. On 12/27/2020, the patient is being seen for a follow-up. The patient progressively decompensated yesterday. After being on a BiPAP at a pressure of 16/10 cm of water, the patient to be intubated and placed on a mechanical ventilator. This occurred approximately midnight. Currently the patient is sedated with propofol and the patient is also paralyzed with Nimbex. Was running at 40 mcg/kg per minute and Nimbex is running at 1 mcg/kg/h. The patient is currently on assist control mode of mechanical ventilation. The patient is on a rate of 36, tidal volume of 400, FiO2 of 100% and a PEEP of 10. Peak airway pressure is 34. Blood gases from this morning is in the order of a pH of 7.15 with a pCO2 of 99 and pO2 of 81. Chest x-ray shows diffuse breath and pulmonary infiltrates. ET tube is in a good location. There is some minor elevation of the right hemidiaphragm. PICC line is present in left upper extremity. Her white cell count from today is at 20. Hemoglobin is at 14.4. The BUN is at 31 with a creatinine of 0.6. Sodium is at 136. Potassium level is at 5.3. LDH level from today is 1655 with a CRP of 15.6.. D-dimer from yesterday was elevated at 12.1. Based on that, Doppler of the lower ext was done and it showed no evidence of any DVTs. . The pro calcitonin level was low at 0.06. The patient continues to be on Baricitinib per protocol in addition to Decadron 6 mg twice a day and prophylactic dose of Lovenox 40 mg subcu every 12 hours. The patient is also on TPN for natural support. Note that the patient is intubated, the patient will be transitioned to enteral feeding for nutritional support. We'll also start Lantus insulin for blood sugar control that needs to be tighter control. Start the patient on 0.2 mg/kg of Lantus in addition to a/scale coverage. Hemodynamically, the patient is stable. No pressors is utilized. The patient has adequate urine output and order of 100 mL an hour. IV fluids are currently at KVO. Balance over the past 24 hours has been -990 mL. 12/28/2020, the patient is being seen for a follow-up. The patient remains intubated on a mechanical ventilator and the patient is also sedated and paralyzed. This morning, propofol is running at 40 mcg/kg per minute and Nimbex is running at 2 mcg/kg per minute. The patient is receiving IV fluids at 20 mL an hour. The patient remains sedated and paralyzed on a mechanical ventilator. He is on assist control mode at the rate of 36 with a tidal volume of 375 and FiO2 of 85% and a PEEP of 13. Peak air pressure earlier was 36 with headache or pressure of around 32. Chest x-ray from today showed diffuse but the pulmonary infiltrates consistent with COVID-19 related pneumonia. Nevertheless, the ET tube was sitting high in the trachea. Based on that, a bedside bronchoscopy was done and the position of the tube was confirmed to be high. The patient had that she was advanced under endoscopic visualization. No significant orotracheal secretions. Blood gases from today shows a pH of 7.26 with a pCO2 of 105 and pO2 of 84. Mother the patient was given IV bicarbonate of above 4 pushes of 50 mEq yesterday and his acidosis improved. Potassium level. 5.1 on today's blood work. Hemodynamically, the patient is stable. No significant hypotension. White cell count is at 16.3. He does have some sinus tachycardia. Urine output is adequate. Overall fluid balance over the past 24 hours has been -990 mL. The patient remains on Decadron 6 mg IV every 12 hours. The patient also is on Lovenox 40 mg subcu every 12 hours. The patient is off TPN. He is receiving enteral feeding. Support. Blood sugars under better control with a combination of Levemir insulin 17 units daily in addition to NovoLog sliding scale coverage. The inflammatory markers from today shows a LDH level of 1307 and the CRP is down to 15.5 and the patient's d-dimer is down to 7.12. CAT scan of the chest was completed yesterday. No evidence of any pulmonary embolism. It was consistent with COVID-19 related pneumonia. The venous Doppler was also negative for DVT. 12/29/2020, the patient is being seen for a follow-up. He remains intubated on a mechanical ventilator. He remains sedated and paralyzed. He is still on propofol running at 40 mcg/kg per minute. Nimbex is also utilized for paralytics. He remains on a assist-control mode at the rate of 32 with a tidal volume of 375 with an FiO2 of 75% and a PEEP of 13. Peak airway pressures 33. Static airway pressure is 31. Chest x-ray shows diffuse but the pulmonary infiltrates, slightly improved compared to yesterday. Meanwhile, his blood gas shows a pH of 7.31 with a pCO2 of 94 and pO2 of 65. LDH has dropped down to 1060. His d-dimer has dropped down to 4.27. He is quite symptoms with a mechanical ventilator. He remains hemodynamically stable. He is on no pressors. He is having some mild sinus tachycardia. He is afebrile. White cell count is down to 17.6. Hemoglobin stable at 13.0. He remains on Decadron. He is completing the course of Baricitinib. He remains on Levemir insulin for blood sugar control and same dose of 17 units in addition to slight scale coverage. He remains on enteral feeding for nutritional support in the form of vital hp at the rate of 40 mL an hour. He has not had a bowel movement over the past 48 hours. No triggers or been under adequate control. Lovenox dose was modified to 40 mg once a day. No other complications otherwise. Family has been informed of his status. I'm contacted her daughter on a daily basis. In terms of his overall fluid balance, the patient that fluid balance over the past 24 hours has been -530 mL. 12/30/2020, the patient remains intubated on a mechanical ventilator and he remains sedated with propofol which is currently running at 40 mcg/kg per minute and the patient is also on Nimbex at 2 mcg/kg per minute. He is adequately sedated and paralyzed. I was unable to get him off the paralytics yesterday as the patient became hypoxic and desaturated once off the paralytics. I have an assist-control mode of mechanical ventilation. He is at the rate of 32, tidal volumes at 375, FiO2 is at 80% with a PEEP of 13. His peak airway pressure is 32. Static pressures 29. The patient had a blood. This morning that showed a pH of 7.28 with a pCO2 of 98 and pO2 of 62. This was done and FiO2 of 80%. Chest x-ray showing diffuse but the pulmonary infiltrates, essentially unchanged consistent with ARDS. Meanwhile, the patient started having episodes of fever as of yesterday. He became quite tachycardic along with this febrile episodes. His heart rate was sinus and throat as high as 14. At that point, blood cultures were sent. He was given a liter of fluid bolus. He did not become hypotensive and he is still maintaining his own pressure without any pressors. I gave him empiric antibiotic coverage with accommodation of cefepime and vancomycin. I stopped the Baricitinib pending further cultures. Pro-calcitonin level was also sent. His LDH level is 1066. His CRP level is at 35. His potassium level is at 5.6. Serum bicarbonate of 40. Creatinine is at 1.09 which is essentially stable. The neck fluid balance over the past 24 hours has been +1 L of fluid. He is receiving enteral feeding for nutritional support and currently is on vitamin AF at the rate of 46. His last bowel movement activity was yesterday. The patient is on Levemir insulin 17 units along with a slight scale insulin coverage. 12/31/2020, the patient is being seen for a follow-up. He remains intubated on mechanical ventilator. Remains on propofol which is running at 50 mcg/kg per minute and the patient is also Nimbex at 2 mcg/kg/m.the patient is adequately sedated and paralyzed. He remains on a mechanical ventilator. This morning, he is an assist-control mode with a tidal volume of 375, rate of 32, FiO2 of 80% with a PEEP of 13. Peak airway pressure was 33. Static pressure is 31. Chest x-ray showing diffuse bilateral pulmonary infiltrates. At the same time there is development of subcutaneous emphysema over the chest and neck area. Clinically, this is also evident that the patient has air collecting and there is skin in the face neck and chest area. PH is at 7.28 with a pCO2 of 89 and pO2 of 60. There is evidence of barotrauma such. At the same time, we suspect an infection. Focused on was mildly elevated. The patient was having sinus tachycardia and the patient was febrile throughout the day yesterday. Sputum cultures showing staph aureus. I have him on a combination of cefepime and vancomycin. Blood cultures negative thus far. No significant orotracheal secretions. Hemodynamically, he is on no pressors. His sinus tachycardia is improved and his current heart rate is 105. He remains on Decadron. I took him off the Baricitinib. The patient has a white cell count of 13.8 which is improved compared to yesterday. However, the same time, the patient developed an acute kidney injury. Creatinine is up to 1.9 from a baseline of 1.09 yesterday. BUN is at 79. Potassium level is at 6.0. He is not fluid balance over the past 24 hours has been +1.1 L. Enteral feeding for nutritional support with the vital AF at the rate of 46 mL an hour. Adequate bowel movement. Levemir insulin for blood sugar control. In terms of therapy, he is off Baricitinib. He is on Decadron 6 mg IV every 12 hours and the patient is also on Lovenox 40 mg subcu on a daily basis. Terms of inflammatory markers, LDH is still elevated and compatible to yesterday and the level today's at 1162 with a CRP level of 36. LFTs are normal. IV fluids in the form of 0.9 at the rate of 20cc/hr 01/01/2021, I'm seeing this patient in follow-up in the intensive care unit. The patient remains sedated and paralyzed. Propofol is currently running at 50 mg/kg/m the Nimbex is running at 2 mcg/kg per minute. The patient is adequately paralyzed and sedated and the patient remains on a mechanical ventilator. Due to development of some barotrauma and has emphysema, I had to lower down the tidal volume for that and currently is down to a tidal volume of 360 with a rate of 32 and FiO2 of 75% with a PEEP of 12 cm of water. The blood gases from today shows a pH of 7.18 and a pCO2 of 106 and pO2 of 56. The peak airway pressures 33. Static pressure is 31 which is essentially compatible to yesterday. Chest x-ray from today showing still subcutaneous emphysema although it seems to have somewhat improved on the right, there is still ongoing emphysema on the left. ET tube is in a good location. The patient has diffuse bilateral pulmonary infiltrates. The sputum return to vendor to be positive for MSSA and the patient will be taken off vancomycin. IV Cefepime for Now. Fortunately, His Fever Defervesced and He Does Not Have Any Ongoing Fever. Hemodynamically Stable. He Is Not Requiring Any Pressors. He Is Less Tachycardic Compared to Yesterday and Today before. At the Same Time, the Patient Has No Significant Orotracheal Secretions. His Urine Output Is in Order of 75 ML an Hour. He Has Developed an Acute Kidney Injury. Creatinine Is up to 2.55 and a BUN Is at 100. . The findings on the case. Ultrasound the kidney was done yesterday and there is no evidence of any hydronephrosis. The patient continues to receive enteral feeding for nutritional support. He is in the form of Nepro at the rate of 36 mL an hour. In terms of bowel movement activity, his last bowel movement was on 12/29/2020. In terms of his blood work, his sodium level is up to 150, his potassium level today's at 5.6, serum bicarbonate 37, his white cell count is at 13.9 with a hemoglobin of 11.4. His inflammatory markers need to be rechecked for today. Serum protein is at 5.7 with an albumin of 2.4. He is receiving free water flushes through his NG 100 mL every 6 hours. He is also on insulin in the form of Levemir at 17 units daily along with SS coverage. Blood sugar has been under adequate control with the last level being at 174. Objective - Vital Signs Vital signs: Vital Signs Temp 98.4 F 01/01/21 04:00 Pulse 117 H 01/01/21 06:00 Resp 32 H 01/01/21 06:00 BP 127/76 01/01/21 06:00 Pulse Ox 89 L 01/01/21 06:00 Intake & Output 12/31/20 01/01/21 01/01/21 18:59 06:59 18:59 Intake Total 3022.140 2036.275 Output Total 1175 1210 Balance 1847.140 826.275 Weight 83.4 kg Intake: IV 693 936 .9 pressure bag 33 36 Sodium Chloride 0.9% 1, 660 900 000 ml @ 75 mls/hr IV . [id number] [facility] Rx#:[id number] Intake, IV Titration 1475.140 444.275 Amount Cefepime 2 gm In Sodium 100 Chloride 0.9% 100 ml @ 25 mls/hr IVPB Q12HR [facility] Rx #:[id number] Cefepime 2 gm In Sodium 100 Chloride 0.9% 100 ml @ 25 mls/hr IVPB Q8HR [facility] Rx# :[id number] Cisatracurium 200 mg In 173.305 Sodium Chloride 0.9% 180 ml @ 1 MCG/KG/MIN 5.004 mls/hr IV .Q24H [facility] Rx#: [id number] Sodium Chloride 0.9% 1, 1000 000 ml @ 999 mls/hr IV . Q1H1M [facility] Rx#:[id number] propofoL 1,000 mg In 375.140 170.970 Empty Bag 1 bag @ Titrate IV .Q0M [facility] Rx#: [id number] Tube Feeding 484 456 Other 370 200 Output: Urine 1175 1210 Other: Voiding Method Indwelling Catheter Indwelling Catheter ABP, PAP, CO, CI - Last Documented Arterial Blood Pressure 117/51 - Exam GENERAL EXAM: Alert, tachypneic 65-year-old white male, intubated, currently on a mechanical ventilator, currently on assist-control mode of mechanical ventilation. Sedated and paralyzed. HEAD: Normocephalic/atraumatic. EYES: Normal reaction of pupils, equal size. Conjunctiva pink, sclera white. NOSE: Clear with pink turbinates. THROAT: No erythema or exudates. NECK: No masses, no JVD, no thyroid enlargement, no adenopathy. CHEST: No chest wall deformity. Symmetrical expansion. LUNGS: Equal air entry with diffuse crackles CVS: Regular rate and rhythm, normal S1 and S2, no gallops, no murmurs, no rubs ABDOMEN: Soft, nontender. No hepatosplenomegaly, normal bowel sounds, no guarding or rigidity. EXTREMITIES: No clubbing, no edema, no cyanosis, 2+ pulses and upper and lower extremities. MUSCULOSKELETAL: Muscle strength and tone normal. SPINE: No scoliosis or deformity SKIN: No rashes CENTRAL NERVOUS SYSTEM: Sedated and paralyzed, motor function is unable to be assessed on today's evaluation. Pupils are equal and reactive to light. No focal neurological deficits. - Labs CBC & Chem 7: 01/01/21 04:03 01/01/21 04:03 Labs: Abnormal Lab Results - Last 24 Hours (Table) 12/31/20 12/31/20 12/31/20 Range/Units 03:50 03:50 11:48 WBC 13.8 H (3.8-10.6) k/uL RBC 3.59 L (4.30-5.90) m/uL Hgb 11.4 L (13.0-17.5) gm/dL Hct 38.0 L (39.0-53.0) % MCV 106.0 H (80.0-100.0) fL MCHC 30.1 L (31.0-37.0) g/dL Plt Count 136 L (150-450) k/uL Neutrophils # 13.1 H (1.3-7.7) k/uL Lymphocytes # 0.3 L (1.0-4.8) k/uL ABG pH 7.23 L (7.35-7.45) ABG pCO2 96 H* (35-45) mmHg ABG pO2 58 L* (83-108) mmHg ABG HCO3 40 H* (21-25) mmol/L ABG Total CO2 43 H (19-24) mmol/L ABG O2 Saturation 87.5 L (94-97) % Sodium 146 H (137-145) mmol/L Potassium 6.0 H (3.5-5.1) mmol/L Chloride (98-107) mmol/L Carbon Dioxide 36 H (22-30) mmol/L BUN 79 H (9-20) mg/dL Creatinine 1.94 H (0.66-1.25) mg/dL Glucose 176 H (74-99) mg/dL POC Glucose (mg/dL) (75-99) mg/dL Calcium 8.1 L (8.4-10.2) mg/dL ALT 54 H (4-49) U/L Total Protein 5.4 L (6.3-8.2) g/dL Albumin 2.3 L (3.5-5.0) g/dL 12/31/20 12/31/20 12/31/20 Range/Units 11:52 14:15 17:52 WBC (3.8-10.6) k/uL RBC (4.30-5.90) m/uL Hgb (13.0-17.5) gm/dL Hct (39.0-53.0) % MCV (80.0-100.0) fL MCHC (31.0-37.0) g/dL Plt Count (150-450) k/uL Neutrophils # (1.3-7.7) k/uL Lymphocytes # (1.0-4.8) k/uL ABG pH (7.35-7.45) ABG pCO2 (35-45) mmHg ABG pO2 (83-108) mmHg ABG HCO3 (21-25) mmol/L ABG Total CO2 (19-24) mmol/L ABG O2 Saturation (94-97) % Sodium 147 H (137-145) mmol/L Potassium 5.5 H (3.5-5.1) mmol/L Chloride (98-107) mmol/L Carbon Dioxide 36 H (22-30) mmol/L BUN 93 H (9-20) mg/dL Creatinine 2.07 H (0.66-1.25) mg/dL Glucose 169 H (74-99) mg/dL POC Glucose (mg/dL) 181 H 168 H (75-99) mg/dL Calcium 7.4 L (8.4-10.2) mg/dL ALT (4-49) U/L Total Protein (6.3-8.2) g/dL Albumin (3.5-5.0) g/dL 01/01/21 01/01/21 01/01/21 Range/Units 00:20 04:03 04:03 WBC 13.9 H (3.8-10.6) k/uL RBC 3.52 L (4.30-5.90) m/uL Hgb 11.4 L (13.0-17.5) gm/dL Hct 37.5 L (39.0-53.0) % MCV 106.3 H (80.0-100.0) fL MCHC 30.4 L (31.0-37.0) g/dL Plt Count 131 L (150-450) k/uL Neutrophils # 13.1 H (1.3-7.7) k/uL Lymphocytes # 0.4 L (1.0-4.8) k/uL ABG pH (7.35-7.45) ABG pCO2 (35-45) mmHg ABG pO2 (83-108) mmHg ABG HCO3 (21-25) mmol/L ABG Total CO2 (19-24) mmol/L ABG O2 Saturation (94-97) % Sodium (137-145) mmol/L Potassium (3.5-5.1) mmol/L Chloride (98-107) mmol/L Carbon Dioxide (22-30) mmol/L BUN (9-20) mg/dL Creatinine 2.59 H (0.66-1.25) mg/dL Glucose (74-99) mg/dL POC Glucose (mg/dL) 174 H (75-99) mg/dL Calcium (8.4-10.2) mg/dL ALT (4-49) U/L Total Protein (6.3-8.2) g/dL Albumin (3.5-5.0) g/dL 01/01/21 01/01/21 01/01/21 Range/Units 04:03 05:10 05:51 WBC (3.8-10.6) k/uL RBC (4.30-5.90) m/uL Hgb (13.0-17.5) gm/dL Hct (39.0-53.0) % MCV (80.0-100.0) fL MCHC (31.0-37.0) g/dL Plt Count (150-450) k/uL Neutrophils # (1.3-7.7) k/uL Lymphocytes # (1.0-4.8) k/uL ABG pH 7.18 L* (7.35-7.45) ABG pCO2 106 H* (35-45) mmHg ABG pO2 56 L* (83-108) mmHg ABG HCO3 39 H (21-25) mmol/L ABG Total CO2 43 H (19-24) mmol/L ABG O2 Saturation 85.6 L (94-97) % Sodium 150 H (137-145) mmol/L Potassium 5.6 H (3.5-5.1) mmol/L Chloride 108 H (98-107) mmol/L Carbon Dioxide 37 H (22-30) mmol/L BUN 100 H (9-20) mg/dL Creatinine 2.55 H (0.66-1.25) mg/dL Glucose 167 H (74-99) mg/dL POC Glucose (mg/dL) 175 H (75-99) mg/dL Calcium 8.2 L (8.4-10.2) mg/dL ALT (4-49) U/L Total Protein 5.7 L (6.3-8.2) g/dL Albumin 2.4 L (3.5-5.0) g/dL Microbiology - Last 24 Hours (Table) 12/29/20 22:09 Blood Culture - Preliminary Blood No Growth after 48 hours 12/29/20 22:09 Blood Culture - Preliminary Blood No Growth after 48 hours 12/29/20 14:16 Blood Culture - Preliminary Blood No Growth after 48 hours 12/28/20 12:18 Blood Culture - Preliminary Blood No Growth after 72 hours 12/28/20 22:42 Gram Stain - Final Sputum Sputum Culture - Final Staphylococcus aureus Assessment and Plan Plan: 1. Acute hypoxic respiratory failure related to acute COVID-19 pneumonia, with onset of symptoms 4 days ago, Patient did not Remdesivir was ordered on 12/16/2020 which the patient had refused. Did not receive COVID-19 vaccination. . Doppler of the lower extremities were negative. The inflammatory markers elevated. The LDH is essentially comparable to yesterday. the patient is being treated based on the ARDS protocol with low tidal volume mechanical ventilation. He has some permissive hypercapnia. His airway pressures are not significantly elevated. Chest x-ray was noted. Blood gases were noted. There is some improvement his subcutaneous emphysema. Peak and static pressures are essentially unchanged compared to yesterday. The patient is running at a tidal volume of 360. He has developed permissive hypercapnia and respiratory acidosis. His potassium level is at 5.6. Sputum do not to be positive for MSSA.. 2 COVID-19 related pneumonia with diffuse bilateral pulmonary infiltrates/ARDS, 3. subcutaneous emphysema secondary to barotrauma from ARDS and mechanical ventilation, stable, probably slightly improved 4. acute kidney injury in the creatinine is up to 2.5, consider COVID-19 related ATN, we'll consult nephrology Asad and the patient is producing adequate amount of urine output. This is a nonoliguric ATN. Vancomycin will be discontinued. We'll monitor renal function. 5. acute hyperkalemia secondary metabolic acidosis and respiratory acidosis and the potassium shift, being treated accordingly 6 MSSA/ staphylococcal pneumonia suspected. Highly suspicious for pneumonia as the patient was tachycardic and febrile and the patient improved with antibiotic coverage. Currently is afebrile. Sputum cultures showing MSSA 7 fever, improved over the past 24 hours 8 sinus tachycardia, consider underlying sepsis or fever induced tachycardia, improved 9 history of hypertension 10 elevated inflammatory markers secondary to above 11 hyperkalemia, multifactorial related to his acidosis and renal failure 12 enteral feeding for nutritional support and the patient is currently using Nepro Plan: .the tidal volume to do 360 and neuropathy down to 12 and increase RR to 36 Repeat potassium level AND abg AT 1200 continue sedation and paralytics, check TG continue Decadron and the patient is currently off Baricitinib Continue cefepime and vancomycin Monitor renal function give the patient will be maintenance up to 75 mL an hour, and the patient's IV fluids will be switched to D5 water Enteral feeding for nutritional support, Nepro Nephrology consultation done JERRY calabrese The Decadron dose to 6 mg IV once a day The patient will be given a dose of Lasix 60 mg IV push 1. He has been a positive fluid balance. This should help with his hyperkalemia also. Condition is still critical we'll continue to follow make further recom mendations based on his progress. History care evaluation that was done and more than 30 minutes Time with Patient: Greater than 30
[2021-01-01] MEDS: ALBUTEROL HFA INHALER INHALATION SCH ×4 (07:50→19:51)
[2021-01-01] MEDS: INSULIN DETEMIR (LEVEMIR) 100 UNIT/ML SYR SQ SCH (07:54)
[2021-01-01] MEDS: PANTOPRAZOLE 40 MG/10 ML VIAL IVP SCH (08:26)
[2021-01-01] MEDS: CHLORHEXIDINE GLUCONATE 15 ML CUP MUCOUS MEM SCH ×2 (08:27→20:41)
[2021-01-01] MEDS: DEXAMETHASONE SOD PHOSPHATE 10 MG/ML 1 ML VIAL IV SCH (08:27)
[2021-01-01] MEDS: DEXTROSE 5% IN WATER 1,000 ML IV SCH ×2 (08:28→18:19)
[2021-01-01] MEDS: CEFEPIME 2 GM in SODIUM CHLORIDE 0.9% 100 ML IVPB SCH ×2 (08:29→20:42)
[2021-01-01] MEDS: CHOLECALCIFEROL 25 MCG (1000 IU) TABLET PO SCH (08:29)
[2021-01-01] MEDS: ASCORBIC ACID 500 MG TAB PO SCH (08:29)
[2021-01-01] MEDS: ENOXAPARIN 40 MG/0.4 ML SYRINGE SQ SCH (08:29)
[2021-01-01] MEDS: ZINC SULFATE 220 MG CAP PO SCH (08:29)
[2021-01-01] MEDS: LACTOBACILLUS ACIDOPH & BULGAR 1 EACH PACKET PO SCH ×2 (08:30→20:42)
[2021-01-01] MEDS ORDERED: FUROSEMIDE 10 MG/ML 10 ML VIAL IV SCH ×2 (09:00→21:00)
[2021-01-01 10:20] LABS: C Reactive Protein 16.7 mg/dL (<1.0)
[2021-01-01 11:29] LABS: Glucose,Whole Blood 145 mg/dL (75-99)
[2021-01-01 12:18] LABS: ABG Base Excess 10.7 mmol/L; ABG HCO3 39 mmol/L (21-25); ABG Oxygen Saturation 87.4 % (94-97); ABG TCO2 42 mmol/L (19-24)
[2021-01-01 12:20] LABS: ABG PCO2 100 mmHg (35-45); ABG PO2 58 mmHg (83-108)
--- NOTE | 2021-01-01 13:00 | P.PN ---
Subjective Progress Note Date: 01/01/21 Follow-up for acute kidney injury. Currently on ventilator with 70% FiO2. Good urine output. Objective - Vital Signs Vital signs: Vital Signs Temp 98.4 F 01/01/21 04:00 Pulse 116 H 01/01/21 07:00 Resp 32 H 01/01/21 07:00 BP 126/66 01/01/21 07:00 Pulse Ox 89 L 01/01/21 07:00 Intake & Output 12/31/20 01/01/21 01/01/21 18:59 06:59 18:59 Intake Total 3022.140 2036.275 287.307 Output Total 1175 1300 100 Balance 1847.140 736.275 187.307 Weight 83.4 kg Intake: IV 693 936 78 .9 pressure bag 33 36 3 Sodium Chloride 0.9% 1, 660 900 75 000 ml @ 75 mls/hr IV . [id number] [facility] Rx#:[id number] Intake, IV Titration 1475.140 444.275 171.307 Amount Cefepime 2 gm In Sodium 100 Chloride 0.9% 100 ml @ 25 mls/hr IVPB Q12HR [facility] Rx #:[id number] Cefepime 2 gm In Sodium 100 Chloride 0.9% 100 ml @ 25 mls/hr IVPB Q8HR [facility] Rx# :[id number] Cisatracurium 200 mg In 173.305 Sodium Chloride 0.9% 180 ml @ 1 MCG/KG/MIN 5.004 mls/hr IV .Q24H [facility] Rx#: [id number] Sodium Chloride 0.9% 1, 1000 000 ml @ 999 mls/hr IV . Q1H1M [facility] Rx#:[id number] propofoL 1,000 mg In 375.140 170.970 171.307 Empty Bag 1 bag @ Titrate IV .Q0M [facility] Rx#: [id number] Tube Feeding 484 456 38 Other 370 200 Output: Urine 1175 1300 100 Other: Voiding Method Indwelling Catheter Indwelling Catheter ABP, PAP, CO, CI - Last Documented Arterial Blood Pressure 115/52 - Exam Refer to primary team exam. Currently in COVID-19 isolation - Labs CBC & Chem 7: 01/01/21 04:03 01/01/21 04:03 Labs: Abnormal Lab Results - Last 24 Hours (Table) 10/12/31/20 01/01/21 Range/Units 14:15 17:52 00:20 WBC (3.8-10.6) k/uL RBC (4.30-5.90) m/uL Hgb (13.0-17.5) gm/dL Hct (39.0-53.0) % MCV (80.0-100.0) fL MCHC (31.0-37.0) g/dL Plt Count (150-450) k/uL Neutrophils # (1.3-7.7) k/uL Lymphocytes # (1.0-4.8) k/uL D-Dimer (<0.60) mg/L FEU ABG pH (7.35-7.45) ABG pCO2 (35-45) mmHg ABG pO2 (83-108) mmHg ABG HCO3 (21-25) mmol/L ABG Total CO2 (19-24) mmol/L ABG O2 Saturation (94-97) % Sodium 147 H (137-145) mmol/L Potassium 5.5 H (3.5-5.1) mmol/L Chloride (98-107) mmol/L Carbon Dioxide 36 H (22-30) mmol/L BUN 93 H (9-20) mg/dL Creatinine 2.07 H (0.66-1.25) mg/dL Glucose 169 H (74-99) mg/dL POC Glucose (mg/dL) 168 H 174 H (75-99) mg/dL Calcium 7.4 L (8.4-10.2) mg/dL Lactate Dehydrogenase (313-618) U/L C-Reactive Protein (<1.0) mg/dL Total Protein (6.3-8.2) g/dL Albumin (3.5-5.0) g/dL 01/01/21 01/01/21 01/01/21 Range/Units 04:03 04:03 04:03 WBC 13.9 H (3.8-10.6) k/uL RBC 3.52 L (4.30-5.90) m/uL Hgb 11.4 L (13.0-17.5) gm/dL Hct 37.5 L (39.0-53.0) % MCV 106.3 H (80.0-100.0) fL MCHC 30.4 L (31.0-37.0) g/dL Plt Count 131 L (150-450) k/uL Neutrophils # 13.1 H (1.3-7.7) k/uL Lymphocytes # 0.4 L (1.0-4.8) k/uL D-Dimer (<0.60) mg/L FEU ABG pH (7.35-7.45) ABG pCO2 (35-45) mmHg ABG pO2 (83-108) mmHg ABG HCO3 (21-25) mmol/L ABG Total CO2 (19-24) mmol/L ABG O2 Saturation (94-97) % Sodium 150 H (137-145) mmol/L Potassium 5.6 H (3.5-5.1) mmol/L Chloride 108 H (98-107) mmol/L Carbon Dioxide 37 H (22-30) mmol/L BUN 100 H (9-20) mg/dL Creatinine 2.59 H 2.55 H (0.66-1.25) mg/dL Glucose 167 H (74-99) mg/dL POC Glucose (mg/dL) (75-99) mg/dL Calcium 8.2 L (8.4-10.2) mg/dL Lactate Dehydrogenase (313-618) U/L C-Reactive Protein (<1.0) mg/dL Total Protein 5.7 L (6.3-8.2) g/dL Albumin 2.4 L (3.5-5.0) g/dL 01/01/21 01/01/21 01/01/21 Range/Units 05:10 05:51 08:23 WBC (3.8-10.6) k/uL RBC (4.30-5.90) m/uL Hgb (13.0-17.5) gm/dL Hct (39.0-53.0) % MCV (80.0-100.0) fL MCHC (31.0-37.0) g/dL Plt Count (150-450) k/uL Neutrophils # (1.3-7.7) k/uL Lymphocytes # (1.0-4.8) k/uL D-Dimer (<0.60) mg/L FEU ABG pH 7.18 L* (7.35-7.45) ABG pCO2 106 H* (35-45) mmHg ABG pO2 56 L* (83-108) mmHg ABG HCO3 39 H (21-25) mmol/L ABG Total CO2 43 H (19-24) mmol/L ABG O2 Saturation 85.6 L (94-97) % Sodium (137-145) mmol/L Potassium (3.5-5.1) mmol/L Chloride (98-107) mmol/L Carbon Dioxide (22-30) mmol/L BUN (9-20) mg/dL Creatinine (0.66-1.25) mg/dL Glucose (74-99) mg/dL POC Glucose (mg/dL) 175 H (75-99) mg/dL Calcium (8.4-10.2) mg/dL Lactate Dehydrogenase 1454 H (313-618) U/L C-Reactive Protein 16.7 H (<1.0) mg/dL Total Protein (6.3-8.2) g/dL Albumin (3.5-5.0) g/dL 01/01/21 01/01/21 01/01/21 Range/Units 08:23 11:28 12:13 WBC (3.8-10.6) k/uL RBC (4.30-5.90) m/uL Hgb (13.0-17.5) gm/dL Hct (39.0-53.0) % MCV (80.0-100.0) fL MCHC (31.0-37.0) g/dL Plt Count (150-450) k/uL Neutrophils # (1.3-7.7) k/uL Lymphocytes # (1.0-4.8) k/uL D-Dimer 2.85 H (<0.60) mg/L FEU ABG pH 7.20 L (7.35-7.45) ABG pCO2 100 H* (35-45) mmHg ABG pO2 58 L* (83-108) mmHg ABG HCO3 39 H (21-25) mmol/L ABG Total CO2 42 H (19-24) mmol/L ABG O2 Saturation 87.4 L (94-97) % Sodium (137-145) mmol/L Potassium (3.5-5.1) mmol/L Chloride (98-107) mmol/L Carbon Dioxide (22-30) mmol/L BUN (9-20) mg/dL Creatinine (0.66-1.25) mg/dL Glucose (74-99) mg/dL POC Glucose (mg/dL) 145 H (75-99) mg/dL Calcium (8.4-10.2) mg/dL Lactate Dehydrogenase (313-618) U/L C-Reactive Protein (<1.0) mg/dL Total Protein (6.3-8.2) g/dL Albumin (3.5-5.0) g/dL Microbiology - Last 24 Hours (Table) 12/29/20 22:09 Blood Culture - Preliminary Blood No Growth after 48 hours 12/29/20 22:09 Blood Culture - Preliminary Blood No Growth after 48 hours 12/29/20 14:16 Blood Culture - Preliminary Blood No Growth after 48 hours 12/28/20 12:18 Blood Culture - Preliminary Blood No Growth after 72 hours 12/28/20 22:42 Gram Stain - Final Sputum Sputum Culture - Final Staphylococcus aureus Assessment and Plan Assessment: #1 nonoliguric acute kidney injury, suspect COVID-19 ATN. Baseline creatinine 0.9 MG per DL. -Rule out acute interstitial nephritis with antibiotic use. #2 mild hyperkalemia secondary to acute kidney injury. #3 ventilator-dependent respiratory failure #4 COVID-19 pneumonia #6 septic shock, off pressors. #7 respiratory acidosis with metabolic alkalosis #8 hyponatremia Plan: #1 continue with Lasix, increase to 60 mg IV twice a day. #2 renal function creeping, monitor. #3 check vancomycin trough levels #4 medical management for hyperkalemia. No acute indication for renal replacement therapy at this time.
[2021-01-01 13:23] LABS: Potassium 5.5 mmol/L (3.5-5.1)
[2021-01-01 13:25] LABS: Albumin 2.4 g/dL (3.5-5.0); Total Bilirubin 0.5 mg/dL (0.2-1.3); Total Protein 5.4 g/dL (6.3-8.2)
[2021-01-01 13:28] LABS: Basophils % (A) 0 %; Eosinophils % (A) 0 %; HCT 35.9 % (39.0-53.0); HGB 11.1 gm/dL (13.0-17.5); Hypochromasia Slight; Lymphocytes # (A) 0.5 k/uL (1.0-4.8); Lymphocytes % (A) 3 %; MCH 32.1 pg (25.0-35.0); MCHC 30.9 g/dL (31.0-37.0); MCV 103.8 fL (80.0-100.0); Macrocytosis Slight; Mean Platelet Volume 9.1; Monocytes # (A) 0.4 k/uL (0-1.0); Monocytes % (A) 3 %; Neutrophils # (A) 13.5 k/uL (1.3-7.7); Neutrophils % (A) 93 %; Platelet Count 132 k/uL (150-450); RBC 3.46 m/uL (4.30-5.90); RDW 13.4 % (11.5-15.5); WBC 14.5 k/uL (3.8-10.6)
[2021-01-01] MEDS: ACETAMINOPHEN TAB 325 MG TAB PO PRN (15:58)
[2021-01-01] MEDS: NOREPINEPHRINE 4 MG in SODIUM CHLORIDE 0.9% 250 ML IV SCH (16:00)
[2021-01-01 18:16] LABS: Glucose,Whole Blood 135 mg/dL (75-99)
--- NOTE | 2021-01-01 18:50 | P.PN ---
Subjective Progress Note Date: 01/01/21 65 years old male patient who was admitted for COVID-19 pneumonia and respiratory failure, patient initially was on nasal cannula and then required BiPAP, patient then was intubated on 12/26/2020. Patient is currently being treated with dexamethasone and vancomycin cefepime, currently on mechanical ventilator, with areas protocol low tidal volume mechanical ventilation and permissive hypercapnia. Patient is currently off bar sitting up treatment Objective - Vital Signs Vital signs: Vital Signs Temp 98.4 F 01/01/21 04:00 Pulse 116 H 01/01/21 07:00 Resp 32 H 01/01/21 07:00 BP 126/66 01/01/21 07:00 Pulse Ox 89 L 01/01/21 07:00 Intake & Output 12/31/20 01/01/21 01/01/21 18:59 06:59 18:59 Intake Total 3022.140 2036.275 800.097 Output Total 1175 1300 100 Balance 1847.140 736.275 700.097 Weight 83.4 kg Intake: IV 693 936 78 .9 pressure bag 33 36 3 Sodium Chloride 0.9% 1, 660 900 75 000 ml @ 75 mls/hr IV . [id number] [facility] Rx#:[id number] Intake, IV Titration 1475.140 444.275 684.097 Amount Cefepime 2 gm In Sodium 100 Chloride 0.9% 100 ml @ 25 mls/hr IVPB Q12HR [facility] Rx #:[id number] Cefepime 2 gm In Sodium 100 Chloride 0.9% 100 ml @ 25 mls/hr IVPB Q8HR [facility] Rx# :[id number] Cisatracurium 200 mg In 173.305 175.807 Sodium Chloride 0.9% 180 ml @ 1 MCG/KG/MIN 5.004 mls/hr IV .Q24H [facility] Rx#: [id number] Norepinephrine 4 mg In 254 Sodium Chloride 0.9% 250 ml @ 0.05 MCG/KG/MIN 15. 888 mls/hr IV .Q16H [facility] Rx#:[id number] Sodium Chloride 0.9% 1, 1000 000 ml @ 999 mls/hr IV . Q1H1M [facility] Rx#:[id number] propofoL 1,000 mg In 375.140 170.970 254.290 Empty Bag 1 bag @ Titrate IV .Q0M [facility] Rx#: [id number] Tube Feeding 484 456 38 Other 370 200 Output: Urine 1175 1300 100 Other: Voiding Method Indwelling Catheter Indwelling Catheter ABP, PAP, CO, CI - Last Documented Arterial Blood Pressure 115/52 General: No acute distress sedated and intubated on mechanical ventilator Head: atraumatic, normocephalic, symmetric Eyes: no lid lesion], anicteric sclera Mouth: no lip lesion, mucus membranes moist Cardiovascular: S1S2 reg rate and rhythm, no murmur, no gallop Lungs: Bilateral equal air entry, no wheezing no rhonchi no crackles. Abdominal: soft, nontender to palpation, no guarding, no appreciable organomegaly Ext: no gross muscle atrophy, no edema extremities warm to suppose a positive Neuro: Patient is currently intubated, exam grossly nonfocal but full examination cannot be done due to clinical condition Skin exam: No rashes no jaundice. - Labs CBC & Chem 7: 01/01/21 12:41 01/01/21 12:41 Labs: Abnormal Lab Results - Last 24 Hours (Table) 01/01/21 01/01/21 01/01/21 Range/Units 00:20 04:03 04:03 WBC 13.9 H (3.8-10.6) k/uL RBC 3.52 L (4.30-5.90) m/uL Hgb 11.4 L (13.0-17.5) gm/dL Hct 37.5 L (39.0-53.0) % MCV 106.3 H (80.0-100.0) fL MCHC 30.4 L (31.0-37.0) g/dL Plt Count 131 L (150-450) k/uL Neutrophils # 13.1 H (1.3-7.7) k/uL Lymphocytes # 0.4 L (1.0-4.8) k/uL D-Dimer (<0.60) mg/L FEU ABG pH (7.35-7.45) ABG pCO2 (35-45) mmHg ABG pO2 (83-108) mmHg ABG HCO3 (21-25) mmol/L ABG Total CO2 (19-24) mmol/L ABG O2 Saturation (94-97) % Sodium (137-145) mmol/L Potassium (3.5-5.1) mmol/L Chloride (98-107) mmol/L Carbon Dioxide (22-30) mmol/L BUN (9-20) mg/dL Creatinine 2.59 H (0.66-1.25) mg/dL Glucose (74-99) mg/dL POC Glucose (mg/dL) 174 H (75-99) mg/dL Calcium (8.4-10.2) mg/dL Lactate Dehydrogenase (313-618) U/L C-Reactive Protein (<1.0) mg/dL Total Protein (6.3-8.2) g/dL Albumin (3.5-5.0) g/dL 01/01/21 01/01/21 01/01/21 Range/Units 04:03 05:10 05:51 WBC (3.8-10.6) k/uL RBC (4.30-5.90) m/uL Hgb (13.0-17.5) gm/dL Hct (39.0-53.0) % MCV (80.0-100.0) fL MCHC (31.0-37.0) g/dL Plt Count (150-450) k/uL Neutrophils # (1.3-7.7) k/uL Lymphocytes # (1.0-4.8) k/uL D-Dimer (<0.60) mg/L FEU ABG pH 7.18 L* (7.35-7.45) ABG pCO2 106 H* (35-45) mmHg ABG pO2 56 L* (83-108) mmHg ABG HCO3 39 H (21-25) mmol/L ABG Total CO2 43 H (19-24) mmol/L ABG O2 Saturation 85.6 L (94-97) % Sodium 150 H (137-145) mmol/L Potassium 5.6 H (3.5-5.1) mmol/L Chloride 108 H (98-107) mmol/L Carbon Dioxide 37 H (22-30) mmol/L BUN 100 H (9-20) mg/dL Creatinine 2.55 H (0.66-1.25) mg/dL Glucose 167 H (74-99) mg/dL POC Glucose (mg/dL) 175 H (75-99) mg/dL Calcium 8.2 L (8.4-10.2) mg/dL Lactate Dehydrogenase (313-618) U/L C-Reactive Protein (<1.0) mg/dL Total Protein 5.7 L (6.3-8.2) g/dL Albumin 2.4 L (3.5-5.0) g/dL 01/01/21 01/01/21 01/01/21 Range/Units 08:23 08:23 11:28 WBC (3.8-10.6) k/uL RBC (4.30-5.90) m/uL Hgb (13.0-17.5) gm/dL Hct (39.0-53.0) % MCV (80.0-100.0) fL MCHC (31.0-37.0) g/dL Plt Count (150-450) k/uL Neutrophils # (1.3-7.7) k/uL Lymphocytes # (1.0-4.8) k/uL D-Dimer 2.85 H (<0.60) mg/L FEU ABG pH (7.35-7.45) ABG pCO2 (35-45) mmHg ABG pO2 (83-108) mmHg ABG HCO3 (21-25) mmol/L ABG Total CO2 (19-24) mmol/L ABG O2 Saturation (94-97) % Sodium (137-145) mmol/L Potassium (3.5-5.1) mmol/L Chloride (98-107) mmol/L Carbon Dioxide (22-30) mmol/L BUN (9-20) mg/dL Creatinine (0.66-1.25) mg/dL Glucose (74-99) mg/dL POC Glucose (mg/dL) 145 H (75-99) mg/dL Calcium (8.4-10.2) mg/dL Lactate Dehydrogenase 1454 H (313-618) U/L C-Reactive Protein 16.7 H (<1.0) mg/dL Total Protein (6.3-8.2) g/dL Albumin (3.5-5.0) g/dL 01/01/21 01/01/21 01/01/21 Range/Units 12:13 12:41 12:41 WBC 14.5 H (3.8-10.6) k/uL RBC 3.46 L (4.30-5.90) m/uL Hgb 11.1 L (13.0-17.5) gm/dL Hct 35.9 L (39.0-53.0) % MCV 103.8 H (80.0-100.0) fL MCHC 30.9 L (31.0-37.0) g/dL Plt Count 132 L (150-450) k/uL Neutrophils # 13.5 H (1.3-7.7) k/uL Lymphocytes # 0.5 L (1.0-4.8) k/uL D-Dimer (<0.60) mg/L FEU ABG pH 7.20 L (7.35-7.45) ABG pCO2 100 H* (35-45) mmHg ABG pO2 58 L* (83-108) mmHg ABG HCO3 39 H (21-25) mmol/L ABG Total CO2 42 H (19-24) mmol/L ABG O2 Saturation 87.4 L (94-97) % Sodium 147 H (137-145) mmol/L Potassium 5.5 H (3.5-5.1) mmol/L Chloride (98-107) mmol/L Carbon Dioxide 36 H (22-30) mmol/L BUN 114 H* (9-20) mg/dL Creatinine 3.04 H (0.66-1.25) mg/dL Glucose 163 H (74-99) mg/dL POC Glucose (mg/dL) (75-99) mg/dL Calcium 8.0 L (8.4-10.2) mg/dL Lactate Dehydrogenase (313-618) U/L C-Reactive Protein (<1.0) mg/dL Total Protein 5.4 L (6.3-8.2) g/dL Albumin 2.4 L (3.5-5.0) g/dL 01/01/21 Range/Units 18:14 WBC (3.8-10.6) k/uL RBC (4.30-5.90) m/uL Hgb (13.0-17.5) gm/dL Hct (39.0-53.0) % MCV (80.0-100.0) fL MCHC (31.0-37.0) g/dL Plt Count (150-450) k/uL Neutrophils # (1.3-7.7) k/uL Lymphocytes # (1.0-4.8) k/uL D-Dimer (<0.60) mg/L FEU ABG pH (7.35-7.45) ABG pCO2 (35-45) mmHg ABG pO2 (83-108) mmHg ABG HCO3 (21-25) mmol/L ABG Total CO2 (19-24) mmol/L ABG O2 Saturation (94-97) % Sodium (137-145) mmol/L Potassium (3.5-5.1) mmol/L Chloride (98-107) mmol/L Carbon Dioxide (22-30) mmol/L BUN (9-20) mg/dL Creatinine (0.66-1.25) mg/dL Glucose (74-99) mg/dL POC Glucose (mg/dL) 135 H (75-99) mg/dL Calcium (8.4-10.2) mg/dL Lactate Dehydrogenase (313-618) U/L C-Reactive Protein (<1.0) mg/dL Total Protein (6.3-8.2) g/dL Albumin (3.5-5.0) g/dL Microbiology - Last 24 Hours (Table) 12/29/20 14:16 Blood Culture - Preliminary Blood No Growth after 72 hours 12/28/20 12:18 Blood Culture - Preliminary Blood No Growth after 96 hours 12/29/20 22:09 Blood Culture - Preliminary Blood No Growth after 48 hours 12/29/20 22:09 Blood Culture - Preliminary Blood No Growth after 48 hours Assessment and Plan Assessment: Acute hypoxic respiratory failure COVID-19 pneumonia ARDS Sepsis -Continue mechanical ventilation. He is protocol, per pulmonary medicine and critical care recommendation -Patient status post bar sitting up -Continue dexamethasone and vancomycin cefepime, bronchodilator treatment -Overall poor prognosis -If patient does not improve clinically will consider hospice evaluation Hyperglycemia without diagnosis of diabetes -Continue Levemir and sliding scale JACKIE in the setting of above likley due to ATN - Nephro following Hypertension - not on meds at home - follow BP Daily alcohol consumption -Watch for alcohol withdrawal and treat appropriately as needed DVT prophylaxis: Lovenox CODE STATUS: Full code Discharge plan/next site of care: Pending hospital course, if he improves clinically and is extubated will likely need rehab
[2021-01-01 23:49] LABS: Glucose,Whole Blood 107 mg/dL (75-99)
[2021-01-02] MEDS: ARTIFICIAL TEARS-HYPROMELLOSE DROPS 15 ML BTL BOTH EYES SCH ×6 (00:18→22:06)
[2021-01-02] MEDS: NOREPINEPHRINE 8 MG in SODIUM CHLORIDE 0.9% 250 ML IV SCH ×5 (00:18→22:22)
[2021-01-02] MEDS: INSULIN ASPART (NovoLOG) 100 UNIT/ML VIAL SQ SCH ×4 (00:21→17:32)
[2021-01-02 04:12] LABS: Basophils % (A) 0 %; Eosinophils # (A) 0.1 k/uL (0-0.7); Eosinophils % (A) 1 %; HGB 9.9 gm/dL (13.0-17.5); Hypochromasia Marked; Lymphocytes % (A) 6 %; MCH 31.6 pg (25.0-35.0); MCHC 30.2 g/dL (31.0-37.0); MCV 104.8 fL (80.0-100.0); Macrocytosis Slight; Mean Platelet Volume 8.9; Monocytes # (A) 0.4 k/uL (0-1.0); Monocytes % (A) 2 %; Neutrophils # (A) 14.6 k/uL (1.3-7.7); Neutrophils % (A) 90 %; Platelet Count 127 k/uL (150-450); RBC 3.15 m/uL (4.30-5.90); WBC 16.2 k/uL (3.8-10.6)
[2021-01-02 04:28] LABS: Albumin 2.2 g/dL (3.5-5.0); C Reactive Protein 6.8 mg/dL (<1.0); Calcium 7.9 mg/dL (8.4-10.2); Potassium 5.5 mmol/L (3.5-5.1); Total Bilirubin 0.5 mg/dL (0.2-1.3)
[2021-01-02] MEDS ORDERED: VANCOMYCIN TROUGH DUE 1 EACH MISC MISCELLANE ONE (05:00)
[2021-01-02 05:28] LABS: ABG Base Excess 7.2 mmol/L; ABG HCO3 36 mmol/L (21-25); ABG Oxygen Saturation 69.4 % (94-97); ABG TCO2 39 mmol/L (19-24); Allen Test Performed? Yes
[2021-01-02 05:31] LABS: ABG PH 7.15 (7.35-7.45)
[2021-01-02 05:32] LABS: ABG PCO2 103 mmHg (35-45); ABG PO2 42 mmHg (83-108)
--- NOTE | 2021-01-02 05:49 | XR ---
EXAMINATION TYPE: XR chest 1V DATE OF EXAM: 01/02/2021 COMPARISON: Yesterday HISTORY: Respiratory failure TECHNIQUE: Single view FINDINGS: Endotracheal tube is 2.8 cm from the glynn. There is pulmonary interstitial and airspace e loan. There is nasogastric tube in the stomach. There is left subclavian catheter with tip in the sup erior vena cava. Trachea is midline. There is subcutaneous emphysema over the upper chest bilaterally . IMPRESSION: Pulmonary edema without change. Tubing in good position.
[2021-01-02] MEDS ORDERED: VANCOMYCIN 1,500 MG in SODIUM CHLORIDE 0.9% 250 ML IVPB SCH (06:00)
[2021-01-02 06:49] LABS: Glucose,Whole Blood 137 mg/dL (75-99)
[2021-01-02] MEDS: INSULIN DETEMIR (LEVEMIR) 100 UNIT/ML SYR SQ SCH (07:08)
[2021-01-02] MEDS: ALBUTEROL HFA INHALER INHALATION SCH ×4 (07:43→20:03)
--- NOTE | 2021-01-02 07:49 | P.PN ---
Subjective Progress Note Date: 01/02/21 65-year-old white male patient who is currently in the intensive care unit with diffuse COVID-19 related pneumonia. The patient was hospitalized on 12/15/2020. He has known history of hypertension and is a former smoker. He was initially on 4 L of oxygen by nasal cannula. He was admitted to the hospital for hypoxic respiratory failure and his condition progressed and currently the patient has d iffuse bilateral pulmonary infiltrates and BiPAP dependent respiratory failure. On 12/27/2020, the patient is being seen for a follow-up. The patient progressively decompensated yesterday. After being on a BiPAP at a pressure of 16/10 cm of water, the patient to be intubated and placed on a mechanical ventilator. This occurred approximately midnight. Currently the patient is sedated with propofol and the patient is also paralyzed with Nimbex. Was running at 40 mcg/kg per minute and Nimbex is running at 1 mcg/kg/h. The patient is currently on assist control mode of mechanical ventilation. The patient is on a rate of 36, tidal volume of 400, FiO2 of 100% and a PEEP of 10. Peak airway pressure is 34. Blood gases from this morning is in the order of a pH of 7.15 with a pCO2 of 99 and pO2 of 81. Chest x-ray shows diffuse breath and pulmonary infiltrates. ET tube is in a good location. There is some minor elevation of the right hemidiaphragm. PICC line is present in left upper extremity. Her white cell count from today is at 20. Hemoglobin is at 14.4. The BUN is at 31 with a creatinine of 0.6. Sodium is at 136. Potassium level is at 5.3. LDH level from today is 1655 with a CRP of 15.6.. D-dimer from yesterday was elevated at 12.1. Based on that, Doppler of the lower ext was done and it showed no evidence of any DVTs. . The pro calcitonin level was low at 0.06. The patient continues to be on Baricitinib per protocol in addition to Decadron 6 mg twice a day and prophylactic dose of Lovenox 40 mg subcu every 12 hours. The patient is also on TPN for natural support. Note that the patient is intubated, the patient will be transitioned to enteral feeding for nutritional support. We'll also start Lantus insulin for blood sugar control that needs to be tighter control. Start the patient on 0.2 mg/kg of Lantus in addition to a/scale coverage. Hemodynamically, the patient is stable. No pressors is utilized. The patient has adequate urine output and order of 100 mL an hour. IV fluids are currently at KVO. Balance over the past 24 hours has been -990 mL. 12/28/2020, the patient is being seen for a follow-up. The patient remains intubated on a mechanical ventilator and the patient is also sedated and paralyzed. This morning, propofol is running at 40 mcg/kg per minute and Nimbex is running at 2 mcg/kg per minute. The patient is receiving IV fluids at 20 mL an hour. The patient remains sedated and paralyzed on a mechanical ventilator. He is on assist control mode at the rate of 36 with a tidal volume of 375 and FiO2 of 85% and a PEEP of 13. Peak air pressure earlier was 36 with headache or pressure of around 32. Chest x-ray from today showed diffuse but the pulmonary infiltrates consistent with COVID-19 related pneumonia. Nevertheless, the ET tube was sitting high in the trachea. Based on that, a bedside bronchoscopy was done and the position of the tube was confirmed to be high. The patient had that she was advanced under endoscopic visualization. No significant orotracheal secretions. Blood gases from today shows a pH of 7.26 with a pCO2 of 105 and pO2 of 84. Mother the patient was given IV bicarbonate of above 4 pushes of 50 mEq yesterday and his acidosis improved. Potassium level. 5.1 on today's blood work. Hemodynamically, the patient is stable. No significant hypotension. White cell count is at 16.3. He does have some sinus tachycardia. Urine output is adequate. Overall fluid balance over the past 24 hours has been -990 mL. The patient remains on Decadron 6 mg IV every 12 hours. The patient also is on Lovenox 40 mg subcu every 12 hours. The patient is off TPN. He is receiving enteral feeding. Support. Blood sugars under better control with a combination of Levemir insulin 17 units daily in addition to NovoLog sliding scale coverage. The inflammatory markers from today shows a LDH level of 1307 and the CRP is down to 15.5 and the patient's d-dimer is down to 7.12. CAT scan of the chest was completed yesterday. No evidence of any pulmonary embolism. It was consistent with COVID-19 related pneumonia. The venous Doppler was also negative for DVT. 12/29/2020, the patient is being seen for a follow-up. He remains intubated on a mechanical ventilator. He remains sedated and paralyzed. He is still on propofol running at 40 mcg/kg per minute. Nimbex is also utilized for paralytics. He remains on a assist-control mode at the rate of 32 with a tidal volume of 375 with an FiO2 of 75% and a PEEP of 13. Peak airway pressures 33. Static airway pressure is 31. Chest x-ray shows diffuse but the pulmonary infiltrates, slightly improved compared to yesterday. Meanwhile, his blood gas shows a pH of 7.31 with a pCO2 of 94 and pO2 of 65. LDH has dropped down to 1060. His d-dimer has dropped down to 4.27. He is quite symptoms with a mechanical ventilator. He remains hemodynamically stable. He is on no pressors. He is having some mild sinus tachycardia. He is afebrile. White cell count is down to 17.6. Hemoglobin stable at 13.0. He remains on Decadron. He is completing the course of Baricitinib. He remains on Levemir insulin for blood sugar control and same dose of 17 units in addition to slight scale coverage. He remains on enteral feeding for nutritional support in the form of vital hp at the rate of 40 mL an hour. He has not had a bowel movement over the past 48 hours. No triggers or been under adequate control. Lovenox dose was modified to 40 mg once a day. No other complications otherwise. Family has been informed of his status. I'm contacted her daughter on a daily basis. In terms of his overall fluid balance, the patient that fluid balance over the past 24 hours has been -530 mL. 12/30/2020, the patient remains intubated on a mechanical ventilator and he remains sedated with propofol which is currently running at 40 mcg/kg per minute and the patient is also on Nimbex at 2 mcg/kg per minute. He is adequately sedated and paralyzed. I was unable to get him off the paralytics yesterday as the patient became hypoxic and desaturated once off the paralytics. I have an assist-control mode of mechanical ventilation. He is at the rate of 32, tidal volumes at 375, FiO2 is at 80% with a PEEP of 13. His peak airway pressure is 32. Static pressures 29. The patient had a blood. This morning that showed a pH of 7.28 with a pCO2 of 98 and pO2 of 62. This was done and FiO2 of 80%. Chest x-ray showing diffuse but the pulmonary infiltrates, essentially unchanged consistent with ARDS. Meanwhile, the patient started having episodes of fever as of yesterday. He became quite tachycardic along with this febrile episodes. His heart rate was sinus and throat as high as 14. At that point, blood cultures were sent. He was given a liter of fluid bolus. He did not become hypotensive and he is still maintaining his own pressure without any pressors. I gave him empiric antibiotic coverage with accommodation of cefepime and vancomycin. I stopped the Baricitinib pending further cultures. Pro-calcitonin level was also sent. His LDH level is 1066. His CRP level is at 35. His potassium level is at 5.6. Serum bicarbonate of 40. Creatinine is at 1.09 which is essentially stable. The neck fluid balance over the past 24 hours has been +1 L of fluid. He is receiving enteral feeding for nutritional support and currently is on vitamin AF at the rate of 46. His last bowel movement activity was yesterday. The patient is on Levemir insulin 17 units along with a slight scale insulin coverage. 12/31/2020, the patient is being seen for a follow-up. He remains intubated on mechanical ventilator. Remains on propofol which is running at 50 mcg/kg per minute and the patient is also Nimbex at 2 mcg/kg/m.the patient is adequately sedated and paralyzed. He remains on a mechanical ventilator. This morning, he is an assist-control mode with a tidal volume of 375, rate of 32, FiO2 of 80% with a PEEP of 13. Peak airway pressure was 33. Static pressure is 31. Chest x-ray showing diffuse bilateral pulmonary infiltrates. At the same time there is development of subcutaneous emphysema over the chest and neck area. Clinically, this is also evident that the patient has air collecting and there is skin in the face neck and chest area. PH is at 7.28 with a pCO2 of 89 and pO2 of 60. There is evidence of barotrauma such. At the same time, we suspect an infection. Focused on was mildly elevated. The patient was having sinus tachycardia and the patient was febrile throughout the day yesterday. Sputum cultures showing staph aureus. I have him on a combination of cefepime and vancomycin. Blood cultures negative thus far. No significant orotracheal secretions. Hemodynamically, he is on no pressors. His sinus tachycardia is improved and his current heart rate is 105. He remains on Decadron. I took him off the Baricitinib. The patient has a white cell count of 13.8 which is improved compared to yesterday. However, the same time, the patient developed an acute kidney injury. Creatinine is up to 1.9 from a baseline of 1.09 yesterday. BUN is at 79. Potassium level is at 6.0. He is not fluid balance over the past 24 hours has been +1.1 L. Enteral feeding for nutritional support with the vital AF at the rate of 46 mL an hour. Adequate bowel movement. Levemir insulin for blood sugar control. In terms of therapy, he is off Baricitinib. He is on Decadron 6 mg IV every 12 hours and the patient is also on Lovenox 40 mg subcu on a daily basis. Terms of inflammatory markers, LDH is still elevated and compatible to yesterday and the level today's at 1162 with a CRP level of 36. LFTs are normal. IV fluids in the form of 0.9 at the rate of 20cc/hr 01/01/2021, I'm seeing this patient in follow-up in the intensive care unit. The patient remains sedated and paralyzed. Propofol is currently running at 50 mg/kg/m the Nimbex is running at 2 mcg/kg per minute. The patient is adequately paralyzed and sedated and the patient remains on a mechanical ventilator. Due to development of some barotrauma and has emphysema, I had to lower down the tidal volume for that and currently is down to a tidal volume of 360 with a rate of 32 and FiO2 of 75% with a PEEP of 12 cm of water. The blood gases from today shows a pH of 7.18 and a pCO2 of 106 and pO2 of 56. The peak airway pressures 33. Static pressure is 31 which is essentially compatible to yesterday. Chest x-ray from today showing still subcutaneous emphysema although it seems to have somewhat improved on the right, there is still ongoing emphysema on the left. ET tube is in a good location. The patient has diffuse bilateral pulmonary infiltrates. The sputum metal turner to be positive for MSSA and the patient will be taken off vancomycin. IV Cefepime for Now. Fortunately, His Fever Defervesced and He Does Not Have Any Ongoing Fever. Hemodynamically Stable. He Is Not Requiring Any Pressors. He Is Less Tachycardic Compared to Yesterday and Today before. At the Same Time, the Patient Has No Significant Orotracheal Secretions. His Urine Output Is in Order of 75 ML an Hour. He Has Developed an Acute Kidney Injury. Creatinine Is up to 2.55 and a BUN Is at 100. . The findings on the case. Ultrasound the kidney was done yesterday and there is no evidence of any hydronephrosis. The patient continues to receive enteral feeding for nutritional support. He is in the form of Nepro at the rate of 36 mL an hour. In terms of bowel movement activity, his last bowel movement was on 12/29/2020. In terms of his blood work, his sodium level is up to 150, his potassium level today's at 5.6, serum bicarbonate 37, his white cell count is at 13.9 with a hemoglobin of 11.4. His inflammatory markers need to be rechecked for today. Serum protein is at 5.7 with an albumin of 2.4. He is receiving free water flushes through his NG 100 mL every 6 hours. He is also on insulin in the form of Levemir at 17 units daily along with SS coverage. Blood sugar has been under adequate control with the last level being at 174. 01/02/2021, the patient is clinically worse. Since yesterday, the patient is d eveloping worsening renal function worsening and hypoxemia. This morning, the patient is being seen in follow-up. The patient remains sedated and paralyzed. Currently is on propofol at 50 mg/kg per minute and he is also Nimbex at 2 mcg/kg per minute. He is well sedated and paralyzed. He is very much interested the mechanical ventilator. He is currently a volume cycled assist- control mode of mechanical ventilation with a tidal volume of 360, FiO2 of 75% which was brought up to 100% with a PEEP of 12 and a respiratory rate of 36. The patient was developing hypoxemia with a pulse ox in the low 80s. At that point, blood gases was done this morning and it showed a pH of 7.15 with a pCO2 of 103 and pO2 42. FiO2 was brought up to 100%. Furthermore, increase the PEEP up to 15. Along with this change, the peak airway pressure for now is 41. Static pressure is 39. The follow-up chest x-ray from today showing diffuse by the pulmonary infiltrates with pneumonia. There is also evidence of subcutaneous emphysema which remains unchanged compared to yesterday. It is mainly in the neck and the upper chest area. ET tube is about 3 cm above the glynn, for the most part it's in a good location. No significant orotracheal secretions. The most recent sputum culture came back positive for MSSA. I discontinue the vancomycin and The patient only on IV cefepime. Hemodynamically, his blood pressure is soft, lower on today's evaluation. His white cell count is at 16.2. He is on no pressors. He was receiving normal saline at rate of 75 mL's an hour. Urine output has dropped significantly and the patient has a producing around 10-50 mL an hour. Overall net fluid balance over the past 24 hours has been +2.5 L and later on +3.7 L over the past 24 hours. The patient received a dose of Lasix by nephrology. Dose of 60 mg IV push without any much improvement in his urine output. Meanwhile, the patient also has developed hyperkalemia with a potassium level of 5.5 today, BUN is at 136 with a creatinine of 4.02. As such, there is not a component of ATN and progressive worsening his renal function with a past 24-48 hours. LDH level is at 1274, CRP level is at 6.8, serum bicarbonate 33,. The patient continues receiving enteral feeding for nutritional support. He is tolerating his diet. No aspiration. Sodium is up from 147-140. The patient was on D5 water which wi ll be discontinued today. We'll keep the patient's IV fluids to KVO. His taken also NG water flushes regarding his hyperlipidemia which will be also dropped to 100cc 4 times a day. Objective - Vital Signs Vital signs: Vital Signs Temp 99 F 01/02/21 04:00 Pulse 114 H 01/02/21 07:00 Resp 35 H 01/02/21 07:00 BP 103/55 01/02/21 07:00 Pulse Ox 82 L 01/02/21 07:00 Intake & Output 01/01/21 01/02/21 01/02/21 18:59 06:59 18:59 Intake Total 3054.097 2272.327 116 Output Total 1175 401 15 Balance 2529.326 4797.327 101 Intake: IV 1014 858 78 .9 pressure bag 39 33 3 Dextrose 5% in Water 1, 375 000 ml @ 75 mls/hr IV . [id number] [facility] Rx#:[id number] Sodium Chloride 0.9% 1, 600 825 75 000 ml @ 75 mls/hr IV . [id number] [facility] Rx#:[id number] Intake, IV Titration 684.097 396.327 Amount Cefepime 2 gm In Sodium 100 Chloride 0.9% 100 ml @ 25 mls/hr IVPB Q12HR [facility] Rx #:[id number] Cisatracurium 200 mg In 175.807 Sodium Chloride 0.9% 180 ml @ 1 MCG/KG/MIN 5.004 mls/hr IV .Q24H [facility] Rx#: [id number] Norepinephrine 4 mg In 254 Sodium Chloride 0.9% 250 ml @ 0.05 MCG/KG/MIN 15. 888 mls/hr IV .Q16H [facility] Rx#:[id number] propofoL 1,000 mg In 254.290 296.327 Empty Bag 1 bag @ Titrate IV .Q0M [facility] Rx#: [id number] Tube Feeding 456 418 38 Other 900 600 Output: Urine 1175 401 15 Other: Voiding Method Indwelling Catheter Indwelling Catheter ABP, PAP, CO, CI - Last Documented Arterial Blood Pressure 104/53 - Exam GENERAL EXAM: Alert, tachypneic 65-year-old white male, intubated, currently on a mechanical ventilator, currently on assist-control mode of mechanical ventilation. Sedated and paralyzed. HEAD: Normocephalic/atraumatic. EYES: Normal reaction of pupils, equal size. Conjunctiva pink, sclera white. NOSE: Clear with pink turbinates. THROAT: No erythema or exudates. NECK: No masses, no JVD, no thyroid enlargement, no adenopathy. CHEST: No chest wall deformity. Symmetrical expansion. The patient has subcutaneous emphysema in the neck and the chest area. LUNGS: Equal air entry with diffuse crackles CVS: Regular rate and rhythm, normal S1 and S2, no gallops, no murmurs, no rubs ABDOMEN: Soft, nontender. No hepatosplenomegaly, normal bowel sounds, no guarding or rigidity. EXTREMITIES: No clubbing, no edema, no cyanosis, 2+ pulses and upper and lower extremities. The patient has worsening in the volume status and the patient is having significant fluid retention the upper and lower extremities. MUSCULOSKELETAL: Muscle strength and tone normal. SPINE: No scoliosis or deformity SKIN: No rashes CENTRAL NERVOUS SYSTEM: Sedated and paralyzed, motor function is unable to be assessed on today's evaluation. Pupils are equal and reactive to light. No focal neurological deficits. - Labs CBC & Chem 7: 01/02/21 03:52 01/02/21 03:52 Labs: Abnormal Lab Results - Last 24 Hours (Table) 01/01/21 01/01/21 01/01/21 Range/Units 08:23 08:23 11:28 WBC (3.8-10.6) k/uL RBC (4.30-5.90) m/uL Hgb (13.0-17.5) gm/dL Hct (39.0-53.0) % MCV (80.0-100.0) fL MCHC (31.0-37.0) g/dL Plt Count (150-450) k/uL Neutrophils # (1.3-7.7) k/uL Lymphocytes # (1.0-4.8) k/uL D-Dimer 2.85 H (<0.60) mg/L FEU ABG pH (7.35-7.45) ABG pCO2 (35-45) mmHg ABG pO2 (83-108) mmHg ABG HCO3 (21-25) mmol/L ABG Total CO2 (19-24) mmol/L ABG O2 Saturation (94-97) % Sodium (137-145) mmol/L Potassium (3.5-5.1) mmol/L Carbon Dioxide (22-30) mmol/L BUN (9-20) mg/dL Creatinine (0.66-1.25) mg/dL Glucose (74-99) mg/dL POC Glucose (mg/dL) 145 H (75-99) mg/dL Calcium (8.4-10.2) mg/dL Lactate Dehydrogenase 1454 H (313-618) U/L C-Reactive Protein 16.7 H (<1.0) mg/dL Total Protein (6.3-8.2) g/dL Albumin (3.5-5.0) g/dL Triglycerides 343.00 H (0.00-149.00) mg/dL 01/01/21 01/01/21 01/01/21 Range/Units 12:13 12:41 12:41 WBC 14.5 H (3.8-10.6) k/uL RBC 3.46 L (4.30-5.90) m/uL Hgb 11.1 L (13.0-17.5) gm/dL Hct 35.9 L (39.0-53.0) % MCV 103.8 H (80.0-100.0) fL MCHC 30.9 L (31.0-37.0) g/dL Plt Count 132 L (150-450) k/uL Neutrophils # 13.5 H (1.3-7.7) k/uL Lymphocytes # 0.5 L (1.0-4.8) k/uL D-Dimer (<0.60) mg/L FEU ABG pH 7.20 L (7.35-7.45) ABG pCO2 100 H* (35-45) mmHg ABG pO2 58 L* (83-108) mmHg ABG HCO3 39 H (21-25) mmol/L ABG Total CO2 42 H (19-24) mmol/L ABG O2 Saturation 87.4 L (94-97) % Sodium 147 H (137-145) mmol/L Potassium 5.5 H (3.5-5.1) mmol/L Carbon Dioxide 36 H (22-30) mmol/L BUN 114 H* (9-20) mg/dL Creatinine 3.04 H (0.66-1.25) mg/dL Glucose 163 H (74-99) mg/dL POC Glucose (mg/dL) (75-99) mg/dL Calcium 8.0 L (8.4-10.2) mg/dL Lactate Dehydrogenase (313-618) U/L C-Reactive Protein (<1.0) mg/dL Total Protein 5.4 L (6.3-8.2) g/dL Albumin 2.4 L (3.5-5.0) g/dL Triglycerides (0.00-149.00) mg/dL 01/01/21 01/01/21 01/02/21 Range/Units 18:14 23:48 03:52 WBC (3.8-10.6) k/uL RBC (4.30-5.90) m/uL Hgb (13.0-17.5) gm/dL Hct (39.0-53.0) % MCV (80.0-100.0) fL MCHC (31.0-37.0) g/dL Plt Count (150-450) k/uL Neutrophils # (1.3-7.7) k/uL Lymphocytes # (1.0-4.8) k/uL D-Dimer 3.86 H (<0.60) mg/L FEU ABG pH (7.35-7.45) ABG pCO2 (35-45) mmHg ABG pO2 (83-108) mmHg ABG HCO3 (21-25) mmol/L ABG Total CO2 (19-24) mmol/L ABG O2 Saturation (94-97) % Sodium (137-145) mmol/L Potassium (3.5-5.1) mmol/L Carbon Dioxide (22-30) mmol/L BUN (9-20) mg/dL Creatinine (0.66-1.25) mg/dL Glucose (74-99) mg/dL POC Glucose (mg/dL) 135 H 107 H (75-99) mg/dL Calcium (8.4-10.2) mg/dL Lactate Dehydrogenase (313-618) U/L C-Reactive Protein (<1.0) mg/dL Total Protein (6.3-8.2) g/dL Albumin (3.5-5.0) g/dL Triglycerides (0.00-149.00) mg/dL 01/02/21 01/02/21 01/02/21 Range/Units 03:52 03:52 05:26 WBC 16.2 H (3.8-10.6) k/uL RBC 3.15 L (4.30-5.90) m/uL Hgb 9.9 L (13.0-17.5) gm/dL Hct 33.0 L (39.0-53.0) % MCV 104.8 H (80.0-100.0) fL MCHC 30.2 L (31.0-37.0) g/dL Plt Count 127 L (150-450) k/uL Neutrophils # 14.6 H (1.3-7.7) k/uL Lymphocytes # (1.0-4.8) k/uL D-Dimer (<0.60) mg/L FEU ABG pH 7.15 L* (7.35-7.45) ABG pCO2 103 H* (35-45) mmHg ABG pO2 42 L* (83-108) mmHg ABG HCO3 36 H (21-25) mmol/L ABG Total CO2 39 H (19-24) mmol/L ABG O2 Saturation 69.4 L (94-97) % Sodium (137-145) mmol/L Potassium 5.5 H (3.5-5.1) mmol/L Carbon Dioxide 33 H (22-30) mmol/L BUN 136 H* (9-20) mg/dL Creatinine 4.02 H (0.66-1.25) mg/dL Glucose 139 H (74-99) mg/dL POC Glucose (mg/dL) (75-99) mg/dL Calcium 7.9 L (8.4-10.2) mg/dL Lactate Dehydrogenase 1274 H (313-618) U/L C-Reactive Protein 6.8 H (<1.0) mg/dL Total Protein 5.0 L (6.3-8.2) g/dL Albumin 2.2 L (3.5-5.0) g/dL Triglycerides (0.00-149.00) mg/dL 01/02/21 Range/Units 06:48 WBC (3.8-10.6) k/uL RBC (4.30-5.90) m/uL Hgb (13.0-17.5) gm/dL Hct (39.0-53.0) % MCV (80.0-100.0) fL MCHC (31.0-37.0) g/dL Plt Count (150-450) k/uL Neutrophils # (1.3-7.7) k/uL Lymphocytes # (1.0-4.8) k/uL D-Dimer (<0.60) mg/L FEU ABG pH (7.35-7.45) ABG pCO2 (35-45) mmHg ABG pO2 (83-108) mmHg ABG HCO3 (21-25) mmol/L ABG Total CO2 (19-24) mmol/L ABG O2 Saturation (94-97) % Sodium (137-145) mmol/L Potassium (3.5-5.1) mmol/L Carbon Dioxide (22-30) mmol/L BUN (9-20) mg/dL Creatinine (0.66-1.25) mg/dL Glucose (74-99) mg/dL POC Glucose (mg/dL) 137 H (75-99) mg/dL Calcium (8.4-10.2) mg/dL Lactate Dehydrogenase (313-618) U/L C-Reactive Protein (<1.0) mg/dL Total Protein (6.3-8.2) g/dL Albumin (3.5-5.0) g/dL Triglycerides (0.00-149.00) mg/dL Microbiology - Last 24 Hours (Table) 12/29/20 22:09 Blood Culture - Preliminary Blood No Growth after 72 hours 12/29/20 22:09 Blood Culture - Preliminary Blood No Growth after 72 hours 12/29/20 14:16 Blood Culture - Preliminary Blood No Growth after 72 hours 12/28/20 12:18 Blood Culture - Preliminary Blood No Growth after 96 hours Assessment and Plan Plan: 1. Acute hypoxic respiratory failure related to acute COVID-19 pneumonia, with onset of symptoms 4 days ago, Patient did not Remdesivir was ordered on 12/16/2020 which the patient had refused. Did not receive COVID-19 vaccination. . Doppler of the lower extremities were negative. The inflammatory markers elevated. The LDH is essentially comparable to yesterday. the patient is being treated based on the ARDS protocol with low tidal volume mechanical ventilation. He has some permissive hypercapnia. His airway pressures are not significantly elevated. Chest x-ray was noted. Blood gases were noted. The patient has superimposed infection with MSSA and the patient is currently on IV cefepime. Meanwhile, the patient's oxygen patient has gotten worse as the patient has developed an acute kidney injury with progressive fluid retention. As such, there is worsening in her oxygenation on today's evaluation on today's blood gas. There may be also worsening in his ARDS also. He remains on low tidal volume ventilation. His PEEP will be adjusted and FiO2 be adjusted to improve his oxygenation saturation. Dialysis will be also helpful to optimize his overall condition respiratory status and oxygenation. The patient remains on Decadron for now. Chest x-ray was noted. Blood gases was noted. He remains on IV cefepime. 2 COVID-19 related pneumonia with diffuse bilateral pulmonary infiltrates/ARDS, 3. subcutaneous emphysema secondary to barotrauma from ARDS and mechanical ventilation, stable 4. acute kidney injury , with significant fluid retention in the upper and lower extremity, drop in urine output, creatinine is up to 4 and the patient has a component of hyperkalemia with a potassium level of 5.5. No significant acidosis. Nevertheless, based on worsening of his oxygenation, the patient will obviously need hemodialysis. 5. acute hyperkalemia secondary metabolic acidosis and respiratory acidosis and the potassium shift, being treated accordingly , potassium level is stable 6 MSSA/ staphylococcal pneumonia suspected. Highly suspicious for pneumonia as the patient was tachycardic and febrile and the patient improved with antibiotic coverage. Currently is afebrile. Sputum cultures showing MSSA 7 fever, improved over the past 24 hours 8 sinus tachycardia, consider underlying sepsis or fever induced tachycardia, improved 9 history of hypertension 10 elevated inflammatory markers secondary to above 11 hyperkalemia, multifactorial related to his acidosis and renal failure 12 enteral feeding for nutritional support and the patient is currently using Nepro Plan: The following ventilator changes were begun. The cardiac border will be dropped down to 350. We'll increase these the PEEP up to 15. Keep the FiO2 100%. Unable to prone the patient at this point in time as the patient is being considered for hemodialysis IV fluids to KVO Discontinue water flushes Continue enteral feeding for nutritional support Case was discussed with nephrology and the patient will need dialysis today Consultants vascular surgery for vascular access Continue IV cefepime Continue Decadron Lasix 80 mg IV push every 12 hours to optimize volume status. Overall urine output is low. The patient is on a decompensated. Family will be informed to continue to follow. His condition is critical. History care evaluation that was done and more than 30 minutes Time with Patient: Greater than 30
--- NOTE | 2021-01-02 08:38 | P.PN ---
Subjective Progress Note Date: 01/02/21 Follow-up for acute kidney injury. Currently on ventilator with 100% FiO2 and 15 of PEEP. Overnight urine output dropped and currently on levophed. Objective - Vital Signs Vital signs: Vital Signs Temp 99 F 01/02/21 04:00 Pulse 114 H 01/02/21 07:00 Resp 35 H 01/02/21 07:00 BP 103/55 01/02/21 07:00 Pulse Ox 82 L 01/02/21 07:00 Intake & Output 01/01/21 01/02/21 01/02/21 18:59 06:59 18:59 Intake Total 3054.097 2272.327 116 Output Total 1175 401 15 Balance 2128.511 6782.327 101 Intake: IV 1014 858 78 .9 pressure bag 39 33 3 Dextrose 5% in Water 1, 375 000 ml @ 75 mls/hr IV . [id number] [facility] Rx#:[id number] Sodium Chloride 0.9% 1, 600 825 75 000 ml @ 75 mls/hr IV . [id number] [facility] Rx#:[id number] Intake, IV Titration 684.097 396.327 Amount Cefepime 2 gm In Sodium 100 Chloride 0.9% 100 ml @ 25 mls/hr IVPB Q12HR [facility] Rx #:[id number] Cisatracurium 200 mg In 175.807 Sodium Chloride 0.9% 180 ml @ 1 MCG/KG/MIN 5.004 mls/hr IV .Q24H [facility] Rx#: [id number] Norepinephrine 4 mg In 254 Sodium Chloride 0.9% 250 ml @ 0.05 MCG/KG/MIN 15. 888 mls/hr IV .Q16H [facility] Rx#:[id number] propofoL 1,000 mg In 254.290 296.327 Empty Bag 1 bag @ Titrate IV .Q0M [facility] Rx#: [id number] Tube Feeding 456 418 38 Other 900 600 Output: Urine 1175 401 15 Other: Voiding Method Indwelling Catheter Indwelling Catheter ABP, PAP, CO, CI - Last Documented Arterial Blood Pressure 104/53 - Exam Refer to primary team exam. Currently in COVID-19 isolation - Labs CBC & Chem 7: 01/02/21 03:52 01/02/21 03:52 Labs: Abnormal Lab Results - Last 24 Hours (Table) 01/01/21 01/01/21 01/01/21 Range/Units 08:23 08:23 11:28 WBC (3.8-10.6) k/uL RBC (4.30-5.90) m/uL Hgb (13.0-17.5) gm/dL Hct (39.0-53.0) % MCV (80.0-100.0) fL MCHC (31.0-37.0) g/dL Plt Count (150-450) k/uL Neutrophils # (1.3-7.7) k/uL Lymphocytes # (1.0-4.8) k/uL D-Dimer 2.85 H (<0.60) mg/L FEU ABG pH (7.35-7.45) ABG pCO2 (35-45) mmHg ABG pO2 (83-108) mmHg ABG HCO3 (21-25) mmol/L ABG Total CO2 (19-24) mmol/L ABG O2 Saturation (94-97) % Sodium (137-145) mmol/L Potassium (3.5-5.1) mmol/L Carbon Dioxide (22-30) mmol/L BUN (9-20) mg/dL Creatinine (0.66-1.25) mg/dL Glucose (74-99) mg/dL POC Glucose (mg/dL) 145 H (75-99) mg/dL Calcium (8.4-10.2) mg/dL Lactate Dehydrogenase 1454 H (313-618) U/L C-Reactive Protein 16.7 H (<1.0) mg/dL Total Protein (6.3-8.2) g/dL Albumin (3.5-5.0) g/dL Triglycerides 343.00 H (0.00-149.00) mg/dL 01/01/21 01/01/21 01/01/21 Range/Units 12:13 12:41 12:41 WBC 14.5 H (3.8-10.6) k/uL RBC 3.46 L (4.30-5.90) m/uL Hgb 11.1 L (13.0-17.5) gm/dL Hct 35.9 L (39.0-53.0) % MCV 103.8 H (80.0-100.0) fL MCHC 30.9 L (31.0-37.0) g/dL Plt Count 132 L (150-450) k/uL Neutrophils # 13.5 H (1.3-7.7) k/uL Lymphocytes # 0.5 L (1.0-4.8) k/uL D-Dimer (<0.60) mg/L FEU ABG pH 7.20 L (7.35-7.45) ABG pCO2 100 H* (35-45) mmHg ABG pO2 58 L* (83-108) mmHg ABG HCO3 39 H (21-25) mmol/L ABG Total CO2 42 H (19-24) mmol/L ABG O2 Saturation 87.4 L (94-97) % Sodium 147 H (137-145) mmol/L Potassium 5.5 H (3.5-5.1) mmol/L Carbon Dioxide 36 H (22-30) mmol/L BUN 114 H* (9-20) mg/dL Creatinine 3.04 H (0.66-1.25) mg/dL Glucose 163 H (74-99) mg/dL POC Glucose (mg/dL) (75-99) mg/dL Calcium 8.0 L (8.4-10.2) mg/dL Lactate Dehydrogenase (313-618) U/L C-Reactive Protein (<1.0) mg/dL Total Protein 5.4 L (6.3-8.2) g/dL Albumin 2.4 L (3.5-5.0) g/dL Triglycerides (0.00-149.00) mg/dL 01/01/21 01/01/21 01/02/21 Range/Units 18:14 23:48 03:52 WBC (3.8-10.6) k/uL RBC (4.30-5.90) m/uL Hgb (13.0-17.5) gm/dL Hct (39.0-53.0) % MCV (80.0-100.0) fL MCHC (31.0-37.0) g/dL Plt Count (150-450) k/uL Neutrophils # (1.3-7.7) k/uL Lymphocytes # (1.0-4.8) k/uL D-Dimer 3.86 H (<0.60) mg/L FEU ABG pH (7.35-7.45) ABG pCO2 (35-45) mmHg ABG pO2 (83-108) mmHg ABG HCO3 (21-25) mmol/L ABG Total CO2 (19-24) mmol/L ABG O2 Saturation (94-97) % Sodium (137-145) mmol/L Potassium (3.5-5.1) mmol/L Carbon Dioxide (22-30) mmol/L BUN (9-20) mg/dL Creatinine (0.66-1.25) mg/dL Glucose (74-99) mg/dL POC Glucose (mg/dL) 135 H 107 H (75-99) mg/dL Calcium (8.4-10.2) mg/dL Lactate Dehydrogenase (313-618) U/L C-Reactive Protein (<1.0) mg/dL Total Protein (6.3-8.2) g/dL Albumin (3.5-5.0) g/dL Triglycerides (0.00-149.00) mg/dL 01/02/21 01/02/21 01/02/21 Range/Units 03:52 03:52 05:26 WBC 16.2 H (3.8-10.6) k/uL RBC 3.15 L (4.30-5.90) m/uL Hgb 9.9 L (13.0-17.5) gm/dL Hct 33.0 L (39.0-53.0) % MCV 104.8 H (80.0-100.0) fL MCHC 30.2 L (31.0-37.0) g/dL Plt Count 127 L (150-450) k/uL Neutrophils # 14.6 H (1.3-7.7) k/uL Lymphocytes # (1.0-4.8) k/uL D-Dimer (<0.60) mg/L FEU ABG pH 7.15 L* (7.35-7.45) ABG pCO2 103 H* (35-45) mmHg ABG pO2 42 L* (83-108) mmHg ABG HCO3 36 H (21-25) mmol/L ABG Total CO2 39 H (19-24) mmol/L ABG O2 Saturation 69.4 L (94-97) % Sodium (137-145) mmol/L Potassium 5.5 H (3.5-5.1) mmol/L Carbon Dioxide 33 H (22-30) mmol/L BUN 136 H* (9-20) mg/dL Creatinine 4.02 H (0.66-1.25) mg/dL Glucose 139 H (74-99) mg/dL POC Glucose (mg/dL) (75-99) mg/dL Calcium 7.9 L (8.4-10.2) mg/dL Lactate Dehydrogenase 1274 H (313-618) U/L C-Reactive Protein 6.8 H (<1.0) mg/dL Total Protein 5.0 L (6.3-8.2) g/dL Albumin 2.2 L (3.5-5.0) g/dL Triglycerides (0.00-149.00) mg/dL 01/02/21 Range/Units 06:48 WBC (3.8-10.6) k/uL RBC (4.30-5.90) m/uL Hgb (13.0-17.5) gm/dL Hct (39.0-53.0) % MCV (80.0-100.0) fL MCHC (31.0-37.0) g/dL Plt Count (150-450) k/uL Neutrophils # (1.3-7.7) k/uL Lymphocytes # (1.0-4.8) k/uL D-Dimer (<0.60) mg/L FEU ABG pH (7.35-7.45) ABG pCO2 (35-45) mmHg ABG pO2 (83-108) mmHg ABG HCO3 (21-25) mmol/L ABG Total CO2 (19-24) mmol/L ABG O2 Saturation (94-97) % Sodium (137-145) mmol/L Potassium (3.5-5.1) mmol/L Carbon Dioxide (22-30) mmol/L BUN (9-20) mg/dL Creatinine (0.66-1.25) mg/dL Glucose (74-99) mg/dL POC Glucose (mg/dL) 137 H (75-99) mg/dL Calcium (8.4-10.2) mg/dL Lactate Dehydrogenase (313-618) U/L C-Reactive Protein (<1.0) mg/dL Total Protein (6.3-8.2) g/dL Albumin (3.5-5.0) g/dL Triglycerides (0.00-149.00) mg/dL Microbiology - Last 24 Hours (Table) 12/29/20 22:09 Blood Culture - Preliminary Blood No Growth after 72 hours 12/29/20 22:09 Blood Culture - Preliminary Blood No Growth after 72 hours 12/29/20 14:16 Blood Culture - Preliminary Blood No Growth after 72 hours 12/28/20 12:18 Blood Culture - Preliminary Blood No Growth after 96 hours Assessment and Plan Assessment: #1 nonoliguric acute kidney injury, currently oliguric secondary to COVID-19 ATN. Baseline creatinine 0.9 MG per DL. -Rule out acute interstitial nephritis with antibiotic use. #2 mild hyperkalemia secondary to acute kidney injury. #3 ventilator-dependent respiratory failure #4 COVID-19 pneumonia #6 septic shock, back on pressors. #7 respiratory acidosis with metabolic alkalosis from severe hypercarbia Plan: #1 continue with Lasix, increase to 80 mg IV twice a day. #2 renal function worsening. With severe barotrauma and pulmonary edema and unable to oxygenate. Start hemodialysis.. #3 check vancomycin trough levels #4 tried to reach out to the family along with the ICU internet marketing intern. Unable to get the family on the phone left a voicemail. 5 with critical condition and being emergent initiate hemodialysis.
[2021-01-02] MEDS: CHLORHEXIDINE GLUCONATE 15 ML CUP MUCOUS MEM SCH ×2 (09:02→20:41)
[2021-01-02] MEDS: ENOXAPARIN 40 MG/0.4 ML SYRINGE SQ SCH (09:03)
[2021-01-02] MEDS: FUROSEMIDE 10 MG/ML 10 ML VIAL IV SCH ×2 (09:03→20:41)
[2021-01-02] MEDS: ASCORBIC ACID 500 MG TAB PO SCH (09:03)
[2021-01-02] MEDS: PANTOPRAZOLE 40 MG/10 ML VIAL IVP SCH (09:03)
[2021-01-02] MEDS: DEXAMETHASONE SOD PHOSPHATE 10 MG/ML 1 ML VIAL IV SCH (09:03)
[2021-01-02] MEDS: ZINC SULFATE 220 MG CAP PO SCH (09:03)
[2021-01-02] MEDS: CHOLECALCIFEROL 25 MCG (1000 IU) TABLET PO SCH (09:03)
[2021-01-02] MEDS: CEFEPIME 1 GM in SODIUM CHLORIDE 0.9% 50 ML IVPB SCH ×2 (09:04→20:37)
[2021-01-02] MEDS: CISATRACURIUM 200 MG in SODIUM CHLORIDE 0.9% 180 ML IV SCH (09:05)
[2021-01-02] MEDS: LACTOBACILLUS ACIDOPH & BULGAR 1 EACH PACKET PO SCH ×2 (09:14→22:06)
[2021-01-02] MEDS: SODIUM CHLORIDE 0.9% 1,000 ML IV SCH (09:15)
--- NOTE | 2021-01-02 11:05 | P.GSCN ---
History of Present Illness History of present illness: 65-year-old white male, I was consulted for emergently is Willard catheter. Patient has a acute kidney injury with positive (creatinine is 4.2 dorsum is 5.5 patient on ventilator with 100% FiO2 and PEEP of 15 patient is on Levophed Neck is supple chest has crackles bilateral Abdomen soft nontender Vascular brachial radial femoral pulses are present plan is placement of the dialysis catheter risk and complication discussed Past Medical History Past Medical History: Hypertension History of Any Multi-Drug Resistant Organisms: None Reported Past Surgical History: Hernia Repair Additional Past Surgical History / Comment(s): shoulder sx Past Anesthesia/Blood Transfusion Reactions: No Reported Reaction Smoking Status: Never smoker Past Alcohol Use History: Daily Past Drug Use History: None Reported - Past Family History Father Family Medical History: No Reported History, Osteoarthritis (OA) Mother Additional Family Medical History / Comment(s): lung disease Medications and Allergies Home Medications Medication Instructions Recorded Confirmed Type Acetaminophen Tab [Tylenol] 1,000 mg PO TID PRN 12/14/20 12/14/20 History Allergies Allergy/AdvReac Type Severity Reaction Status Date / Time dextromethorphan AdvReac Nausea & Verified 12/14/20 23:16 [From NyQuil] Vomiting & Diarrhea doxylamine [From NyQuil] AdvReac Nausea & Verified 12/14/20 23:16 Vomiting & Diarrhea pseudoephedrine [From NyQuil] AdvReac Nausea & Verified 12/14/20 23:16 Vomiting & Diarrhea Surgical - Exam Vital Signs Temp Pulse Resp BP Pulse Ox 102.2 F H 80 18 150/70 92 L 12/14/20 17:43 12/14/20 17:43 12/14/20 17:43 12/14/20 17:43 12/14/20 17:43 Results - Labs 01/02/21 03:52 01/02/21 03:52 Abnormal Lab Results - Last 24 Hours (Table) 01/01/21 01/01/21 01/01/21 Range/Units 08:23 11:28 12:13 WBC (3.8-10.6) k/uL RBC (4.30-5.90) m/uL Hgb (13.0-17.5) gm/dL Hct (39.0-53.0) % MCV (80.0-100.0) fL MCHC (31.0-37.0) g/dL Plt Count (150-450) k/uL Neutrophils # (1.3-7.7) k/uL Lymphocytes # (1.0-4.8) k/uL D-Dimer (<0.60) mg/L FEU ABG pH 7.20 L (7.35-7.45) ABG pCO2 100 H* (35-45) mmHg ABG pO2 58 L* (83-108) mmHg ABG HCO3 39 H (21-25) mmol/L ABG Total CO2 42 H (19-24) mmol/L ABG O2 Saturation 87.4 L (94-97) % Sodium (137-145) mmol/L Potassium (3.5-5.1) mmol/L Carbon Dioxide (22-30) mmol/L BUN (9-20) mg/dL Creatinine (0.66-1.25) mg/dL Glucose (74-99) mg/dL POC Glucose (mg/dL) 145 H (75-99) mg/dL Calcium (8.4-10.2) mg/dL Lactate Dehydrogenase (313-618) U/L C-Reactive Protein (<1.0) mg/dL Total Protein (6.3-8.2) g/dL Albumin (3.5-5.0) g/dL Triglycerides 343.00 H (0.00-149.00) mg/dL 01/01/21 01/01/21 01/01/21 Range/Units 12:41 12:41 18:14 WBC 14.5 H (3.8-10.6) k/uL RBC 3.46 L (4.30-5.90) m/uL Hgb 11.1 L (13.0-17.5) gm/dL Hct 35.9 L (39.0-53.0) % MCV 103.8 H (80.0-100.0) fL MCHC 30.9 L (31.0-37.0) g/dL Plt Count 132 L (150-450) k/uL Neutrophils # 13.5 H (1.3-7.7) k/uL Lymphocytes # 0.5 L (1.0-4.8) k/uL D-Dimer (<0.60) mg/L FEU ABG pH (7.35-7.45) ABG pCO2 (35-45) mmHg ABG pO2 (83-108) mmHg ABG HCO3 (21-25) mmol/L ABG Total CO2 (19-24) mmol/L ABG O2 Saturation (94-97) % Sodium 147 H (137-145) mmol/L Potassium 5.5 H (3.5-5.1) mmol/L Carbon Dioxide 36 H (22-30) mmol/L BUN 114 H* (9-20) mg/dL Creatinine 3.04 H (0.66-1.25) mg/dL Glucose 163 H (74-99) mg/dL POC Glucose (mg/dL) 135 H (75-99) mg/dL Calcium 8.0 L (8.4-10.2) mg/dL Lactate Dehydrogenase (313-618) U/L C-Reactive Protein (<1.0) mg/dL Total Protein 5.4 L (6.3-8.2) g/dL Albumin 2.4 L (3.5-5.0) g/dL Triglycerides (0.00-149.00) mg/dL 01/01/21 01/02/21 01/02/21 Range/Units 23:48 03:52 03:52 WBC 16.2 H (3.8-10.6) k/uL RBC 3.15 L (4.30-5.90) m/uL Hgb 9.9 L (13.0-17.5) gm/dL Hct 33.0 L (39.0-53.0) % MCV 104.8 H (80.0-100.0) fL MCHC 30.2 L (31.0-37.0) g/dL Plt Count 127 L (150-450) k/uL Neutrophils # 14.6 H (1.3-7.7) k/uL Lymphocytes # (1.0-4.8) k/uL D-Dimer 3.86 H (<0.60) mg/L FEU ABG pH (7.35-7.45) ABG pCO2 (35-45) mmHg ABG pO2 (83-108) mmHg ABG HCO3 (21-25) mmol/L ABG Total CO2 (19-24) mmol/L ABG O2 Saturation (94-97) % Sodium (137-145) mmol/L Potassium (3.5-5.1) mmol/L Carbon Dioxide (22-30) mmol/L BUN (9-20) mg/dL Creatinine (0.66-1.25) mg/dL Glucose (74-99) mg/dL POC Glucose (mg/dL) 107 H (75-99) mg/dL Calcium (8.4-10.2) mg/dL Lactate Dehydrogenase (313-618) U/L C-Reactive Protein (<1.0) mg/dL Total Protein (6.3-8.2) g/dL Albumin (3.5-5.0) g/dL Triglycerides (0.00-149.00) mg/dL 01/02/21 01/02/21 01/02/21 Range/Units 03:52 05:26 06:48 WBC (3.8-10.6) k/uL RBC (4.30-5.90) m/uL Hgb (13.0-17.5) gm/dL Hct (39.0-53.0) % MCV (80.0-100.0) fL MCHC (31.0-37.0) g/dL Plt Count (150-450) k/uL Neutrophils # (1.3-7.7) k/uL Lymphocytes # (1.0-4.8) k/uL D-Dimer (<0.60) mg/L FEU ABG pH 7.15 L* (7.35-7.45) ABG pCO2 103 H* (35-45) mmHg ABG pO2 42 L* (83-108) mmHg ABG HCO3 36 H (21-25) mmol/L ABG Total CO2 39 H (19-24) mmol/L ABG O2 Saturation 69.4 L (94-97) % Sodium (137-145) mmol/L Potassium 5.5 H (3.5-5.1) mmol/L Carbon Dioxide 33 H (22-30) mmol/L BUN 136 H* (9-20) mg/dL Creatinine 4.02 H (0.66-1.25) mg/dL Glucose 139 H (74-99) mg/dL POC Glucose (mg/dL) 137 H (75-99) mg/dL Calcium 7.9 L (8.4-10.2) mg/dL Lactate Dehydrogenase 1274 H (313-618) U/L C-Reactive Protein 6.8 H (<1.0) mg/dL Total Protein 5.0 L (6.3-8.2) g/dL Albumin 2.2 L (3.5-5.0) g/dL Triglycerides (0.00-149.00) mg/dL Microbiology - Last 24 Hours (Table) 12/29/20 22:09 Blood Culture - Preliminary Blood No Growth after 72 hours 12/29/20 22:09 Blood Culture - Preliminary Blood No Growth after 72 hours 12/29/20 14:16 Blood Culture - Preliminary Blood No Growth after 72 hours 12/28/20 12:18 Blood Culture - Preliminary Blood No Growth after 96 hours Diabetes panel 01/01/21 01/01/21 01/02/21 Range/Units 08:23 12:41 03:52 Sodium 147 H 140 (137-145) mmol/L Potassium 5.5 H 5.5 H (3.5-5.1) mmol/L Chloride 107 102 (98-107) mmol/L Carbon Dioxide 36 H 33 H (22-30) mmol/L BUN 114 H* 136 H* (9-20) mg/dL Creatinine 3.04 H 4.02 H (0.66-1.25) mg/dL Glucose 163 H 139 H (74-99) mg/dL Calcium 8.0 L 7.9 L (8.4-10.2) mg/dL AST 38 38 (17-59) U/L ALT 45 43 (4-49) U/L Alkaline Phosphatase 117 113 (38-126) U/L Total Protein 5.4 L 5.0 L (6.3-8.2) g/dL Albumin 2.4 L 2.2 L (3.5-5.0) g/dL Triglycerides 343.00 H (0.00-149.00) mg/dL Calcium panel 01/01/21 01/02/21 Range/Units 12:41 03:52 Calcium 8.0 L 7.9 L (8.4-10.2) mg/dL Albumin 2.4 L 2.2 L (3.5-5.0) g/dL Pituitary panel 01/01/21 01/02/21 Range/Units 12:41 03:52 Sodium 147 H 140 (137-145) mmol/L Potassium 5.5 H 5.5 H (3.5-5.1) mmol/L Chloride 107 102 (98-107) mmol/L Carbon Dioxide 36 H 33 H (22-30) mmol/L BUN 114 H* 136 H* (9-20) mg/dL Creatinine 3.04 H 4.02 H (0.66-1.25) mg/dL Glucose 163 H 139 H (74-99) mg/dL Calcium 8.0 L 7.9 L (8.4-10.2) mg/dL Adrenal panel 01/01/21 01/02/21 Range/Units 12:41 03:52 Sodium 147 H 140 (137-145) mmol/L Potassium 5.5 H 5.5 H (3.5-5.1) mmol/L Chloride 107 102 (98-107) mmol/L Carbon Dioxide 36 H 33 H (22-30) mmol/L BUN 114 H* 136 H* (9-20) mg/dL Creatinine 3.04 H 4.02 H (0.66-1.25) mg/dL Glucose 163 H 139 H (74-99) mg/dL Calcium 8.0 L 7.9 L (8.4-10.2) mg/dL Total Bilirubin 0.5 0.5 (0.2-1.3) mg/dL AST 38 38 (17-59) U/L ALT 45 43 (4-49) U/L Alkaline Phosphatase 117 113 (38-126) U/L Total Protein 5.4 L 5.0 L (6.3-8.2) g/dL Albumin 2.4 L 2.2 L (3.5-5.0) g/dL
--- NOTE | 2021-01-02 11:06 | P.PCN ---
Description of Procedure: Preoperative diagnoses is acute kidney injury secondary to COVID-19 Postoperative same with high potassium high BUN/creatinine Procedure right groin was prepped and draped applied in standard manner ultrasound-guided micropuncture to right femoral vein micropuncture guidewire was passed and 4.2 and was supple guidewire then we passed a regular guidewire without any resistance. Dilator was advanced. The guidewire then we placed a dialysis catheter free flow was noted flushed with heparin saline and Hep-Lock secured with 3-0 nylon patient tolerated the procedure well
[2021-01-02 11:19] LABS: Glucose,Whole Blood 127 mg/dL (75-99)
--- NOTE | 2021-01-02 16:40 | P.PN ---
Subjective Progress Note Date: 01/02/21 65 years old male patient who was admitted for COVID-19 pneumonia and respiratory failure, patient initially was on nasal cannula and then required BiPAP, patient then was intubated on 12/26/2020. Patient was COVID-19 positive, no history of vaccination, sputum culture also positive for MSSA, Patient is currently being treated with dexamethasone and vancomycin cefepime, currently on mechanical ventilator, with ARDS protocol low tidal volume mechanical ventilation and permissive hypercapnia. Patient is being treated with vasopressor Levophed for septic shock, Patient clinical addition worsening with multiorgan failure, patient has oliguria, patient now requiring hemodialysis. Pulmonary medicine and critical care and nephrology following. Progressive clinical worsening, meaningful recovery at this point seems less likely. Family reluctant to consider hospice or de-escalation of care at this point. Patient remains full code. Patient seen at bedside, currently intubated sedated on mechanical ventilator. Patient urine output decreased, dialysis catheter placed, nephrology planning to start hemodialysis. Plan discussed with nursing staff. Objective - Vital Signs Vital signs: Vital Signs Temp 99 F 01/02/21 04:00 Pulse 118 H 01/02/21 15:30 Resp 36 H 01/02/21 15:30 BP 112/57 01/02/21 15:30 Pulse Ox 81 L 01/02/21 15:30 Intake & Output 01/01/21 01/02/21 01/02/21 18:59 06:59 18:59 Intake Total 3054.097 2272.327 514.678 Output Total 1175 401 15 Balance 4658.841 8313.327 499.678 Intake: IV 1014 858 78 .9 pressure bag 39 33 3 Dextrose 5% in Water 1, 375 000 ml @ 75 mls/hr IV . [id number] [facility] Rx#:[id number] Sodium Chloride 0.9% 1, 600 825 75 000 ml @ 75 mls/hr IV . [id number] [facility] Rx#:[id number] Intake, IV Titration 684.097 396.327 398.678 Amount Cefepime 2 gm In Sodium 100 Chloride 0.9% 100 ml @ 25 mls/hr IVPB Q12HR [facility] Rx #:[id number] Cisatracurium 200 mg In 175.807 149.953 Sodium Chloride 0.9% 180 ml @ 1 MCG/KG/MIN 5.004 mls/hr IV .Q24H [facility] Rx#: [id number] Norepinephrine 4 mg In 254 Sodium Chloride 0.9% 250 ml @ 0.05 MCG/KG/MIN 15. 888 mls/hr IV .Q16H [facility] Rx#:[id number] Norepinephrine 8 mg In 96.183 Sodium Chloride 0.9% 250 ml @ 0.05 MCG/KG/MIN 8. 069 mls/hr IV .Q24H [facility] Rx#:[id number] propofoL 1,000 mg In 254.290 296.327 152.542 Empty Bag 1 bag @ Titrate IV .Q0M [facility] Rx#: [id number] Tube Feeding 456 418 38 Other 900 600 Output: Urine 1175 401 15 Other: Voiding Method Indwelling Catheter Indwelling Catheter ABP, PAP, CO, CI - Last Documented Arterial Blood Pressure 105/51 Patient is currently intubated, being treated for COVID-19 pneumonia, full physical examination was avoided to preserve PPE and avoid extra exposure. General: No acute distress sedated and intubated on mechanical ventilator Head: atraumatic, normocephalic, symmetric Eyes: no lid lesion], anicteric sclera Mouth: no lip lesion, mucus membranes moist Abdominal: soft, nontender to palpation, no guarding, no appreciable organomegaly Ext: no gross muscle atrophy, no edema extremities warm to suppose a positive Neuro: Patient is currently intubated, exam grossly nonfocal but full examination cannot be done due to clinical condition Skin exam: No rashes no jaundice. - Labs CBC & Chem 7: 01/02/21 03:52 01/02/21 13:24 Labs: Abnormal Lab Results - Last 24 Hours (Table) 01/01/21 01/01/21 01/01/21 Range/Units 08:23 18:14 23:48 WBC (3.8-10.6) k/uL RBC (4.30-5.90) m/uL Hgb (13.0-17.5) gm/dL Hct (39.0-53.0) % MCV (80.0-100.0) fL MCHC (31.0-37.0) g/dL Plt Count (150-450) k/uL Neutrophils # (1.3-7.7) k/uL D-Dimer (<0.60) mg/L FEU ABG pH (7.35-7.45) ABG pCO2 (35-45) mmHg ABG pO2 (83-108) mmHg ABG HCO3 (21-25) mmol/L ABG Total CO2 (19-24) mmol/L ABG O2 Saturation (94-97) % Potassium (3.5-5.1) mmol/L Carbon Dioxide (22-30) mmol/L BUN (9-20) mg/dL Creatinine (0.66-1.25) mg/dL Glucose (74-99) mg/dL POC Glucose (mg/dL) 135 H 107 H (75-99) mg/dL Calcium (8.4-10.2) mg/dL Lactate Dehydrogenase (313-618) U/L C-Reactive Protein (<1.0) mg/dL Total Protein (6.3-8.2) g/dL Albumin (3.5-5.0) g/dL Triglycerides 343.00 H (0.00-149.00) mg/dL 01/02/21 01/02/21 01/02/21 Range/Units 03:52 03:52 03:52 WBC 16.2 H (3.8-10.6) k/uL RBC 3.15 L (4.30-5.90) m/uL Hgb 9.9 L (13.0-17.5) gm/dL Hct 33.0 L (39.0-53.0) % MCV 104.8 H (80.0-100.0) fL MCHC 30.2 L (31.0-37.0) g/dL Plt Count 127 L (150-450) k/uL Neutrophils # 14.6 H (1.3-7.7) k/uL D-Dimer 3.86 H (<0.60) mg/L FEU ABG pH (7.35-7.45) ABG pCO2 (35-45) mmHg ABG pO2 (83-108) mmHg ABG HCO3 (21-25) mmol/L ABG Total CO2 (19-24) mmol/L ABG O2 Saturation (94-97) % Potassium 5.5 H (3.5-5.1) mmol/L Carbon Dioxide 33 H (22-30) mmol/L BUN 136 H* (9-20) mg/dL Creatinine 4.02 H (0.66-1.25) mg/dL Glucose 139 H (74-99) mg/dL POC Glucose (mg/dL) (75-99) mg/dL Calcium 7.9 L (8.4-10.2) mg/dL Lactate Dehydrogenase 1274 H (313-618) U/L C-Reactive Protein 6.8 H (<1.0) mg/dL Total Protein 5.0 L (6.3-8.2) g/dL Albumin 2.2 L (3.5-5.0) g/dL Triglycerides (0.00-149.00) mg/dL 01/02/21 01/02/21 01/02/21 Range/Units 05:26 06:48 11:18 WBC (3.8-10.6) k/uL RBC (4.30-5.90) m/uL Hgb (13.0-17.5) gm/dL Hct (39.0-53.0) % MCV (80.0-100.0) fL MCHC (31.0-37.0) g/dL Plt Count (150-450) k/uL Neutrophils # (1.3-7.7) k/uL D-Dimer (<0.60) mg/L FEU ABG pH 7.15 L* (7.35-7.45) ABG pCO2 103 H* (35-45) mmHg ABG pO2 42 L* (83-108) mmHg ABG HCO3 36 H (21-25) mmol/L ABG Total CO2 39 H (19-24) mmol/L ABG O2 Saturation 69.4 L (94-97) % Potassium (3.5-5.1) mmol/L Carbon Dioxide (22-30) mmol/L BUN (9-20) mg/dL Creatinine (0.66-1.25) mg/dL Glucose (74-99) mg/dL POC Glucose (mg/dL) 137 H 127 H (75-99) mg/dL Calcium (8.4-10.2) mg/dL Lactate Dehydrogenase (313-618) U/L C-Reactive Protein (<1.0) mg/dL Total Protein (6.3-8.2) g/dL Albumin (3.5-5.0) g/dL Triglycerides (0.00-149.00) mg/dL 01/02/21 Range/Units 13:24 WBC (3.8-10.6) k/uL RBC (4.30-5.90) m/uL Hgb (13.0-17.5) gm/dL Hct (39.0-53.0) % MCV (80.0-100.0) fL MCHC (31.0-37.0) g/dL Plt Count (150-450) k/uL Neutrophils # (1.3-7.7) k/uL D-Dimer (<0.60) mg/L FEU ABG pH (7.35-7.45) ABG pCO2 (35-45) mmHg ABG pO2 (83-108) mmHg ABG HCO3 (21-25) mmol/L ABG Total CO2 (19-24) mmol/L ABG O2 Saturation (94-97) % Potassium 6.7 H* (3.5-5.1) mmol/L Carbon Dioxide (22-30) mmol/L BUN (9-20) mg/dL Creatinine (0.66-1.25) mg/dL Glucose (74-99) mg/dL POC Glucose (mg/dL) (75-99) mg/dL Calcium (8.4-10.2) mg/dL Lactate Dehydrogenase (313-618) U/L C-Reactive Protein (<1.0) mg/dL Total Protein (6.3-8.2) g/dL Albumin (3.5-5.0) g/dL Triglycerides (0.00-149.00) mg/dL Microbiology - Last 24 Hours (Table) 12/29/20 14:16 Blood Culture - Preliminary Blood No Growth after 96 hours 12/28/20 12:18 Blood Culture - Preliminary Blood No Growth after 120 hours 12/29/20 22:09 Blood Culture - Preliminary Blood No Growth after 72 hours 12/29/20 22:09 Blood Culture - Preliminary Blood No Growth after 72 hours Assessment and Plan Assessment: Acute hypoxic respiratory failure, Sepsis and ARDS, in the setting of COVID-19 pneumonia, sputum also positive for MSSA -Continue mechanical ventilation, per pulmonary medicine and critical care recommendation -Continue dexamethasone and vancomycin cefepime, bronchodilator treatment -Overall poor prognosis -If patient does not improve clinically will consider hospice evaluation Subcutaneous emphysema due to barotrauma from areas and mechanical ventilation Stable, continue supportive care, pulmonary medicine and critical care following Acute kidney injury with hyperkalemia and fluid overload , patient has oliguria, Acute kidney injury likely due to prerenal component and 18 in the setting of above Drop in urine output, creatinine is up to 4 and the patient has a component of hyperkalemia Continue Lasix currently on 80 mg IV twice a day Nephrology following and recommending starting hemodialysis Hyperglycemia without diagnosis of diabetes Continue current insulin regimen Hypertension History of hypertension currently patient hypotensive requiring vasopressor Continue to hold antihypertensive medication Patient currently on Levophed DVT prophylaxis: Lovenox CODE STATUS: Full code Discharge plan/next site of care: Pending hospital course, overall poor prognosis, consider hospice evaluation in case patient continues to get worse
[2021-01-02 17:06] LABS: Glucose,Whole Blood 154 mg/dL (75-99)
[2021-01-02 17:07] LABS: ABG Oxygen Saturation 85.5 % (94-97); ABG PO2 61 mmHg (83-108)
[2021-01-02 17:10] LABS: ABG PCO2 >120 mmHg (35-45); ABG PH 7.03 (7.35-7.45)
[2021-01-02 17:28] LABS: Albumin 2.5 g/dL (3.5-5.0); Calcium 7.6 mg/dL (8.4-10.2); Total Bilirubin 1.1 mg/dL (0.2-1.3); Total Protein 5.7 g/dL (6.3-8.2)
[2021-01-02] MEDS ORDERED: CALCIUM GLUCONATE 1 GM in SODIUM CHLORIDE 0.9% 100 ML IVPB ONE (17:30)
[2021-01-02 17:34] LABS: Potassium 6.7 mmol/L (3.5-5.1)
[2021-01-02 20:17] LABS: ABG Base Excess 2.7 mmol/L; ABG HCO3 32 mmol/L (21-25); ABG Oxygen Saturation 84.4 % (94-97); ABG TCO2 36 mmol/L (19-24); Allen Test Performed? Yes
[2021-01-02 20:22] LABS: ABG PCO2 104 mmHg (35-45); ABG PO2 57 mmHg (83-108)
[2021-01-02] MEDS: HYDROmorphone 1 MG/ML 1 ML SYRINGE IVP PRN (20:37)
[2021-01-02 20:52] LABS: Albumin 2.4 g/dL (3.5-5.0); Calcium 7.8 mg/dL (8.4-10.2); Total Bilirubin 0.9 mg/dL (0.2-1.3); Total Protein 5.5 g/dL (6.3-8.2)
[2021-01-02 21:04] LABS: Potassium 6.8 mmol/L (3.5-5.1)
[2021-01-02] MEDS ORDERED: ALBUTEROL NEB (CONC) 2.5 MG/0.5 ML INHALATION ONE (21:26)
[2021-01-02] MEDS ORDERED: INSULIN REGULAR 100 UNIT/ML VIAL (IV) IV ONE (21:27)
[2021-01-02] MEDS ORDERED: DEXTROSE 50% SYRINGE 50 ML IVP ONE (21:27)
[2021-01-02 23:08] LABS: Hepatitis B Surface AB- Quant 3.5 mIU/mL; Hepatitis B Surface Antibody Nonreactive (Nonreactive); Hepatitis B Surface Antigen Nonreactive (Nonreactive)
[2021-01-02 23:52] LABS: Glucose,Whole Blood 128 mg/dL (75-99)
[2021-01-03] MEDS: ARTIFICIAL TEARS-HYPROMELLOSE DROPS 15 ML BTL BOTH EYES SCH ×6 (00:01→20:53)
[2021-01-03] MEDS: INSULIN ASPART (NovoLOG) 100 UNIT/ML VIAL SQ SCH ×4 (00:02→18:07)
[2021-01-03] MEDS: NOREPINEPHRINE 8 MG in SODIUM CHLORIDE 0.9% 250 ML IV SCH ×6 (00:46→19:24)
[2021-01-03] MEDS: HYDROmorphone 1 MG/ML 1 ML SYRINGE IVP PRN ×2 (00:47→03:44)
[2021-01-03] MEDS: CISATRACURIUM 200 MG in SODIUM CHLORIDE 0.9% 180 ML IV SCH ×2 (03:05→20:33)
[2021-01-03] MEDS: ACETAMINOPHEN TAB 325 MG TAB PO PRN ×2 (04:02→20:38)
[2021-01-03 04:10] LABS: Basophils # (A) 0.2 k/uL (0-0.2); Basophils % (A) 1 %; Eosinophils # (A) 0.1 k/uL (0-0.7); Eosinophils % (A) 1 %; HCT 26.9 % (39.0-53.0); HGB 8.5 gm/dL (13.0-17.5); Hypochromasia Slight; Lymphocytes # (A) 0.7 k/uL (1.0-4.8); Lymphocytes % (A) 3 %; MCH 32.4 pg (25.0-35.0); MCHC 31.8 g/dL (31.0-37.0); Macrocytosis Slight; Mean Platelet Volume 8.9; Monocytes # (A) 0.7 k/uL (0-1.0); Monocytes % (A) 3 %; Neutrophils # (A) 22.2 k/uL (1.3-7.7); Neutrophils % (A) 92 %; Platelet Count 113 k/uL (150-450); RBC 2.64 m/uL (4.30-5.90); RDW 13.2 % (11.5-15.5); WBC 24.1 k/uL (3.8-10.6)
[2021-01-03 04:31] LABS: Albumin 2.2 g/dL (3.5-5.0); Calcium 7.6 mg/dL (8.4-10.2); Total Bilirubin 0.7 mg/dL (0.2-1.3); Total Protein 4.9 g/dL (6.3-8.2)
[2021-01-03 04:39] LABS: Potassium 6.6 mmol/L (3.5-5.1)
[2021-01-03 05:35] LABS: Allen Test Performed? Yes
[2021-01-03 05:46] LABS: ABG Base Excess -1.1 mmol/L; ABG HCO3 31 mmol/L (21-25); ABG PCO2 114 mmHg (35-45); ABG PH 7.06 (7.35-7.45); ABG PO2 68 mmHg (83-108)
[2021-01-03 06:11] LABS: C Reactive Protein 15.7 mg/dL (<1.0)
[2021-01-03] MEDS: INSULIN DETEMIR (LEVEMIR) 100 UNIT/ML SYR SQ SCH (06:48)
[2021-01-03] MEDS: ALBUTEROL HFA INHALER INHALATION SCH ×4 (07:55→21:06)
[2021-01-03] MEDS: PANTOPRAZOLE 40 MG/10 ML VIAL IVP SCH (09:08)
[2021-01-03] MEDS: FUROSEMIDE 10 MG/ML 10 ML VIAL IV SCH (09:08)
[2021-01-03] MEDS: DEXAMETHASONE SOD PHOSPHATE 10 MG/ML 1 ML VIAL IV SCH (09:09)
[2021-01-03] MEDS: ASCORBIC ACID 500 MG TAB PO SCH (09:09)
[2021-01-03] MEDS: CHOLECALCIFEROL 25 MCG (1000 IU) TABLET PO SCH (09:09)
[2021-01-03] MEDS: ENOXAPARIN 40 MG/0.4 ML SYRINGE SQ SCH (09:09)
[2021-01-03] MEDS: CHLORHEXIDINE GLUCONATE 15 ML CUP MUCOUS MEM SCH ×2 (09:09→20:38)
[2021-01-03] MEDS: ZINC SULFATE 220 MG CAP PO SCH (09:09)
[2021-01-03] MEDS: LACTOBACILLUS ACIDOPH & BULGAR 1 EACH PACKET PO SCH ×2 (09:10→20:39)
--- NOTE | 2021-01-03 10:38 | P.PN ---
Subjective Patient is seen in follow-up for acute kidney injury. Started on hemodialysis yesterday but did not tolerate the treatment well and had to be discontinued. This morning he was seen was undergoing hemodialysis patient's blood pressure is in the systolic 60s despite doing SLED. He is 100% FiO2. Potassium was 6.6 this morning. Oliguric. Hemodynamically unstable. Irregular rhythm. Hypotensive on vasopressor support. HEENT: Intubated. LUNGS: Breath sounds decreased. HEART: Irregular rate and rhythm. ABDOMEN: Soft, no distention. EXTREMITITES: 2+ edema. Objective - Vital Signs Vital signs: Vital Signs Temp 101.2 F H 01/03/21 04:00 Pulse 147 H 01/03/21 10:15 Resp 40 H 01/03/21 10:15 BP 114/58 01/03/21 06:00 Pulse Ox 72 L 01/03/21 10:15 Intake & Output 01/02/21 01/03/21 01/03/21 18:59 06:59 18:59 Intake Total 2165.912 2221.082 471 Output Total 555 20 5 Balance 5035.789 1142.082 466 Weight 83.4 kg Intake: IV 345 176 69 .9 pressure bag 30 36 9 Calcium Gluconate 1 gm In 100 Sodium Chloride 0.9% 100 ml @ 100 mls/hr IVPB ONCE ONE Rx#:[id number] Sodium Chloride 0.9% 1, 140 140 60 000 ml @ 20 mls/hr IV . Q24H [facility] Rx#:[id number] Sodium Chloride 0.9% 1, 75 000 ml @ 75 mls/hr IV . [id number] [facility] Rx#:[id number] Intake, IV Titration 963.589 8395.082 258 Amount Cisatracurium 200 mg In 149.953 180.144 Sodium Chloride 0.9% 180 ml @ 1 MCG/KG/MIN 5.004 mls/hr IV .Q24H [facility] Rx#: [id number] Norepinephrine 8 mg In 881.396 4642.802 258 Sodium Chloride 0.9% 250 ml @ 0.05 MCG/KG/MIN 8. 069 mls/hr IV .Q24H [facility] Rx#:[id number] propofoL 1,000 mg In 236.776 270.136 Empty Bag 1 bag @ Titrate IV .Q0M [facility] Rx#: [id number] Tube Feeding 380 266 114 Hemodialysis 500 Other 200 100 30 Output: Urine 55 20 5 Hemodialysis 500 Other: Voiding Method Indwelling Catheter Indwelling Catheter Indwelling Catheter ABP, PAP, CO, CI - Last Documented Arterial Blood Pressure 68/48 - Labs CBC & Chem 7: 01/03/21 03:50 01/03/21 Unknown Labs: Abnormal Lab Results - Last 24 Hours (Table) 01/02/21 01/02/21 01/02/21 Range/Units 11:18 13:24 17:01 WBC (3.8-10.6) k/uL RBC (4.30-5.90) m/uL Hgb (13.0-17.5) gm/dL Hct (39.0-53.0) % MCV (80.0-100.0) fL Plt Count (150-450) k/uL Neutrophils # (1.3-7.7) k/uL Lymphocytes # (1.0-4.8) k/uL D-Dimer (<0.60) mg/L FEU ABG pH 7.03 L* (7.35-7.45) ABG pCO2 >120 H* (35-45) mmHg ABG pO2 61 L (83-108) mmHg ABG HCO3 (21-25) mmol/L ABG Total CO2 (19-24) mmol/L ABG O2 Saturation 85.5 L (94-97) % Potassium 6.7 H* (3.5-5.1) mmol/L Carbon Dioxide (22-30) mmol/L BUN (9-20) mg/dL Creatinine (0.66-1.25) mg/dL Glucose (74-99) mg/dL POC Glucose (mg/dL) 127 H (75-99) mg/dL Calcium (8.4-10.2) mg/dL AST (17-59) U/L ALT (4-49) U/L Alkaline Phosphatase (38-126) U/L Lactate Dehydrogenase (313-618) U/L C-Reactive Protein (<1.0) mg/dL Total Protein (6.3-8.2) g/dL Albumin (3.5-5.0) g/dL 01/02/21 01/02/21 01/02/21 Range/Units 17:05 17:09 20:11 WBC (3.8-10.6) k/uL RBC (4.30-5.90) m/uL Hgb (13.0-17.5) gm/dL Hct (39.0-53.0) % MCV (80.0-100.0) fL Plt Count (150-450) k/uL Neutrophils # (1.3-7.7) k/uL Lymphocytes # (1.0-4.8) k/uL D-Dimer (<0.60) mg/L FEU ABG pH 7.10 L* (7.35-7.45) ABG pCO2 104 H* (35-45) mmHg ABG pO2 57 L* (83-108) mmHg ABG HCO3 32 H (21-25) mmol/L ABG Total CO2 36 H (19-24) mmol/L ABG O2 Saturation 84.4 L (94-97) % Potassium 6.7 H* (3.5-5.1) mmol/L Carbon Dioxide 33 H (22-30) mmol/L BUN 129 H* (9-20) mg/dL Creatinine 3.83 H (0.66-1.25) mg/dL Glucose 155 H (74-99) mg/dL POC Glucose (mg/dL) 154 H (75-99) mg/dL Calcium 7.6 L (8.4-10.2) mg/dL AST 69 H (17-59) U/L ALT 64 H (4-49) U/L Alkaline Phosphatase (38-126) U/L Lactate Dehydrogenase (313-618) U/L C-Reactive Protein (<1.0) mg/dL Total Protein 5.7 L (6.3-8.2) g/dL Albumin 2.5 L (3.5-5.0) g/dL 01/02/21 01/02/21 01/03/21 Range/Units 20:14 23:50 03:50 WBC (3.8-10.6) k/uL RBC (4.30-5.90) m/uL Hgb (13.0-17.5) gm/dL Hct (39.0-53.0) % MCV (80.0-100.0) fL Plt Count (150-450) k/uL Neutrophils # (1.3-7.7) k/uL Lymphocytes # (1.0-4.8) k/uL D-Dimer (<0.60) mg/L FEU ABG pH (7.35-7.45) ABG pCO2 (35-45) mmHg ABG pO2 (83-108) mmHg ABG HCO3 (21-25) mmol/L ABG Total CO2 (19-24) mmol/L ABG O2 Saturation (94-97) % Potassium 6.8 H* 6.6 H* (3.5-5.1) mmol/L Carbon Dioxide 31 H (22-30) mmol/L BUN 138 H* 140 H* (9-20) mg/dL Creatinine 4.21 H 5.39 H (0.66-1.25) mg/dL Glucose 136 H 131 H (74-99) mg/dL POC Glucose (mg/dL) 128 H (75-99) mg/dL Calcium 7.8 L 7.6 L (8.4-10.2) mg/dL AST 66 H (17-59) U/L ALT 61 H 57 H (4-49) U/L Alkaline Phosphatase 128 H (38-126) U/L Lactate Dehydrogenase 1462 H (313-618) U/L C-Reactive Protein 15.7 H (<1.0) mg/dL Total Protein 5.5 L 4.9 L (6.3-8.2) g/dL Albumin 2.4 L 2.2 L (3.5-5.0) g/dL 01/03/21 01/03/21 01/03/21 Range/Units 03:50 03:50 05:25 WBC 24.1 H (3.8-10.6) k/uL RBC 2.64 L (4.30-5.90) m/uL Hgb 8.5 L (13.0-17.5) gm/dL Hct 26.9 L (39.0-53.0) % MCV 102.0 H (80.0-100.0) fL Plt Count 113 L (150-450) k/uL Neutrophils # 22.2 H (1.3-7.7) k/uL Lymphocytes # 0.7 L (1.0-4.8) k/uL D-Dimer 5.24 H (<0.60) mg/L FEU ABG pH 7.06 L* (7.35-7.45) ABG pCO2 114 H* (35-45) mmHg ABG pO2 68 L (83-108) mmHg ABG HCO3 31 H (21-25) mmol/L ABG Total CO2 (19-24) mmol/L ABG O2 Saturation 86.0 L (94-97) % Potassium (3.5-5.1) mmol/L Carbon Dioxide (22-30) mmol/L BUN (9-20) mg/dL Creatinine (0.66-1.25) mg/dL Glucose (74-99) mg/dL POC Glucose (mg/dL) (75-99) mg/dL Calcium (8.4-10.2) mg/dL AST (17-59) U/L ALT (4-49) U/L Alkaline Phosphatase (38-126) U/L Lactate Dehydrogenase (313-618) U/L C-Reactive Protein (<1.0) mg/dL Total Protein (6.3-8.2) g/dL Albumin (3.5-5.0) g/dL 01/03/21 Range/Units Unknown WBC (3.8-10.6) k/uL RBC (4.30-5.90) m/uL Hgb (13.0-17.5) gm/dL Hct (39.0-53.0) % MCV (80.0-100.0) fL Plt Count (150-450) k/uL Neutrophils # (1.3-7.7) k/uL Lymphocytes # (1.0-4.8) k/uL D-Dimer (<0.60) mg/L FEU ABG pH (7.35-7.45) ABG pCO2 (35-45) mmHg ABG pO2 (83-108) mmHg ABG HCO3 (21-25) mmol/L ABG Total CO2 (19-24) mmol/L ABG O2 Saturation (94-97) % Potassium 6.5 H* (3.5-5.1) mmol/L Carbon Dioxide (22-30) mmol/L BUN (9-20) mg/dL Creatinine (0.66-1.25) mg/dL Glucose (74-99) mg/dL POC Glucose (mg/dL) (75-99) mg/dL Calcium (8.4-10.2) mg/dL AST (17-59) U/L ALT (4-49) U/L Alkaline Phosphatase (38-126) U/L Lactate Dehydrogenase (313-618) U/L C-Reactive Protein (<1.0) mg/dL Total Protein (6.3-8.2) g/dL Albumin (3.5-5.0) g/dL Microbiology - Last 24 Hours (Table) 12/29/20 22:09 Blood Culture - Preliminary Blood No Growth after 96 hours 12/29/20 22:09 Blood Culture - Preliminary Blood No Growth after 96 hours 12/29/20 14:16 Blood Culture - Preliminary Blood No Growth after 96 hours 12/28/20 12:18 Blood Culture - Preliminary Blood No Growth after 120 hours Assessment and Plan Plan: Assessment: 1. Acute kidney injury secondary to ATN secondary to septic shock/COVID-19 infection. Oliguric. Renal function worsening. 2. Hyperkalemia secondary to acute kidney injury. 3. COVID-19 pneumonia. 4. Septic shock on vasopressor support. On Levophed. 5. Acute hypoxic and hypercapnic respiratory failure on 100% FiO2 support. Plan: Currently seen while undergoing SLED. Patient is hemodynamically too stable to continue with further treatment. Daughter will be coming up soon. Comfort measures have been discussed. Prognosis guarded.
--- NOTE | 2021-01-03 10:44 | XR ---
EXAMINATION TYPE: XR chest 1V portable DATE OF EXAM: 01/03/2021 COMPARISON: Chest x-ray 01/02/2021 HISTORY: Intubated, cochlea Frontal view of the chest is submitted and correlated prior exam 01/02/2021 Endotracheal tube and NG tube are overlying appropriate positions. There is extensive subcutaneous em physema, pneumomediastinum change. Cardiac mediastinal silhouette is stable. Aorta is dense. There is no evident pneumothorax or pleural effusion. Bilateral airspace disease is again seen. Left-sided PI CC line is noted with distal tip courses to the level of the innominate vein on the left. There are o verlying artifacts. IMPRESSION: Findings are similar to prior exam, consider ARDS, pneumonia, edema.
[2021-01-03] MEDS: CEFEPIME 1 GM in SODIUM CHLORIDE 0.9% 50 ML IVPB SCH ×2 (11:05→20:38)
[2021-01-03] MEDS: SODIUM CHLORIDE 0.9% 1,000 ML IV SCH (12:29)
[2021-01-03 12:33] LABS: Glucose,Whole Blood 148 mg/dL (75-99)
[2021-01-03 12:40] VITALS: RESP 40
--- NOTE | 2021-01-03 13:26 | P.PN ---
Subjective Progress Note Date: 01/03/21 Principal diagnosis: Acute hypoxic respiratory failure secondary to acute COVID-19 pneumonia 01/02/2021, the patient is clinically worse. Since yesterday, the patient is developing worsening renal function worsening and hypoxemia. This morning, the patient is being seen in follow-up. The patient remains sedated and paralyzed. Currently is on propofol at 50 mg/kg per minute and he is also Nimbex at 2 mcg/kg per minute. He is well sedated and paralyzed. He is very much in terested the mechanical ventilator. He is currently a volume cycled assist- control mode of mechanical ventilation with a tidal volume of 360, FiO2 of 75% which was brought up to 100% with a PEEP of 12 and a respiratory rate of 36. The patient was developing hypoxemia with a pulse ox in the low 80s. At that point, blood gases was done this morning and it showed a pH of 7.15 with a pCO2 of 103 and pO2 42. FiO2 was brought up to 100%. Furthermore, increase the PEEP up to 15. Along with this change, the peak airway pressure for now is 41. Static pressure is 39. The follow-up chest x-ray from today showing diffuse by the pulmonary infiltrates with pneumonia. There is also evidence of sub cutaneous emphysema which remains unchanged compared to yesterday. It is mainly in the neck and the upper chest area. ET tube is about 3 cm above the glynn, for the most part it's in a good location. No significant orotracheal secretions. The most recent sputum culture came back positive for MSSA. I discontinue the vancomycin and The patient only on IV cefepime. Hemodynamically, his blood pressure is soft, lower on today's evaluation. His white cell count is at 16.2. He is on no pressors. He was receiving normal saline at rate of 75 mL's an hour. Urine output has dropped significantly and the patient has a producing around 10-50 mL an hour. Overall net fluid balance over the past 24 hours has been +2.5 L and later on +3.7 L over the past 24 hours. The patient received a dose of Lasix by nephrology. Dose of 60 mg IV push without any much improvement in his urine output. Meanwhile, the patient also has developed hyperkalemia with a potassium level of 5.5 today, BUN is at 1 36 with a creatinine of 4.02. As such, there is not a component of ATN and progressive worsening his renal function with a past 24-48 hours. LDH level is at 1274, CRP level is at 6.8, serum bicarbonate 33,. The patient continues receiving enteral feeding for nutritional support. He is tolerating his diet. No aspiration. Sodium is up from 147-140. The patient was on D5 water which will be discontinued today. We'll keep the patient's IV fluids to KVO. His taken also NG water flushes regarding his hyperlipidemia which will be also dropped to 100cc 4 times a day. Patient was reevaluated today on 01/03/21, patient remains in the ICU, extremely ill, critically ill, remains intubated and mechanically ventilated. Patient is on assist control rate of 40 volume 375 FiO2 on the percent PEEP of 15. ABG this morning showed a pO2 of 68 pCO2 114 pH of 7.06. Patient is requiring significant amount of norepinephrine 0.9 mcg/kg/m. Remains on propofol at 50 mcg/kg/m, and he is also on Nimbex. IV fluids at KVO. Patient was being dialyzed, however because of his blood pressure, does not seem to be tolerating hemodialysis well. And I believe it is about to be discontinued. Updated the daughter at bedside. Please refer to notes below regarding my discussion with the daughter. Chest x-ray continues to show worsening bilateral infiltrates. And significant subcu emphysema but there is no evidence of pneumothorax,. WBC count is 24.1 hemoglobin is 8.5. Electrolytes were reviewed, potassium is high at 6.6 renal profile is worsening with a BUN of 140 creatinine 5.39. Inflammatory markers remain elevated with LDH of 1462 and C-reactive protein of 15.7. Liver enzymes are relatively within normal. Patient remains on bronchodilators, multivitamins, cefepime, Peridex, Decadron 6 mg IV push daily, Lovenox 40 mg subcu daily, Lasix 80 mg IV push every 12 hours, Dilaudid when necessary, insulin, and to prednisone, and zinc. Objective - Vital Signs Vital signs: Vital Signs Temp 101.2 F H 01/03/21 10:45 Pulse 118 H 01/03/21 12:30 Resp 40 H 01/03/21 12:30 BP 121/60 01/03/21 12:30 Pulse Ox 84 L 01/03/21 12:30 Intake & Output 01/02/21 01/03/21 01/03/21 18:59 06:59 18:59 Intake Total 2165.912 2221.082 1384 Output Total 555 20 405 Balance 4643.452 2471.082 979 Weight 83.4 kg Intake: IV 345 176 138 .9 pressure bag 30 36 18 Calcium Gluconate 1 gm In 100 Sodium Chloride 0.9% 100 ml @ 100 mls/hr IVPB ONCE ONE Rx#:[id number] Sodium Chloride 0.9% 1, 140 140 120 000 ml @ 20 mls/hr IV . Q24H [facility] Rx#:[id number] Sodium Chloride 0.9% 1, 75 000 ml @ 75 mls/hr IV . [id number] [facility] Rx#:[id number] Intake, IV Titration 423.795 8780.082 258 Amount Cisatracurium 200 mg In 149.953 180.144 Sodium Chloride 0.9% 180 ml @ 1 MCG/KG/MIN 5.004 mls/hr IV .Q24H [facility] Rx#: [id number] Norepinephrine 8 mg In 588.633 8584.802 258 Sodium Chloride 0.9% 250 ml @ 0.05 MCG/KG/MIN 8. 069 mls/hr IV .Q24H [facility] Rx#:[id number] propofoL 1,000 mg In 236.776 270.136 Empty Bag 1 bag @ Titrate IV .Q0M [facility] Rx#: [id number] Tube Feeding 380 266 228 Hemodialysis 500 700 Other 200 100 60 Output: Urine 55 20 5 Hemodialysis 500 400 Other: Voiding Method Indwelling Catheter Indwelling Catheter Indwelling Catheter ABP, PAP, CO, CI - Last Documented Arterial Blood Pressure 85/57 - Exam GENERAL EXAM: Revealed a 65-year-old white male intubated, mechanically ventilated, sedated and paralyzed. HEAD: Normocephalic/atraumatic. EYES: Normal reaction of pupils, equal size. Conjunctiva pink, sclera white. Endotracheal tube and orogastric tube are intact. NOSE: Clear with pink turbinates. THROAT: No erythema or exudates. NECK: No masses, no JVD, no thyroid enlargement, no adenopathy. CHEST: Subcu emphysema is noted. Symmetrical chest expansion is noted. LUNGS: Rectal that the bases, no rhonchi and no wheezes. CVS: Distant S1 and S2, no S3 gallop. ABDOMEN: Soft, no megaly, no tenderness, no rebound, no guarding. EXTREMITIES: Fluid retention noted in both lower extremities, no clubbing, no cyanosis MUSCULOSKELETAL: Cannot assess, patient is sedated and paralyzed. SKIN: No rashes CENTRAL NERVOUS SYSTEM: Sedated and paralyzed, cannot assess otherwise. - Labs CBC & Chem 7: 01/03/21 03:50 01/03/21 Unknown Labs: Abnormal Lab Results - Last 24 Hours (Table) 01/02/21 01/02/21 01/02/21 Range/Units 13:24 17:01 17:05 WBC (3.8-10.6) k/uL RBC (4.30-5.90) m/uL Hgb (13.0-17.5) gm/dL Hct (39.0-53.0) % MCV (80.0-100.0) fL Plt Count (150-450) k/uL Neutrophils # (1.3-7.7) k/uL Lymphocytes # (1.0-4.8) k/uL D-Dimer (<0.60) mg/L FEU ABG pH 7.03 L* (7.35-7.45) ABG pCO2 >120 H* (35-45) mmHg ABG pO2 61 L (83-108) mmHg ABG HCO3 (21-25) mmol/L ABG Total CO2 (19-24) mmol/L ABG O2 Saturation 85.5 L (94-97) % Potassium 6.7 H* (3.5-5.1) mmol/L Carbon Dioxide (22-30) mmol/L BUN (9-20) mg/dL Creatinine (0.66-1.25) mg/dL Glucose (74-99) mg/dL POC Glucose (mg/dL) 154 H (75-99) mg/dL Calcium (8.4-10.2) mg/dL AST (17-59) U/L ALT (4-49) U/L Alkaline Phosphatase (38-126) U/L Lactate Dehydrogenase (313-618) U/L C-Reactive Protein (<1.0) mg/dL Total Protein (6.3-8.2) g/dL Albumin (3.5-5.0) g/dL 01/02/21 01/02/21 01/02/21 Range/Units 17:09 20:11 20:14 WBC (3.8-10.6) k/uL RBC (4.30-5.90) m/uL Hgb (13.0-17.5) gm/dL Hct (39.0-53.0) % MCV (80.0-100.0) fL Plt Count (150-450) k/uL Neutrophils # (1.3-7.7) k/uL Lymphocytes # (1.0-4.8) k/uL D-Dimer (<0.60) mg/L FEU ABG pH 7.10 L* (7.35-7.45) ABG pCO2 104 H* (35-45) mmHg ABG pO2 57 L* (83-108) mmHg ABG HCO3 32 H (21-25) mmol/L ABG Total CO2 36 H (19-24) mmol/L ABG O2 Saturation 84.4 L (94-97) % Potassium 6.7 H* 6.8 H* (3.5-5.1) mmol/L Carbon Dioxide 33 H 31 H (22-30) mmol/L BUN 129 H* 138 H* (9-20) mg/dL Creatinine 3.83 H 4.21 H (0.66-1.25) mg/dL Glucose 155 H 136 H (74-99) mg/dL POC Glucose (mg/dL) (75-99) mg/dL Calcium 7.6 L 7.8 L (8.4-10.2) mg/dL AST 69 H 66 H (17-59) U/L ALT 64 H 61 H (4-49) U/L Alkaline Phosphatase (38-126) U/L Lactate Dehydrogenase (313-618) U/L C-Reactive Protein (<1.0) mg/dL Total Protein 5.7 L 5.5 L (6.3-8.2) g/dL Albumin 2.5 L 2.4 L (3.5-5.0) g/dL 01/02/21 01/03/21 01/03/21 Range/Units 23:50 03:50 03:50 WBC (3.8-10.6) k/uL RBC (4.30-5.90) m/uL Hgb (13.0-17.5) gm/dL Hct (39.0-53.0) % MCV (80.0-100.0) fL Plt Count (150-450) k/uL Neutrophils # (1.3-7.7) k/uL Lymphocytes # (1.0-4.8) k/uL D-Dimer 5.24 H (<0.60) mg/L FEU ABG pH (7.35-7.45) ABG pCO2 (35-45) mmHg ABG pO2 (83-108) mmHg ABG HCO3 (21-25) mmol/L ABG Total CO2 (19-24) mmol/L ABG O2 Saturation (94-97) % Potassium 6.6 H* (3.5-5.1) mmol/L Carbon Dioxide (22-30) mmol/L BUN 140 H* (9-20) mg/dL Creatinine 5.39 H (0.66-1.25) mg/dL Glucose 131 H (74-99) mg/dL POC Glucose (mg/dL) 128 H (75-99) mg/dL Calcium 7.6 L (8.4-10.2) mg/dL AST (17-59) U/L ALT 57 H (4-49) U/L Alkaline Phosphatase 128 H (38-126) U/L Lactate Dehydrogenase 1462 H (313-618) U/L C-Reactive Protein 15.7 H (<1.0) mg/dL Total Protein 4.9 L (6.3-8.2) g/dL Albumin 2.2 L (3.5-5.0) g/dL 01/03/21 01/03/21 01/03/21 Range/Units 03:50 05:25 12:32 WBC 24.1 H (3.8-10.6) k/uL RBC 2.64 L (4.30-5.90) m/uL Hgb 8.5 L (13.0-17.5) gm/dL Hct 26.9 L (39.0-53.0) % MCV 102.0 H (80.0-100.0) fL Plt Count 113 L (150-450) k/uL Neutrophils # 22.2 H (1.3-7.7) k/uL Lymphocytes # 0.7 L (1.0-4.8) k/uL D-Dimer (<0.60) mg/L FEU ABG pH 7.06 L* (7.35-7.45) ABG pCO2 114 H* (35-45) mmHg ABG pO2 68 L (83-108) mmHg ABG HCO3 31 H (21-25) mmol/L ABG Total CO2 (19-24) mmol/L ABG O2 Saturation 86.0 L (94-97) % Potassium (3.5-5.1) mmol/L Carbon Dioxide (22-30) mmol/L BUN (9-20) mg/dL Creatinine (0.66-1.25) mg/dL Glucose (74-99) mg/dL POC Glucose (mg/dL) 148 H (75-99) mg/dL Calcium (8.4-10.2) mg/dL AST (17-59) U/L ALT (4-49) U/L Alkaline Phosphatase (38-126) U/L Lactate Dehydrogenase (313-618) U/L C-Reactive Protein (<1.0) mg/dL Total Protein (6.3-8.2) g/dL Albumin (3.5-5.0) g/dL 01/03/21 Range/Units Unknown WBC (3.8-10.6) k/uL RBC (4.30-5.90) m/uL Hgb (13.0-17.5) gm/dL Hct (39.0-53.0) % MCV (80.0-100.0) fL Plt Count (150-450) k/uL Neutrophils # (1.3-7.7) k/uL Lymphocytes # (1.0-4.8) k/uL D-Dimer (<0.60) mg/L FEU ABG pH (7.35-7.45) ABG pCO2 (35-45) mmHg ABG pO2 (83-108) mmHg ABG HCO3 (21-25) mmol/L ABG Total CO2 (19-24) mmol/L ABG O2 Saturation (94-97) % Potassium 6.5 H* (3.5-5.1) mmol/L Carbon Dioxide (22-30) mmol/L BUN (9-20) mg/dL Creatinine (0.66-1.25) mg/dL Glucose (74-99) mg/dL POC Glucose (mg/dL) (75-99) mg/dL Calcium (8.4-10.2) mg/dL AST (17-59) U/L ALT (4-49) U/L Alkaline Phosphatase (38-126) U/L Lactate Dehydrogenase (313-618) U/L C-Reactive Protein (<1.0) mg/dL Total Protein (6.3-8.2) g/dL Albumin (3.5-5.0) g/dL Microbiology - Last 24 Hours (Table) 12/29/20 22:09 Blood Culture - Preliminary Blood No Growth after 96 hours 12/29/20 22:09 Blood Culture - Preliminary Blood No Growth after 96 hours 12/29/20 14:16 Blood Culture - Preliminary Blood No Growth after 96 hours 12/28/20 12:18 Blood Culture - Preliminary Blood No Growth after 120 hours Assessment and Plan Assessment: Impression: Acute hypoxic respiratory failure secondary to COVID-19 pneumonia, refused rem desivir initially, not vaccinated, developed MSSA infection, hence remained on cefepime, patient is receiving permissive hypercapnia with significant respiratory acidosis and hyperkalemia. Acute COVID-19 pneumonia with diffuse pulmonary infiltrates and associated ARDS. Acute kidney injury with renal failure requiring hemodialysis, but the patient is not tolerating the hemodialysis. Hyperkalemia secondary to worsening respiratory acidosis and renal failure. Patient has metabolic and respiratory acidosis. MSSA pneumonia is being suspected. Remains on cefepime. Hypotension secondary to sepsis and septic shock. Elevated inflammatory markers secondary to acute COVID-19 pneumonia Enteral feeding for nutritional support, on Nepro. Recommendation: Considering the patient's clinical status is deteriorating, I have discussed his condition with the daughter at bedside, and she seems to be upset because I discussed the issue of vaccination with her about 2 weeks ago, and I recommended vaccination, but I explained to her the treatment will not change whether the patient is vaccinated or not. But she was made aware that vaccination would have definitely helped and her father may have not required intubation and mechanical ventilation. But I also explained to her that I respect her opinion about being anti-vaccination, and I expect her to do the same and respect my opinion about recommending vaccination. Overall the daughter seems to be upset that I even discussed the vaccination issue with her in the first place. I also discussed her father's medical condition, and explained to her that his prognosis is extremely poor, and updated her on his status. She is yet to make a decision about DO NOT RESUSCITATE CODE STATUS and comfort care measures. I also explained this situation to his who is also another patient with COVID-19 infection. On the floor. And she also did not make a decision about CODE STATUS. I also offered to the daughter possibly asking for another pulm onologist to take care of her father if she likes and I couldn't easily arrange for this if she prefers to have another recovery coach take care of him. She declined. In the meantime we will continue present supportive care measures. Continue ventilatory support. Continue hemodynamic support. Continue nutritional support. Continue IV cefepime. Continue Decadron. Continue Lasix and or hemodialysis. Address hyperkalemia and I would likely recommend sodium bicarb drip to keep the pH down although this is mostly respiratory in nature. And hopefully keep avoiding intermittent episodes of severe hyperkalemia. Again overall prognosis is extremely poor and guarded. Critical care time is over 40 minutes Time with Patient: Greater than 30
[2021-01-03] MEDS: DEXTROSE 5% IN WATER 1,000 ML with SODIUM BICARB (1 MEQ/ML) 150 ML IV SCH (14:13)
--- NOTE | 2021-01-03 15:03 | P.PN ---
Subjective Progress Note Date: 01/03/21 Principal diagnosis: COVID 19 65 years old male patient who was admitted for COVID-19 pneumonia and respiratory failure, patient initially was on nasal cannula and then required BiPAP, patient then was intubated on 12/26/2020. Patient was COVID-19 positive, no history of vaccination, sputum culture also positive for MSSA, Patient is currently being treated with dexamethasone and vancomycin cefepime, currently on mechanical ventilator, with ARDS protocol low tidal volume mechanical ventilation and permissive hypercapnia. Patient is being treated with vasopressor Levophed for septic shock, Patient clinical addition worsening with multiorgan failure, patient has oliguria, patient now requiring hemodialysis. Pulmonary medicine and critical care and nephrology following. Progressive clinical worsening, meaningful recovery at this point seems less likely. On 01/03/2021 family decided to make the patient DO NOT RESUSCITATE however still want full treatment. Patient was seen at bedside today. Both daughter and were in the room. I answered any questions that they had. Daughter said she is a nurse who works at [employer] and is wondering if we can switch him from Lasix to Bumex because it has a better response in her opinion. I told her that it would likely not make significant change to his prognosis however we can try the Bumex. I discussed the case with the ICU nurse. Per nurse patient could not tolerate dialysis today because he became hypotensive and tachycardic. Per ICU nurse pulmonology spoke with the family and later they changed his CODE STATUS to DO NOT RESUSCITATE. Objective - Vital Signs Vital signs: Vital Signs Temp 101.2 F H 01/03/21 10:45 Pulse 105 H 01/03/21 13:30 Resp 40 H 01/03/21 13:30 BP 73/30 01/03/21 13:30 Pulse Ox 85 L 01/03/21 13:30 Intake & Output 01/02/21 01/03/21 01/03/21 18:59 06:59 18:59 Intake Total 2165.912 2221.082 1506 Output Total 555 20 410 Balance 7181.422 7959.082 1096 Weight 83.4 kg Intake: IV 345 176 184 .9 pressure bag 30 36 24 Calcium Gluconate 1 gm In 100 Sodium Chloride 0.9% 100 ml @ 100 mls/hr IVPB ONCE ONE Rx#:[id number] Sodium Chloride 0.9% 1, 140 140 160 000 ml @ 20 mls/hr IV . Q24H [facility] Rx#:[id number] Sodium Chloride 0.9% 1, 75 000 ml @ 75 mls/hr IV . [id number] [facility] Rx#:[id number] Intake, IV Titration 867.334 1145.082 258 Amount Cisatracurium 200 mg In 149.953 180.144 Sodium Chloride 0.9% 180 ml @ 1 MCG/KG/MIN 5.004 mls/hr IV .Q24H [facility] Rx#: [id number] Norepinephrine 8 mg In 969.257 8905.802 258 Sodium Chloride 0.9% 250 ml @ 0.05 MCG/KG/MIN 8. 069 mls/hr IV .Q24H [facility] Rx#:[id number] propofoL 1,000 mg In 236.776 270.136 Empty Bag 1 bag @ Titrate IV .Q0M [facility] Rx#: [id number] Tube Feeding 380 266 304 Hemodialysis 500 700 Other 200 100 60 Output: Urine 55 20 10 Hemodialysis 500 400 Other: Voiding Method Indwelling Catheter Indwelling Catheter Indwelling Catheter ABP, PAP, CO, CI - Last Documented Arterial Blood Pressure 85/57 - Exam General examination - intubated and sedated Heart - + S1S2 no murmurs Lungs - diminished breath sounds bilaterally Abdomen soft NT ND +ve BS Extremities - No edema [employer] - unable to assess Psych - unable to assess - Labs CBC & Chem 7: 01/03/21 03:50 01/03/21 Unknown Labs: Abnormal Lab Results - Last 24 Hours (Table) 01/02/21 01/02/21 01/02/21 Range/Units 17:01 17:05 17:09 WBC (3.8-10.6) k/uL RBC (4.30-5.90) m/uL Hgb (13.0-17.5) gm/dL Hct (39.0-53.0) % MCV (80.0-100.0) fL Plt Count (150-450) k/uL Neutrophils # (1.3-7.7) k/uL Lymphocytes # (1.0-4.8) k/uL D-Dimer (<0.60) mg/L FEU ABG pH 7.03 L* (7.35-7.45) ABG pCO2 >120 H* (35-45) mmHg ABG pO2 61 L (83-108) mmHg ABG HCO3 (21-25) mmol/L ABG Total CO2 (19-24) mmol/L ABG O2 Saturation 85.5 L (94-97) % Potassium 6.7 H* (3.5-5.1) mmol/L Carbon Dioxide 33 H (22-30) mmol/L BUN 129 H* (9-20) mg/dL Creatinine 3.83 H (0.66-1.25) mg/dL Glucose 155 H (74-99) mg/dL POC Glucose (mg/dL) 154 H (75-99) mg/dL Calcium 7.6 L (8.4-10.2) mg/dL AST 69 H (17-59) U/L ALT 64 H (4-49) U/L Alkaline Phosphatase (38-126) U/L Lactate Dehydrogenase (313-618) U/L C-Reactive Protein (<1.0) mg/dL Total Protein 5.7 L (6.3-8.2) g/dL Albumin 2.5 L (3.5-5.0) g/dL 01/02/21 01/02/21 01/02/21 Range/Units 20:11 20:14 23:50 WBC (3.8-10.6) k/uL RBC (4.30-5.90) m/uL Hgb (13.0-17.5) gm/dL Hct (39.0-53.0) % MCV (80.0-100.0) fL Plt Count (150-450) k/uL Neutrophils # (1.3-7.7) k/uL Lymphocytes # (1.0-4.8) k/uL D-Dimer (<0.60) mg/L FEU ABG pH 7.10 L* (7.35-7.45) ABG pCO2 104 H* (35-45) mmHg ABG pO2 57 L* (83-108) mmHg ABG HCO3 32 H (21-25) mmol/L ABG Total CO2 36 H (19-24) mmol/L ABG O2 Saturation 84.4 L (94-97) % Potassium 6.8 H* (3.5-5.1) mmol/L Carbon Dioxide 31 H (22-30) mmol/L BUN 138 H* (9-20) mg/dL Creatinine 4.21 H (0.66-1.25) mg/dL Glucose 136 H (74-99) mg/dL POC Glucose (mg/dL) 128 H (75-99) mg/dL Calcium 7.8 L (8.4-10.2) mg/dL AST 66 H (17-59) U/L ALT 61 H (4-49) U/L Alkaline Phosphatase (38-126) U/L Lactate Dehydrogenase (313-618) U/L C-Reactive Protein (<1.0) mg/dL Total Protein 5.5 L (6.3-8.2) g/dL Albumin 2.4 L (3.5-5.0) g/dL 01/03/21 01/03/21 01/03/21 Range/Units 03:50 03:50 03:50 WBC 24.1 H (3.8-10.6) k/uL RBC 2.64 L (4.30-5.90) m/uL Hgb 8.5 L (13.0-17.5) gm/dL Hct 26.9 L (39.0-53.0) % MCV 102.0 H (80.0-100.0) fL Plt Count 113 L (150-450) k/uL Neutrophils # 22.2 H (1.3-7.7) k/uL Lymphocytes # 0.7 L (1.0-4.8) k/uL D-Dimer 5.24 H (<0.60) mg/L FEU ABG pH (7.35-7.45) ABG pCO2 (35-45) mmHg ABG pO2 (83-108) mmHg ABG HCO3 (21-25) mmol/L ABG Total CO2 (19-24) mmol/L ABG O2 Saturation (94-97) % Potassium 6.6 H* (3.5-5.1) mmol/L Carbon Dioxide (22-30) mmol/L BUN 140 H* (9-20) mg/dL Creatinine 5.39 H (0.66-1.25) mg/dL Glucose 131 H (74-99) mg/dL POC Glucose (mg/dL) (75-99) mg/dL Calcium 7.6 L (8.4-10.2) mg/dL AST (17-59) U/L ALT 57 H (4-49) U/L Alkaline Phosphatase 128 H (38-126) U/L Lactate Dehydrogenase 1462 H (313-618) U/L C-Reactive Protein 15.7 H (<1.0) mg/dL Total Protein 4.9 L (6.3-8.2) g/dL Albumin 2.2 L (3.5-5.0) g/dL 01/03/21 01/03/21 01/03/21 Range/Units 05:25 12:32 Unknown WBC (3.8-10.6) k/uL RBC (4.30-5.90) m/uL Hgb (13.0-17.5) gm/dL Hct (39.0-53.0) % MCV (80.0-100.0) fL Plt Count (150-450) k/uL Neutrophils # (1.3-7.7) k/uL Lymphocytes # (1.0-4.8) k/uL D-Dimer (<0.60) mg/L FEU ABG pH 7.06 L* (7.35-7.45) ABG pCO2 114 H* (35-45) mmHg ABG pO2 68 L (83-108) mmHg ABG HCO3 31 H (21-25) mmol/L ABG Total CO2 (19-24) mmol/L ABG O2 Saturation 86.0 L (94-97) % Potassium 6.5 H* (3.5-5.1) mmol/L Carbon Dioxide (22-30) mmol/L BUN (9-20) mg/dL Creatinine (0.66-1.25) mg/dL Glucose (74-99) mg/dL POC Glucose (mg/dL) 148 H (75-99) mg/dL Calcium (8.4-10.2) mg/dL AST (17-59) U/L ALT (4-49) U/L Alkaline Phosphatase (38-126) U/L Lactate Dehydrogenase (313-618) U/L C-Reactive Protein (<1.0) mg/dL Total Protein (6.3-8.2) g/dL Albumin (3.5-5.0) g/dL Microbiology - Last 24 Hours (Table) 12/28/20 12:18 Blood Culture - Final Blood No Growth after 144 hours 12/29/20 22:09 Blood Culture - Preliminary Blood No Growth after 96 hours 12/29/20 22:09 Blood Culture - Preliminary Blood No Growth after 96 hours 12/29/20 14:16 Blood Culture - Preliminary Blood No Growth after 96 hours Assessment and Plan Assessment: Acute hypoxic respiratory failure, Sepsis and ARDS, in the setting of COVID-19 pneumonia, sputum also positive for MSSA Septic shock -Continue mechanical ventilation, per pulmonary medicine and critical care recommendation -Continue dexamethasone and vancomycin cefepime, bronchodilator treatment -Wean pressors as tolerated -Overall poor prognosis -Patient's prognosis is poor. We'll consult hospice when family is ready to accept comfort care measures. Subcutaneous emphysema due to barotrauma from areas and mechanical ventilation Stable, continue supportive care, pulmonary medicine and critical care following Acute kidney injury with hyperkalemia and fluid overload , patient has oliguria, Secondary to septic shock Patient unable to tolerate hemodialysis due to low blood pressure. Nephrology on board We'll switch IV Lasix to Bumex. Hyperglycemia without diagnosis of diabetes Continue current insulin regimen Hypertension History of hypertension currently patient hypotensive requiring vasopressor Continue to hold antihypertensive medication Patient currently on Levophed DVT prophylaxis: Lovenox CODE STATUS: DNR Discharge plan/next site of care: Pending hospital course, overall poor prognosis, consider hospice evaluation in case patient continues to get worse
[2021-01-03 18:03] LABS: Glucose,Whole Blood 212 mg/dL (75-99)
[2021-01-03] MEDS: BUMETANIDE 0.25 MG/ML 10 ML VIAL IV SCH (18:09)
[2021-01-03] MEDS: NOREPINEPHRINE 32 MG in SODIUM CHLORIDE 0.9% 218 ML IV SCH (20:33)
[2021-01-03 23:58] LABS: Glucose,Whole Blood 201 mg/dL (75-99)
[2021-01-04] MEDS: NOREPINEPHRINE 32 MG in SODIUM CHLORIDE 0.9% 218 ML IV SCH ×3 (01:56→14:32)
[2021-01-04] MEDS: DEXTROSE 5% IN WATER 1,000 ML with SODIUM BICARB (1 MEQ/ML) 150 ML IV SCH (03:14)
[2021-01-04] MEDS: ARTIFICIAL TEARS-HYPROMELLOSE DROPS 15 ML BTL BOTH EYES SCH ×4 (03:16→12:24)
[2021-01-04 03:51] LABS: Basophils # (A) 0.1 k/uL (0-0.2); Basophils % (A) 1 %; Eosinophils # (A) 0.1 k/uL (0-0.7); Eosinophils % (A) 0 %; Hypochromasia Slight; Lymphocytes # (A) 0.8 k/uL (1.0-4.8); Lymphocytes % (A) 4 %; MCH 31.5 pg (25.0-35.0); MCHC 31.3 g/dL (31.0-37.0); MCV 100.8 fL (80.0-100.0); Mean Platelet Volume 9.8; Monocytes # (A) 0.5 k/uL (0-1.0); Monocytes % (A) 2 %; Neutrophils # (A) 19.2 k/uL (1.3-7.7); Neutrophils % (A) 92 %; Platelet Count 97 k/uL (150-450); RBC 1.82 m/uL (4.30-5.90); RDW 13.6 % (11.5-15.5); WBC 20.8 k/uL (3.8-10.6)
[2021-01-04] MEDS: BUMETANIDE 0.25 MG/ML 10 ML VIAL IV SCH (03:57)
[2021-01-04 04:19] LABS: HCT 18.3 % (39.0-53.0); HGB 5.7 gm/dL (13.0-17.5)
[2021-01-04 04:37] LABS: Albumin 1.9 g/dL (3.5-5.0); C Reactive Protein 8.8 mg/dL (<1.0); Calcium 7.2 mg/dL (8.4-10.2); Total Bilirubin 0.7 mg/dL (0.2-1.3); Total Protein 4.2 g/dL (6.3-8.2)
[2021-01-04 04:44] LABS: Potassium 7.1 mmol/L (3.5-5.1)
[2021-01-04 05:07] LABS: ABG Base Excess -2.2 mmol/L; ABG HCO3 27 mmol/L (21-25); ABG Oxygen Saturation 89.5 % (94-97); ABG PO2 76 mmHg (83-108); Allen Test Performed? Yes
[2021-01-04] MEDS ORDERED: DEXTROSE 50% SYRINGE 50 ML IVP STA (05:11)
[2021-01-04] MEDS ORDERED: INSULIN REGULAR 100 UNIT/ML VIAL (IV) IV ONE (05:11)
[2021-01-04] MEDS ORDERED: SODIUM BICARB 8.4% 50 ML SYR (1 MEQ/ML) IV STA (05:12)
[2021-01-04] MEDS ORDERED: CALCIUM GLUCONATE 1 GM in SODIUM CHLORIDE 0.9% 100 ML IVPB ONE (05:15)
[2021-01-04] MEDS: INSULIN ASPART (NovoLOG) 100 UNIT/ML VIAL SQ SCH ×3 (05:41→12:24)
[2021-01-04 05:42] LABS: Glucose,Whole Blood 130 mg/dL (75-99)
[2021-01-04 06:02] LABS: ABG PCO2 100 mmHg (35-45); ABG PH 7.07 (7.35-7.45)
[2021-01-04] MEDS: INSULIN DETEMIR (LEVEMIR) 100 UNIT/ML SYR SQ SCH (06:29)
[2021-01-04 06:31] LABS: Glucose,Whole Blood 151 mg/dL (75-99)
[2021-01-04] MEDS: ALBUTEROL HFA INHALER INHALATION SCH ×3 (08:26→15:18)
[2021-01-04] MEDS: CEFEPIME 1 GM in SODIUM CHLORIDE 0.9% 50 ML IVPB SCH (08:55)
[2021-01-04] MEDS: CHOLECALCIFEROL 25 MCG (1000 IU) TABLET PO SCH (09:02)
[2021-01-04] MEDS: ZINC SULFATE 220 MG CAP PO SCH (09:02)
[2021-01-04] MEDS: CHLORHEXIDINE GLUCONATE 15 ML CUP MUCOUS MEM SCH (09:02)
[2021-01-04] MEDS: DEXAMETHASONE SOD PHOSPHATE 10 MG/ML 1 ML VIAL IV SCH (09:02)
[2021-01-04] MEDS: PANTOPRAZOLE 40 MG/10 ML VIAL IVP SCH (09:02)
[2021-01-04] MEDS: ASCORBIC ACID 500 MG TAB PO SCH (09:02)
[2021-01-04] MEDS: ENOXAPARIN 40 MG/0.4 ML SYRINGE SQ SCH (09:04)
[2021-01-04] MEDS: SODIUM CHLORIDE 0.9% 1,000 ML IV SCH (09:05)
--- NOTE | 2021-01-04 09:28 | XR ---
EXAMINATION TYPE: XR chest 1V portable DATE OF EXAM: 01/04/2021 COMPARISON: Chest x-ray 01/03/2021 HISTORY: Covid, intubated TECHNIQUE: Single frontal view of the chest is obtained. FINDINGS: Findings are similar to prior exam. Endotracheal tube and NG tube, left-sided PICC line ar e all again noted. There is extensive subcutaneous emphysema, pneumomediastinum change is suspected. No evident pneumothorax or sizable effusion. Bilateral airspace disease is present. IMPRESSION: Correlate for ARDS, pneumonia, edema
[2021-01-04] MEDS: LACTOBACILLUS ACIDOPH & BULGAR 1 EACH PACKET PO SCH (09:40)
[2021-01-04] MEDS ORDERED: SODIUM POLYSTYRENE SULFONATE 15 GM/60 ML BOTTLE PO STA (10:12)
--- NOTE | 2021-01-04 10:28 | P.PN ---
Subjective Patient is seen in follow-up for acute kidney injury. Remains oliguric and hyperkalemic. Renal replacement therapy attempted twice but could not tolerate. On 100% FiO2. On Levophed. Receiving tube feeds. Hemodynamically unstable. Irregular rhythm. Hypotensive on vasopressor support. HEENT: Intubated. LUNGS: Breath sounds decreased. HEART: Irregular rate and rhythm. ABDOMEN: Soft, no distention. EXTREMITITES: 2+ edema. Objective - Vital Signs Vital signs: Vital Signs Temp 100.0 F H 01/04/21 08:00 Pulse 114 H 01/04/21 10:00 Resp 40 H 01/04/21 10:00 BP 115/63 01/04/21 10:00 Pulse Ox 84 L 01/04/21 10:00 Intake & Output 01/03/21 01/04/21 01/04/21 18:59 06:59 18:59 Intake Total 2138 2911.102 967.246 Output Total 410 0 5 Balance 1728 2911.102 962.246 Weight 83.4 kg Intake: IV 276 1176 382 .9 pressure bag 36 36 12 Cefepime 1 gm In Sodium 50 Chloride 0.9% 50 ml @ 12. 5 mls/hr IVPB Q12HR [facility] Rx#:[id number] Dextrose 5% in Water 1, 900 300 000 ml @ 75 mls/hr IV . [id number] [facility] with Sodium Bicarb (1 Meq/ml) 150 ml Rx#:[id number] Sodium Chloride 0.9% 1, 240 240 20 000 ml @ 20 mls/hr IV . Q24H [facility] Rx#:[id number] Intake, IV Titration 616 949.102 333.246 Amount Cisatracurium 200 mg In 174.806 Sodium Chloride 0.9% 180 ml @ 1 MCG/KG/MIN 5.004 mls/hr IV .Q24H [facility] Rx#: [id number] Norepinephrine 32 mg In 189.407 239.838 Sodium Chloride 0.9% 218 ml @ 0.9 MCG/KG/MIN 35. 184 mls/hr IV .Q7H7M [facility] Rx#:[id number] Norepinephrine 8 mg In 516 384.889 Sodium Chloride 0.9% 250 ml @ 0.05 MCG/KG/MIN 8. 069 mls/hr IV .Q24H [facility] Rx#:[id number] propofoL 1,000 mg In 100 200 93.408 Empty Bag 1 bag @ Titrate IV .Q0M [facility] Rx#: [id number] Tube Feeding 456 456 152 Hemodialysis 700 Other 90 330 100 Output: Urine 10 0 5 Hemodialysis 400 Other: Voiding Method Indwelling Catheter Indwelling Catheter Indwelling Catheter ABP, PAP, CO, CI - Last Documented Arterial Blood Pressure 69/45 - Labs CBC & Chem 7: 01/04/21 03:40 01/04/21 03:40 Labs: Abnormal Lab Results - Last 24 Hours (Table) 01/03/21 01/03/21 01/03/21 Range/Units 12:32 18:01 23:56 WBC (3.8-10.6) k/uL RBC (4.30-5.90) m/uL Hgb (13.0-17.5) gm/dL Hct (39.0-53.0) % MCV (80.0-100.0) fL Plt Count (150-450) k/uL Neutrophils # (1.3-7.7) k/uL Lymphocytes # (1.0-4.8) k/uL D-Dimer (<0.60) mg/L FEU ABG pH (7.35-7.45) ABG pCO2 (35-45) mmHg ABG pO2 (83-108) mmHg ABG HCO3 (21-25) mmol/L ABG O2 Saturation (94-97) % Sodium (137-145) mmol/L Potassium (3.5-5.1) mmol/L Chloride (98-107) mmol/L BUN (9-20) mg/dL Creatinine (0.66-1.25) mg/dL Glucose (74-99) mg/dL POC Glucose (mg/dL) 148 H 212 H 201 H (75-99) mg/dL Calcium (8.4-10.2) mg/dL AST (17-59) U/L ALT (4-49) U/L Alkaline Phosphatase (38-126) U/L Lactate Dehydrogenase (313-618) U/L C-Reactive Protein (<1.0) mg/dL Total Protein (6.3-8.2) g/dL Albumin (3.5-5.0) g/dL Crossmatch 01/04/21 01/04/21 01/04/21 Range/Units 03:40 03:40 03:42 WBC 20.8 H (3.8-10.6) k/uL RBC 1.82 L (4.30-5.90) m/uL Hgb 5.7 L* D (13.0-17.5) gm/dL Hct 18.3 L* (39.0-53.0) % MCV 100.8 H (80.0-100.0) fL Plt Count 97 L (150-450) k/uL Neutrophils # 19.2 H (1.3-7.7) k/uL Lymphocytes # 0.8 L (1.0-4.8) k/uL D-Dimer 8.13 H (<0.60) mg/L FEU ABG pH (7.35-7.45) ABG pCO2 (35-45) mmHg ABG pO2 (83-108) mmHg ABG HCO3 (21-25) mmol/L ABG O2 Saturation (94-97) % Sodium 133 L (137-145) mmol/L Potassium 7.1 H* (3.5-5.1) mmol/L Chloride 97 L (98-107) mmol/L BUN 157 H* (9-20) mg/dL Creatinine 6.69 H (0.66-1.25) mg/dL Glucose 146 H (74-99) mg/dL POC Glucose (mg/dL) (75-99) mg/dL Calcium 7.2 L (8.4-10.2) mg/dL AST 89 H (17-59) U/L ALT 67 H (4-49) U/L Alkaline Phosphatase 134 H (38-126) U/L Lactate Dehydrogenase 1796 H (313-618) U/L C-Reactive Protein 8.8 H (<1.0) mg/dL Total Protein 4.2 L (6.3-8.2) g/dL Albumin 1.9 L (3.5-5.0) g/dL Crossmatch 01/04/21 01/04/21 01/04/21 Range/Units 04:50 04:55 05:41 WBC (3.8-10.6) k/uL RBC (4.30-5.90) m/uL Hgb (13.0-17.5) gm/dL Hct (39.0-53.0) % MCV (80.0-100.0) fL Plt Count (150-450) k/uL Neutrophils # (1.3-7.7) k/uL Lymphocytes # (1.0-4.8) k/uL D-Dimer (<0.60) mg/L FEU ABG pH 7.07 L* (7.35-7.45) ABG pCO2 100 H* (35-45) mmHg ABG pO2 76 L (83-108) mmHg ABG HCO3 27 H (21-25) mmol/L ABG O2 Saturation 89.5 L (94-97) % Sodium (137-145) mmol/L Potassium (3.5-5.1) mmol/L Chloride (98-107) mmol/L BUN (9-20) mg/dL Creatinine (0.66-1.25) mg/dL Glucose (74-99) mg/dL POC Glucose (mg/dL) 130 H (75-99) mg/dL Calcium (8.4-10.2) mg/dL AST (17-59) U/L ALT (4-49) U/L Alkaline Phosphatase (38-126) U/L Lactate Dehydrogenase (313-618) U/L C-Reactive Protein (<1.0) mg/dL Total Protein (6.3-8.2) g/dL Albumin (3.5-5.0) g/dL Crossmatch See Detail 01/04/21 Range/Units 06:29 WBC (3.8-10.6) k/uL RBC (4.30-5.90) m/uL Hgb (13.0-17.5) gm/dL Hct (39.0-53.0) % MCV (80.0-100.0) fL Plt Count (150-450) k/uL Neutrophils # (1.3-7.7) k/uL Lymphocytes # (1.0-4.8) k/uL D-Dimer (<0.60) mg/L FEU ABG pH (7.35-7.45) ABG pCO2 (35-45) mmHg ABG pO2 (83-108) mmHg ABG HCO3 (21-25) mmol/L ABG O2 Saturation (94-97) % Sodium (137-145) mmol/L Potassium (3.5-5.1) mmol/L Chloride (98-107) mmol/L BUN (9-20) mg/dL Creatinine (0.66-1.25) mg/dL Glucose (74-99) mg/dL POC Glucose (mg/dL) 151 H (75-99) mg/dL Calcium (8.4-10.2) mg/dL AST (17-59) U/L ALT (4-49) U/L Alkaline Phosphatase (38-126) U/L Lactate Dehydrogenase (313-618) U/L C-Reactive Protein (<1.0) mg/dL Total Protein (6.3-8.2) g/dL Albumin (3.5-5.0) g/dL Crossmatch Microbiology - Last 24 Hours (Table) 12/29/20 22:09 Blood Culture - Preliminary Blood No Growth after 120 hours 12/29/20 22:09 Blood Culture - Preliminary Blood No Growth after 120 hours 12/29/20 14:16 Blood Culture - Preliminary Blood No Growth after 120 hours 12/28/20 12:18 Blood Culture - Final Blood No Growth after 144 hours Assessment and Plan Plan: Assessment: 1. Acute kidney injury secondary to ATN secondary to septic shock/COVID-19 infection. Oliguric. Renal replacement therapy attempted twice but could not tolerate due to hemodynamic instability. 2. Hyperkalemia secondary to acute kidney injury. 3. COVID-19 pneumonia. 4. Septic shock on vasopressor support. On Levophed. 5. Acute hypoxic and hypercapnic respiratory failure on 100% FiO2 support. 6. Volume overload. 7. Acute blood loss anemia. Scheduled for blood transfusion today. Plan: Attempt SLED again if family willing. Hyperkalemia was medically treated with IV calcium, IV insulin with D50, sodium bicarbonate IV push as well as Kayexalate. Wean FiO2 and vasopressors. Prognosis guarded. Case discussed with the nurse and the patient's daughter in detail. At this time she wishes to continue with present therapy. She will discuss with the patient's to see if renal replacement therapy is to be continued.
[2021-01-04 12:09] LABS: Glucose,Whole Blood 161 mg/dL (75-99)
--- NOTE | 2021-01-04 13:26 | P.PN ---
Subjective Progress Note Date: 01/04/21 Principal diagnosis: Acute hypoxic respiratory failure secondary to acute COVID-19 pneumonia 01/02/2021, the patient is clinically worse. Since yesterday, the patient is developing worsening renal function worsening and hypoxemia. This morning, the patient is being seen in follow-up. The patient remains sedated and paralyzed. Currently is on propofol at 50 mg/kg per minute and he is also Nimbex at 2 mcg/kg per minute. He is well sedated and paralyzed. He is very much in terested the mechanical ventilator. He is currently a volume cycled assist- control mode of mechanical ventilation with a tidal volume of 360, FiO2 of 75% which was brought up to 100% with a PEEP of 12 and a respiratory rate of 36. The patient was developing hypoxemia with a pulse ox in the low 80s. At that point, blood gases was done this morning and it showed a pH of 7.15 with a pCO2 of 103 and pO2 42. FiO2 was brought up to 100%. Furthermore, increase the PEEP up to 15. Along with this change, the peak airway pressure for now is 41. Static pressure is 39. The follow-up chest x-ray from today showing diffuse by the pulmonary infiltrates with pneumonia. There is also evidence of sub cutaneous emphysema which remains unchanged compared to yesterday. It is mainly in the neck and the upper chest area. ET tube is about 3 cm above the glynn, for the most part it's in a good location. No significant orotracheal secretions. The most recent sputum culture came back positive for MSSA. I discontinue the vancomycin and The patient only on IV cefepime. Hemodynamically, his blood pressure is soft, lower on today's evaluation. His white cell count is at 16.2. He is on no pressors. He was receiving normal saline at rate of 75 mL's an hour. Urine output has dropped significantly and the patient has a producing around 10-50 mL an hour. Overall net fluid balance over the past 24 hours has been +2.5 L and later on +3.7 L over the past 24 hours. The patient received a dose of Lasix by nephrology. Dose of 60 mg IV push without any much improvement in his urine output. Meanwhile, the patient also has developed hyperkalemia with a potassium level of 5.5 today, BUN is at 1 36 with a creatinine of 4.02. As such, there is not a component of ATN and progressive worsening his renal function with a past 24-48 hours. LDH level is at 1274, CRP level is at 6.8, serum bicarbonate 33,. The patient continues receiving enteral feeding for nutritional support. He is tolerating his diet. No aspiration. Sodium is up from 147-140. The patient was on D5 water which will be discontinued today. We'll keep the patient's IV fluids to KVO. His taken also NG water flushes regarding his hyperlipidemia which will be also dropped to 100cc 4 times a day. Patient was reevaluated today on 01/03/21, patient remains in the ICU, extremely ill, critically ill, remains intubated and mechanically ventilated. Patient is on assist control rate of 40 volume 375 FiO2 on the percent PEEP of 15. ABG this morning showed a pO2 of 68 pCO2 114 pH of 7.06. Patient is requiring significant amount of norepinephrine 0.9 mcg/kg/m. Remains on propofol at 50 mcg/kg/m, and he is also on Nimbex. IV fluids at KVO. Patient was being dialyzed, however because of his blood pressure, does not seem to be tolerating hemodialysis well. And I believe it is about to be discontinued. Updated the daughter at bedside. Please refer to notes below regarding my discussion with the daughter. Chest x-ray continues to show worsening bilateral infiltrates. And significant subcu emphysema but there is no evidence of pneumothorax,. WBC count is 24.1 hemoglobin is 8.5. Electrolytes were reviewed, potassium is high at 6.6 renal profile is worsening with a BUN of 140 creatinine 5.39. Inflammatory markers remain elevated with LDH of 1462 and C-reactive protein of 15.7. Liver enzymes are relatively within normal. Patient remains on bronchodilators, multivitamins, cefepime, Peridex, Decadron 6 mg IV push daily, Lovenox 40 mg subcu daily, Lasix 80 mg IV push every 12 hours, Dilaudid when necessary, insulin, and to prednisone, and zinc. Reevaluated today on 01/04/21, patient remains in the ICU, remains intubated, mechanically ventilated, sedated and paralyzed. His ventilator settings are assist control rate of 40 tidal volume 375 FiO2 100% PEEP of 15. ABG this morning showed a pO2 of 76, pCO2 of 100 pH of 7.07. Patient remains on Nimbex, bicarbonate drip, propofol at 50 mcg/kg/m, and on a relatively high dose of norepinephrine 0.95 mcg/kg/m. Patient is being followed by many consultants including nephrology, and patient remains oliguric and hyperkalemic. According to the metaphysics teacher, renal replacement therapy at that to twice but could not tolerate, and I am not certain if he is going to try hemodialysis again today. But it is very unlikely since the patient has very marginal blood pressure at best. Not to mention he is requiring significant amount of norepinephrine to barely get a blood pressure of 72/44. Hemoglobin this morning was 5.7, initially the patient was supposed to receive a unit of packed RBCs, however his daughter refused the blood to be transfused, but later on I learned from the nurse that his daughter changed her mind, and was agreeable to have the blood transfusions. Obviously were dealing with situations where in the daughter seems to be interfering with medical care, and does not seem to be communicating properly with the different staff on the case including myself, nurses, and the metaphysics teacher on the case today she even wanted me off the case, and a recommended transferring the case to the care of another ip architect/Dr. Gooden, however after he was made aware of the whole situation, he declined to see the patient on consultation. The daughter was clearly made aware yesterday that this is basically a medical futility situation, and the condition is basically hopeless. I believe she did agree to DO NOT RESUSCITATE CODE STATUS yesterday, but I wouldn't be surprised if she changes her mind again. Objective - Vital Signs Vital signs: Vital Signs Temp 99.0 F 01/04/21 12:33 Pulse 114 H 01/04/21 13:00 Resp 40 H 01/04/21 13:00 BP 133/63 01/04/21 13:00 Pulse Ox 82 L 01/04/21 13:00 Intake & Output 01/03/21 01/04/21 01/04/21 18:59 06:59 18:59 Intake Total 2138 2911.102 1506.986 Output Total 410 0 5 Balance 1728 2911.102 1501.986 Weight 83.4 kg Intake: IV 276 1176 616 .9 pressure bag 36 36 21 Cefepime 1 gm In Sodium 50 Chloride 0.9% 50 ml @ 12. 5 mls/hr IVPB Q12HR [facility] Rx#:[id number] Dextrose 5% in Water 1, 900 525 000 ml @ 75 mls/hr IV . [id number] [facility] with Sodium Bicarb (1 Meq/ml) 150 ml Rx#:[id number] Sodium Chloride 0.9% 1, 240 240 20 000 ml @ 20 mls/hr IV . Q24H [facility] Rx#:[id number] Intake, IV Titration 616 949.102 424.986 Amount Cisatracurium 200 mg In 174.806 Sodium Chloride 0.9% 180 ml @ 1 MCG/KG/MIN 5.004 mls/hr IV .Q24H [facility] Rx#: [id number] Norepinephrine 32 mg In 189.407 239.838 Sodium Chloride 0.9% 218 ml @ 0.9 MCG/KG/MIN 35. 184 mls/hr IV .Q7H7M [facility] Rx#:[id number] Norepinephrine 8 mg In 516 384.889 Sodium Chloride 0.9% 250 ml @ 0.05 MCG/KG/MIN 8. 069 mls/hr IV .Q24H [facility] Rx#:[id number] propofoL 1,000 mg In 100 200 185.148 Empty Bag 1 bag @ Titrate IV .Q0M [facility] Rx#: [id number] Tube Feeding 456 456 266 Blood Product 0 Rc Pheresis 2 As3 Unit 0 [id number] Hemodialysis 700 Other 90 330 200 Output: Urine 10 0 5 Hemodialysis 400 Other: Voiding Method Indwelling Catheter Indwelling Catheter Indwelling Catheter ABP, PAP, CO, CI - Last Documented Arterial Blood Pressure 82/49 - Exam GENERAL EXAM: Revealed a 65-year-old white male intubated, mechanically ventil ated, sedated and paralyzed. HEAD: Normocephalic/atraumatic. EYES: Normal reaction of pupils, equal size. Conjunctiva pink, sclera white. Endotracheal tube and orogastric tube are intact. NOSE: Clear with pink turbinates. THROAT: No erythema or exudates. NECK: No masses, no JVD, no thyroid enlargement, no adenopathy. CHEST: Subcu emphysema is noted. Symmetrical chest expansion is noted. Much of the change in the last 24 hours. LUNGS: Crackles at the bases. No rhonchi no wheezes. CVS: Distant S1 and S2, no S3 gallop. ABDOMEN: Soft, no megaly, no tenderness, no rebound, no guarding. EXTREMITIES: Trace of bipedal edema. MUSCULOSKELETAL: Cannot assess, patient is sedated and paralyzed. SKIN: No rashes CENTRAL NERVOUS SYSTEM: Sedated and paralyzed, cannot assess otherwise. - Labs CBC & Chem 7: 01/04/21 03:40 01/04/21 03:40 Labs: Abnormal Lab Results - Last 24 Hours (Table) 01/03/21 01/03/21 01/04/21 Range/Units 18:01 23:56 03:40 WBC (3.8-10.6) k/uL RBC (4.30-5.90) m/uL Hgb (13.0-17.5) gm/dL Hct (39.0-53.0) % MCV (80.0-100.0) fL Plt Count (150-450) k/uL Neutrophils # (1.3-7.7) k/uL Lymphocytes # (1.0-4.8) k/uL D-Dimer (<0.60) mg/L FEU ABG pH (7.35-7.45) ABG pCO2 (35-45) mmHg ABG pO2 (83-108) mmHg ABG HCO3 (21-25) mmol/L ABG O2 Saturation (94-97) % Sodium 133 L (137-145) mmol/L Potassium 7.1 H* (3.5-5.1) mmol/L Chloride 97 L (98-107) mmol/L BUN 157 H* (9-20) mg/dL Creatinine 6.69 H (0.66-1.25) mg/dL Glucose 146 H (74-99) mg/dL POC Glucose (mg/dL) 212 H 201 H (75-99) mg/dL Calcium 7.2 L (8.4-10.2) mg/dL AST 89 H (17-59) U/L ALT 67 H (4-49) U/L Alkaline Phosphatase 134 H (38-126) U/L Lactate Dehydrogenase 1796 H (313-618) U/L C-Reactive Protein 8.8 H (<1.0) mg/dL Total Protein 4.2 L (6.3-8.2) g/dL Albumin 1.9 L (3.5-5.0) g/dL Coronavirus (PCR) (Not Detectd) Crossmatch 01/04/21 01/04/21 01/04/21 Range/Units 03:40 03:42 04:50 WBC 20.8 H (3.8-10.6) k/uL RBC 1.82 L (4.30-5.90) m/uL Hgb 5.7 L* D (13.0-17.5) gm/dL Hct 18.3 L* (39.0-53.0) % MCV 100.8 H (80.0-100.0) fL Plt Count 97 L (150-450) k/uL Neutrophils # 19.2 H (1.3-7.7) k/uL Lymphocytes # 0.8 L (1.0-4.8) k/uL D-Dimer 8.13 H (<0.60) mg/L FEU ABG pH (7.35-7.45) ABG pCO2 (35-45) mmHg ABG pO2 (83-108) mmHg ABG HCO3 (21-25) mmol/L ABG O2 Saturation (94-97) % Sodium (137-145) mmol/L Potassium (3.5-5.1) mmol/L Chloride (98-107) mmol/L BUN (9-20) mg/dL Creatinine (0.66-1.25) mg/dL Glucose (74-99) mg/dL POC Glucose (mg/dL) (75-99) mg/dL Calcium (8.4-10.2) mg/dL AST (17-59) U/L ALT (4-49) U/L Alkaline Phosphatase (38-126) U/L Lactate Dehydrogenase (313-618) U/L C-Reactive Protein (<1.0) mg/dL Total Protein (6.3-8.2) g/dL Albumin (3.5-5.0) g/dL Coronavirus (PCR) (Not Detectd) Crossmatch See Detail 01/04/21 01/04/21 01/04/21 Range/Units 04:55 05:41 06:29 WBC (3.8-10.6) k/uL RBC (4.30-5.90) m/uL Hgb (13.0-17.5) gm/dL Hct (39.0-53.0) % MCV (80.0-100.0) fL Plt Count (150-450) k/uL Neutrophils # (1.3-7.7) k/uL Lymphocytes # (1.0-4.8) k/uL D-Dimer (<0.60) mg/L FEU ABG pH 7.07 L* (7.35-7.45) ABG pCO2 100 H* (35-45) mmHg ABG pO2 76 L (83-108) mmHg ABG HCO3 27 H (21-25) mmol/L ABG O2 Saturation 89.5 L (94-97) % Sodium (137-145) mmol/L Potassium (3.5-5.1) mmol/L Chloride (98-107) mmol/L BUN (9-20) mg/dL Creatinine (0.66-1.25) mg/dL Glucose (74-99) mg/dL POC Glucose (mg/dL) 130 H 151 H (75-99) mg/dL Calcium (8.4-10.2) mg/dL AST (17-59) U/L ALT (4-49) U/L Alkaline Phosphatase (38-126) U/L Lactate Dehydrogenase (313-618) U/L C-Reactive Protein (<1.0) mg/dL Total Protein (6.3-8.2) g/dL Albumin (3.5-5.0) g/dL Coronavirus (PCR) (Not Detectd) Crossmatch 01/04/21 01/04/21 Range/Units 10:31 12:07 WBC (3.8-10.6) k/uL RBC (4.30-5.90) m/uL Hgb (13.0-17.5) gm/dL Hct (39.0-53.0) % MCV (80.0-100.0) fL Plt Count (150-450) k/uL Neutrophils # (1.3-7.7) k/uL Lymphocytes # (1.0-4.8) k/uL D-Dimer (<0.60) mg/L FEU ABG pH (7.35-7.45) ABG pCO2 (35-45) mmHg ABG pO2 (83-108) mmHg ABG HCO3 (21-25) mmol/L ABG O2 Saturation (94-97) % Sodium (137-145) mmol/L Potassium (3.5-5.1) mmol/L Chloride (98-107) mmol/L BUN (9-20) mg/dL Creatinine (0.66-1.25) mg/dL Glucose (74-99) mg/dL POC Glucose (mg/dL) 161 H (75-99) mg/dL Calcium (8.4-10.2) mg/dL AST (17-59) U/L ALT (4-49) U/L Alkaline Phosphatase (38-126) U/L Lactate Dehydrogenase (313-618) U/L C-Reactive Protein (<1.0) mg/dL Total Protein (6.3-8.2) g/dL Albumin (3.5-5.0) g/dL Coronavirus (PCR) Detected A (Not Detectd) Crossmatch Microbiology - Last 24 Hours (Table) 12/29/20 22:09 Blood Culture - Preliminary Blood No Growth after 120 hours 12/29/20 22:09 Blood Culture - Preliminary Blood No Growth after 120 hours 12/29/20 14:16 Blood Culture - Preliminary Blood No Growth after 120 hours 12/28/20 12:18 Blood Culture - Final Blood No Growth after 144 hours Assessment and Plan Assessment: Impression: Acute hypoxic respiratory failure secondary to COVID-19 pneumonia, refused remdesivir initially, not vaccinated, developed MSSA infection, hence remained on cefepime, patient is receiving permissive hypercapnia with significant respiratory acidosis and hyperkalemia. Being addressed by nephrology however the patient had poor tolerance to renal replacement therapy. Acute on chronic anemia exact etiology of the acute anemia is not clear, daughter initially declined blood transfusion but she later on changed her mind about the blood transfusion. Acute COVID-19 pneumonia with diffuse pulmonary infiltrates and associated ARDS. Acute kidney injury with renal failure requiring hemodialysis, could not tolerat e hemodialysis/renal replacement therapy. Hyperkalemia secondary to worsening respiratory acidosis and renal failure. Patient has metabolic and respiratory acidosis. MSSA pneumonia is being suspected. Remains on cefepime. Hypotension secondary to sepsis and septic shock. Patient is requiring a si gnificant dose of norepinephrine blood pressure remains marginal with a blood pressure of 72/44 Elevated inflammatory markers secondary to acute COVID-19 pneumonia Enteral feeding for nutritional support, on Nepro. Recommendation: Transfuse patient with 1 unit of packed RBCs. Continue ventilatory support. Continue hemodynamic support. Continue nutritional support. Continue IV cefepime. Continue Decadron. Nephrology to address renal status and may or may not attempt dialysis again. Continue bicarb drip. Again overall prognosis for actually is futile.. I have discussed the option with the daughter yesterday of potentially comfort care measures, and she declined. His was also made aware of his condition yesterday. And updated on him briefly today With arrange for the patient to be taken care of by Dr. Gooden if he is agreeable to take care of the patient. Otherwise we'll continue to follow. The daughter of this patient seems to be unhappy with the medical care, and I offered to find a second opinion for her or somebody to take over the case, but that other person is not willing to take over the case. The durable medical equipment repairer and that risk management team will be made aware of our s ituation with the daughter Critical care time is over 30 minutes Time with Patient: Greater than 30
[2021-01-04] MEDS: CISATRACURIUM 200 MG in SODIUM CHLORIDE 0.9% 180 ML IV SCH (14:32)
[2021-01-04 14:35] VITALS: TEMP 99.7
--- NOTE | 2021-01-04 16:11 | P.DS ---
Providers Date of admission: 12/15/20 12:01 Expected date of discharge: 01/04/21 Attending physician: Saba Hickman MD Consults: 12/14/20 21:25 Consult Physician Urgent Consulting Provider: Berkley Flowers Consult Reason/Comments: acute hypoxic resp failure, acute covid infection Do you want consulting provider notified?: Yes 12/31/20 10:06 Consult Physician Routine Consulting Provider: Susana Reyes Consult Reason/Comments: JACKIE, CoVID Do you want consulting provider notified?: Yes 01/02/21 08:50 Consult Physician Stat Consulting Provider: Juaquin Chan Consult Reason/Comments: dialysis catheter insertion Do you want consulting provider notified?: Yes Primary care physician: Glynn [facility] Course: 65 years old male patient who was admitted for COVID-19 pneumonia and respiratory failure, patient initially was on nasal cannula and then required BiPAP, patient then was intubated on 12/26/2020. Patient was COVID-19 positive, no history of vaccination, sputum culture also positive for MSSA, patient's respiratory status continued to worsen and on 01/03/2021, the family decided to make the patient a DO NOT RESUSCITATE. The patient subsequently on 01/04 with the family at the bedside. Physical Examination (at 10 am on 01/04) General: intubated and sedated male, appears stated age, normal weight HEENT: NC/AT, moist conjunctiva, no lid-lag, PERRLA Cardiovascular: S1/S2 wnl, no murmurs, rubs, or gallops Lungs: Diffuse ronchi Abdominal: Soft, non-tender, non-distended, no guarding, rebound, or rigidity Skin: Warm, dry Extremities: No edema or contractures Psychiatric: Unable to assess Neuro: Unable to assess Discharge diagnosis: COVID-19 pneumonia with acute hypoxic respiratory failure, acute kidney injury, fluid overload, hyperglycemia, hypertension A total of 35 minutes of time were spent preparing this complex discharge summary. Plan - Discharge Summary Discharge Rx Participant: Yes New Discharge Prescriptions: No Action Acetaminophen Tab [Tylenol] 1,000 mg PO TID PRN PRN Reason: Fever And/ Or Pain Discharge Medication List Acetaminophen Tab [Tylenol] 1,000 mg PO TID PRN 12/14/20 [History] Follow up Appointment(s)/Referral(s): Glynn Echevarria MD [Primary Care Provider] - 1-2 days Discharge Disposition: - Preliminary Cause of Preliminary Cause of : COVID
[2021-01-04 16:25] VITALS: BP 86/55; PULSE 90
== END 2021-01-04 17:45 | disposition expired | DRG 207 ==
LOC: EC 17:30 → SUPCPDRO 17:30 → 6NMEDSUR 21:21 → OBSVTOIN 12-15 12:01 → 3SCARD 12-18 22:27 → 2SICU 12-23 10:57
PROVIDERS: ADMIT Internal Medicine; ATTEND Internal Medicine
PROC: XW0DXM6 Introduction of Baricitinib into Mouth and Pharynx, External Approach, New Technology Group 6 (ICD-10-PCS; 2020-12-15)
PROC: 5A0935A Assistance with Respiratory Ventilation, Less than 24 Consecutive Hours, High Flow/Velocity Cannula (ICD-10-PCS; 2020-12-18)
PROC: 5A09557 Assistance with Respiratory Ventilation, Greater than 96 Consecutive Hours, Continuous Positive Airway Pressure (ICD-10-PCS; 2020-12-18)
PROC: 02HV33Z Insertion of Infusion Device into Superior Vena Cava, Percutaneous Approach (ICD-10-PCS; 2020-12-20)
PROC: 3E0436Z Introduction of Nutritional Substance into Central Vein, Percutaneous Approach (ICD-10-PCS; 2020-12-21)
PROC: 0DH67UZ Insertion of Feeding Device into Stomach, Via Natural or Artificial Opening (ICD-10-PCS; 2020-12-26)
PROC: 5A1955Z Respiratory Ventilation, Greater than 96 Consecutive Hours (ICD-10-PCS; principal; 2020-12-27)
PROC: 0BH17EZ Insertion of Endotracheal Airway into Trachea, Via Natural or Artificial Opening (ICD-10-PCS; principal; 2020-12-27)
PROC: 3E043XZ Introduction of Vasopressor into Central Vein, Percutaneous Approach (ICD-10-PCS; 2020-12-27)
PROC: 3E0G76Z Introduction of Nutritional Substance into Upper GI, Via Natural or Artificial Opening (ICD-10-PCS; 2020-12-27)
PROC: 06HM33Z Insertion of Infusion Device into Right Femoral Vein, Percutaneous Approach (ICD-10-PCS; 2021-01-02)
PROC: 5A1D70Z Performance of Urinary Filtration, Intermittent, Less than 6 Hours Per Day (ICD-10-PCS; 2021-01-02)
PROC: 30233N1 Transfusion of Nonautologous Red Blood Cells into Peripheral Vein, Percutaneous Approach (ICD-10-PCS; 2021-01-04)
DX: U07.1 COVID-19 (principal); A41.9 Sepsis, unspecified organism; J12.82 Pneumonia due to coronavirus disease 2019; J15.211 Pneumonia due to Methicillin susceptible Staphylococcus aureus; J80 Acute respiratory distress syndrome; R65.21 Severe sepsis with septic shock; N17.0 Acute kidney failure with tubular necrosis; D62 Acute posthemorrhagic anemia; E87.0 Hyperosmolality and hypernatremia; E87.1 Hypo-osmolality and hyponatremia; E87.4 Mixed disorder of acid-base balance; J95.859 Other complication of respirator [ventilator]; J98.2 Interstitial emphysema; R73.9 Hyperglycemia, unspecified; Z66 Do not resuscitate; I10 Essential (primary) hypertension; Z53.29 Procedure and treatment not carried out because of patient's decision for other reasons; D69.59 Other secondary thrombocytopenia; E78.5 Hyperlipidemia, unspecified; E87.5 Hyperkalemia; E87.70 Fluid overload, unspecified; F41.9 Anxiety disorder, unspecified; I49.9 Cardiac arrhythmia, unspecified; Z87.891 Personal history of nicotine dependence; N14.1 Nephropathy induced by other drugs, medicaments and biological substances; T50.8X5A Adverse effect of diagnostic agents, initial encounter; Z98.890 Other specified postprocedural states; Z82.61 Family history of arthritis; Z83.6 Family history of other diseases of the respiratory system; Z88.1 Allergy status to other antibiotic agents; Z88.8 Allergy status to other drugs, medicaments and biological substances
CPT/HCPCS: 31624; 36415; 36573; 36600; 71045; 71260; 71275; 76770; 80048; 80053; 81001; 82330; 82550; 82565; 82805; 83605; 83615; 83690; 83735; 83880; 84100; 84132; 84145; 84478; 84484; 85025; 85027; 85379; 85610; 85730; 86140; 86706; 86850; 86900; 86901; 86920; 87040; 87070; 87077; 87186; 87205; 87340; 87635; 90935; 93970; 94002; 94003; 94640; 94660; 94760; 96374; 99285